=== PATIENT | female | born 1985 | race Caucasian/White ===

== ENCOUNTER → 2020-03-08 07:47 | Outpatient (BNVA) | payer MEDICAID, SELFPAY | PROVIDERS: PCP Internal Medicine Geriatric Medicine; Referring Provider Internal Medicine Geriatric Medicine; Visit Provider Surgery | DX: Z76.89 Persons encountering health services in other specified circumstances (principal) ==

== ENCOUNTER → 2020-03-31 08:09 | Outpatient (BNVA) | payer MEDICAID, SELFPAY | PROVIDERS: PCP Internal Medicine Geriatric Medicine; Referring Provider Internal Medicine Geriatric Medicine; Visit Provider Surgery | DX: Z76.89 Persons encountering health services in other specified circumstances (principal) ==

== ENCOUNTER → 2020-04-07 08:42 | Outpatient (BNVA) | payer MEDICAID, SELFPAY | PROVIDERS: PCP Internal Medicine Geriatric Medicine; Referring Provider Internal Medicine Geriatric Medicine; Visit Provider Dietitian, Registered | DX: Z76.89 Persons encountering health services in other specified circumstances (principal) ==

== ENCOUNTER 2020-04-11 10:35 | Outpatient (REF) | payer MEDICAID, SELFPAY ==
--- NOTE | 2020-04-11 11:11 | XR_ITS ---
EXAMINATION: XR CHEST CLINICAL INFORMATION: Morbid obesity due to excess calories. COMPARISON: None TECHNIQUE: 2 views of the chest were obtained. FINDINGS: No significant abnormality is noted involving the heart, lungs, mediastinum, bony thorax or soft tissues. XR/XR chest 2V IMPRESSION: Unremarkable chest examination.
[2020-04-11 11:47] LABS: MANUAL DIFF FLAG NO
[2020-04-11 12:00] LABS: Basophils Percent Auto 0.5 % (0-2); Eosinophils Absolute Auto 0.2 X10*3/uL (0.0-0.4); Eosinophils Percent Auto 3.7 % (0-4); Hematocrit 43.6 % (37-47); Hemoglobin 14.2 g/dl (12.0-16.0); Imm Gran Abs Auto 0.03 X10*3/uL (0.00-0.03); Imm Gran Pct Auto 0.5 % (0.0-0.4); Lymphocytes Absolute Auto 2.4 X10*3/uL (1.2-4.9); Lymphocytes Percent Auto 36.4 % (20-40); Mean Corpuscular HGB Conc 32.6 g/dl (31.0-35.0); Mean Corpuscular Hemoglobin 26.9 pg (27.0-33.0); Mean Corpuscular Volume 82.7 fL (80-98); Mean Platelet Volume 12.8 fL (9.4-12.3); Monocytes Absolute Auto 0.4 X10*3/uL (0.1-1.2); Neutrophils Absolute Auto 3.4 X10*3/uL (2.0-8.3); Neutrophils Percent Auto 52.9 % (45-73); Platelet Count 190 X10*3/uL (160-400); Red Blood Count 5.27 X10*6/uL (4.20-5.50); Red Cell Distribution Width 13.3 % (11.0-16.0); White Blood Count 6.5 X10*3/uL (4.8-10.8)
[2020-04-11 12:18] LABS: Alanine Aminotransferase 31 U/L (0-31); Albumin Level 3.8 g/dL (3.5-5.0); Alkaline Phosphatase 64 U/L (39-117); Anion Gap 10 (12-20); Aspartate Amino Transferase 15 U/L (5-31); Bilirubin Total 0.4 mg/dL (0.0-1.0); Blood Urea Nitrogen 12 mg/dL (9-16); Calcium 8.4 mg/dL (8.4-10.2); Carbon Dioxide 25 mmol/L (22-29); Chloride 105 mmol/L (96-108); Cholesterol 135 mg/dL; Estimated Glomerular Filt Rate > 60; Glucose Random 212 mg/dL (60-115); HDL Cholesterol 45 mg/dL; LDL Cholesterol Calculated 78 mg/dl; Potassium 4.2 mmol/l (3.3-5.1); Sodium 136 mmol/L (135-145); Total Protein 6.2 g/dL (6.5-8.0); Triglycerides 64 mg/dL
[2020-04-11 12:24] LABS: Estimated Average Glucose 226 mg/dL; Hemoglobin A1c % 9.5 %
[2020-04-11 12:43] LABS: Ferritin 44 ng/mL (10-122); TSH reflex Free T4 0.99 mIU/mL (0.32-4.0)
[2020-04-11 12:52] LABS: Folate > 20.0 ng/mL (> or = 4.0); Vitamin B12 369 pg/mL (200-900)
[2020-04-12 22:52] LABS: Insulin Level Total 11.6 uIU/mL
[2020-04-13 14:02] LABS: Calcium (PTHI) 8.8 mg/dL (8.6-10.2); PTHI 36 pg/mL (14-64)
[2020-04-16 12:23] LABS: Vitamin B1 15 nmol/L (8-30)
[2020-04-17 16:12] LABS: Zinc 56 mcg/dL (60-130)
[2020-04-18 11:27] LABS: Vitamin A 32 mcg/dL (38-98)
== END 2020-04-11 10:36 | disposition home or self-care (01) ==
LOC: HO.LAB 10:35
PROVIDERS: PCP Internal Medicine Geriatric Medicine; Visit Provider Surgery
DX: E66.01 Morbid (severe) obesity due to excess calories (principal)
CPT/HCPCS: 36415; 71046; 80053; 80061; 82306; 82607; 82728; 82746; 83036; 83525; 83970; 84425; 84443; 84590; 84630; 85025; 86140

== ENCOUNTER → 2020-04-17 08:38 | Outpatient (BNVA) | payer MEDICAID, SELFPAY | PROVIDERS: PCP Internal Medicine Geriatric Medicine; Visit Provider Surgery | DX: Z76.89 Persons encountering health services in other specified circumstances (principal) ==

== ENCOUNTER 2020-05-08 13:17 | Emergency (ER) | payer MEDICAID, SELFPAY ==
[2020-05-08 13:32] VITALS: BP 116/81; PULSE 82; RESP 18; TEMP 36.4; O2SAT 96; BMI 41.6
--- NOTE | 2020-05-08 13:38 | ED_ITS ---
HPI - General Adult General Chief complaint: General Medical Stated complaint: neck pain Time Seen by Provider: 05/08/20 13:37 Source: patient Mode of arrival: ambulatory Limitations: language barrier History of Present Illness HPI narrative: 34 y/o female with history of obesity, depression, DM with neuropathy who presents with left upper back, left neck pain for the last 5 days. She denies trauma but she works as a hairstylist and blowing hair all day is what she thinks made the pain start in the first place. The pain is worse at night. She feels like she has muscle spasms in her neck and back. MD complaint: neck and back pain Onset (ago): day(s) (5) Location: neck and back Radiation: distal Severity: moderate Quality: burning and aching Pain Consistency: constant Relieving factors: immobilization Exacerbating factors: movement Associated symptoms: denies other symptoms Treatments prior to arrival: none Related Data Home Medications Medication Instructions Recorded Confirmed empagliflozin 10 mg tablet 10 mg PO DAILY 03/08/20 03/08/20 insulin glargine 100 unit/mL (3 10 unit SUBCUT BID 03/08/20 03/08/20 mL) subcutaneous pen insulin lispro 100 unit/mL 20.5 unit SUBCUT BID 03/08/20 03/08/20 subcutaneous half-unit pen metformin 1,000 mg tablet 1,000 mg PO DAILY 03/08/20 03/08/20 Previous Rx's Medication Instructions Recorded mecobalamin (vitamin B12) 1,000 1,000 mcg SUBLINGUAL DAILY #30 tab 04/17/20 mcg disintegrating tablet,sublingual cyclobenzaprine 10 mg PO TID PRN #12 tab 05/08/20 ibuprofen 600 mg PO Q8H PRN #20 tab 05/08/20 lidocaine [Lidoderm] 1 patch TOPICAL DAILY #15 ea 05/08/20 Allergies Allergy/AdvReac Type Severity Reaction Status Date / Time aspirin [ASA] Allergy Mild RASH Verified 05/08/20 13:32 Review of Systems Review of Systems: Constitutional: No Fever, No Chills Cardiovascular: No Chest Pain, No SOB Respiratory: No Cough, No Sputum Gastrointestinal: No Nausea, No Vomiting, No Diarrhea, No abdominal Pain Genitourinary: No Dysuria, No Urinary Frequency, No Hematuria Musculoskeletal: + joint pain, + Myalgias Skin: No Skin Lesions, No rash Neuro: No Weakness, No Numbness, No Dizziness, + Headache PMF Past Medical History Attestation statement: The following information was validated with the patient. Medical History Depression Insulin dependent diabetes mellitus Morbid obesity Neuropathy Obesity Vitamin B12 deficiency Surgical History Hx of section Hx of cholecystectomy Family History Family History (Updated 03/08/20 @ 07:46 by Levar Ascencio [facility]) Mother No problems noted. Father No problems noted. Brother No problems noted. Brother No problems noted. Brother No problems noted. Brother No problems noted. Brother No problems noted. Sister No problems noted. Sister No problems noted. Sister No problems noted. Son No problems noted. Daughter No problems noted. Daughter Asthma Social History Social History (Updated 03/08/20 @ 07:46 by Levar Ascencio [facility]) Alcohol intake: never Smoking Status: Never smoker Advance Directives: No Advance Directives Information Provided: No Physical Exam Vital Signs: Vital Signs: Last Vital Signs Temp 97.6 F 05/08/20 13:32 Pulse 82 05/08/20 13:32 Resp 18 05/08/20 13:32 BP 116/81 05/08/20 13:32 Pulse Ox 96 05/08/20 13:32 Body Mass Index 41.6 Appearance: Alert. Oriented X3. No acute distress. HEENT: normal inspection. no cervical spinal tenderness CVS: Normal heart rate and rhythm. Pulses normal. Respiratory: No respiratory distress. Lungs CTAB Skin: Skin warm and dry. Normal skin color. Normal skin turgor. No rashes. Extremities: left posterior shoulder tenderness with upper trapzeius spasm. normal ROM. normal left elbow. Neuro: Oriented X 3. No motor deficit. No sensory deficit. Course Course Course Narrative: 34 y/o female with history of DM with neuropathy, obesity presenting with left upper back, neck pain with palpable spasm on exam. No trauma, will treat for muscle spasm. Patient has been counseled. She is stable for discharge. Critical Care Time Critical Care Time Critical Care Time: No Discharge Plan Discharge Clinical Impression: Trapezius muscle spasm Cervical muscle strain Qualifiers: Encounter type: initial encounter Qualified Code(s): S16.1XXA - Strain of muscle, fascia and tendon at neck level, initial encounter Patient Disposition: Home, Self-Care Instructions: Cervical Strain (ED), Muscle Spasm (ED) Prescriptions: New cyclobenzaprine 10 mg tablet 10 mg PO TID PRN (Reason: muscle spasm) Qty: 12 RF: 0 ibuprofen 600 mg tablet 600 mg PO Q8H PRN (Reason: pain) Qty: 20 RF: 0 lidocaine [Lidoderm] 5 % adhesive patch,medicated 1 patch topical DAILY Qty: 15 RF: 0 No Action metformin 1,000 mg tablet 1,000 mg PO DAILY RF: 0 Jardiance 10 mg tablet 10 mg PO DAILY RF: 0 Lantus Solostar U-100 Insulin 100 unit/mL (3 mL) insulin pen 10 unit subcut BID RF: 0 insulin lispro [Humalog Eliezer KwikPen U-100] 100 unit/mL insulin pen, half- unit 20.5 unit subcut BID RF: 0 mecobalamin (vitamin B12) 1,000 mcg tablet,disintegrating 1,000 mcg sublingual DAILY Qty: 30 RF: 2
== END 2020-05-08 14:31 | disposition home or self-care (01) ==
PROVIDERS: Emergency Provider Emergency Medicine; PCP Internal Medicine Geriatric Medicine
DX: M62.838 Other muscle spasm (principal); S16.1XXA Strain of muscle, fascia and tendon at neck level, initial encounter; X50.1XXA Overexertion from prolonged static or awkward postures, initial encounter; E11.9 Type 2 diabetes mellitus without complications; Y93.9 Activity, unspecified; Y92.9 Unspecified place or not applicable; Y99.9 Unspecified external cause status; Z79.4 Long term (current) use of insulin
CPT/HCPCS: 99283

== ENCOUNTER → 2020-05-09 08:13 | Outpatient (BNVA) | payer MEDICAID, SELFPAY | PROVIDERS: PCP Internal Medicine Geriatric Medicine; Visit Provider Dietitian, Registered ==

== ENCOUNTER → 2020-05-12 08:12 | Outpatient (BNVA) | payer MEDICAID, SELFPAY | PROVIDERS: PCP Internal Medicine Geriatric Medicine; Visit Provider Surgery ==

== ENCOUNTER 2020-05-14 16:58 | Emergency (ER) | payer MEDICAID, SELFPAY ==
--- NOTE | 2020-05-14 | XR_ITS ---
EXAMINATION: SHOULDER 4 VIEWS, LEFT CLINICAL INFORMATION: Left shoulder pain. COMPARISON: None. TECHNIQUE: AP views of the left shoulder were obtained in internal and external rotation. In addition, axillary and Y views were obtained. FINDINGS: There are no fractures or dislocations. The humeral head is seated within a well-formed glenoid. The AC joint is intact. XR/XR shoulder LT min 2V IMPRESSION: Unremarkable left shoulder radiographs.
[2020-05-14 17:14] VITALS: BP 142/80; PULSE 85; RESP 16; TEMP 36.5; O2SAT 99; BMI 41.3
--- NOTE | 2020-05-14 19:13 | ED.EXTPRO ---
HPI - Extremity Problem General Chief complaint: Extremity Injury, Upper Stated complaint: sholder pain Source: patient Mode of arrival: ambulatory Limitations: no limitations History of Present Illness HPI Narrative: 35-year-old female with past medical history of depression, insulin-dependent diabetic, morbid obesity, and neuropathy presents with left shoulder pain. 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 She denies trauma or falls, and states the pain is preventing her from sleeping. She does not report any other symptoms at this time. She does have full range of motion although it is limited because of her pain, has full range of motion to her fingers and has not lost sensation or strength. MD Complaint: extremity pain Onset (ago): day(s) Pain Consistency: constant Location: left Severity scale (1-10): 10 Quality: aching Radiation: none Relieving factors: nothing Exacerbating factors: range of motion Associated symptoms: denies other symptoms Related Data Home Medications Medication Instructions Recorded Confirmed empagliflozin 10 mg tablet 10 mg PO DAILY 03/08/20 03/08/20 insulin glargine 100 unit/mL (3 10 unit SUBCUT BID 03/08/20 03/08/20 mL) subcutaneous pen insulin lispro 100 unit/mL 20.5 unit SUBCUT BID 03/08/20 03/08/20 subcutaneous half-unit pen metformin 1,000 mg tablet 1,000 mg PO DAILY 03/08/20 03/08/20 Previous Rx's Medication Instructions Recorded mecobalamin (vitamin B12) 1,000 1,000 mcg SUBLINGUAL DAILY #30 tab 04/17/20 mcg disintegrating tablet,sublingual cyclobenzaprine 10 mg PO TID PRN #12 tab 05/08/20 ibuprofen 600 mg PO Q8H PRN #20 tab 05/08/20 lidocaine [Lidoderm] 1 patch TOPICAL DAILY #15 ea 05/08/20 diazepam [Valium] 2 mg PO BEDTIME PRN #7 tab 05/14/20 tramadol 50 mg PO Q8H PRN #10 tab 05/14/20 Allergies Allergy/AdvReac Type Severity Reaction Status Date / Time aspirin [ASA] Allergy Mild RASH Verified 05/08/20 13:32 Review of Systems Review of Systems: Constitutional: No Fever, No Chills ENT/Mouth: No Ear Pain, No Hoarseness, No sore throat Eyes: No Eye Pain, No Swelling, No Redness, No Foreign Body Cardiovascular: No Chest Pain, No SOB Respiratory: No Cough, No Dyspnea Gastrointestinal: No Nausea, No Vomiting, No Diarrhea, No abdominal Pain Genitourinary: No Dysuria, No Hematuria Musculoskeletal: positive left shoulder pain, No Myalgias, No Joint Swelling Skin: No Skin lacerations, No rash Neuro: No Weakness, No Numbness, No Paresthesias, No Loss of Consciousness, No Dizziness, No Headache Psych: No Anxiety/Panic, No Depression Heme/Lymph: no easy bruising, no Lymphadenopathy Endocrine: No Polyuria, No Polydipsia Yes all other systems are reviewed and are negative [facility] Past Medical History Attestation statement: The following information was validated with the patient. Source: old records reviewed Medical History Depression Insulin dependent diabetes mellitus Morbid obesity Neuropathy Obesity Vitamin B12 deficiency Surgical History Hx of section Hx of cholecystectomy Family History Family History Mother No problems noted. Father No problems noted. Brother No problems noted. Brother No problems noted. Brother No problems noted. Brother No problems noted. Brother No problems noted. Sister No problems noted. Sister No problems noted. Sister No problems noted. Son No problems noted. Daughter No problems noted. Daughter Asthma Social History Social History Alcohol intake: never Smoking Status: Never smoker Advance Directives: No Advance Directives Information Provided: No Physical Exam Vital Signs: Vital Signs: Last Vital Signs Temp 97.7 F 05/14/20 17:14 Pulse 93 05/14/20 19:50 Resp 16 05/14/20 19:50 BP 121/76 05/14/20 19:50 Pulse Ox 96 05/14/20 19:50 Body Mass Index 41.3 Appearance: Alert. Oriented X3. No acute distress. Eyes: Pupils equal, round and reactive to light. ENT: Pharynx normal. Neck: Normal inspection. Neck supple. CVS: Normal heart rate and rhythm. Pulses normal. Respiratory: No respiratory distress. Breath sounds normal. Abdomen: Soft and nontender. Skin: Skin warm and dry. Normal skin color. Normal skin turgor. Extremities: No lower extremity edema. Left shoulder decreased range of motion with abduction and adduction, strength 5/5, brisk capillary refill, pulses equal to all extremities. Neuro: No motor deficit. No sensory deficit. Course Course Course Narrative: 35-year-old female presents with nontraumatic left shoulder pain. Will order x-rays. She does have full range of motion although she is hesitant to fully abduct and adduct because of the pain in her shoulder, strength 5/5 to hands able to pronate and supinate, flexion and extension without difficulty. No neurovascular deficits. X-rays negative for acute findings. Suspected to be tendinitis due to her occupation. Will have her follow-up with orthopedics tomorrow. Patient verbalized understanding of and agrees plan of care discharge home. MDM - Extremity (Nontraumatic) MDM Narrative Medical decision making narrative: Tendinitis, rotator cuff injury, arthritis Medical Records Attestation: I reviewed the patient's medical records. Imaging Data Shoulder x-ray: Attestation: I personally reviewed and interpreted this imaging study as follows: Radiologist's impression: EXAMINATION: SHOULDER 4 VIEWS, LEFT CLINICAL INFORMATION: Left shoulder pain. COMPARISON: None. TECHNIQUE: AP views of the left shoulder were obtained in internal and external rotation. In addition, axillary and Y views were obtained. FINDINGS: There are no fractures or dislocations. The humeral head is seated within a well-formed glenoid. The AC joint is intact. XR/XR shoulder LT min 2V IMPRESSION: Unremarkable left shoulder radiographs. Discharge Plan Discharge Clinical Impression: Shoulder arthralgia, Rotator cuff arthropathy Patient Disposition: Home, Self-Care Instructions: Rotator Cuff Tendinitis (ED), Arthralgia (ED) Additional Instructions: Te evaluaron [facility] el [facility]. Se sospecha que esto es tendinitis. Las radiograf?as son negativas para fracturas o hallazgos agudos. Por favor, tome tramadol seg?n sea necesario para el manejo del dolor. Ellie medicamento es un narc?walter y tiene un alto riesgo de adicci?n y abuso. No conduzca ni utilice maquinaria mientras est? tomando ellie medicamento. Puede usar Valium seg?n sea necesario para los espasmos musculares. Utiliza medicamentos solo por la noche. Ellie medicamento es un benzo diazepam y tiene un alto riesgo de adicci?n y abuso. No conduzca ni utilice maquinaria mientras est? tomando ellie medicamento. Por favor, siga con el Dr. Zhao y pida timmy jess. David por elegir ellie departamento de emergencias para la evaluaci?n. Por favor, yasir un seguimiento con el m?dico de atenci?n primaria seg?n sea necesario. Regrese al servicio de urgencias para cualquier s?ntoma nuevo, preocupante o que empeore. You were evaluated for left shoulder pain. This is suspected to be tendonitis. Your x-rays are negative for fracture or acute findings. Please take tramadol as needed for pain management. This medication is a narcotic and has high risk for addiction and abuse. Do not drive or operate machinery while taking this medication. You may use Valium as needed for muscle spasms. Uses medication only at night. This medication is a benzo diazepam and has high risk for addiction and abuse. Do not drive or operate machinery while taking this medication. Please follow-up with Dr. Giron. Call and ask for an appointment. Thank you for choosing this emergency department for evaluation. Please follow-up with primary care physician as needed. Return to the emergency department for any new, concerning, or worsening symptoms. Prescriptions: New tramadol 50 mg tablet 50 mg PO Q8H PRN (Reason: pain) Qty: 10 RF: 0 diazepam [Valium] 2 mg tablet 2 mg PO BEDTIME PRN (Reason: muscle spasm) Qty: 7 RF: 0 No Action cyclobenzaprine 10 mg tablet 10 mg PO TID PRN (Reason: muscle spasm) Qty: 12 RF: 0 ibuprofen 600 mg tablet 600 mg PO Q8H PRN (Reason: pain) Qty: 20 RF: 0 lidocaine [Lidoderm] 5 % adhesive patch,medicated 1 patch topical DAILY Qty: 15 RF: 0 metformin 1,000 mg tablet 1,000 mg PO DAILY RF: 0 Jardiance 10 mg tablet 10 mg PO DAILY RF: 0 Lantus Solostar U-100 Insulin 100 unit/mL (3 mL) insulin pen 10 unit subcut BID RF: 0 insulin lispro [Humalog Eliezer KwikPen U-100] 100 unit/mL insulin pen, half-unit 20.5 unit subcut BID RF: 0 mecobalamin (vitamin B12) 1,000 mcg tablet,disintegrating 1,000 mcg sublingual DAILY Qty: 30 RF: 2 Referrals: Chris Giron MD [Physician] - 2 days (Suspected Left shoulder tendinitis) Interventions: ED Discharge Assessment Last Done: 05/14/20 20:05 Discharge Date/Time: 05/14/20 20:05
[2020-05-14 19:50] VITALS: BP 121/76; PULSE 93; RESP 16; O2SAT 96
== END 2020-05-14 20:05 | disposition home or self-care (01) ==
PROVIDERS: Emergency Provider Emergency Medicine Emergency Medical Services; PCP Internal Medicine Geriatric Medicine
DX: M75.102 Unspecified rotator cuff tear or rupture of left shoulder, not specified as traumatic (principal); M25.512 Pain in left shoulder; Z79.899 Other long term (current) drug therapy
CPT/HCPCS: 73030; 99283; 99284

== ENCOUNTER → 2020-05-25 13:33 | Outpatient (BNVA) | payer MEDICAID, SELFPAY | PROVIDERS: PCP Internal Medicine Geriatric Medicine; Visit Provider Physician Assistant | DX: M75.82 Other shoulder lesions, left shoulder (principal) | CPT/HCPCS: 99202 ==

== ENCOUNTER → 2020-05-26 08:28 | Outpatient (BNVA) | payer MEDICAID, SELFPAY | PROVIDERS: PCP Internal Medicine Geriatric Medicine; Visit Provider Surgery ==

== ENCOUNTER → 2020-06-12 08:58 | Outpatient (BNVA) | payer MEDICAID, SELFPAY | PROVIDERS: PCP Internal Medicine Geriatric Medicine; Visit Provider Dietitian, Registered ==

== ENCOUNTER → 2020-06-23 08:17 | Outpatient (BNVA) | payer MEDICAID, SELFPAY | PROVIDERS: PCP Internal Medicine Geriatric Medicine; Visit Provider Surgery ==

== ENCOUNTER → 2020-07-03 08:47 | Outpatient (BNVA) | payer MEDICAID, SELFPAY | PROVIDERS: PCP Internal Medicine Geriatric Medicine; Visit Provider Dietitian, Registered ==

== ENCOUNTER 2020-11-08 16:53 | Emergency (ER) | payer MEDICAID, SELFPAY ==
[2020-11-08 17:16] VITALS: BP 128/51; PULSE 76; RESP 16; TEMP 36.6; O2SAT 98; BMI 43.2
--- NOTE | 2020-11-08 17:16 | ED.GENADULT ---
HPI - General Adult General Chief complaint: Recheck/Abnormal Lab/Rx Stated complaint: Abnormal labs Time Seen by Provider: 11/08/20 17:16 Source: patient Mode of arrival: ambulatory Limitations: no limitations History of Present Illness HPI narrative: 35 y/o female presenting to the ED from Urgent Care with glucose in the 300s and ketones in her urine. She initially went there for nausea, polyuria and dizziness. She took herself off of her Lantus about 3-4 weeks ago because she doesn't like injecting herself so frequently. She has been compliant with her humalog. Since stopping her Lantus her sugars have gone up to 300+ from a baseline of 100-200 per her report. No SOB, fever, chills, abd pain, vomiting or diarrhea. MD complaint: hyperglycemia Onset (ago): week(s) (3) Severity: moderate Relieving factors: none Exacerbating factors: none Associated symptoms: malaise Treatments prior to arrival: none Related Data Home Medications Medication Instructions Recorded Confirmed empagliflozin 10 mg tablet 10 mg PO DAILY 03/08/20 03/08/20 insulin glargine 100 unit/mL (3 10 unit SUBCUT BID 03/08/20 03/08/20 mL) subcutaneous pen insulin lispro 100 unit/mL 20.5 unit SUBCUT BID 03/08/20 03/08/20 subcutaneous half-unit pen metformin 1,000 mg tablet 1,000 mg PO DAILY 03/08/20 03/08/20 celecoxib 50 mg capsule 50 mg PO DAILY 05/25/20 Previous Rx's Medication Instructions Recorded mecobalamin (vitamin B12) 1,000 1,000 mcg SUBLINGUAL DAILY #30 tab 04/17/20 mcg disintegrating tablet,sublingual cyclobenzaprine 10 mg PO TID PRN #12 tab 05/08/20 ibuprofen 600 mg PO Q8H PRN #20 tab 05/08/20 lidocaine [Lidoderm] 1 patch TOPICAL DAILY #15 ea 05/08/20 diazepam [Valium] 2 mg PO BEDTIME PRN #7 tab 05/14/20 tramadol 50 mg PO Q8H PRN #10 tab 05/14/20 Allergies Allergy/AdvReac Type Severity Reaction Status Date / Time aspirin [ASA] Allergy Mild RASH Verified 05/08/20 13:32 Review of Systems Review of Systems: Constitutional: No Fever, No Chills ENT/Mouth: No sore throat Cardiovascular: No Chest Pain, No SOB Respiratory: No Cough, No Sputum Gastrointestinal: + Nausea, No Vomiting, No Diarrhea, No abdominal Pain Genitourinary: No Dysuria, + Urinary Frequency, No Hematuria Musculoskeletal: No joint pain, No Myalgias Skin: No Skin Lesions, No rash Neuro: No Weakness, No Numbness, No Dizziness, No Headache Heme/Lymph: No Lymphadenopathy Endocrine: + Polyuria, +Polydipsia PMFSH Past Medical History Attestation statement: The following information was validated with the patient. Medical History Depression Insulin dependent diabetes mellitus Morbid obesity Neuropathy Obesity Vitamin B12 deficiency Surgical History Hx of section Hx of cholecystectomy Family History Family History Mother No problems noted. Father No problems noted. Brother No problems noted. Brother No problems noted. Brother No problems noted. Brother No problems noted. Brother No problems noted. Sister No problems noted. Sister No problems noted. Sister No problems noted. Son No problems noted. Daughter No problems noted. Daughter Asthma Social History Social History (Updated 05/25/20 @ 14:[address] [facility]) Alcohol intake: never Advance Directives: No Advance Directives Information Provided: No Current occupational status: unemployed Current occupation: stylist - Right Handed Physical Exam Vital Signs: Vital Signs: Last Vital Signs Temp 97.9 F 11/08/20 17:16 Pulse 76 11/08/20 17:16 Resp 16 11/08/20 17:16 BP 128/51 L 11/08/20 17:16 Pulse Ox 98 11/08/20 17:16 Body Mass Index 43.2 Appearance: Alert. Oriented X3. No acute distress. Eyes: Pupils equal, round and reactive to light. ENT: Pharynx normal. Neck: Normal inspection. Neck supple. CVS: Normal heart rate and rhythm. Pulses normal. Respiratory: No respiratory distress. Breath sounds normal. Abdomen: Obese, Soft and nontender. +BS x4 Skin: Skin warm and dry. Normal skin color. Normal skin turgor. No rashes. Extremities: No lower extremity edema. Neuro: Oriented X 3. No motor deficit. No sensory deficit. Course Course Course Narrative: 35 y/o female with history of poorly controlled DM2 (Hbg A1c 10.9%) on insulin x6 years, obesity, presents from Urgent Care with c/o nausea, dizziness and polyuria with glucose in the 300s + ketones in her urine. + dysuria. She reports taking herself off of her Lantus 40 units BID about 1 month ago and her sugars have been in the 300+ since. She doesn't like injecting herself so freqeuntly. Denies hx DKA. VS normal. Her POC is 250, 300s at urgent care. She has Lantus at home. She agrees to take it. Clinical suspicion for DKA is exremely low. Her symptoms are due to hyperglycemia in ther setting of noncompliance. Case d/w Dr. Parsons. Counseled on the importance of taking insulin exactly as directed. municipal maintenance worker used to explain. She is stable for d/c home with plan to start her Lantus tonight and f/u wtih her doctor this week. Patient agrees with plan and will come back to the ER if symptoms worsen. Discharge Plan Discharge Clinical Impression: Poorly controlled type 2 diabetes mellitus Patient Disposition: Home, Self-Care Instructions: Diabetic Hyperglycemia (ED) Additional Instructions: Your glucose today was 250. IT IS VERY IMPORTANT THAT YOU TAKE YOUR LANTUS PRESCRIBED. START TONIGHT. Stick to a low carb and low sugar diet. Monitor your glucose before meals and before bedtime. Keep records of the readings for your doctor. Follow up with your doctor this week. If you develop new or worsening symptoms call 911 or come back to the ER for further evaluation. Prescriptions: No Action tramadol 50 mg tablet 50 mg PO Q8H PRN (Reason: pain) Qty: 10 RF: 0 diazepam [Valium] 2 mg tablet 2 mg PO BEDTIME PRN (Reason: muscle spasm) Qty: 7 RF: 0 cyclobenzaprine 10 mg tablet 10 mg PO TID PRN (Reason: muscle spasm) Qty: 12 RF: 0 ibuprofen 600 mg tablet 600 mg PO Q8H PRN (Reason: pain) Qty: 20 RF: 0 lidocaine [Lidoderm] 5 % adhesive patch,medicated 1 patch topical DAILY Qty: 15 RF: 0 metformin 1,000 mg tablet 1,000 mg PO DAILY RF: 0 Jardiance 10 mg tablet 10 mg PO DAILY RF: 0 Lantus Solostar U-100 Insulin 100 unit/mL (3 mL) insulin pen 10 unit subcut BID RF: 0 insulin lispro [Humalog Eliezer KwikPen U-100] 100 unit/mL insulin pen, half-unit 20.5 unit subcut BID RF: 0 mecobalamin (vitamin B12) 1,000 mcg tablet,disintegrating 1,000 mcg sublingual DAILY Qty: 30 RF: 2 Referrals: Name,MD Piero [Primary Care Provider] - 2 days (poorly controlled DM, A1c 10.9)
[2020-11-08 22:40] LABS: Glucose, Whole Blood 251 mg/dL (60-115)
== END 2020-11-08 17:53 | disposition home or self-care (01) ==
PROVIDERS: Emergency Provider Emergency Medicine; PCP Internal Medicine Geriatric Medicine
DX: E11.65 Type 2 diabetes mellitus with hyperglycemia (principal); T38.3X6A Underdosing of insulin and oral hypoglycemic [antidiabetic] drugs, initial encounter; Z91.128 Patient's intentional underdosing of medication regimen for other reason; Y92.9 Unspecified place or not applicable
CPT/HCPCS: 82947; 96360; 99283; 99284

== ENCOUNTER 2021-07-11 15:43 | Outpatient (REF) | payer MEDICAID, SELFPAY ==
[2021-07-11 20:56] LABS: CT PCR NOT DETECTED (Not Detect.); NG PCR NOT DETECTED (Not Detect.)
== END 2021-07-11 15:44 | disposition home or self-care (01) ==
LOC: HO.LAB 15:43
PROVIDERS: PCP Internal Medicine Geriatric Medicine; Visit Provider Obstetrics & Gynecology
DX: R10.2 Pelvic and perineal pain (principal)
CPT/HCPCS: 81003; 81025; 87491; 87591; 99202

== ENCOUNTER 2023-09-10 12:33 | Outpatient (REF) | payer MEDICAID, SELFPAY ==
[2023-09-10 14:00] LABS: Anion Gap 13 (12-20); Blood Urea Nitrogen 9 mg/dL (9-16); Calcium 9.3 mg/dL (8.4-10.2); Carbon Dioxide 24 mmol/L (22-29); Chloride 103 mmol/L (96-108); Estimated Glomerular Filt Rate > 60; Glucose Random 193 mg/dL (60-115); Sodium 136 mmol/L (135-145)
== END 2023-09-10 12:34 | disposition home or self-care (01) ==
LOC: HO.HHCL 12:33
PROVIDERS: Visit Provider Internal Medicine Geriatric Medicine
DX: L65.9 Nonscarring hair loss, unspecified (principal); R03.0 Elevated blood-pressure reading, without diagnosis of hypertension
CPT/HCPCS: 36415; 80048; 84443

== ENCOUNTER 2024-04-08 09:10 | Outpatient (REF) | payer MEDICAID, SELFPAY ==
[2024-04-08 11:48] LABS: Alanine Aminotransferase 56 U/L (0-31); Albumin Level 3.9 g/dL (3.5-5.0); Alkaline Phosphatase 70 U/L (39-117); Anion Gap 9 (12-20); Aspartate Amino Transferase 31 U/L (5-31); Bilirubin Total 0.3 mg/dL (0.0-1.0); Blood Urea Nitrogen 10 mg/dL (9-16); Calcium 8.9 mg/dL (8.4-10.2); Carbon Dioxide 27 mmol/L (22-29); Chloride 108 mmol/L (96-108); Cholesterol 146 mg/dL (<200); Estimated Glomerular Filt Rate > 60; Glucose Random 153 mg/dL (60-115); HDL Cholesterol 41 mg/dL (>40); LDL Cholesterol Calculated 85 mg/dL (<100); Potassium 4.1 mmol/L (3.3-5.1); Sodium 140 mmol/L (135-145); Total Protein 6.9 g/dL (6.5-8.0); Triglycerides 101 mg/dL (<150)
[2024-04-08 12:19] LABS: Creatinine Urine 213.37 mg/dL; Microalbum/Creatinine Ratio Ur 6.5 ug/mg cr (<30)
== END 2024-04-08 09:11 | disposition home or self-care (01) ==
LOC: HO.HHCL 09:10
PROVIDERS: Visit Provider Internal Medicine Geriatric Medicine
DX: E11.65 Type 2 diabetes mellitus with hyperglycemia (principal); Z79.4 Long term (current) use of insulin
CPT/HCPCS: 36415; 80053; 80061; 82043; 82570

== ENCOUNTER 2024-05-12 11:52 | Outpatient (REF) | payer MEDICAID, SELFPAY ==
--- OUTSIDE RECORDS SUMMARY | 2024-05-12 13:54 | XMS_ITS | Encounter Summary ---
Author Organization [employer] Address [address] [facility] 7 [place] [address] Care Team Providers Care Plate Sensitizer Name Role Phone Name, Piero MANLEY Primary Care Provider [phone] Reason for Visit * Reason Onset Date Comments Chart Prep 05/04/2024 Encounter Details Date Type Department Care Team ([facility] st Contact Info) Description 05/04/2024 Telephone [facility] [address] [place] [address] Anita Foley MA Chart Prep Social History Tobacco Use Types Packs/Day Years Used Date Smoking Tobacco: Never Passive Smoke Exposure: Never Smokeless Tobacco: Never Alcohol Use Standard Drinks/Week Comments Never 0 (1 standard drink = 0.6 oz pur e alcohol) Depression Answer Date Recorded Patient Health Questionnaire-9 Score 0 01/08/2024 Patient Health Questionnaire-9 Score 0 01/08/2024 Last PHQ-9: Questionnaire Data Not on file 0 01/08/2024 Housing Stability Answer Date Recorded What is your housing situation today? I have jacques cespedes 01/08/[address] you li ve. Do you have problems with any of the following? None of the above 01/08/2024 Food Insecurity Answer Date Recorded Within the past 12 months, y ou worried that your food would run out before you got money to buy more: Never True 01/08/2024 Within the past 12 months,th e food you bought just didn't last and you didn't have enough money to get more: Never True Transportation Answer Date Recorded In the past 12 months, has l ack of transportation kept you from medical appts, meetings, work or from getting things needed for daily living? No 01/08/2024 Utilities Answer Date Recorded In the past 12 months, has t he electric, gas, oil or water company threatened to shut off services in your home? No 01/08/2024 Depression Answer Date Recorded Patient Health Questionnaire-2 Score 0 01/08/2024 Internet Access Answer Date Recorded Internet Access Q1 Yes 01/08/2024 Internet Access Q2 I do not want or need it 12/20 Comments Unknown Sex and Gender Information Value Date Recorded Sex Assigned at Female 02/18/2022 10:34 AM EDT Legal Sex Female 10:34 AM EDT Gender Identity Female 02/18/2022 10:34 AM EDT Sexual Orientation Straight 02/18/2022 10 :34 AM EDT documented as of this encounter Miscellaneous Notes * Telephone Encounter - Anita Foley MA - 05/04/2024 10:40 AM EST Chart Prep Labs: done Images: not done Vaccines due: Covid Due and Hep B Due Referrals: Radiology pending appointment Screenings: HIV screening and Hep C, Cervical cancer Overdue care gaps: Glucose documented in this encounter Plan of Treatment Upcoming Encounters Date Type Department Care Team (Late st Contact Info) Description 05/20/2024 3:30 PM EST Medication Management [facility] [address] [place] [address] Nadege Kay, PharmD [address] [place] [address] documented as of this encounter Visit Diagnoses Not on filedocumented in this encounter Additional Health Concerns Assessment Noted Time PHQ-9 Depression Total Score: 0 01/08/20 24 10:04 AM EDT documented as of this encounter Care Teams Plate Sensitizer Relationship Specialty Start Date End Date Name, MD Piero [address] [place] [address] PCP - General Family Medicine 11/28/17 documented as of this encounter
--- OUTSIDE RECORDS SUMMARY | 2024-05-12 13:54 | XMS_ITS | Encounter Summary ---
Author Organization [employer] Address [address] [facility] [address] [place] [address] Care Team Providers Care Survey Workers Supervisor Name Role Phone Name, Piero MANLEY Primary Care Provider [phone] Encounter Details Date Type Department Care Team ([facility] st Contact Info) Description 05/07/2024 Telephone [facility] [address] [place] [address] Mariza Karimi RN Social History Tobacco Use Types Packs/Day Years [...] is your housing situation today? I have jacqueskiana cespedes 01/08/[address] you [...] encounter Miscellaneous Notes * Telephone Encounter - Mariza Karimi RN - 05/07/2024 8:40 AM EST [facility]ations received. Pending approval/denial decision. Forms placed in [employer] scanning bin. documented in this encounter Plan of Treatment Upcoming Encounters Date Type Department Care Team (Late st Contact Info) Description 05/20/2024 3:30 PM EST Medication Management [facility] [address] [place] [address] Nadege Kay, PharmD [address] [place] [address] documented as of this encounter Visit Diagnoses Not on filedocumented in this encounter Additional Health Concerns Assessment Noted Time PHQ-9 Depression Total Score: 0 01/08/20 24 10:04 AM EDT documented as of this encounter Care Teams Survey Workers Supervisor Relationship Specialty Start Date End Date Name, MD Piero [address] [place] [address] PCP - General Family Medicine 11/28/17 documented as of this encounter
--- OUTSIDE RECORDS SUMMARY | 2024-05-12 13:54 | XMS_ITS | Encounter Summary ---
Author Organization [employer] Address [address] [facility] [address] [place] [address] Care Team Providers Care Gas Plant Specialist Name Role Phone Name, Piero MANLEY Primary Care Provider [phone] Reason for Visit * Reason Onset Date Comments Medication Question 04/22/2024 Encounter Details Date Type Department Care Team (Late st Contact Info) Description 04/22/2024 Refill [facility] [address] [place], [place] [id number] Name, MD Piero [address] [place] [address] Type 2 diabetes mellitus with hyperglycemia, with long-term current use of insulin ([facility]) Social History Tobacco Use Types Packs/Day Years [...] your housing situation today? I have jacques sing 01/08/[address] you li [...] encounter Miscellaneous Notes * Telephone Encounter - Stacy Brody RN - 05/06/2024 2:03 PM EST TC placed to [facility] pharmacy re: status of Semaglutide, 2 MG/DOSE, (Ozempic, 2 MG/DOSE,) 8 MG/3ML solution pen-injector. Pharmacy staff states the medication needs a PA. Pharmacy staff asked if PA was completed. Nurse stated that we were not informed that it needed one and would work on paperwork submission. TC placed to pt via [employer] business office representative ([employer]shan ID#[id number]) to inform pt we are working on the PA and will give a call back in a few days with an update. Denies any further questions or concerns. * Telephone Encounter - Wilfred Diop - 05/06/2024 1:33 PM EST Tc from pt requesting status on medication Semaglutide, 2 MG/DOSE, (Ozempic, 2 MG/DOSE,) 8 MG/3ML solution pen-injector * Telephone Encounter - Stacy Brody RN - 04/22/2024 11:25 AM EST TC placed to pt via [employer] business office representative (ID#[id number]) in regards to medication request. Pt states she needs a new prescription for Semaglutide, 2 MG/DOSE, (Ozempic, 2 MG/DOSE,) 8 MG/3ML solution pen-injector as the pharmacy stated she needed a new script. Pended to provider for review. * Telephone Encounter - Dinah Montes - 04/22/2024 11:07 AM EST Tc from pt in regards Semaglutide, 2 MG/DOSE, (Ozempic, 2 MG/DOSE,) 8 MG/3ML solution pen-injector new script. documented in this encounter Plan of Treatment Upcoming Encounters Date Type Department Care Team (Late st Contact Info) Description 05/20/2024 3:30 PM EST Medication Management [facility] [address] [place] [address] Nadege Kay, PharmD [address] [place] [address] documented as of this encounter Visit Diagnoses Diagnosis Type 2 diabetes mellitus with hyperglycemia, with long-term current use of insulin ([facility]) documented in this encounter Additional Health Concerns Assessment Noted Time PHQ-9 Depression Total Score: 0 01/08/20 24 10:04 AM EDT documented as of this encounter Care Teams Gas Plant Specialist Relationship Specialty Start Date End Date Name, MD Piero [address] [place] [address] PCP - General Family Medicine 11/28/17 documented as of this encounter
--- OUTSIDE RECORDS SUMMARY | 2024-05-12 13:54 | XMS_ITS | Clinical Summary ---
Author Organization [employer] Address [address] [place] [address] 7 [place] [address] Care Team Providers Care Air Defense Specialist Name Role Phone Name, Piero MANLEY Primary Care Provider Allergies Active Allergy Reactions Criticality Noted Date Comments Aspirin 04/29/2018 Dulaglutide 02/24/2019 Penicillin G 04/21/2002 Other reaction(s): Hives Medications * This document contains information received from the source organization and may not represent a complete record from that organization. albuterol (2.5 MG/3ML) 0.083% nebulizer solution inhale 3 milliliter by nebulization route 3 times every day as needed for wheezing Active albuterol 108 (90 Base) MCG/ACT inhaler inhale 2 puffs by Inhalation route 4 times every day as needed for wheeing Active fluticasone (Flonase) 50 MCG/ACT nasal spray inhale 2 spray by intranasal route every day in each nostril as needed for nasal congestion Active lidocaine (Lidoderm) 5 % patch apply 1-2 patches by topical route every day (May wear up to 12hours) prn pain. 022 Active loratadine (Claritin) 10 MG tablet take 1 tablet by oral route every day 022 Active norethindrone (Micronor) 0.35 MG tablet take 1 tablet by oral route every day Active montelukast (Singulair) 10 MG tablet take 1 tablet by oral route every day in the evening 06/03/2 022 Active Alcohol Swabs (Alcohol Prep) pads Active Blood Pressure kit Use daily Active Misc. Devices (Pulse Oximeter For Finger) miscIndications :Cough in adult patient,COVID-1 9 To check your O2 Sat every 4 hours. Call the office if O2Sat < 90% 1 each 023 Active acetaminophen (Tylenol) 500 MG tabletIndicatio ns:COVID-19 take 2 tablet by oral route every 6 hours as needed as needed for pain 30 tablet 023 Active insulin glargine (Lantus SoloStar) 100 UNIT/ML pen Inject 15 Units under the skin at bedtime. 4.5 mL 11 024 2024 Active metFORMIN (Glucophage) 500 MG tablet Take 0.5 tablets (250 mg) by mouth with breakfast and with evening meal. 30 tablet 024 2024 Active Blood Pressure kit Use once a day 1 kit 1 Active Continuous Blood Gluc Sensor (FreeStyle Jacobo 2 Sensor) misc Use as directed every 2 weeks 2 each Active Continuous Blood Gluc Facility Maintenance Manager (FreeStyle Jacobo 2 [place]) device Use as directed 1 each 024 Active minoxidil (Loniten) 2.5 MG tablet TAKE 1 TABLET BY MOUTH EVERY MORNING 30 tablet 5 Active ketoconazole (NIZOral) 2 % shampoo APPLY TOPICALLY TWICE A WEEK Active FREESTYLE LITE test strip USE TO TEST BLOOD SUGAR THREE TIMES A DAY 100 strip 11 Active fluconazole (Diflucan) 150 MG tablet TAKE 1 TABLET BY MOUTH ONCE 1 tablet Active insulin lispro (HumaLOG KWIKPEN) 200 UNIT/ML solution pen-injector penIndications: Type 2 diabetes mellitus with hyperglycemia, with long-term current use of insulin (CMS/HCC) INJECT 10 UNITS SUBCUTANEOUSLY PRIOR TO MEALS AND SNACKS 6 each 3 024 Active losartan (Cozaar) 50 MG tabletIndicatio ns:Type 2 diabetes mellitus with hyperglycemia, with long-term current use of insulin (CMS/HCC),Hyper tension, unspecified type Take 1 tablet (50 mg) by mouth Once per day. 90 tablet 12/27/2 024 Active atorvastatin (Lipitor) 20 MG tabletIndicatio ns:Type 2 diabetes mellitus with hyperglycemia, with long-term current use of insulin (CMS/[facility]) Take 1 tablet (20 mg) by mouth Once per day. 30 tablet 11 024 2024 Active Semaglutide, 2 MG/DOSE, (Ozempic, 2 MG/DOSE,) 8 MG/3ML solution pen-injectorInd ications:Type 2 diabetes mellitus with hyperglycemia, with long-term current use of insulin (CMS/[facility]) Inject 0.75 mL (2 mg) under the skin 1 (one) time per week. 3 mL 11 025 2025 Active Semaglutide, 2 MG/DOSE, (Ozempic, 2 MG/DOSE,) 8 MG/3ML solution pen-injectorInd ications:Type 2 diabetes mellitus with hyperglycemia, with long-term current use of insulin (CMS/[facility]) Inject 2 mg under the skin 1 (one) time per week. 3 mL 024 2024 Discontinued(R eorder (will not trigger notification to Pharmacy)) losartan (Cozaar) 50 MG tabletIndicatio ns:Elevated BP without diagnosis of hypertension Take 1 tablet (50 mg) by mouth Once per day. 90 tablet 024 2023 Discontinued(R eorder (will not trigger notification to Pharmacy)) celecoxib (CeleBREX) 200 MG capsuleIndicati ons:Type 2 diabetes mellitus with hyperglycemia, with long-term current use of insulin ([facility]) TAKE 1 CAPSULE (200 MG) BY MOUTH 2 TIMES DAILY FOR 20 DAYS. 40 capsule 024 2023 Discontinued(R eorder (will not trigger notification to Pharmacy)) celecoxib (CeleBREX) 200 MG capsuleIndicati ons:PE (physical exam), routine Take 1 capsule (200 mg) by mouth 2 times daily for 20 days. 40 capsule 024 2024 Active Problems Patient Care Coordination No te Formatting of this note migh t be different from the original. Name, , address verified; this CHW called pt to introduce care complex program. Patient declined since she moved out of the geographic area, Case will be closed from C3 program. Problem Noted Date Diagnosed Date Anxiety 08/19/2023 Assessment & Plan (08/19/2023 7:06 PM EDT): Sig stress at work, has permission from work for up health system time., will complete paperwork. Referral to behavioral health to establish counseling Elevated BP without diagnosis of hypertension Assessment & Plan (08/19/2023 7:05 PM EDT): Increase losartan to 50 mg, Type 2 diabetes mellitus wit h hyperglycemia, with long-term current use of insulin 04/03/2022 Assessment & Plan (08/19/2023 7:05 PM EDT): Increase to 18 units lantus, referral for med management for hyperglycemia, Allergic rhinitis 04/15/2018 History of cholecystectomy 10/02/2017 Morbid obesity 10/02/2017 Assessment & Plan (08/19/2023 7:05 PM EDT): Requesting referral for weight management, referral made Resolved Problems Problem Noted Date Diagnosed Date Resolved Date Bronchitis 04/03/2022 06/24/2023 Type 2 diabetes mellitus 10/02/201708/2023 Encounters Date Type Department Care Team Description 05/12/2024 10:45 AM EST Procedure Visit [address] [address] Hillary Pastrana FNP Routine cervical smear (Primary Dx); Menorrhagia with regular cycle; Soft tissue swelling 05/12/2024 Travel 05/07/2024 Telephone [facility] [address] [place] [address] [phone] Mariza Karimi, AMAN 05/04/[address] [phone] Anita Foley MA Chart Prep 04/22/[address] [address] Name, MD Piero Type 2 diabetes mellitus with hyperglycemia, with long-term current use of insulin ([facility]) 04/16/2024 10:30 AM EST Office Visit [facility] [address] [place] [address] Piero Clarke MD PE (physical exam), routine (Primary Dx); Type 2 diabetes mellitus with hyperglycemia, with long-term current use of insulin (CMS/HCC); Hypertension, unspecified type; Screening for cervical cancer; Encounter for screening mammogram for malignant neoplasm of breast; Encounter for immunization 04/16/2024 Telephone [facility] [address] [place] [address] Justina Davis MA Scheduled PAP exam 04/13/[address] [address] Anita Foley MA Chart Prep 04/07/2024 Patient Outreach [address] [address] Piero Clarke MD Pre-visit Planning ([facility] screening is completed) 03/25/2024 Refill [facility] [address] [place] [phone] Piero Clarke MD Type 2 diabetes mellitus with hyperglycemia, with long-term current use of insulin (CMS/HCC); Type 2 diabetes mellitus with hyperglycemia, with long-term current use of insulin (CMS/HCC) 03/09/2024 2:00 PM EST Office Visit [facility] [address] [place] [address] Leonel, Mere, OD Presbyopia (Primary Dx) 03/09/2024 Travel 03/09/2024 Refill [facility] [address] [place] [address] Piero Clarke MD Type 2 diabetes mellitus with hyperglycemia, with long-term current use of insulin (CMS/HCC) 02/10/2024 Telephone [facility] [address] [place] [phone] Piero Clarke MD Letter Request (The patient requested a letter, stating that she is cleared to return to work. I called to verify that she receive the letter that was generated on 02/09/24. She stated that she received the letter, and has returned to work.) 02/10/2024 Refill [facility] [address] [place] [address] Liza Elmore NP Elevated BP without diagnosis of hypertension 02/10/2024 Refill [facility] [address] [place] [address] Name, MD Piero Type 2 diabetes mellitus with hyperglycemia, with long-term current use of insulin ([facility]); Elevated BP without diagnosis of hypertension from Last 3 Months Immunizations Name Administration Dates Next Due Hep B, adult 01/08/2024 Influenza injectable quadriv alent IIV4 with preservative 12/30/2022,01/05/2019,01/12/2018 Influenza injectable quadriv alent preservative free 02/20/2021 Influenza, seasonal, injecta ble, preservative free 01/08/2024 MMR 12/30/2022,12/03/2022,04/11/2021 Pfizer Covid-19 Vaccine 12+ 11/30/2021,,01/02/2021 Pneumococcal Conjugate PCV 20 04/16/2024 Tdap 10/02/2017 Social History Tobacco Use Types Packs/Day Years [...] not want or need it 12/20 Comments No Sex and Gender Information Value Date Recorded Sex Assigned at Female 02/18/2022 10:34 AM EDT Legal Sex Female 10:34 AM EDT Gender Identity Female 02/18/2022 10:34 AM EDT Sexual Orientation Straight 02/18/2022 10 :34 AM EDT Last Filed Vital Signs Vital Sign Reading Time Taken Comments Blood Pressure 122/78 05/12/2024 11:06 AM EST Pulse 88 05/12/2024 11:06 AM EST Temperature 36.6 ??C (97.8 ??F) 05/12/2024 11:[address] Respiratory Rate 20 05/12/2024 11:06 AM EST Oxygen Saturation 99% 05/12/2024 11:06 AM EST Inhaled Oxygen Concentration - - Weight 111 kg (244 lb) 05/12/2024 11:06 AM EST Height 167.6 cm (5' 6 ) 05/12/2024 11:06 AM EST Body Mass Index 39.38 05/12/2024 11:06 AM EST Plan of Treatment Upcoming Encounters Date Type Department Care Team (Late st Contact Info) Description 05/20/2024 3:30 PM EST Medication Management [facility] [address] [place] [address] Nadege Kay, PharmD [address] [place] [address] Health Maintenance Due Date Last Done Comments HIV Screening 1984 Family Planning (PISQ) 1999 Hepatitis C Screening 2002 Pap Smear 2005 Cervical Cancer Screening 04/29/2023 HPV/Cotest 04/29/2023 04/29/2018 COVID-19 Vaccine ( season) 2023 11/30/2021, 01/23/2021, 01/02/2021 Hepatitis B Vaccines (2 of 3 - 19+ 3-dose series) 02/05/2024 01/08/2024 Mammogram 2024 Diabetes: Hemoglobin A1C 07/15/2024 024, 01/08/2024, 08/18/2023, Additional history exists Alcohol/Substance Use Screening 01/07/2025 01/08/2024 Depression Screening 01/07/2025 01/08/2024, 01/08/20 24 SDOH Screening 01/07/2025 01/08/2024 Eye Exam 01/28/2025 01/29/2024, 01/19, 01/29/2024, Additional history exists Diabetes: Urine Protein Screening 04/08/2025 04/08/2024, 08/29/2022, 04/05/2021 Lipid Panel 04/08/2025 04/08/2024, 08/19, 04/05/2021 Diabetes: Foot Exam 04/16/2025 04/16/2024, 04/16/2024, 04/16/2024, Additional history exists Tobacco Screening 05/12/2025 05/12/2024 DTaP/Tdap/Td Vaccines (2 - Td or Tdap) 10/03/2027 10/02/2017 Zoster Vaccines (1 of 2) 2034 RSV Patients and Patients Aged 60 years or older (1 - 1-dose 75+ series) 2059 Influenza Vaccine Completed 01/08/2024, , 02/20/2021, Additional history exists Pneumococcal Vaccine: Pediatrics (0 to 5 Years) and At-Risk Patients (6 to 64 Years) Completed 04/16/2024 HIB Vaccines Aged Out No longer eligi ble based on patient's age to complete this topic HPV Vaccines Aged Out No longer eligi ble based on patient's age to complete this topic Hepatitis A Vaccines Aged Out No long er eligible based on patient's age to complete this topic IPV Vaccines Aged Out No longer eligi ble based on patient's age to complete this topic Meningococcal Vaccine Aged Out No lawrence johana eligible based on patient's age to complete this topic RSV under 20 months Aged Out No longe r eligible based on patient's age to complete this topic Rotavirus Vaccines Aged Out No longer eligible based on patient's age to complete this topic Procedures Procedure Name Priority Date/Time Associated Diagnosis Comments POCT GLYCATED HEMOGLOBIN, TOTAL Routine 04/16/2024 10:31 AM EST Type 2 diabetes mellitus with hyperglycemia, with long-term current use of insulin (CMS/[facility]) POCT GLUCOSE Routine 04/16/2024 10:31 AM EST Type 2 diabetes mellitus with hyperglycemia, with long-term current use of insulin (CMS/[facility]) ALBUMIN, RANDOM URINE W/CREATININE Routine 04/08/2024 9:12 AM EST Type 2 diabetes mellitus with hyperglycemia, with long-term current use of insulin (CMS/[facility]) LIPID PANEL, STANDARD Routine 04/08/2024 9:12 AM EST Type 2 diabetes mellitus with hyperglycemia, with long-term current use of insulin ([facility]) COMPREHENSIVE METABOLIC PANEL Routine 04/08/2024 9:12 AM EST Type 2 diabetes mellitus with hyperglycemia, with long-term current use of insulin ([facility]) ZZZ HISTORICAL HPV MRNA E6/E7 Routine 04/29/2018 9:45 AM EST from Last 3 Months or Most Recently Relevant to Health Maintenance Results * (ABNORMAL) POCT HGB A1C (04/16/2024 10:31 AM EST) Hemoglobin A1C 8.7(A) 4.0 - 6.0 % QC Media Lot # [id number] Lot# Expiration Date [id number] Blood 04/16/2024 10:3 1 AM EST us Piero Name POINT OF CARE TEST ENTER/EDIT OR DERABLES Final Result * (ABNORMAL) POCT Glucose (04/16/2024 10:31 AM EST) Glucose Blood, POC 282(A) 60 - 200 mg/dL QC Media Lot # [id number] Lot# Expiration Date Blood Capillary blood specimen / Unknown 04/16/2024 10:31 AM EST us Piero Clarke MD POINT OF CARE TEST ENTER/EDIT OR DERABLES Final Result * Albumin, Random Urine W/Creatinine (04/08/2024 9:12 AM EST) Creatinine, Urine 213.37 mg/dL [facility] Microalbumin Urine 14.0 mg/L [facility] Microalbum Creatinine Ratio Ur 6.5 <30 ug/mg cr [facility] Comment:Albumin/Creatinine R atio Reference Ranges: Normal: < 30 ug/mg creatinine Microalbuminuria: 30 - 300 ug/mg creatinineClinical Albuminuria: > 300 ug/mg creatinine Urine (Urine, Random) 04/08/2024 9:12 AM EST 04/08/2024 11:24 AM EST us Piero Clarke MD LAB URINE ORDERABLES Final Resul t [facility] [address] [place] [address] [phone] * Lipid Panel, Standard (04/08/2024 9:12 AM EST) Triglycerides 101 <150 mg/dL [facility] Comment:Desirable Triglyceri de: less than 150 mg/dLBorderline High Triglyceride 150-199 mg/dLHigh Triglyceride: 200-499 mg/dLVery High Triglyceride: greater than or equal to 5OO mg/dL Cholesterol 146 <200 mg/dL [facility] Comment:Desirable Cholestero l: less than 200 mg/dLBorderline High Cholesterol: 200-239 mg/dLHigh Cholesterol: greater than 239 mg/dL LDL Cholesterol Calculated 85 <100 mg/dL [facility] Comment:Desirable LDL: less than 100 mg/dLNear Optimal/Above Optimal LDL: 110- 129 mg/dLBorderline High LDL: 130-159 mg/dLHigh LDL: 160-189 mg/dLVery High LDL: greater than or equal to 190 mg/dL HDL Cholesterol 41 >40 mg/dL [facility] Comment:Desirable HDL: great er than 40 mg/dL Note: This HDL assay may give artificially low results in patients with liver disease. Blood Venous blood specimen / Unknown 04/08/2024 9:12 AM EST 04/08/2024 11:15 AM EST us Piero Clarke MD LAB BLOOD ORDERABLES Final Resul t [facility] [address] [place] [address] [phone] * (ABNORMAL) Comprehensive Metabolic Panel (04/08/2024 9:12 AM EST) Sodium 140 135 - 145 mmol/L [facility] Potassium 4.1 3.3 - 5.1 mmol/L [facility] Chloride 108 96 - 108 mmol/L [facility] Carbon Dioxide 27 22 - 29 mmol/L [facility] Anion Gap 9(L) 12 - 20 [facility] Urea Nitrogen (BUN) 10 9 - 16 mg/dL [facility] Creatinine, Serum 0.76 0.5 - 1.4 mg/dL [facility] Estimated Glomerular Filt Rate >60 [facility] Comment:Chronic Kidney Disea se: Estimated GFR < 60 mL/min/[id number] Kidney Disease: Estimated GFR < 15 mL/min/1.73m2 Glucose 153(H) 60 - 115 mg/dL [facility] Calcium 8.9 8.4 - 10.2 mg/dL [facility] Bilirubin, Total 0.3 0.0 - 1.0 mg/dL [facility] Aspartate Amino Transferase 31 5 - 31 U/L [facility] Alanine Aminotransferase 56(H) 0 - 31 U/L [facility] Total Protein 6.9 6.5 - 8.0 g/dL [facility] Albumin Level 3.9 3.5 - 5.0 g/dL [facility] Alkaline Phosphatase 70 39 - 117 U/L [facility] Blood Venous blood specimen / Unknown 04/08/2024 9:12 AM EST 04/08/2024 11:15 AM EST us Piero Clarke MD LAB BLOOD ORDERABLES Final Resul t Performing Organization Address City/[facility]/ZIP Co de Phone Number [facility] [address] [place] [address] [phone] * HPV mRNA E6/E7 (04/29/2018 9:45 AM EST) HPV mRNA E6/E7 Not Detected NOT DETECTED [facility] Comment: This test was performed using the APTIMA(R) HPV Assay ([employer] This assay detects E6/E7 viral messenger RNA (mRNA) from 14 high-risk HPV types (16,18,31,33,35,39,45,51, 52,56,58,59,66,68). For additional information please refer to: http://education.Sooligan/faq/RZD780g6 (This link is being provided for informational/ educational purposes only.) The analytical performance characteristics of this assay have been determined by [employer] [place], [place]. The modifications have not been cleared or approved by the FDA. This assay has been validated pursuant to the CLIA regulations and is used for clinical purposes. Test Performed by [facility], [employer] [facility], [address] [place] [address] Scott Cross M.D., Ph.D., Director of Laboratories , CLIA [id number] Please note: ??Effective 01/01/2016, HPV testing will be performed using [employer]'s APTIMA test which targets mRNA. Detecting mRNA instead of DNA, as in older methods, offers significant improvements in specificity. 04/29/2018 9:45 AM EST us Ema Fournier CNM HISTORICAL/NON ORDERABLE LABS Final Result Performing Organization Address City/[facility]/ZIP Co de Phone Number [facility] [address] from Last 3 Months or Most Recently Relevant to Health Maintenance Insurance [facility] C3 Care Teams Air Defense Specialist Relationship Specialty Start Date End Date Name, MD Piero [address] [place] [phone] PCP - General Family Medicine 11/28/17
--- OUTSIDE RECORDS SUMMARY | 2024-05-12 13:54 | XMS_ITS | Encounter Summary ---
Author Organization [employer] Address [address] [place] [address] Care Team Providers Care Microarray Analyst Name Role Phone Name, Piero MANLEY Primary Care Provider [phone] Encounter Details Date Type Department Care Team (Latest Contact Info) Description 05/12/2024 Travel Social History Tobacco Use Types Packs/Day Years [...] AM EDT documented as of this encounter Plan of Treatment Upcoming Encounters Date Type Department Care Team (Late st Contact Info) Description 05/20/2024 3:30 PM EST Medication Management [facility] [address] [place] [address] Nadege Kay, PharmD [address] [place] [address] documented as of this encounter Visit Diagnoses Not on filedocumented in this encounter Additional Health Concerns Assessment Noted Time PHQ-9 Depression Total Score: 0 01/08/20 24 10:04 AM EDT documented as of this encounter Care Teams Microarray Analyst Relationship Specialty Start Date End Date Name, MD Piero [address] [place] [address] PCP - General Family Medicine 11/28/17 documented as of this encounter
--- OUTSIDE RECORDS SUMMARY | 2024-05-12 13:54 | XMS_ITS | Encounter Summary ---
Author Organization [employer] [facility] Address [address] [place] [address] [address] [address] Care Team Providers Care Engraver Signature Name Role Phone Name, Piero MANLEY Primary Care Provider [phone] Reason for Referral * Consultation (Routine) - Pending Review Specialty Diagnoses / Procedures Referred By Antwan goodrich Referred To Contact General Surgery Diagnoses Soft tissue swelling Hillary Pastrana FNP [address] [place] [address] Phone: tel: fax: Referral ID Status Reason Start Date Expiration Date Visits Requested Visits Authorized [id number] Pending Review Specialty Services Required 05/12/2024 05/12/2025 1 1 * Imaging (Routine) - Authorized Specialty Diagnoses / Procedures Referred By Antwan goodrich Referred To Contact Radiology Diagnoses Menorrhagia with regular cycle Procedures Us Pelvis complete Hillary Pastrana FNP [address] [place] [address] Phone: tel: fax: [address] Phone: tel: fax: Referral ID Status Reason Start Date Expiration Date V isits Requested Visits Authorized [id number] Authorized 05/12/2024 05/12/2025 1 1 * Imaging (Routine) - Authorized Specialty Diagnoses / Procedures Referred By Antwan goodrich Referred To Contact Radiology Diagnoses Menorrhagia with regular cycle Procedures US Pelvis Transvaginal Hillary Pastrana FNP [address] [place] [address] Phone: tel: fax: [address] Phone: tel: fax: Referral ID Status Reason Start Date Expiration Date V isits Requested Visits Authorized [id number] Authorized 05/12/2024 05/12/2025 1 1 Encounter Details Date Type Department Care Team (Latest Contact Info) Description 05/12/2024 10:45 AM EST Procedure Visit [facility] [address] [place] [address] Hillary Pastrana FNP [address] [place] [address] Routine cervical smear (Primary Dx); Menorrhagia with regular cycle; Soft tissue swelling Social History Tobacco Use Types Packs/Day Years [...] AM EDT documented as of this encounter Last Filed Vital Signs Vital Sign Reading [...] Mass Index 39.38 05/12/2024 11:06 AM EST documented in this encounter Plan of Treatment Upcoming Encounters Date Type Department Care Team (Late st Contact Info) Description 05/20/2024 3:30 PM EST Medication Management [facility] [address] [place], [place] [phone] Nadege Kay, PharmD [address] [place] [address] Scheduled Orders Name Type Priority Associated Diagnoses Order Schedule CBC auto differential Lab Routine Menorrhagia with regular cycle Expected: 05/12/2024 (Approximate), Expires: 05/12/2025 Pap Smear Pathology and Cytology Routine Routine cervical smear Ordered: 05/12/2024 US Pelvis Transvaginal Imaging Routine Menorrhagia with regular cycle Expected: 05/12/2024, Expires: 05/12/2025 Us Pelvis complete Imaging Routine Menorrhagia with regular cycle Expected: 05/12/2024, Expires: 05/12/2025 Scheduled Referrals Name Type Priority Associated Diagnoses Orde r Schedule Referral to General Surgery Outpatient Referral Routine Soft tissue swelling Expected: 05/12/2024 (Approximate), Expires: 05/12/2025 documented as of this encounter Visit Diagnoses Diagnosis Routine cervical smear- Primary Screening for malignant neoplasm of the cervix Menorrhagia with regular cycle Soft tissue swelling Localized superficial swelling, mass, or lump documented in this encounter Additional Health Concerns Assessment Noted Time PHQ-9 Depression Total Score: 0 01/08/20 24 10:04 AM EDT documented as of this encounter Care Teams Engraver Signature Relationship Specialty Start Date End Date Name, MD Piero [address] [place] [phone] PCP - General Family Medicine 11/28/17 documented as of this encounter
--- OUTSIDE RECORDS SUMMARY | 2024-05-12 13:55 | XMS_ITS | Encounter Summary ---
Author Organization [employer] Address [address] [facility] 7 [place] [address] Care Team Providers Care Clinical Research Manager Name Role Phone Name, Piero MANLEY Primary Care Provider [phone] Reason for Visit * Reason Onset Date Comments Chart Prep 04/13/2024 Encounter Details Date Type Department Care Team ([facility] st Contact Info) Description 04/13/2024 Telephone [facility] MEDICINE [address] [place] [address] Anita Foley MA Chart Prep Social History [...] Telephone Encounter - Anita Foley MA - 04/13/2024 10:59 AM EST Chart Prep Labs: done Images: done Vaccines due: Covid Due, Hep B Due, and PCV20 Due Referrals: Not Applicable Screenings: HIV screening and Hep C, Cervical Cancer Overdue care gaps: A1C, Glucose, and Oral Health documented in this encounter Plan of Treatment Upcoming Encounters Date Type Department Care Team (Late st Contact Info) Description 05/20/2024 3:30 PM EST Medication Management [facility] MEDICINE [address] [place] [address] Nadege Kay, PharmD [address] [place] [address] documented as of this encounter Visit Diagnoses Not on filedocumented in this encounter Additional Health Concerns Assessment Noted Time PHQ-9 Depression Total Score: 0 01/08/20 10:04 AM EDT documented as of this encounter Care Teams Clinical Research Manager Relationship Specialty Start Date End Date Name, MD Piero [address] [place] [address] PCP - General Family Medicine 11/28/17 documented as of this encounter
--- OUTSIDE RECORDS SUMMARY | 2024-05-12 13:55 | XMS_ITS | Encounter Summary ---
Author Organization [employer] Address [address] [facility] 7 [place] [address] Care Team Providers Care Polisher Aluminum Name Role Phone Name, Piero MANLEY Primary Care Provider [phone] Reason for Visit * Reason Onset Date Comments Letter for School/Work 08/20/2023 Encounter Details Date Type Department Care Team ([facility] st Contact Info) Description 08/20/2023 Telephone [facility] MEDICINE [address] [place], [place] [phone] Name, MD Piero [address] [place] [address] Letter for School/Work Social History Tobacco Use Types Packs/Day Years Used Date Smoking Tobacco: Never Smokeless Tobacco: Never Alcohol Use Standard Drinks/Week Comments Never 0 (1 standard drink = 0.6 oz pur e alcohol) Depression Answer Date Recorded Patient Health Questionnaire-9 Score 0 08/26/2022 Housing Stability Answer Date Recorded What is your housing situation today? I have jacques cespedes 02/11/[address] you li ve. Do you have problems with any of the following? None of the above 02/11/2023 Food Insecurity Answer Date Recorded Within the past 12 months, y ou worried that your food would run out before you got money to buy more: Never True 02/11/2023 Within the past 12 months,th e food you bought just didn't last and you didn't have enough money to get more: Never True Transportation Answer Date Recorded In the past 12 months, has l ack of transportation kept you from medical appts, meetings, work or from getting things needed for daily living? No 02/11/2023 Utilities Answer Date Recorded In the past 12 months, has t he electric, gas, oil or water company threatened to shut off services in your home? No 02/11/2023 Depression Answer Date Recorded Patient Health Questionnaire-2 Score 0 08/26/2022 Comments Unknown Sex and Gender Information Value Date Recorded Sex Assigned at Female 02/18/2022 10:34 AM EDT Legal Sex Female 10:34 AM EDT Gender Identity Female 02/18/2022 10:34 AM EDT Sexual Orientation Straight 02/18/2022 10 :34 AM EDT documented as of this encounter Miscellaneous Notes * Telephone Encounter - Conchita Gómez RN - 08/20/2023 2:26 PM EDT Please review below request. Letter printed and placed on desk. RN will mail on file address when completed. * Telephone Encounter - Blanca Chavis - 08/20/2023 12:04 PM EDT Tc from pt states her job is requesting for letter of excuse made on 08/17 to have a written signature. States job did not accept excuse. Please contact pt at [phone] documented in this encounter Plan of Treatment Upcoming Encounters Date Type Department Care Team (Late st Contact Info) Description 05/20/2024 3:30 PM EST Medication Management [facility] MEDICINE [address] [place] [address] Nadege Kay, PharmD [address] [place] [address] documented as of this encounter Visit Diagnoses Not on filedocumented in this encounter Additional Health Concerns Assessment Noted Time PHQ-9 Depression Total Score: 0 08/27/19 23 4:06 PM EDT documented as of this encounter Care Teams Polisher Aluminum Relationship Specialty Start Date End Date Name, MD Piero [address] [place] [address] PCP - General Family Medicine 11/28/17 documented as of this encounter
--- OUTSIDE RECORDS SUMMARY | 2024-05-12 13:55 | XMS_ITS | Encounter Summary ---
Author Organization [employer] Address [address] [facility] 7 [place] [address] Care Team Providers Care Hunting Sales Leader Name Role Phone Name, Piero MANLEY Primary Care Provider [phone] Reason for Visit * Reason Onset Date Comments Med Change Request Prior Authorization 07/14/2023 Encounter Details Date Type Department Care Team ([facility] st Contact Info) Description 07/14/2023 Refill [facility] MEDICINE [address] [place], [place] [phone] Name, MD Piero [address] [place] [address] Social History Tobacco Use Types Packs/Day Years [...] encounter Miscellaneous Notes * Telephone Encounter - Linda Dunaway - 07/16/2023 3:48 PM EDT PA form generated for [employer]. Placed on pcp desk for review and signature to then be faxed to and scanned into chart under media. documented in this encounter Plan of Treatment Upcoming Encounters Date Type Department Care Team (Late st Contact Info) Description 05/20/2024 3:30 PM EST Medication Management [facility] MEDICINE [address] [place], [place] [phone] Nadege Kay, PharmD [address] [place] [address] documented as of this encounter Visit Diagnoses Not on filedocumented in this encounter Additional Health Concerns Assessment Noted Time PHQ-9 Depression Total Score: 0 08/27/19 23 4:06 PM EDT documented as of this encounter Care Teams Hunting Sales Leader Relationship Specialty Start Date End Date Name, MD Piero [address] [place], [place] [phone] PCP - General Family Medicine 11/28/17 documented as of this encounter
--- OUTSIDE RECORDS SUMMARY | 2024-05-12 13:55 | XMS_ITS | Encounter Summary ---
Author Organization [employer] [facility] Address [address] [place] [address] 7 [place] [address] Care Team Providers Care Skills Auditor Name Role Phone Piero Clarke MD Primary Care Provider [phone] Reason for Referral * Imaging (Routine) - Closed Specialty Diagnoses / Procedures Referred By Contac t Referred To Contact Radiology Diagnoses Encounter for screening mammogram for malignant neoplasm of breast Procedures BI Mammogram Screening Tomosynthesis Bilateral Piero Clarke MD [address] [place] [address] Phone: tel: fax: [address] Phone: tel: fax: Referral ID Status Reason Start Date Expiration Date Visits Re quested Visits Authorized [id number] Closed 04/16/2024 04/16/2025 1 1 * Consultation (Routine) - Authorized Specialty Diagnoses / Procedures Referred By Contac t Referred To Contact Pharmacy Diagnoses Type 2 diabetes mellitus with hyperglycemia, with long-term current use of insulin ([facility] Piero Clarke MD [address] [place] [address] Phone: tel: fax: Referral ID Status Reason Start Date Expiration Date Visits Requested Visits Authorized [id number] Authorized Consult and Treat 04/16/2024 04/16/2025 6 6 Reason for Visit * Reason Comments Employment Physical Encounter Details Date Type Department Care Team (Late st Contact Info) Description 04/16/2024 10:30 AM EST Office Visit [facility] [place] [address] Name, MD Piero [address] [place] [address] PE (physical exam), routine (Primary Dx); Type 2 diabetes mellitus with hyperglycemia, with long-term current use of insulin ([facility]); Hypertension, unspecified type; Screening for cervical cancer; Encounter for screening mammogram for malignant neoplasm of breast; Encounter for immunization Social History Tobacco Use Types Packs/Day Years [...] Sign Reading Time Taken Comments Blood Pressure 146/80 04/16/2024 10:23 AM EST no meds Pulse 87 04/16/2024 10:23 AM EST Temperature 37.1 ??C (98.8 ??F) 04/16/2024 10:[address] Respiratory Rate 19 04/16/2024 10:23 AM EST Oxygen Saturation - - Inhaled Oxygen Concentration - - Weight 109 kg (240 lb 9.6 oz) 04/16/2024 10:23 A M EST Height 165.1 cm (5' 5 ) 04/16/2024 10:23 AM EST Body Mass Index 40.04 04/16/2024 10:23 AM EST documented in this encounter Progress Notes * Piero Clarke MD - 04/16/2024 10:30 AM EST Subjective Patient ID: Dora Maloney is a 38 y.o. female who presents for Employment Physical. Patient comes for a physical exam. 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 She is doing well. No fevers, no chills, no shortness of breath. She is tolerating current dose of Ozempic very well. Her appetite has been suppressed, she is losing weight, and hemoglobin A1cis much better. She does not bring her glucose meter. She admits to a liberal diet over the holidays . She agreed with PCV 20 vaccination today. She agreed with referral to mammogram and to a Pap smear. Review of Systems Constitutional: Negative for chills and fever. HENT: Negative for sore throat. Respiratory: Negative for cough, shortness of breath and wheezing. Cardiovascular: Negative for chest pain, palpitations and leg swelling. Gastrointestinal: Negative for abdominal pain. Musculoskeletal: Negative for arthralgias and back pain. Visit Vitals BP (!) 146/80 (BP Location: Left arm, Patient Position: Sitting, BP Cuff Size: Large adult) Comment: no meds Pulse 87 Temp 98.8 ??F (37.1 ??C) (Oral) Resp 19 Ht 5' 5 (1.651 m) Wt 240 lb 9.6 oz (109 kg) BMI 40.04 kg/m?? Smoking Status Never BSA 2.24 m?? Objective Physical Exam Constitutional: Appearance: Normal appearance. Cardiovascular: Rate and Rhythm: Normal rate and regular rhythm. Pulses: Dorsalis pedis pulses are 2+ on the right side and 2+ on the left side. Posterior tibial pulses are 2+ on the right side and 2+ on the left side. Heart sounds: No murmur heard. No gallop. Pulmonary: Effort: Pulmonary effort is normal. No respiratory distress. Breath sounds: Normal breath sounds. No wheezing. Musculoskeletal: Right lower leg: No edema. Left lower leg: No edema. Right foot: Normal range of motion. Left foot: Normal range of motion. Feet: Right foot: Protective Sensation: 5 sites tested. 5 sites sensed. Skin integrity: Skin integrity normal. Toenail Condition: Right toenails are normal. Left foot: Protective Sensation: 5 sites tested. 5 sites sensed. Skin integrity: Skin integrity normal. Toenail Condition: Left toenails are normal. Neurological: Mental Status: She is alert. Lab Results Component Value Date HGBA1C 8.7 (A) 04/16/2024 HGBA1C 9.6 (A) 01/08/2024 HGBA1C 9.6 (A) 08/18/2023 HGBA1C 9.4 (A) 06/24/2023 HGBA1C 9.9 (A) 12/03/2022 HGBA1C 10.6 (A) 08/26/2022 HGBA1C 10.6 (A) 06/05/2022 Latest Reference Range & Units 04/08/24 09:12 Glucose 60 - 115 mg/dL 153 (H) Urea Nitrogen (BUN) 9 - 16 mg/dL 10 Creatinine, Serum 0.5 - 1.4 mg/dL 0.76 Sodium 135 - 145 mmol/L 140 Potassium 3.3 - 5.1 mmol/L 4.1 Chloride 96 - 108 mmol/L 108 Carbon Dioxide 22 - 29 mmol/L 27 Calcium 8.4 - 10.2 mg/dL 8.9 Albumin Level 3.5 - 5.0 g/dL 3.9 Bilirubin, Total 0.0 - 1.0 mg/dL 0.3 AST 5 - 31 U/L 31 ALT 0 - 31 U/L 56 (H) Anion Gap 12 - 20 9 (L) Total Protein 6.5 - 8.0 g/dL 6.9 Cholesterol <200 mg/dL 146 HDL Cholesterol >40 mg/dL 41 LDL Cholesterol Calculated <100 mg/dL 85 Triglycerides <150 mg/dL 101 Microalbumin Urine mg/L 14.0 Alkaline Phosphatase 39 - 117 U/L 70 Creatinine, Urine mg/dL 213.37 Estimated Glomerular Filt Rate >60 Microalbum Creatinine Ratio Ur <30 ug/mg cr 6.5 (H): Data is abnormally high (L): Data is abnormally low Current Outpatient Medications on File Prior to Visit Medication Sig Dispense Refill acetaminophen (Tylenol) 500 MG tablet take 2 tablet by oral route every 6 hours as needed as neededfor pain 30 tablet 0 albuterol (2.5 MG/3ML) 0.083% nebulizer solution inhale 3 milliliter by nebulization route 3 times every day as needed for wheezing albuterol 108 (90 Base) MCG/ACT inhaler inhale 2 puffs by Inhalation route 4 times every day as needed for wheeing Alcohol Swabs (Alcohol Prep) pads Blood Pressure kit Use daily Blood Pressure kit Use once a day 1 kit 1 Continuous Blood Gluc Software Sales Representative (FreeStyle Jacobo 2 [place]) device Use as directed 1 each 0 Continuous Blood Gluc Sensor (FreeStyle Jacobo 2 Sensor) misc Use as directed every 2 weeks 2 each 11 fluconazole (Diflucan) 150 MG tablet TAKE 1 TABLET BY MOUTH ONCE 1 tablet 0 fluticasone (Flonase) 50 MCG/ACT nasal spray inhale 2 spray by intranasal route every day in each nostril as needed for nasal congestion FREESTYLE LITE test strip USE TO TEST BLOOD SUGAR THREE TIMES A DAY 100 strip 11 insulin glargine (Lantus SoloStar) 100 UNIT/ML pen Inject 15 Units under the skin at bedtime. 4.5 mL 11 insulin lispro (HumaLOG KWIKPEN) 200 UNIT/ML solution pen-injector pen INJECT 10 UNITS SUBCUTANEOUSLY PRIOR TO MEALS AND SNACKS 6 each 3 ketoconazole (NIZOral) 2 % shampoo APPLY TOPICALLY TWICE A WEEK lidocaine (Lidoderm) 5 % patch apply 1-2 patches by topical route every day (May wear up to 12hours) prn pain. loratadine (Claritin) 10 MG tablet take 1 tablet by oral route every day metFORMIN (Glucophage) 500 MG tablet Take 0.5 tablets (250 mg) by mouth with breakfast and with evening meal. 30 tablet 11 minoxidil (Loniten) 2.5 MG tablet TAKE 1 TABLET BY MOUTH EVERY MORNING 30 tablet 5 Misc. Devices (Pulse Oximeter For Finger) misc To check your O2 Sat every 4 hours. Call the office if O2Sat < 90% 1 each 0 montelukast (Singulair) 10 MG tablet take 1 tablet by oral route every day in the evening norethindrone (Micronor) 0.35 MG tablet take 1 tablet by oral route every day Semaglutide, 2 MG/DOSE, (Ozempic, 2 MG/DOSE,) 8 MG/3ML solution pen-injector Inject 2 mg under the skin 1 (one) time per week. 3 mL 11 [DISCONTINUED] celecoxib (CeleBREX) 200 MG capsule TAKE 1 CAPSULE (200 MG) BY MOUTH 2 TIMES DAILY FOR 20 DAYS. 40 capsule 0 [DISCONTINUED] losartan (Cozaar) 50 MG tablet Take 1 tablet (50 mg) by mouth Once per day. 90 tablet 0 No current facility-administered medications on file prior to visit. 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 I will print copies of her vaccine record that includes MMR booster and her previous testing for MMR immunity Orders: - celecoxib (CeleBREX) 200 MG capsule; Take 1 capsule (200 mg) by mouth 2 times daily for 20 days. Type 2 diabetes mellitus with hyperglycemia, with long-term current use of insulin ([facility]) Comments: Continue current medications, reminded to avoid sweets and soda, referral to CDTM. Start statin forprimary prevention. He encouraged to start using her CGM Orders: - POCT Glucose - POCT HGB A1C - losartan (Cozaar) 50 MG tablet; Take 1 tablet (50 mg) by mouth Once per day. - atorvastatin (Lipitor) 20 MG tablet; Take 1 tablet (20 mg) by mouth Once per day. - Referral to Pharmacy CDTM Hypertension, unspecified type Comments: I will restart her losartan Orders: - losartan (Cozaar) 50 MG tablet; Take 1 tablet (50 mg) by mouth Once per day. Screening for cervical cancer Comments: Referral to Pap smear. She requested a female provider. Encounter for screening mammogram for malignant neoplasm of breast Comments: Referral to mammogram. Orders: - BI Mammogram Screening Tomosynthesis Bilateral; Future Encounter for immunization Comments: PCV 20 vaccine today Orders: - PCV-20 VACCINE 6 wks + documented in this encounter Plan of Treatment Upcoming Encounters Date Type Department Care Team (Late st Contact Info) Description 05/20/2024 3:30 PM EST Medication Management [facility] MEDICINE [address] [place], [place] [phone] Nadege Kay PharmD [address] [place] [address] Scheduled Orders Name Type Priority Associated Diagnoses Orde r Schedule BI Mammogram Screening Tomosynthesis Bilateral Imaging Routine Encounter for screening mammogram for malignant neoplasm of breast Expected: 04/16/2024, Expires: 06/17/2025 Scheduled Referrals Name Type Priority Associated Diagnoses Orde r Schedule Referral to Pharmacy CDTM Outpatient Referral Routine Type 2 diabetes mellitus with hyperglycemia, with long-term current use of insulin ([facility]) Ordered: 04/16/2024 documented as of this encounter Procedures Procedure Name Priority Date/Time Associated Diagnosis Comments POCT GLYCATED HEMOGLOBIN, TOTAL Routine 04/16/2024 10:31 AM EST Type 2 diabetes mellitus with hyperglycemia, with long-term current use of insulin ([facility]) POCT GLUCOSE Routine 04/16/2024 10:31 AM EST Type 2 diabetes mellitus with hyperglycemia, with long-term current use of insulin ([facility]) documented in this encounter Results * (ABNORMAL) POCT HGB A1C (04/16/2024 10:31 AM EST) Hemoglobin A1C 8.7(A) 4.0 - 6.0 % QC Media Lot # [id number] Lot# Expiration Date Blood 04/16/2024 10:3 1 AM EST us Piero Clarke MD POINT OF CARE TEST ENTER/EDIT OR DERABLES Final Result * (ABNORMAL) POCT Glucose (04/16/2024 10:31 AM EST) Glucose Blood, POC 282(A) 60 - 200 mg/dL QC Media Lot # [id number] Lot# Expiration Date Blood Capillary blood specimen / Unknown 04/16/2024 10:31 AM EST us Piero Clarke MD POINT OF CARE TEST ENTER/EDIT OR DERABLES Final Result documented in this encounter Visit Diagnoses Diagnosis PE (physical exam), routine- Primary Type 2 diabetes mellitus with hyperglycemia, with long-term current use of insulin ([facility]) Hypertension, unspecified type Screening for cervical cancer Screening for malignant neoplasm of the cervix Encounter for screening mammogram for malignant neoplasm of breast Encounter for immunization documented in this encounter Additional Health Concerns Assessment Noted Time PHQ-9 Depression Total Score: 0 01/08/20 24 10:04 AM EDT documented as of this encounter Care Teams Skills Auditor Relationship Specialty Start Date End Date Name, MD Piero [address] [place] [address] PCP - General Family Medicine 11/28/17 documented as of this encounter
--- OUTSIDE RECORDS SUMMARY | 2024-05-12 13:55 | XMS_ITS | Encounter Summary ---
Author Organization [employer] Address [address] [facility] 7 [place] [address] Care Team Providers Care [employer] Special Education Teacher Name Role Phone Name, Piero MANLEY Primary Care Provider [phone] Reason for Visit * Reason Onset Date Comments Forms/questionnaires 11/07/2023 Encounter Details Date Type Department Care Team ([facility] st Contact Info) Description 11/07/2023 Telephone [facility] MEDICINE [address] [place], [place] [phone] Name, MD Piero [address] [place] [address] Forms/questionnaires Social History Tobacco Use Types Packs/Day Years [...] encounter Miscellaneous Notes * Telephone Encounter - oCnchita Gómez RN - 11/07/2023 2:17 PM EDT After discussing with Medical records dept. T/C to pt. Through [place] id - [id number] pt. Advised to either pharmacy picking technician required documents from [facility] and submit at [facility] or call to [facility] office to give call to [facility] to send documentation to them, ( due to HIPAA violation ). Pt. Verbally greed and understood. * Telephone Encounter - Lauryn Kilgore - 11/07/2023 1:43 PM EDT Tc from pt is requesting last office visit and demographic sheets to be faxed to [phone] , states they are interested in bariatric surgery with [facility]. documented in this encounter Plan of Treatment Upcoming Encounters Date Type Department Care Team (Late st Contact Info) Description 05/20/2024 3:30 PM EST Medication Management [facility] MEDICINE [address] [place] [address] Nadege Kay PharmD [address] [place] [address] documented as of this encounter Visit Diagnoses Not on filedocumented in this encounter Additional Health Concerns Assessment Noted Time PHQ-9 Depression Total Score: 0 08/27/19 23 4:06 PM EDT documented as of this encounter Care Teams [employer] Special [employer] Teacher Relationship Specialty Start Date End Date Name, MD Piero [address] [place] [address] PCP - General Family Medicine 11/28/17 documented as of this encounter
--- OUTSIDE RECORDS SUMMARY | 2024-05-12 13:55 | XMS_ITS | Encounter Summary ---
Author Organization [employer] Address [address] [facility] 7 [place] [address] Care Team Providers Care Generating Station Mechanic Name Role Phone Name, Piero MANLEY Primary Care Provider [phone] Reason for Visit * Reason Onset Date Comments Med Refill 01/02/2024 Encounter Details Date Type Department Care Team (Late st Contact Info) Description 01/02/2024 Telephone [facility] MEDICINE [address] [place], [place] [phone] Name, MD Piero [address] [place] [address] Med Refill Social History Tobacco Use Types Packs/Day Years [...] encounter Miscellaneous Notes * Telephone Encounter - Tonia Pagan LPN - 01/02/2024 10:12 AM EDT Medication was discontinued therapy completed * Telephone Encounter - Abdirashid Mckenzie - 01/02/2024 10:09 AM EDT TC from pt requesting medication refill. Medications needing refill : celecoxib (CeleBREX) 200 MG capsule To be sent to: [facility]/pharmacy #[id number] [place] [address] documented in this encounter Plan of Treatment Upcoming Encounters Date Type Department Care Team (Late st Contact Info) Description 05/20/2024 3:30 PM EST Medication Management [facility] MEDICINE [address] [place] [address] Nadege Kay, PharmD [address] [place] [address] documented as of this encounter Visit Diagnoses Not on filedocumented in this encounter Additional Health Concerns Assessment Noted Time PHQ-9 Depression Total Score: 0 08/27/19 23 4:06 PM EDT documented as of this encounter Care Teams Generating Station Mechanic Relationship Specialty Start Date End Date Name, MD Piero [address] [place] [address] PCP - General Family Medicine 11/28/17 documented as of this encounter
--- OUTSIDE RECORDS SUMMARY | 2024-05-12 13:55 | XMS_ITS | Encounter Summary ---
Author Organization [employer] Address [address] [facility] 7t [place] [address] Care Team Providers Care Linen Sorter Name Role Phone Name, Piero MANLEY Primary Care Provider [phone] Reason for Visit * Reason Onset Date Comments Scheduled PAP exam 04/16/2024 Encounter Details Date Type Department Care Team (Late st Contact Info) Description 04/16/2024 Telephone [facility] MED[facility]INE [address] [place] [address] [place], [place] Scheduled PAP exam Social History Tobacco Use Types Packs/Day Years [...] encounter Miscellaneous Notes * Telephone Encounter - Justina Davis MA - 04/16/2024 3:01 PM EST T/C placed spoke with pt, pt agreed to come in on 05/12/2024 @ 10:45 for PAP exam with Hillary. Reminder letter will be sent. * Telephone Encounter - Justina Davis MA - 04/16/2024 3:00 PM EST ----- Message from Piero Clarke MD sent at 04/16/2024 10:49 AM EST ----- She needs appt with Lori or Liza of [facility] or Hillary for a pap smear documented in this encounter Plan of Treatment Upcoming Encounters Date Type Department Care Team (Late st Contact Info) Description 05/20/2024 3:30 PM EST Medication Management [facility] MED[facility] [address] [place] [address] Nadege Kay, PharmD [address] [place] [address] documented as of this encounter Visit Diagnoses Not on filedocumented in this encounter Additional Health Concerns Assessment Noted Time PHQ-9 Depression Total Score: 0 01/08/20 24 10:04 AM EDT documented as of this encounter Care Teams Linen Sorter Relationship Specialty Start Date End Date Name, MD Piero [address] [place] [address] PCP - General Family Medicine 11/28/17 documented as of this encounter
--- OUTSIDE RECORDS SUMMARY | 2024-05-12 13:55 | XMS_ITS | Encounter Summary ---
Author Organization [employer] Address 75 [facility] 7 [place] [address] Care Team Providers Care Chief Operator Name Role Phone Name, Piero MANLEY Primary Care Provider [phone] Reason for Visit * Reason Comments Med Refill Encounter Details Date Type Department Care Team ([facility] st Contact Info) Description 03/09/2024 Refill [facility] [address] [place], [place] [phone] Name, MD Piero [address] [place] [address] Type 2 diabetes mellitus with hyperglycemia, with long-term current use of insulin ([facility]) Social History Tobacco Use Types [...] your housing situation today? I have jacques rubina 01/08/[address] you li [...] Description 05/20/2024 3:30 PM EST Medication Management [facility] [address] [place] [address] Nadege Kay PharmD [address] [place] [address] documented as of this encounter Visit Diagnoses Diagnosis Type 2 diabetes mellitus with hyperglycemia, with long-term current use of insulin ([facility]) documented in this encounter Additional Health Concerns Assessment Noted Time PHQ-9 Depression Total Score: 0 01/08/20 24 10:04 AM EDT documented as of this encounter Care Teams Chief Operator Relationship Specialty Start Date End Date Name, MD Piero [address] [place] [address] PCP - General Family Medicine 11/28/17 documented as of this encounter
--- OUTSIDE RECORDS SUMMARY | 2024-05-12 13:56 | XMS_ITS | Encounter Summary ---
Author Organization [employer] Address 75 [facility] 7t [place] [address] Care Team Providers Care Distribution Accounting Clerk Name Role Phone Name, Piero MANLEY Primary Care Provider [phone] Encounter Details Date Type Department Care Team ([facility] st Contact Info) Description 04/23/2023 Orders Only [facility] P[facility]S [address] [place] [address] Tonia Pagan LPN Social History Tobacco Use Types Packs/Day Years Used Date Smoking Tobacco: Never Smokeless Tobacco: Never Alcohol Use Standard Drinks/Week Comments Never 0 (1 standard drink = 0.6 oz pur e alcohol) Depression Answer Date Recorded Patient Health Questionnaire-9 Score 0 08/26/2022 Housing Stability Answer Date Recorded What is your housing situation today? I have jacqueskiana cespedes 02/11/[address] you [...] PM EST Medication Management [facility] MEDICINE [address] [place] [address] Nadege Kay, PharmD [address] [place] [address] documented as of this encounter Visit Diagnoses Not on filedocumented in this encounter Additional Health Concerns Assessment Noted Time PHQ-9 Depression Total Score: 0 08/27/19 23 4:06 PM EDT documented as of this encounter Care Teams Distribution Accounting Clerk Relationship Specialty Start Date End Date Name, MD Piero [address] [place] [address] PCP - General Family Medicine 11/28/17 documented as of this encounter
--- OUTSIDE RECORDS SUMMARY | 2024-05-12 13:56 | XMS_ITS | Encounter Summary ---
Author Organization [employer] Address 75 [facility] 7 [place] [address] Care Team Providers Care Machine Gunner Name Role Phone Name, Piero MANLEY Primary Care Provider [phone] Reason for Visit * Reason Comments Med Refill Encounter Details Date Type Department Care Team ([facility] st Contact Info) Description 07/14/2023 Refill [facility] MED[facility] [address] [place], [place] [phone] Name, MD Piero [address] [place] [address] Social History Tobacco Use Types Packs/Day Years [...] 3:30 PM EST Medication Management [facility] MED[facility] [address] [place] [address] Nadege Kay, PharmD [address] [place] [address] documented as of this encounter Visit Diagnoses Not on filedocumented in this encounter Additional Health Concerns Assessment Noted Time PHQ-9 Depression Total Score: 0 08/27/19 23 4:06 PM EDT documented as of this encounter Care Teams Machine Gunner Relationship Specialty Start Date End Date Name, MD Piero [address] [place] [address] PCP - General Family Medicine 11/28/17 documented as of this encounter
--- OUTSIDE RECORDS SUMMARY | 2024-05-12 13:56 | XMS_ITS | Encounter Summary ---
Author Organization [employer] Address [address] [place] [address] [place] [address] Care Team Providers Care Flavoring Oil Filterer Name Role Phone Name, Piero MANLEY Primary Care Provider [phone] Reason for Visit * Reason Onset Date Comments Nurse Triage 01/21/2023 Encounter Details Date Type Department Care Team (Late st Contact Info) Description 01/21/2023 Telephone [facility] MEDICINE [address] [place], [place] [phone] Name, MD Piero [address] [place] [address] Nurse Triage Social History Tobacco Use Types Packs/Day Years Used Date Smoking Tobacco: Never Smokeless Tobacco: Never Alcohol Use Standard Drinks/Week Comments Never 0 (1 standard drink = 0.6 oz pur e alcohol) Depression Answer Date Recorded Patient Health Questionnaire-9 Score 0 08/26/2022 Depression Answer Date Recorded Patient Health Questionnaire-2 Score 0 08/26/2022 Comments Unknown Sex and Gender Information Value Date Recorded Sex Assigned at Female 02/18/2022 10:34 AM EDT Legal Sex Female 10:34 AM EDT Gender Identity Female 02/18/2022 10:34 AM EDT Sexual Orientation Straight 02/18/2022 10 :34 AM EDT documented as of this encounter Miscellaneous Notes * Telephone Encounter - Ailyn Joel RN - 01/21/2023 12:13 PM EDT Call to Dora Maloney, reports having elevated BS readings since stopping ozempic. Per ptS today was 398mg/dL. Per pt fasting was 311mg/dL. Pt administered 20units of Humalog and took 1000mg of metformin prior to breakfast. Pt stopped ozempic 2 weeks ago. Pt having urinary frequency, BUSH and increased thirst with high sugars. Per pt states is trying to monitor diet to reduce sugar/carb foods. Pt advised to seek [facility] for exam today or tomorrow if sugars continues high even with modifying diet and using rx for insulin and metformin Will send to PCP for review and update team on PA for ozempic or alt plan of care for DM management until ozempic approved. Protocol Used: Diabetes - High Blood Sugar (Adult) Protocol-Based Disposition: Discuss with PCP and Callback by Nurse within 1 Hour Video visit offer not recorded Positive Triage Question: * Blood glucose > 300 mg/dL (16.7 mmol/L) AND two or more times in a row * All higher-acuity triage questions were negative Care Advice Discussed: * Treatment - Liquids * Continue Insulin * Diabetes Pills * Reasons To Call Back - Blood glucose over 300 mg/dL (16.7 mmol/L), two or more times in a row. - Rapid breathing occurs - You become worse * Telephone Encounter - Stephanie Andrea - 01/21/2023 11:16 AM EDT Symptom: High Blood Sugar - Caller Reports Outcome: Schedule an urgent appointment (within 1 hour) or talk to a nurse or provider soon Reason: Getting worse The caller accepted this outcome documented in this encounter Plan of Treatment Upcoming Encounters Date Type Department Care Team (Late st Contact Info) Description 05/20/2024 3:30 PM EST Medication Management [facility] MEDICINE [address] [place], [place] [phone] Nadege Kay, PharmD [address] [place] [address] documented as of this encounter Visit Diagnoses Not on filedocumented in this encounter Additional Health Concerns Assessment Noted Time PHQ-9 Depression Total Score: 0 08/27/19 23 4:06 PM EDT documented as of this encounter Care Teams Flavoring Oil Filterer Relationship Specialty Start Date End Date Name, MD Piero [address] [place] [address] PCP - General Family Medicine 11/28/17 documented as of this encounter
--- OUTSIDE RECORDS SUMMARY | 2024-05-12 13:57 | XMS_ITS | Encounter Summary ---
Author Organization [employer] [facility] Address [address] [place] [address] [address] Care Team Providers Care Construction Estimator Name Role Phone Name, Piero MANLEY Primary Care Provider [phone] Encounter Details Date Type Department Care Team (Late Contact Info) Description 05/09/2022 Telephone [facility] MED[facility]INE [address] [place] [address] Name, MD Piero [address] [place] [address] Social History Tobacco Use Types Packs/Day Years Used Date Smoking Tobacco: Never Smokeless Tobacco: Never Alcohol Use Standard Drinks/Week Comments Never 0 (1 standard drink = 0.6 oz pur e alcohol) Comments Unknown Sex and Gender Information Value [...] Description 05/20/2024 3:30 PM EST Medication Management [facility] [address] [place] [address] Nadege Kay, PharmD [address] [place] [address] documented as of this encounter Visit Diagnoses Not on filedocumented in this encounter Care Teams Construction Estimator Relationship Specialty Start Date End Date Name, MD Piero [address] [place] [address] PCP - General Family Medicine 11/28/17 documented as of this encounter
== END 2024-05-12 11:53 | disposition home or self-care (01) ==
LOC: HO.HHCL 11:52
PROVIDERS: Visit Provider Nurse Practitioner Family
DX: Z12.4 Encounter for screening for malignant neoplasm of cervix (principal)
CPT/HCPCS: 36415; 85025

== ENCOUNTER 2024-05-12 13:41 | Outpatient (REF) | payer MEDICAID, SELFPAY ==
--- OUTSIDE RECORDS SUMMARY | 2024-05-12 15:52 | XMS_ITS | Encounter Summary ---
Author Organization [employer] Address 75 [facility] 7 [place] [address] Care Team Providers Care Earth Science Professor Name Role Phone Name, Piero MANLEY Primary Care Provider Reason for Visit * Reason Onset Date Comments Forms/questionnaires 11/07/2023 Encounter Details Date Type Department Care Team ([facility] st Contact Info) Description 11/07/2023 Telephone [facility] [address] [place], [place] [phone] Name, MD Piero [address] [place] [address] Forms/questionnaires Social History Tobacco Use Types Packs/Day [...] Telephone Encounter - Conchita Gómez RN - 11/07/2023 2:17 PM EDT After discussing with Medical records dept. T/C [place] pt. Through [place] - [id number] pt. Advised to either forklift picker required documents from [facility] and submit at [facility] or call to [facility] office to give call to [facility] to send documentation to them, ( due to HIPAA violation ). Pt. Verbally greed and understood. * Telephone Encounter - Lauryn Kilgore - 11/07/2023 1:43 PM EDT Tc from pt is requesting last office visit and demographic sheets to be faxed to [phone] , states they are interested in bariatric surgery with [facility]. documented in this encounter Plan of Treatment Upcoming Encounters Date Type Department Care Team (Late st Contact Info) Description 05/20/2024 3:30 PM EST Medication Management [facility] [address] [place] [address] Nadege Kay PharmD [address] [place] [address] documented as of this encounter Visit Diagnoses Not on filedocumented in this encounter Additional Health Concerns Assessment Noted Time PHQ-9 Depression Total Score: 0 08/27/19 23 4:06 PM EDT documented as of this encounter Care Teams Earth Science Professor Relationship Specialty Start Date End Date Name, MD Piero [address] [place] [address] PCP - General Family Medicine 11/28/17 documented as of this encounter
--- OUTSIDE RECORDS SUMMARY | 2024-05-12 15:52 | XMS_ITS | Encounter Summary ---
Author Organization [employer] [facility] Address [address] [place] [address] 7 [place] [address] Care Team Providers Care Protein Specialist Name Role Phone Piero Clarke MD Primary Care Provider [phone] Reason for Referral * Imaging (Routine) - Closed Specialty Diagnoses / Procedures Referred By Contac t Referred To Contact Radiology Diagnoses Encounter for screening mammogram for malignant neoplasm of breast Procedures BI Mammogram Screening Tomosynthesis Bilateral Piero Clarke MD [address] [place] [address] Phone: tel: fax: [address] Phone: tel: fax: Referral ID Status Reason Start Date Expiration Date Visits Re quested Visits Authorized [id number] Closed 04/16/2024 04/16/2025 1 1 * Consultation (Routine) - Authorized Specialty Diagnoses / Procedures Referred By Contac t Referred To Contact Pharmacy Diagnoses Type 2 diabetes mellitus with hyperglycemia, with long-term current use of insulin ([facility]) Piero Clarke MD [address] [place] [address] Phone: tel: fax: Referral ID Status Reason Start Date Expiration Date Visits Requested Visits Authorized [id number] Authorized Consult and Treat 04/16/2024 04/16/2025 6 6 Reason for Visit * Reason Comments Employment Physical Encounter Details Date Type Department Care Team (Late st Contact Info) Description 04/16/2024 10:30 AM EST Office Visit [facility] [place] [address] Name, MD Piero [address] [place] [address] PE (physical exam), routine (Primary Dx); Type 2 diabetes mellitus with hyperglycemia, with long-term current use of insulin ([facility]); Hypertension, unspecified type; Screening for cervical cancer; [...] day 1 kit 1 Continuous Blood Gluc Senior Data Modeler (FreeStyle Jacobo 2 Stanton) device Use as directed 1 each 0 [...] hyperglycemia, with long-term current use of insulin ([facility]) Comments: Continue current medications, reminded to avoid [...] Description 05/20/2024 3:30 PM EST Medication Management [facility] MEDICINE [address] [place], [place] [phone] Nadege Kay PharmD [address] [place] [address] Scheduled Orders Name Type Priority Associated Diagnoses Orde r Schedule BI Mammogram Screening Tomosynthesis Bilateral Imaging Routine Encounter for screening mammogram for malignant neoplasm of breast Expected: 04/16/2024, Expires: 06/17/2025 Scheduled Referrals Name Type Priority Associated Diagnoses Orde r Schedule Referral to Pharmacy CDTM Outpatient Referral Routine Type 2 diabetes mellitus with hyperglycemia, with long-term current use of insulin ([facility]) Ordered: 04/16/2024 documented as of this encounter Procedures Procedure Name Priority Date/Time Associated Diagnosis Comments POCT GLYCATED HEMOGLOBIN, TOTAL Routine 04/16/2024 10:31 AM EST Type 2 diabetes mellitus with hyperglycemia, with long-term current use of insulin ([facility]) POCT GLUCOSE Routine 04/16/2024 10:31 AM EST Type 2 diabetes mellitus with hyperglycemia, with long-term current use of insulin ([facility]) documented in this encounter Results * (ABNORMAL) [...] hyperglycemia, with long-term current use of insulin ([facility]) Hypertension, unspecified type Screening for cervical cancer Screening for malignant neoplasm of the cervix Encounter for screening mammogram for malignant neoplasm of breast Encounter for immunization documented in this encounter Additional Health Concerns Assessment Noted Time PHQ-9 Depression Total Score: 0 01/08/20 24 10:04 AM EDT documented as of this encounter Care Teams Protein Specialist Relationship Specialty Start Date End Date Name, MD Piero [address] [place] [address] PCP - General Family Medicine 11/28/17 documented as of this encounter
--- OUTSIDE RECORDS SUMMARY | 2024-05-12 15:52 | XMS_ITS | Encounter Summary ---
Author Organization [employer] Address 75 [facility] 7t [place] [address] Care Team Providers Care Manager Managed Backup Services Name Role Phone Name, Piero MANLEY Primary Care Provider [phone] Encounter Details Date Type Department Care Team [...] Description 05/20/2024 3:30 PM EST Medication Management [facility] MEDICINE [address] [place] [address] Nadege Kay, PharmD [address] [place] [address] documented as of this encounter Visit Diagnoses Not on filedocumented in this encounter Additional Health Concerns Assessment Noted Time PHQ-9 Depression Total Score: 0 01/08/20 24 10:04 AM EDT documented as of this encounter Care Teams Manager Managed Backup Services Relationship Specialty Start Date End Date Name, MD Piero [address] [place] [address] PCP - General Family Medicine 11/28/17 documented as of this encounter
--- OUTSIDE RECORDS SUMMARY | 2024-05-12 15:52 | XMS_ITS | Encounter Summary ---
Author Organization [employer] Address 75 [facility] 7 [place] [address] Care Team Providers Care Shoes Hand Sewer Name Role Phone Name, Piero MANLEY Primary Care Provider [phone] Reason for Visit * Reason Onset Date Comments Medication Question 04/22/2024 Encounter Details Date Type Department Care Team (Late st Contact Info) Description 04/22/[address] [facility] MEDICINE [address] [place], [place] [phone] Name, MD Piero [address] [place] [address] Type 2 diabetes mellitus with hyperglycemia, with long-term current use of insulin ([facility]) Social History Tobacco Use Types Packs/Day Years [...] 05/06/2024 2:03 PM EST TC placed to [facility] pharmacy re: status of Semaglutide, 2 MG/DOSE, (Ozempic, 2 MG/DOSE,) 8 MG/3ML solution pen-injector. Pharmacy staff states the medication needs a PA. Pharmacy staff asked if PA was completed. Nurse stated that we were not informed that it needed one and would work on paperwork submission. TC placed to pt via [employer] gis technician (Afshan ID#[id number]) to inform pt we are working on [...] AM EST TC placed to pt via [employer] gis technician (ID#[id number]) in regards to medication request. Pt states [...] Description 05/20/2024 3:30 PM EST Medication Management [facility] MEDICINE [address] [place] [address] Nadege Kay, PharmD [address] [place] [address] documented as of this encounter Visit Diagnoses Diagnosis Type 2 diabetes mellitus with hyperglycemia, with long-term current use of insulin ([facility]) documented in this encounter Additional Health Concerns Assessment Noted Time PHQ-9 Depression Total Score: 0 01/08/20 24 10:04 AM EDT documented as of this encounter Care Teams Shoes Hand Sewer Relationship Specialty Start Date End Date Name, MD Piero [address] [place] [address] PCP - General Family Medicine 11/28/17 documented as of this encounter
--- OUTSIDE RECORDS SUMMARY | 2024-05-12 15:52 | XMS_ITS | Encounter Summary ---
Author Organization [employer] Address 75 [facility] 7 [place] [address] Care Team Providers Care Polymerization Supervisor Name Role Phone Name, Piero MANLEY Primary Care Provider [phone] Reason for Visit * Reason Comments Med Refill Encounter Details Date Type Department Care Team ([facility] st Contact Info) Description 03/09/2024 Refill [facility] MEDICINE [address] [place], [place] [phone] Name, MD Piero [address] [place] [address] Type 2 diabetes mellitus with hyperglycemia, with long-term current use of insulin ([facility]) Social History Tobacco Use Types [...] Description 05/20/2024 3:30 PM EST Medication Management [facility] [address] [place] [address] Nadege Kay PharmD [address] [place] [address] documented as of this encounter Visit Diagnoses Diagnosis Type 2 diabetes mellitus with hyperglycemia, with long-term current use of insulin ([facility]) documented in this encounter Additional Health Concerns Assessment Noted Time PHQ-9 Depression Total Score: 0 01/08/20 24 10:04 AM EDT documented as of this encounter Care Teams Polymerization Supervisor Relationship Specialty Start Date End Date Name, MD Piero [address] [place] [address] PCP - General Family Medicine 11/28/17 documented as of this encounter
--- OUTSIDE RECORDS SUMMARY | 2024-05-12 15:52 | XMS_ITS | Encounter Summary ---
Author Organization [employer] Address 75 [facility] 7 [place] [address] Care Team Providers Care Operations Manager Station Name Role Phone Name, Piero MANLEY Primary Care Provider [phone] Reason for Visit * Reason Onset Date Comments Chart Prep 05/04/2024 Encounter Details Date Type Department Care Team ([facility] st Contact Info) Description 05/04/2024 Telephone [facility] MEDICINE [address] [place] [address] Anita Foley MA Chart Prep Social History [...] Description 05/20/2024 3:30 PM EST Medication Management [facility] MEDICINE [address] [place] [address] Nadege Kay, PharmD [address] [place] [address] documented as of this encounter Visit Diagnoses Not on filedocumented in this encounter Additional Health Concerns Assessment Noted Time PHQ-9 Depression Total Score: 0 01/08/20 24 10:04 AM EDT documented as of this encounter Care Teams Operations Manager Station Relationship Specialty Start Date End Date Name, MD Piero [address] [place] [address] PCP - General Family Medicine 11/28/17 documented as of this encounter
--- OUTSIDE RECORDS SUMMARY | 2024-05-12 15:52 | XMS_ITS | Encounter Summary ---
Author Organization [employer] Address [address] [facility] 7t [place] [address] Care Team Providers Care Hogshead Inspector Name Role Phone Name, Piero MANLEY Primary Care Provider [phone] Reason for Visit * Reason Onset Date Comments Scheduled PAP exam 04/16/2024 Encounter Details Date Type Department Care Team (Late st Contact Info) Description 04/16/2024 Telephone [facility] MEDICINE [address] [place] [address] [place], [place] Scheduled PAP exam Social History Tobacco [...] 3:30 PM EST Medication Management [facility] MEDICINE [address] [place] [address] Nadege Kay, PharmD [address] [place] [address] documented as of this encounter Visit Diagnoses Not on filedocumented in this encounter Additional Health Concerns Assessment Noted Time PHQ-9 Depression Total Score: 0 01/08/20 24 10:04 AM EDT documented as of this encounter Care Teams Hogshead Inspector Relationship Specialty Start Date End Date Name, MD Piero [address] [place] [address] PCP - General Family Medicine 11/28/17 documented as of this encounter
--- OUTSIDE RECORDS SUMMARY | 2024-05-12 15:52 | XMS_ITS | Clinical Summary ---
Author Organization [employer] Address [address] [place] [address] 7 [place] [address] Care Team Providers Care Senior Javascript Developer Name Role Phone Name, Piero MANLEY Primary Care Provider [phone] Allergies Active Allergy Reactions Criticality Noted Date [...] weeks 2 each Active Continuous Blood Gluc Tow Motor Driver (FreeStyle Jacobo 2 [place]) device Use as directed 1 each 024 [...] hyperglycemia, with long-term current use of insulin (CMS/[facility]) Take 1 tablet (20 mg) by mouth Once per day. 30 tablet 11 024 2024 Active Semaglutide, 2 MG/DOSE, (Ozempic, 2 MG/DOSE,) 8 MG/3ML solution pen-injectorInd ications:Type 2 diabetes mellitus with hyperglycemia, with long-term current use of insulin (CMS/[facility]) Inject 0.75 mL (2 mg) under the skin 1 (one) time per week. 3 mL 11 025 2025 Active Semaglutide, 2 MG/DOSE, (Ozempic, 2 MG/DOSE,) 8 MG/3ML solution pen-injectorInd ications:Type 2 diabetes mellitus with hyperglycemia, with long-term current use of insulin (CMS/[facility]) Inject 2 mg under the skin 1 [...] hyperglycemia, with long-term current use of insulin ([facility]) TAKE 1 CAPSULE (200 MG) BY MOUTH [...] at work, has permission from work for [employer] [facility] time., will complete paperwork. Referral to behavioral [...] Description 05/12/2024 10:45 AM EST Procedure Visit [facility] [address] [place] [address] Hillary Pastrana, BALJINDER Routine cervical smear (Primary Dx); Menorrhagia with regular cycle; Soft tissue swelling 05/12/2024 Orders Only [facility] [address] [place] [address] Hillary Pastrana FNP 05/12/2024 Travel 05/07/[address] [address] Mariza Karimi, RN 05/04/[address] [address] Anita Foley [place] Chart Prep 04/22/[address] [address] Piero Clarke MD Type 2 diabetes mellitus with hyperglycemia, with long-term current use of insulin (CMS/HCC) 04/16/2024 10:30 AM EST Office Visit [facility] [address] [place] [address] Piero Clarke MD PE (physical exam), routine (Primary Dx); Type 2 diabetes mellitus with hyperglycemia, with long-term current use of insulin (CMS/HCC); Hypertension, unspecified type; Screening for cervical cancer; Encounter for screening mammogram for malignant neoplasm of breast; Encounter for immunization 04/16/[address] [address] Justina Davis MA Scheduled PAP exam 04/13/[address] [address] Anita Foley [place] Chart Prep 04/07/2024 Patient Outreach [address] [address] Piero Clarke MD Pre-visit Planning (SDOH screening is completed) 03/25/2024 Refill [facility] [address] [place] [address] Piero Clarke MD Type 2 diabetes mellitus with hyperglycemia, with long-term current use of insulin (CMS/HCC); Type 2 diabetes mellitus with hyperglycemia, with long-term current use of insulin (CMS/HCC) 03/09/2024 2:00 PM EST Office Visit [facility] [address] [place] [address] Leonel, Mere, OD Presbyopia (Primary Dx) 03/09/2024 Travel 03/09/2024 Refill [facility] [address] [place] [address] Piero Clarke MD Type 2 diabetes mellitus with hyperglycemia, with long-term current use of insulin ([facility]/HCC) 02/10/[address] [address] Piero Clarke MD Letter Request (The patient requested a letter, stating that she is cleared to return to work. I called to verify that she receive the letter that was generated on 02/09/24. She stated that she received the letter, and has returned to work.) 02/10/2024 Refill [facility] [place] [address] Liza Elmore NP Elevated BP without diagnosis of hypertension 02/10/2024 Refill [facility] [place] [address] Name, MD Piero Type 2 diabetes mellitus with hyperglycemia, with long-term current use of insulin ([facility]); Elevated BP without diagnosis of hypertension from [...] Description 05/20/2024 3:30 PM EST Medication Management [facility] [address] [place] [address] Nadege Kay, PharmD [address] [place] [address] Health Maintenance Due Date Last Done Comments [...] Procedure Name Priority Date/Time Associated Diagnosis Comments CANCELLED HEMATOLOGY Routine 05/12/2024 11:54 AM EST POCT GLYCATED HEMOGLOBIN, TOTAL Routine 04/16/2024 10:31 AM EST Type 2 diabetes mellitus with hyperglycemia, with long-term current use of insulin ([facility]) POCT GLUCOSE Routine 04/16/2024 10:31 AM EST Type 2 diabetes mellitus with hyperglycemia, with long-term current use of insulin ([facility]) ALBUMIN, RANDOM URINE W/CREATININE Routine 04/08/2024 9:12 AM EST Type 2 diabetes mellitus with hyperglycemia, with long-term current use of insulin ([facility]) LIPID PANEL, STANDARD Routine 04/08/2024 9:12 AM EST Type 2 diabetes mellitus with hyperglycemia, with long-term current use of insulin ([facility]) COMPREHENSIVE METABOLIC PANEL Routine 04/08/2024 9:12 AM EST Type 2 diabetes mellitus with hyperglycemia, with long-term current use of insulin ([facility]) ZZZ HISTORICAL HPV MRNA E6/E7 Routine 04/29/2018 9:45 AM EST from Last 3 Months or Most Recently Relevant to Health Maintenance Results * Cancelled Hematology (05/12/2024 11:54 AM EST) Cancelled Hematology SEE NOTE [facility] Comment:THE FOLLOWING TESTS WERE CANCELLED: CBCDREASON: WRONG SPECIMEN TUBE DRAWN 05/12/2024 11:5 4 AM EST 05/12/2024 1:19 PM EST Hillary Zeina E LEARNING SPECIALIST HISTORICAL/NON ORDERABLE LABS Final Result [facility] [address] [place] [address] [phone] * (ABNORMAL) POCT HGB A1C (04/16/2024 10:31 [...] 9:12 AM EST) Creatinine, Urine 213.37 mg/dL [facility] Microalbumin Urine 14.0 mg/L [facility] Microalbum Creatinine Ratio Ur 6.5 <30 ug/mg cr [facility] Comment:Albumin/Creatinine R atio Reference Ranges: Normal: < 30 ug/mg creatinine Microalbuminuria: 30 - 300 ug/mg creatinineClinical Albuminuria: > 300 ug/mg creatinine Urine (Urine, Random) 04/08/2024 9:12 AM EST 04/08/2024 11:24 AM EST us Piero Clarke MD LAB URINE ORDERABLES Final Resul t [facility] [address] [place] [address] [phone] * Lipid Panel, Standard (04/08/2024 9:12 AM EST) Triglycerides 101 <150 mg/dL [facility] Comment:Desirable Triglyceri de: less than 150 mg/dLBorderline High Triglyceride 150-199 mg/dLHigh Triglyceride: 200-499 mg/dLVery High Triglyceride: greater than or equal to 5OO mg/dL Cholesterol 146 <200 mg/dL [facility] Comment:Desirable Cholestero l: less than 200 mg/dLBorderline High Cholesterol: 200-239 mg/dLHigh Cholesterol: greater than 239 mg/dL LDL Cholesterol Calculated 85 <100 mg/dL [facility] Comment:Desirable LDL: less than 100 mg/dLNear Optimal/Above Optimal LDL: 110- 129 mg/dLBorderline High LDL: 130-159 mg/dLHigh LDL: 160-189 mg/dLVery High LDL: greater than or equal to 190 mg/dL HDL Cholesterol 41 >40 mg/dL [facility] Comment:Desirable HDL: great er than 40 mg/dL Note: This HDL assay may give artificially low results in patients with liver disease. Blood Venous blood specimen / Unknown 04/08/2024 9:12 AM EST 04/08/2024 11:15 AM EST us Piero Name MD LAB BLOOD ORDERABLES Final Resul t [facility] [address] [place] [address] [phone] * (ABNORMAL) Comprehensive Metabolic Panel (04/08/2024 9:12 AM EST) Sodium 140 135 - 145 mmol/L [facility] Potassium 4.1 3.3 - 5.1 mmol/L [facility] Chloride 108 96 - 108 mmol/L [facility] Carbon Dioxide 27 22 - 29 mmol/L [facility] Anion Gap 9(L) 12 - 20 [facility] Urea Nitrogen (BUN) 10 9 - 16 mg/dL [facility] Creatinine, Serum 0.76 0.5 - 1.4 mg/dL [facility] Estimated Glomerular Filt Rate >60 [facility] Comment:Chronic Kidney Disea se: Estimated GFR < 60 mL/min/1.19i9Teegfy Kidney Disease: Estimated GFR < 15 mL/min/1.73m2 Glucose 153(H) 60 - 115 mg/dL [facility] Calcium 8.9 8.4 - 10.2 mg/dL [facility] Bilirubin, Total 0.3 0.0 - 1.0 mg/dL [facility] Aspartate Amino Transferase 31 5 - 31 U/L [facility] Alanine Aminotransferase 56(H) 0 - 31 U/L [facility] Total Protein 6.9 6.5 - 8.0 g/dL [facility] Albumin Level 3.9 3.5 - 5.0 g/dL [facility] Alkaline Phosphatase 70 39 - 117 U/L [facility] Blood Venous blood specimen / Unknown 04/08/2024 9:12 AM EST 04/08/2024 11:15 AM EST us Piero Name LAB BLOOD ORDERABLES Final Resul t [facility] [address] [place] [phone] * HPV mRNA E6/E7 (04/29/2018 9:45 AM EST) HPV mRNA E6/E7 Not Detected NOT DETECTED [facility] Comment: This test was performed using the APTIMA(R) HPV Assay ([employer] This assay detects E6/E7 viral messenger RNA (mRNA) from 14 high-risk HPV types (16,18,31,33,35,39,45,51, 52,56,58,59,66,68). For additional information please refer to: http://education.[employer]/faq/PRU661t3 (This link is being provided for informational/ educational purposes only.) The analytical performance characteristics of this assay have been determined by [facility] [place], [place]. The modifications have not been cleared or approved by the FDA. This assay has been validated pursuant to the CLIA regulations and is used for clinical purposes. Test Performed by [employer], [facility] [place], [address] [place] [address] Scott Cross M.D., Ph.D., Director of Laboratories , CLIA [id number] Please note: ??Effective 01/01/2016, HPV testing will be performed using [employer]'s APTIMA test which targets mRNA. Detecting mRNA instead of DNA, as in older methods, offers significant improvements in specificity. 04/29/2018 9:45 AM EST us Ema Fournier CNM HISTORICAL/NON ORDERABLE LABS Final Result Performing Organization Address City/State/[facility] [place] Phone Number [facility] Anywhere [address] from Last 3 Months or Most Recently Relevant to Health Maintenance Insurance [employer] C3 Care Teams Senior Javascript Developer Relationship Specialty Start Date End Date Name, MD Piero [address] [place] [phone] PCP - General Family Medicine 11/28/17
--- OUTSIDE RECORDS SUMMARY | 2024-05-12 15:52 | XMS_ITS | Encounter Summary ---
Author Organization [employer] [facility] Address [address] [place] [address] [place] [address] Care Team Providers Care Dobby Looms Pegger Name Role Phone Name, Piero MANLEY Primary Care Provider [phone] Reason for Referral * Consultation (Routine) - Pending Review Specialty Diagnoses / Procedures Referred By Antwan goodrich Referred To Contact General Surgery Diagnoses Soft tissue swelling Hillary Pastrana FNP [address] [place] [address] Phone: tel: fax: Referral ID Status Reason Start Date Expiration Date Visits Requested Visits Authorized [id number] Pending Review Specialty Services Required 05/12/2024 05/12/2025 1 1 * Imaging (Routine) - Authorized Specialty Diagnoses / Procedures Referred By Antwan goodrich Referred To Contact Radiology Diagnoses Menorrhagia with regular cycle Procedures Us Pelvis complete Hillary Pastrana FNP [address] [place] [address] Phone: tel: fax: [address] Phone: tel: fax: Referral ID Status Reason Start Date Expiration Date V isits Requested Visits Authorized [id number] Authorized 05/12/2024 05/12/2025 1 1 * Imaging (Routine) - Authorized Specialty Diagnoses / Procedures Referred By Antwan goodrich Referred To Contact Radiology Diagnoses Menorrhagia with regular cycle Procedures US Pelvis Transvaginal Hillary Pastrana FNP [address] [place] [address] Phone: tel: fax: [address] Phone: tel: fax: Referral ID Status Reason Start Date Expiration Date V isits Requested Visits Authorized [id number] Authorized 05/12/2024 05/12/2025 1 1 Encounter Details Date Type Department Care Team (Latest Contact Info) Description 05/12/2024 10:45 AM EST Procedure Visit [facility] MEDICINE [address] [place] [address] Hillary Pastrana FNP [address] [place] [address] Routine cervical smear (Primary Dx); Menorrhagia with [...] 05/20/2024 3:30 PM EST Medication Management [facility] MEDICINE [address] [place], [place] [phone] Nadege Kay, PharmD [address] [place] [address] Scheduled Orders Name Type Priority Associated Diagnoses [...] documented as of this encounter Care Teams Dobby Looms Pegger Relationship Specialty Start Date End Date Name, MD Piero [address] [place] [address] PCP - General Family Medicine 11/28/17 documented as of this encounter
--- OUTSIDE RECORDS SUMMARY | 2024-05-12 15:52 | XMS_ITS | Encounter Summary ---
Author Organization [employer] Address [address] [facility] 7t [place] [address] Care Team Providers Care Human Services Instructor Name Role Phone Name, Piero MANLEY Primary Care Provider [phone] Encounter Details Date Type Department Care Team ([facility] st Contact Info) Description 05/12/2024 Orders Only [facility] MEDICINE [address] [place], [place] [phone] Hillary Pastrana FNP [address] [place] [address] Social History Tobacco Use Types Packs/Day Years [...] [facility] [address] [place] [address] Nadege Kay, PharmD [address] [place] [address] documented as of this encounter Procedures Procedure Name Priority Date/Time Associated Diagnosis Comments CANCELLED HEMATOLOGY Routine 05/12/2024 11:54 AM EST documented in this encounter Results * Cancelled Hematology (05/12/2024 11:54 AM EST) Cancelled Hematology SEE NOTE [facility] Comment:THE FOLLOWING TESTS WERE CANCELLED: CBCDREASON: WRONG SPECIMEN TUBE DRAWN 05/12/2024 11:5 4 AM EST 05/12/2024 1:19 PM EST us Hillaryshayna Pastrana HUMANE AGENT HISTORICAL/NON ORDERABLE LABS Final Result [facility] [address] [place] [address] [phone] documented in this encounter Visit Diagnoses Not on filedocumented in this encounter Additional Health Concerns Assessment Noted Time PHQ-9 Depression Total Score: 0 01/08/20 24 10:04 AM EDT documented as of this encounter Care Teams Human Services Instructor Relationship Specialty Start Date End Date Name, MD Piero [address] [place] [address] PCP - General Family Medicine 11/28/17 documented as of this encounter
--- OUTSIDE RECORDS SUMMARY | 2024-05-12 15:52 | XMS_ITS | Encounter Summary ---
Author Organization [employer] Address [address] [facility] 7t [place] [address] Care Team Providers Care Stationary Engineer Supervisor Name Role Phone Name, Piero MANLEY Primary Care Provider [phone] Encounter Details Date Type Department Care Team ([facility] st Contact Info) Description 05/07/2024 Telephone [facility] MED[facility] [address] [place] [address] Mariza Karimi RN Social History Tobacco Use [...] AM EST BLANCA duran completed, [email or web address] and confirmations received. Pending approval/denial decision. Forms placed in H.I.M scanning bin. documented in this encounter Plan of Treatment Upcoming Encounters Date Type Department Care Team (Late st Contact Info) Description 05/20/2024 3:30 PM EST Medication Management [facility] MED[facility] [address] [place] [address] Nadege Kay, PharmD [address] [place] [address] documented as of this encounter Visit Diagnoses Not on filedocumented in this encounter Additional Health Concerns Assessment Noted Time PHQ-9 Depression Total Score: 0 01/08/20 24 10:04 AM EDT documented as of this encounter Care Teams Stationary Engineer Supervisor Relationship Specialty Start Date End Date Name, MD Piero [address] [place] [address] PCP - General Family Medicine 11/28/17 documented as of this encounter
--- OUTSIDE RECORDS SUMMARY | 2024-05-12 15:52 | XMS_ITS | Encounter Summary ---
Author Organization [employer] Address [address] [facility] 7 [place] [address] Care Team Providers Care Mobility Architect Manager Name Role Phone Name, Piero MANLEY Primary Care Provider [phone] Reason for Visit * Reason Onset Date Comments Letter for School/Work 08/20/2023 Encounter Details Date Type Department Care Team ([facility] st Contact Info) Description 08/20/2023 Telephone [facility] MED[facility]INE [address] [place], [place] [phone] Name, MD Piero [address] [place] [address] Letter for School/Work Social History Tobacco Use [...] not accept excuse. Please contact pt at [phone] documented in this encounter Plan of Treatment Upcoming Encounters Date Type Department Care Team (Late st Contact Info) Description 05/20/2024 3:30 PM EST Medication Management [facility] [address] [place] [address] Nadege Kay, PharmD [address] [place] [address] documented as of this encounter Visit Diagnoses Not on filedocumented in this encounter Additional Health Concerns Assessment Noted Time PHQ-9 Depression Total Score: 0 08/27/19 23 4:06 PM EDT documented as of this encounter Care Teams Mobility Architect Manager Relationship Specialty Start Date End Date Name, MD Piero [address] [place] [address] PCP - General Family Medicine 11/28/17 documented as of this encounter
--- OUTSIDE RECORDS SUMMARY | 2024-05-12 15:52 | XMS_ITS | Encounter Summary ---
Author Organization [employer] Address [address] [facility] 7 [place] [address] Care Team Providers Care Yarding Supervisor Name Role Phone Name, Piero MANLEY Primary Care Provider [phone] Reason for Visit * Reason Onset Date Comments Med Refill 01/02/2024 Encounter Details Date Type Department Care Team (Late st Contact Info) Description 01/02/2024 Telephone [facility] MEDICINE [address] [place], [place] [phone] Name, MD Piero [address] [place] [address] Med Refill Social History Tobacco Use Types [...] MG capsule To be sent to: [facility]/pharmacy #[id number] [place] [address] documented in this encounter Plan of Treatment Upcoming Encounters Date Type Department Care Team (Late st Contact Info) Description 05/20/2024 3:30 PM EST Medication Management [facility] MEDICINE [address] [place] [address] Nadege Kay, PharmD [address] [place] [address] documented as of this encounter Visit Diagnoses Not on filedocumented in this encounter Additional Health Concerns Assessment Noted Time PHQ-9 Depression Total Score: 0 08/27/19 23 4:06 PM EDT documented as of this encounter Care Teams Yarding Supervisor Relationship Specialty Start Date End Date Name, MD Piero [address] [place] [address] PCP - General Family Medicine 11/28/17 documented as of this encounter
--- OUTSIDE RECORDS SUMMARY | 2024-05-12 15:52 | XMS_ITS | Encounter Summary ---
Author Organization [employer] Address 75 [facility] 7 [place] [address] Care Team Providers Care Aircraft Accessories Mechanic Name Role Phone Name, Piero MANLEY Primary Care Provider [phone] Reason for Visit * Reason Onset Date Comments Chart Prep 04/13/2024 Encounter Details Date Type Department Care Team ([facility] st Contact Info) Description 04/13/2024 Telephone [facility] MEDICINE [address] [place] [address] Anita Foley MA Chart Prep Social History [...] Description 05/20/2024 3:30 PM EST Medication Management [facility] [address] [place] [address] Nadege Kay, PharmD [address] [place] [address] documented as of this encounter Visit Diagnoses Not on filedocumented in this encounter Additional Health Concerns Assessment Noted Time PHQ-9 Depression Total Score: 0 01/08/20 10:04 AM EDT documented as of this encounter Care Teams Aircraft Accessories Mechanic Relationship Specialty Start Date End Date Name, MD Piero [address] [place] [address] PCP - General Family Medicine 11/28/17 documented as of this encounter
--- OUTSIDE RECORDS SUMMARY | 2024-05-12 15:53 | XMS_ITS | Encounter Summary ---
Author Organization [employer] Address [address] [facility] 7 [place] [address] Care Team Providers Care Balance Screwhead Polisher Name Role Phone Name, Piero MANLEY Primary Care Provider [phone] Reason for Visit * Reason Onset Date Comments Med Change Request Prior Authorization 07/14/2023 Encounter Details Date Type Department Care Team ([facility] st Contact Info) Description 07/14/2023 Refill [facility] MEDICINE [address] [place], [place] [phone] Name, MD Piero [address] [place] [address] Social History Tobacco Use Types Packs/Day Years [...] 3:48 PM EDT PA form generated for [employer]. Placed on pcp desk for review and signature to then be faxed to and scanned into chart under media. documented in this encounter Plan of Treatment Upcoming Encounters Date Type Department Care Team (Late st Contact Info) Description 05/20/2024 3:30 PM EST Medication Management [facility] MEDICINE [address] [place], [place] [phone] Nadege Kay, PharmD [address] [place] [address] documented as of this encounter Visit Diagnoses Not on filedocumented in this encounter Additional Health Concerns Assessment Noted Time PHQ-9 Depression Total Score: 0 08/27/19 23 4:06 PM EDT documented as of this encounter Care Teams Balance Screwhead Polisher Relationship Specialty Start Date End Date Name, MD Piero [address] [place], [place] [phone] PCP - General Family Medicine 11/28/17 documented as of this encounter
--- OUTSIDE RECORDS SUMMARY | 2024-05-12 15:53 | XMS_ITS | Encounter Summary ---
Author Organization [employer] [facility] Address [address] [place] [address] [place], [place] [address] Care Team Providers Care Wire Web Worker Name Role Phone Name, Piero MANLEY Primary Care Provider [phone] Encounter Details Date Type Department Care Team (Late Contact Info) Description 05/09/2022 Telephone [facility] MEDICINE [address] [place] [address] Name, MD Piero [address] [place] [address] Social History Tobacco Use Types Packs/Day Years [...] 3:30 PM EST Medication Management [facility] MEDICINE [address] [place] [address] Nadege Kay, PharmD [address] [place] [address] documented as of this encounter Visit Diagnoses Not on filedocumented in this encounter Care Teams Wire Web Worker Relationship Specialty Start Date End Date Name, MD Piero [address] [place] [address] PCP - General Family Medicine 11/28/17 documented as of this encounter
--- OUTSIDE RECORDS SUMMARY | 2024-05-12 15:53 | XMS_ITS | Encounter Summary ---
Author Organization [employer] Address 75 [facility] 7t [place] [address] Care Team Providers Care Express Manager Name Role Phone Name, Piero MANLEY Primary Care Provider [phone] Encounter Details Date Type Department Care Team ([facility] st Contact Info) Description 04/23/2023 Orders Only [facility] PEDS [address] [place] [address] Tonia Pagan LPN Social History Tobacco Use [...] Description 05/20/2024 3:30 PM EST Medication Management [facility] MEDICINE [address] [place] [address] Nadege Kay, PharmD [address] [place] [address] documented as of this encounter Visit Diagnoses Not on filedocumented in this encounter Additional Health Concerns Assessment Noted Time PHQ-9 Depression Total Score: 0 08/27/19 23 4:06 PM EDT documented as of this encounter Care Teams Express Manager Relationship Specialty Start Date End Date Name, MD Piero [address] [place] [address] PCP - General Family Medicine 11/28/17 documented as of this encounter
--- OUTSIDE RECORDS SUMMARY | 2024-05-12 15:53 | XMS_ITS | Encounter Summary ---
Author Organization [employer] Address 75 [facility] 7 [place] [address] Care Team Providers Care Border Measurer Name Role Phone Name, Piero MANLEY Primary Care Provider [phone] Reason for Visit * Reason Comments Med Refill Encounter Details Date Type Department Care Team ([facility] st Contact Info) Description 07/14/[address] [facility] MEDICINE [address] [place], [place] [phone] Name, MD Piero [address] [place] [address] Social History Tobacco Use Types Packs/Day Years [...] Description 05/20/2024 3:30 PM EST Medication Management [facility] MEDICINE [address] [place] [address] Nadege Kay, PharmD [address] [place] [address] documented as of this encounter Visit Diagnoses Not on filedocumented in this encounter Additional Health Concerns Assessment Noted Time PHQ-9 Depression Total Score: 0 08/27/19 23 4:06 PM EDT documented as of this encounter Care Teams Border Measurer Relationship Specialty Start Date End Date Name, MD Piero [address] [place] [address] PCP - General Family Medicine 11/28/17 documented as of this encounter
--- OUTSIDE RECORDS SUMMARY | 2024-05-12 15:53 | XMS_ITS | Encounter Summary ---
Author Organization [employer] Address [address] [place] [address] [place] [address] Care Team Providers Care Mash Tub Cooker Name Role Phone Name, Piero MANLEY Primary Care Provider [phone] Reason for Visit * Reason Onset Date Comments Nurse Triage 01/21/2023 Encounter Details Date Type Department Care Team (Late st Contact Info) Description 01/21/2023 Telephone [facility] MEDICINE 230 [place], [place] [phone] Name, MD Piero [address] [place] [address] Nurse Triage Social History Tobacco Use Types [...] reduce sugar/carb foods. Pt advised to seek [facility] for exam today or tomorrow if [...] Description 05/20/2024 3:30 PM EST Medication Management [facility] MEDICINE [address] [place], [place] [phone] Nadege Kay, PharmD [address] [place] [address] documented as of this encounter Visit Diagnoses Not on filedocumented in this encounter Additional Health Concerns Assessment Noted Time PHQ-9 Depression Total Score: 0 08/27/19 23 4:06 PM EDT documented as of this encounter Care Teams Mash Tub Cooker Relationship Specialty Start Date End Date Name, MD Piero [address] [place] [address] PCP - General Family Medicine 11/28/17 documented as of this encounter
== END 2024-05-12 13:42 | disposition home or self-care (01) ==
LOC: HO.MAMMO 13:41
PROVIDERS: PCP Internal Medicine Geriatric Medicine; Visit Provider Internal Medicine Geriatric Medicine
DX: Z12.31 Encounter for screening mammogram for malignant neoplasm of breast (principal)
CPT/HCPCS: 77063; 77067

== ENCOUNTER → 2024-05-12 14:00 | Outpatient (BNV) | payer MEDICAID, SELFPAY | PROVIDERS: PCP Internal Medicine Geriatric Medicine; Visit Provider Internal Medicine | DX: Z12.31 Encounter for screening mammogram for malignant neoplasm of breast (principal) | CPT/HCPCS: 77063; 77067 ==

== ENCOUNTER 2024-05-12 14:16 | Outpatient (REF) | payer MEDICAID, SELFPAY ==
--- OUTSIDE RECORDS SUMMARY | 2024-05-12 16:39 | XMS_ITS | Encounter Summary ---
Author Organization [employer] [facility] Address [address] [place] [address] [place] [address] Care Team Providers Care Jewelry Drill Operator Name Role Phone Name, Piero MANLEY Primary Care Provider [phone] Reason for Referral * Consultation (Routine) - Pending Review Specialty Diagnoses / Procedures Referred By Antwan goodrich Referred To Contact General Surgery Diagnoses Soft tissue swelling Hillary Pastrana FNP [address] [place] [address] Phone: tel: fax: Referral ID Status Reason Start Date Expiration Date Visits Requested Visits Authorized [id number] Pending Review Specialty Services Required 05/12/2024 05/12/2025 1 1 * Imaging (Routine) - Authorized Specialty Diagnoses / Procedures Referred By Antwan goodrich Referred To Contact Radiology Diagnoses Menorrhagia with regular cycle Procedures Us Pelvis complete Hillary Pastrana FNP [address] [place] [address] Phone: tel: fax: [address] Phone: tel: fax: Referral ID Status Reason Start Date Expiration Date V isits Requested Visits Authorized [id number] Authorized 05/12/2024 05/12/2025 1 1 * Imaging (Routine) - Authorized Specialty Diagnoses / Procedures Referred By Antwan goodrich Referred To Contact Radiology Diagnoses Menorrhagia with regular cycle Procedures US Pelvis Transvaginal Hillary Pastrana FNP [address] [place] [address] Phone: tel: fax: [address] Phone: tel: fax: Referral ID Status Reason Start Date Expiration Date V isits Requested Visits Authorized [id number] Authorized 05/12/2024 05/12/2025 1 1 Encounter Details Date Type Department Care Team (Latest Contact Info) Description 05/12/2024 10:45 AM EST Procedure Visit [facility] MEDICINE [address] [place] [address] Hillary Pastrana FNP [address] [place] [address] Routine cervical smear (Primary Dx); Menorrhagia with [...] Description 05/20/2024 3:30 PM EST Medication Management [facility] MEDICINE [address] [place], [place] [phone] Nadege Kay, PharmD 230 [place] [address] Scheduled Orders Name Type Priority Associated Diagnoses [...] documented as of this encounter Care Teams Jewelry Drill Operator Relationship Specialty Start Date End Date Name, MD Piero [address] [place] [address] PCP - General Family Medicine 11/28/17 documented as of this encounter
--- OUTSIDE RECORDS SUMMARY | 2024-05-12 16:39 | XMS_ITS | Clinical Summary ---
Author Organization [employer] Address [address] [place] [address] 7 [place] [address] Care Team Providers Care Meat Slicer Name Role Phone Name, Piero MANLEY Primary [...] weeks 2 each Active Continuous Blood Gluc Lower [employer] Music Teacher ([employer] Jacobo [address] [place]) device Use as directed 1 each 024 [...] hyperglycemia, with long-term current use of insulin (CMS/[facility]) Take 1 tablet (20 mg) by mouth Once per day. 30 tablet 11 024 2024 Active Semaglutide, 2 MG/DOSE, (Ozempic, 2 MG/DOSE,) 8 MG/3ML solution pen-injectorInd ications:Type 2 diabetes mellitus with hyperglycemia, with long-term current use of insulin (CMS/[facility]) Inject 0.75 mL (2 mg) under the skin 1 (one) time per week. 3 mL 11 025 2025 Active Semaglutide, 2 MG/DOSE, (Ozempic, 2 MG/DOSE,) 8 MG/3ML solution pen-injectorInd ications:Type 2 diabetes mellitus with hyperglycemia, with long-term current use of insulin (CMS/[facility]) Inject 2 mg under the skin 1 [...] with long-term current use of insulin ([facility]) TAKE 1 CAPSULE (200 MG) BY MOUTH [...] at work, has permission from work for [facility] [employer] time., will complete paperwork. Referral to behavioral [...] Description 05/12/2024 10:45 AM EST Procedure Visit [facility] MEDICINE [address] [place] [address] Hillary Pastrana, BALJINDER Routine cervical smear (Primary Dx); Menorrhagia with regular cycle; Soft tissue swelling 05/12/2024 Orders Only [facility] MEDICINE [address] [place] [address] Hillary Pastrana FNP 05/12/2024 Travel 05/07/[address] [address] Mariza Karimi, RN 05/04/[address] [address] Anita Foley [place] Chart Prep 04/22/[address] [address] Piero Clarke MD Type 2 diabetes mellitus with hyperglycemia, with long-term current use of insulin (CMS/HCC) 04/16/2024 10:30 AM EST Office Visit [facility] MEDICINE [address] [place] [address] Piero Clarke MD PE (physical exam), routine (Primary Dx); Type 2 diabetes mellitus with hyperglycemia, with long-term current use of insulin (CMS/HCC); Hypertension, unspecified type; Screening for cervical cancer; Encounter for screening mammogram for malignant neoplasm of breast; Encounter for immunization 04/16/[address] [address] Justina Davis [place] Scheduled PAP exam 04/13/[address] [address] Anita Foley [place] Chart Prep 04/07/2024 Patient Outreach [address] [address] Piero Clarke MD Pre-visit Planning (SDOH screening is completed) 03/25/2024 Refill [facility] MEDICINE [address] [place] [address] Piero Clarke MD Type 2 diabetes mellitus with hyperglycemia, with long-term current use of insulin (CMS/HCC); Type 2 diabetes mellitus with hyperglycemia, with long-term current use of insulin (CMS/HCC) 03/09/2024 2:00 PM EST Office Visit [facility] OPTOMETRY [address] [place] [address] Leonel, Mere, OD Presbyopia (Primary Dx) 03/09/2024 Travel 03/09/2024 Refill [facility] MEDICINE [address] [place] [address] Piero Clarke MD Type 2 diabetes mellitus with hyperglycemia, with long-term current use of insulin ([facility]/HCC) 02/10/[address] [address] Piero Clarke MD Letter Request (The patient requested a letter, stating that she is cleared to return to work. I called to verify that she receive the letter that was generated on 02/09/24. She stated that she received the letter, and has returned to work.) 02/10/2024 Refill [facility] [place] [address] Liza Elmore NP Elevated BP without diagnosis of hypertension 02/10/2024 Refill [facility] [place] [address] Name, MD Piero Type 2 diabetes mellitus with hyperglycemia, with long-term current use of insulin ([facility]); Elevated BP without diagnosis of hypertension from [...] Description 05/20/2024 3:30 PM EST Medication Management [facility] MEDICINE [address] [place] [address] Nadege Kay, PharmD [address] [place] [address] Health Maintenance Due Date Last Done Comments [...] with long-term current use of insulin ([facility]) POCT GLUCOSE Routine 04/16/2024 10:31 AM EST Type 2 diabetes mellitus with hyperglycemia, with long-term current use of insulin ([facility]) ALBUMIN, RANDOM URINE W/CREATININE Routine 04/08/2024 9:12 AM EST Type 2 diabetes mellitus with hyperglycemia, with long-term current use of insulin ([facility]) LIPID PANEL, STANDARD Routine 04/08/2024 9:12 AM EST Type 2 diabetes mellitus with hyperglycemia, with long-term current use of insulin ([facility]) COMPREHENSIVE METABOLIC PANEL Routine 04/08/2024 9:12 AM EST Type 2 diabetes mellitus with hyperglycemia, with long-term current use of insulin ([facility]) ZZZ HISTORICAL HPV MRNA E6/E7 Routine 04/29/2018 9:45 AM EST from Last 3 Months or Most Recently Relevant to Health Maintenance Results * Cancelled Hematology (05/12/2024 11:54 AM EST) Cancelled Hematology SEE NOTE [facility] Comment:THE FOLLOWING TESTS WERE CANCELLED: CBCDREASON: WRONG SPECIMEN TUBE DRAWN 05/12/2024 11:5 4 AM EST 05/12/2024 1:19 PM EST Hillary Zeina COMMUNITY SERVICES MANAGER HISTORICAL/NON ORDERABLE LABS Final Result [facility] [address] [place] [address] [phone] * (ABNORMAL) POCT HGB A1C (04/16/2024 [...] 9:12 AM EST) Creatinine, Urine 213.37 mg/dL [facility] Microalbumin Urine 14.0 mg/L [facility] Microalbum Creatinine Ratio Ur 6.5 <30 ug/mg cr [facility] Comment:Albumin/Creatinine R atio Reference Ranges: Normal: < 30 ug/mg creatinine Microalbuminuria: 30 - 300 ug/mg creatinineClinical Albuminuria: > 300 ug/mg creatinine Urine (Urine, Random) 04/08/2024 9:12 AM EST 04/08/2024 11:24 AM EST us Piero Clarke MD LAB URINE ORDERABLES Final Resul t [facility] [address] [place] [address] [phone] * Lipid Panel, Standard (04/08/2024 9:12 AM EST) Triglycerides 101 <150 mg/dL [facility] Comment:Desirable Triglyceri de: less than 150 mg/dLBorderline High Triglyceride 150-199 mg/dLHigh Triglyceride: 200-499 mg/dLVery High Triglyceride: greater than or equal to 5OO mg/dL Cholesterol 146 <200 mg/dL [facility] Comment:Desirable Cholestero l: less than 200 mg/dLBorderline High Cholesterol: 200-239 mg/dLHigh Cholesterol: greater than 239 mg/dL LDL Cholesterol Calculated 85 <100 mg/dL [facility] Comment:Desirable LDL: less than 100 mg/dLNear Optimal/Above Optimal LDL: 110- 129 mg/dLBorderline High LDL: 130-159 mg/dLHigh LDL: 160-189 mg/dLVery High LDL: greater than or equal to 190 mg/dL HDL Cholesterol 41 >40 mg/dL [facility] Comment:Desirable HDL: great er than 40 mg/dL Note: This HDL assay may give artificially low results in patients with liver disease. Blood Venous blood specimen / Unknown 04/08/2024 9:12 AM EST 04/08/2024 11:15 AM EST us Piero Name MD LAB BLOOD ORDERABLES Final Resul t [facility] [address] [place] [address] [phone] * (ABNORMAL) Comprehensive Metabolic Panel (04/08/2024 9:12 AM EST) Sodium 140 135 - 145 mmol/L [facility] Potassium 4.1 3.3 - 5.1 mmol/L [facility] Chloride 108 96 - 108 mmol/L [facility] Carbon Dioxide 27 22 - 29 mmol/L [facility] Anion Gap 9(L) 12 - 20 [facility] Urea Nitrogen (BUN) 10 9 - 16 mg/dL [facility] Creatinine, Serum 0.76 0.5 - 1.4 mg/dL [facility] Estimated Glomerular Filt Rate >60 [facility] Comment:Chronic Kidney Disea se: Estimated GFR < 60 mL/min/1.89i4Pihzvg Kidney Disease: Estimated GFR < 15 mL/min/1.73m2 Glucose 153(H) 60 - 115 mg/dL [facility] Calcium 8.9 8.4 - 10.2 mg/dL [facility] Bilirubin, Total 0.3 0.0 - 1.0 mg/dL [facility] Aspartate Amino Transferase 31 5 - 31 U/L [facility] Alanine Aminotransferase 56(H) 0 - 31 U/L [facility] Total Protein 6.9 6.5 - 8.0 g/dL [facility] Albumin Level 3.9 3.5 - 5.0 g/dL [facility] Alkaline Phosphatase 70 39 - 117 U/L [facility] Blood Venous blood specimen / Unknown 04/08/2024 9:12 AM EST 04/08/2024 11:15 AM EST us Piero Name LAB BLOOD ORDERABLES Final Resul t [facility] [address] [place] [phone] * HPV mRNA E6/E7 (04/29/2018 9:45 AM EST) HPV mRNA E6/E7 Not Detected NOT DETECTED [facility] Comment: This test was performed using the APTIMA(R) HPV Assay ([employer] This assay detects E6/E7 viral messenger RNA (mRNA) from 14 high-risk HPV types (16,18,31,33,35,39,45,51, 52,56,58,59,66,68). For additional information please refer to: http://education.[employer]faq/BCX762y4 (This link is being provided for informational/ educational purposes only.) The analytical performance characteristics of this assay have been determined by [facility] [place], [place]. The modifications have not been cleared or approved by the FDA. This assay has been validated pursuant to the CLIA regulations and is used for clinical purposes. Test Performed by [employer], [email or web address] [facility] [place], [address] [place] [address] Scott Cross M.D., Ph.D., Director of Laboratories , CLIA [id number] Please note: ??Effective 01/01/2016, HPV testing will be performed using [employer]'s APTIMA test which targets mRNA. Detecting mRNA instead of DNA, as in older methods, offers significant improvements in specificity. 04/29/2018 9:45 AM EST us Ema Fournier CNM HISTORICAL/NON ORDERABLE LABS Final Result Performing Organization Address City/State/[facility] [place] Phone Number [facility] Anywhere [address] from Last 3 Months or Most Recently Relevant to Health Maintenance Insurance [facility] C3 Care Teams Meat Slicer Relationship Specialty Start Date End Date Name, MD Piero [address] [place] [address] PCP - General Family Medicine 11/28/17
--- OUTSIDE RECORDS SUMMARY | 2024-05-12 16:39 | XMS_ITS | Encounter Summary ---
Author Organization [employer] Address 75 [facility] 7t [place] [address] Care Team Providers Care Scourer Name Role Phone Name, Piero MANLEY Primary Care Provider [phone] Encounter Details Date Type Department Care Team ([facility] st Contact Info) Description 05/12/2024 Orders Only [facility] MEDICINE [address] [place], [place] [phone] Hillary Pastrana FNP [address] [place] [address] Social History Tobacco Use Types Packs/Day Years [...] [facility] [address] [place] [address] Nadege Kay, PharmD [address] [place] [address] documented as of this encounter Procedures Procedure Name Priority Date/Time Associated Diagnosis Comments CANCELLED HEMATOLOGY Routine 05/12/2024 11:54 AM EST documented in this encounter Results * Cancelled Hematology (05/12/2024 11:54 AM EST) Cancelled Hematology SEE NOTE [facility] Comment:THE FOLLOWING TESTS WERE CANCELLED: CBCDREASON: WRONG SPECIMEN TUBE DRAWN 05/12/2024 11:5 4 AM EST 05/12/2024 1:19 PM EST us Hillaryshayna Pastrana CHIEF GREEN OFFICER HISTORICAL/NON ORDERABLE LABS Final Result [facility] [address] [place] [address] [phone] documented in this encounter Visit Diagnoses Not on filedocumented in this encounter Additional Health Concerns Assessment Noted Time PHQ-9 Depression Total Score: 0 01/08/20 24 10:04 AM EDT documented as of this encounter Care Teams Scourer Relationship Specialty Start Date End Date Name, MD Piero [address] [place] [address] PCP - General Family Medicine 11/28/17 documented as of this encounter
--- OUTSIDE RECORDS SUMMARY | 2024-05-12 16:39 | XMS_ITS | Encounter Summary ---
Author Organization [employer] Address 75 [facility] 7t [place] [address] Care Team Providers Care Brim Greaser Operator Name Role Phone Name, Piero MANLEY Primary Care Provider [phone] Encounter Details Date Type Department Care Team [...] [facility] [address] [place] [address] Nadege Kay, PharmD [address] [place] [address] documented as of this encounter Visit Diagnoses Not on filedocumented in this encounter Additional Health Concerns Assessment Noted Time PHQ-9 Depression Total Score: 0 01/08/20 24 10:04 AM EDT documented as of this encounter Care Teams Brim Greaser Operator Relationship Specialty Start Date End Date Name, MD Piero [address] [place] [address] PCP - General Family Medicine 11/28/17 documented as of this encounter
--- OUTSIDE RECORDS SUMMARY | 2024-05-12 16:40 | XMS_ITS | Encounter Summary ---
Author Organization [employer] [facility] Address [address] [place] [address] 7 [place] [address] Care Team Providers Care Pleating Supervisor Name Role Phone Piero Clarke MD Primary Care Provider [phone] Reason for Referral * Imaging (Routine) - Closed Specialty Diagnoses / Procedures Referred By Contac t Referred To Contact Radiology Diagnoses Encounter for screening mammogram for malignant neoplasm of breast Procedures BI Mammogram Screening Tomosynthesis Bilateral Piero Clarke MD [address] [place] [address] Phone: tel: fax: [address] Phone: tel: fax: Referral ID Status Reason Start Date Expiration Date Visits Re quested Visits Authorized [id number] Closed 04/16/2024 04/16/2025 1 1 * Consultation (Routine) - Authorized Specialty Diagnoses / Procedures Referred By Contac t Referred To Contact Pharmacy Diagnoses Type 2 diabetes mellitus with hyperglycemia, with long-term current use of insulin ([facility]) Piero Clarke MD [address] [place] [address] Phone: tel: fax: Referral ID Status Reason Start Date Expiration Date Visits Requested Visits Authorized [id number] Authorized Consult and Treat 04/16/2024 04/16/2025 6 6 Reason for Visit * Reason Comments Employment Physical Encounter Details Date Type Department Care Team (Late st Contact Info) Description 04/16/2024 10:30 AM EST Office Visit [facility] [address] [place] [address] Name, MD Piero [address] [place] [address] PE (physical exam), routine (Primary Dx); Type 2 diabetes mellitus with hyperglycemia, with long-term current use of insulin ([facility]/HCC); Hypertension, unspecified type; Screening for cervical [...] 1 kit 1 Continuous Blood Gluc Senior Group Manager ([employer] Jacobo 2 [place]) device Use as directed 1 each 0 [...] hyperglycemia, with long-term current use of insulin ([facility]) Comments: Continue current medications, reminded to avoid [...] Description 05/20/2024 3:30 PM EST Medication Management [facility] [address] [place], [place] [phone] Nadege Kay PharmD [address] [place] [address] Scheduled Orders Name Type Priority Associated Diagnoses Orde r Schedule BI Mammogram Screening Tomosynthesis Bilateral Imaging Routine Encounter for screening mammogram for malignant neoplasm of breast Expected: 04/16/2024, Expires: 06/17/2025 Scheduled Referrals Name Type Priority Associated Diagnoses Orde r Schedule Referral to Pharmacy CDTM Outpatient Referral Routine Type 2 diabetes mellitus with hyperglycemia, with long-term current use of insulin ([facility]) Ordered: 04/16/2024 documented as of this encounter Procedures Procedure Name Priority Date/Time Associated Diagnosis Comments POCT GLYCATED HEMOGLOBIN, TOTAL Routine 04/16/2024 10:31 AM EST Type 2 diabetes mellitus with hyperglycemia, with long-term current use of insulin ([facility]) POCT GLUCOSE Routine 04/16/2024 10:31 AM EST Type 2 diabetes mellitus with hyperglycemia, with long-term current use of insulin ([facility]) documented in this encounter Results * (ABNORMAL) [...] hyperglycemia, with long-term current use of insulin ([facility]) Hypertension, unspecified type Screening for cervical cancer Screening for malignant neoplasm of the cervix Encounter for screening mammogram for malignant neoplasm of breast Encounter for immunization documented in this encounter Additional Health Concerns Assessment Noted Time PHQ-9 Depression Total Score: 0 01/08/20 24 10:04 AM EDT documented as of this encounter Care Teams Pleating Supervisor Relationship Specialty Start Date End Date Name, MD Piero [address] [place] [address] PCP - General Family Medicine 11/28/17 documented as of this encounter
--- OUTSIDE RECORDS SUMMARY | 2024-05-12 16:40 | XMS_ITS | Encounter Summary ---
Author Organization [employer] Address 75 [facility] 7t [place] [address] Care Team Providers Care Ballroom Dancer Name Role Phone Name, Piero MANLEY Primary Care Provider [phone] Reason for Visit * Reason Onset Date Comments Scheduled PAP exam 04/16/2024 Encounter Details Date Type Department Care Team (Late st Contact Info) Description 04/16/2024 Telephone [facility] [address] [place] [address] [place], [place] Scheduled PAP exam Social History Tobacco [...] 3:30 PM EST Medication Management [facility] [address] [place] [address] Nadege Kay, PharmD [address] [place] [address] documented as of this encounter Visit Diagnoses Not on filedocumented in this encounter Additional Health Concerns Assessment Noted Time PHQ-9 Depression Total Score: 0 01/08/20 24 10:04 AM EDT documented as of this encounter Care Teams Ballroom Dancer Relationship Specialty Start Date End Date Name, MD Piero [address] [place] [address] PCP - General Family Medicine 11/28/17 documented as of this encounter
--- OUTSIDE RECORDS SUMMARY | 2024-05-12 16:40 | XMS_ITS | Encounter Summary ---
Author Organization [employer] Address 75 [facility] 7 [place] [address] Care Team Providers Care Paper Products Printer Name Role Phone Name, Piero MANLEY Primary Care Provider [phone] Reason for Visit * Reason Onset Date Comments Chart Prep 04/13/2024 Encounter Details Date Type Department Care Team ([facility] st Contact Info) Description 04/13/2024 Telephone [facility] [address] [place] [address] Anita Foley [place] Chart Prep Social History [...] Description 05/20/2024 3:30 PM EST Medication Management [facility] [address] [place] [address] Nadege Kay, PharmD [address] [place] [address] documented as of this encounter Visit Diagnoses Not on filedocumented in this encounter Additional Health Concerns Assessment Noted Time PHQ-9 Depression Total Score: 0 01/08/20 10:04 AM EDT documented as of this encounter Care Teams Paper Products Printer Relationship Specialty Start Date End Date Name, MD Piero [address] [place] [address] PCP - General Family Medicine 11/28/17 documented as of this encounter
--- OUTSIDE RECORDS SUMMARY | 2024-05-12 16:40 | XMS_ITS | Encounter Summary ---
Author Organization [employer] Address 75 [facility] 7 [place] [address] Care Team Providers Care Surgical Instrument Maker Name Role Phone Name, Piero MANLEY Primary Care Provider [phone] Reason for Visit * Reason Onset Date Comments Medication Question 04/22/2024 Encounter Details Date Type Department Care Team (Late st Contact Info) Description 04/22/2024 Refill [facility] [address] [place], [place] [phone] Name, MD Piero [address] [place] [address] Type 2 diabetes mellitus with hyperglycemia, with long-term current use of insulin ([facility]) Social History Tobacco Use Types Packs/Day Years [...] 05/06/2024 2:03 PM EST TC placed to [facility] pharmacy re: status of Semaglutide, 2 MG/DOSE, (Ozempic, 2 MG/DOSE,) 8 MG/3ML solution pen-injector. Pharmacy staff states the medication needs a PA. Pharmacy staff asked if PA was completed. Nurse stated that we were not informed that it needed one and would work on paperwork submission. TC placed to pt via [employer] electrician helper (Afshan ID#[id number]) to inform pt we are working on [...] AM EST TC placed to pt via [employer] electrician helper (ID#[id number]) in regards to medication request. Pt states [...] [facility] [address] [place] [address] Nadege Kay, PharmD [address] [place] [address] documented as of this encounter Visit Diagnoses Diagnosis Type 2 diabetes mellitus with hyperglycemia, with long-term current use of insulin ([facility]) documented in this encounter Additional Health Concerns Assessment Noted Time PHQ-9 Depression Total Score: 0 01/08/20 24 10:04 AM EDT documented as of this encounter Care Teams Surgical Instrument Maker Relationship Specialty Start Date End Date Name, MD Piero [address] [place] [address] PCP - General Family Medicine 11/28/17 documented as of this encounter
--- OUTSIDE RECORDS SUMMARY | 2024-05-12 16:40 | XMS_ITS | Encounter Summary ---
Author Organization [employer] Address 75 [facility] 7 [place] [address] Care Team Providers Care Executive Secretary Name Role Phone Name, Piero MANLEY Primary Care Provider [phone] Reason for Visit * Reason Comments Med Refill Encounter Details Date Type Department Care Team ([facility] st Contact Info) Description 07/14/2023 Refill [facility] [address] [place], [place] [phone] Name, MD Piero [address] [place] [address] Social History Tobacco Use Types Packs/Day Years [...] Description 05/20/2024 3:30 PM EST Medication Management [facility] [address] [place] [address] Nadege Kay, PharmD [address] [place] [address] documented as of this encounter Visit Diagnoses Not on filedocumented in this encounter Additional Health Concerns Assessment Noted Time PHQ-9 Depression Total Score: 0 08/27/19 23 4:06 PM EDT documented as of this encounter Care Teams Executive Secretary Relationship Specialty Start Date End Date Name, MD Piero [address] [place] [address] PCP - General Family Medicine 11/28/17 documented as of this encounter
--- OUTSIDE RECORDS SUMMARY | 2024-05-12 16:40 | XMS_ITS | Encounter Summary ---
Author Organization [employer] Address 75 [facility] 7t [place] [address] Care Team Providers Care Laundry Presser Name Role Phone Name, Piero MANLEY Primary Care Provider [phone] Encounter Details Date Type Department Care Team ([facility] st Contact Info) Description 05/07/2024 Telephone [facility] [address] [place] [address] Mariza Karimi RN Social History Tobacco Use [...] AM EST BLANCA duran completed, [facility] and confirmations received. Pending approval/denial decision. Forms placed in [employer] scanning bin. documented in this encounter Plan of Treatment Upcoming Encounters Date Type Department Care Team (Late st Contact Info) Description 05/20/2024 3:30 PM EST Medication Management [facility] MEDICINE [address] [place] [address] Nadege Kay, PharmD [address] [place] [address] documented as of this encounter Visit Diagnoses Not on filedocumented in this encounter Additional Health Concerns Assessment Noted Time PHQ-9 Depression Total Score: 0 01/08/20 24 10:04 AM EDT documented as of this encounter Care Teams Laundry Presser Relationship Specialty Start Date End Date Name, MD Piero [address] [place] [address] PCP - General Family Medicine 11/28/17 documented as of this encounter
--- OUTSIDE RECORDS SUMMARY | 2024-05-12 16:40 | XMS_ITS | Encounter Summary ---
Author Organization [employer] Address 75 [facility] 7 [place] [address] Care Team Providers Care Senior Nurse Manager Name Role Phone Name, Piero MANLEY Primary Care Provider [phone] Reason for Visit * Reason Onset Date Comments Letter for School/Work 08/20/2023 Encounter Details Date Type Department Care Team ([facility] st Contact Info) Description 08/20/[address] [facility] [address] [place], [place] [phone] Name, MD Piero [address] [place] [address] Letter for School/Work Social History Tobacco Use [...] not accept excuse. Please contact pt at [phone] documented in this encounter Plan of Treatment Upcoming Encounters Date Type Department Care Team (Late st Contact Info) Description 05/20/2024 3:30 PM EST Medication Management [facility] [address] [place] [address] Nadege Kay, PharmD [address] [place] [address] documented as of this encounter Visit Diagnoses Not on filedocumented in this encounter Additional Health Concerns Assessment Noted Time PHQ-9 Depression Total Score: 0 08/27/19 23 4:06 PM EDT documented as of this encounter Care Teams Senior Nurse Manager Relationship Specialty Start Date End Date Name, MD Piero [address] [place] [address] PCP - General Family Medicine 11/28/17 documented as of this encounter
--- OUTSIDE RECORDS SUMMARY | 2024-05-12 16:40 | XMS_ITS | Encounter Summary ---
Author Organization [employer] Address 75 [facility] 7 [place] [address] Care Team Providers Care Boatswain Mate Name Role Phone Name, Piero MANLEY Primary Care Provider [phone] Reason for Visit * Reason Onset Date Comments Med Refill 01/02/2024 Encounter Details Date Type Department Care Team (Late st Contact Info) Description 01/02/2024 Telephone [facility] MED[facility]INE [address] [place], [place] [phone] Name, MD Piero [address] [place] [address] Med Refill Social History Tobacco Use Types [...] 200 MG capsule To be sent to: [facility]/pharmacy #[id number] [place] [address] documented in this encounter Plan of Treatment Upcoming Encounters Date Type Department Care Team (Late st Contact Info) Description 05/20/2024 3:30 PM EST Medication Management [facility] [address] [place] [address] Nadege Kay, PharmD [address] [place] [address] documented as of this encounter Visit Diagnoses Not on filedocumented in this encounter Additional Health Concerns Assessment Noted Time PHQ-9 Depression Total Score: 0 08/27/19 23 4:06 PM EDT documented as of this encounter Care Teams Boatswain Mate Relationship Specialty Start Date End Date Name, MD Piero [address] [place] [address] PCP - General Family Medicine 11/28/17 documented as of this encounter
--- OUTSIDE RECORDS SUMMARY | 2024-05-12 16:40 | XMS_ITS | Encounter Summary ---
Author Organization [employer] Address 75 [facility] 7 [place] [address] Care Team Providers Care Finish Production Manager Name Role Phone Name, Piero MANLEY Primary Care Provider [phone] Reason for Visit * Reason Onset Date Comments Forms/questionnaires 11/07/2023 Encounter Details Date Type Department Care Team ([facility] st Contact Info) Description 11/07/2023 Telephone [facility] MEDICINE [address] [place], [place] [phone] Name, MD Piero [address] [place] [address] Forms/questionnaires Social History Tobacco Use Types Packs/Day [...] Medical records dept. T/C to pt. Through [employer] id - [id number] pt. Advised to either knot picker cloth required documents from [facility] and submit at [facility] or call to [facility] office to give call to [facility] to send documentation to them, ( due to HIPAA violation ). Pt. Verbally greed and understood. * Telephone Encounter - Lauryn Kilgore - 11/07/2023 1:43 PM EDT Tc from pt is requesting last office visit and demographic sheets to be faxed to [phone] , states they are interested in bariatric surgery with [facility]. documented in this encounter Plan of Treatment Upcoming Encounters Date Type Department Care Team (Late st Contact Info) Description 05/20/2024 3:30 PM EST Medication Management [facility] MEDICINE [address] [place] [address] Nadege Kay PharmD [address] [place] [address] documented as of this encounter Visit Diagnoses Not on filedocumented in this encounter Additional Health Concerns Assessment Noted Time PHQ-9 Depression Total Score: 0 08/27/19 23 4:06 PM EDT documented as of this encounter Care Teams Finish Production Manager Relationship Specialty Start Date End Date Name, MD Piero [address] [place] [address] PCP - General Family Medicine 11/28/17 documented as of this encounter
--- OUTSIDE RECORDS SUMMARY | 2024-05-12 16:40 | XMS_ITS | Encounter Summary ---
Author Organization [employer] [facility] Address [address] [place] [address] [place], [place] [address] Care Team Providers Care Children'S Program Coordinator Name Role Phone Name, Piero MANLEY Primary Care Provider [phone] Encounter Details Date Type Department Care Team (Late Contact Info) Description 05/09/2022 Telephone [facility] MEDICINE [address] [place] [address] Name, MD Piero [address] [place] [address] Social History Tobacco Use Types Packs/Day Years [...] 05/20/2024 3:30 PM EST Medication Management [facility] [address] [place] [address] Nadege Kay, PharmD [address] [place] [address] documented as of this encounter Visit Diagnoses Not on filedocumented in this encounter Care Teams Children'S Program Coordinator Relationship Specialty Start Date End Date Name, MD Piero [address] [place] [address] PCP - General Family Medicine 11/28/17 documented as of this encounter
--- OUTSIDE RECORDS SUMMARY | 2024-05-12 16:40 | XMS_ITS | Encounter Summary ---
Author Organization [employer] Address 75 [facility] 7 [place] [address] Care Team Providers Care Bariatric Physician Name Role Phone Name, Piero MANLEY Primary Care Provider [phone] Reason for Visit * Reason Comments Med Refill Encounter Details Date Type Department Care Team ([facility] st Contact Info) Description 03/09/[address] [facility] MEDICINE [address] [place], [place] [phone] Name, MD Piero [address] [place] [address] Type 2 diabetes mellitus with hyperglycemia, with long-term current use of insulin ([facility]) Social History Tobacco [...] [facility] [address] [place] [address] Nadege Kay PharmD [address] [place] [address] documented as of this encounter Visit Diagnoses Diagnosis Type 2 diabetes mellitus with hyperglycemia, with long-term current use of insulin ([facility]) documented in this encounter Additional Health Concerns Assessment Noted Time PHQ-9 Depression Total Score: 0 01/08/20 24 10:04 AM EDT documented as of this encounter Care Teams Bariatric Physician Relationship Specialty Start Date End Date Name, MD Piero [address] [place] [address] PCP - General Family Medicine 11/28/17 documented as of this encounter
--- OUTSIDE RECORDS SUMMARY | 2024-05-12 16:40 | XMS_ITS | Encounter Summary ---
Author Organization [employer] Address [address] [place] [address] [place] [address] Care Team Providers Care Steamer Blocker Name Role Phone Name, Piero MANLEY Primary Care Provider Reason for Visit * Reason Onset Date Comments Nurse Triage 01/21/2023 Encounter Details Date Type Department Care Team (Late st Contact Info) Description 01/21/2023 Telephone [facility] MEDICINE [address] [place], [place] [phone] Name, MD Piero [address] [place] [address] Nurse Triage Social History Tobacco Use Types [...] reduce sugar/carb foods. Pt advised to seek [facility] for exam today or tomorrow if sugars [...] 05/20/2024 3:30 PM EST Medication Management [facility] MEDICINE [address] [place], [place] [phone] Nadege Kay, PharmD [address] [place] [address] documented as of this encounter Visit Diagnoses Not on filedocumented in this encounter Additional Health Concerns Assessment Noted Time PHQ-9 Depression Total Score: 0 08/27/19 23 4:06 PM EDT documented as of this encounter Care Teams Steamer Blocker Relationship Specialty Start Date End Date Name, MD Piero [address] [place] [address] PCP - General Family Medicine 11/28/17 documented as of this encounter
--- OUTSIDE RECORDS SUMMARY | 2024-05-12 16:40 | XMS_ITS | Encounter Summary ---
Author Organization [employer] Address 75 [facility] 7t [place] [address] Care Team Providers Care Assignment Editor Name Role Phone Name, Piero MANLEY Primary Care Provider [phone] Encounter Details Date Type Department Care Team ([facility] st Contact Info) Description 04/23/2023 Orders Only [facility] [address] [place] [address] Tonia Pagan LPN Social History Tobacco Use [...] 3:30 PM EST Medication Management [facility] MEDICINE [address] [place] [address] Nadege Kay, PharmD [address] [place] [address] documented as of this encounter Visit Diagnoses Not on filedocumented in this encounter Additional Health Concerns Assessment Noted Time PHQ-9 Depression Total Score: 0 08/27/19 23 4:06 PM EDT documented as of this encounter Care Teams Assignment Editor Relationship Specialty Start Date End Date Name, MD Piero [address] [place] [address] PCP - General Family Medicine 11/28/17 documented as of this encounter
--- OUTSIDE RECORDS SUMMARY | 2024-05-12 16:40 | XMS_ITS | Encounter Summary ---
Author Organization [employer] Address 75 [facility] 7 [place] [address] Care Team Providers Care Sheet Metal Apprentice Name Role Phone Name, Piero MANLEY Primary Care Provider [phone] Reason for Visit * Reason Onset Date Comments Chart Prep 05/04/2024 Encounter Details Date Type Department Care Team ([facility] st Contact Info) Description 05/04/2024 Telephone [facility]INE [address] [place] [address] Anita Foley MA Chart Prep Social History [...] Medication Management [facility] MED[facility]INE [address] [place] [address] Nadege Kay, PharmD [address] [place] [address] documented as of this encounter Visit Diagnoses Not on filedocumented in this encounter Additional Health Concerns Assessment Noted Time PHQ-9 Depression Total Score: 0 01/08/20 24 10:04 AM EDT documented as of this encounter Care Teams Sheet Metal Apprentice Relationship Specialty Start Date End Date Name, MD Piero [address] [place] [address] PCP - General Family Medicine 11/28/17 documented as of this encounter
--- OUTSIDE RECORDS SUMMARY | 2024-05-12 16:40 | XMS_ITS | Encounter Summary ---
Author Organization [employer] Address [address] [facility] 7 [place] [address] Care Team Providers Care Groundskeeping Maintenance Worker Name Role Phone Name, Piero MANLEY Primary Care Provider [phone] Reason for Visit * Reason Onset Date Comments Med Change Request Prior Authorization 07/14/2023 Encounter Details Date Type Department Care Team ([facility] st Contact Info) Description 07/14/2023 Refill [facility] MEDICINE [address] [place], [place] [phone] Name, MD Piero [address] [place] [address] Social History Tobacco Use Types Packs/Day Years [...] 3:48 PM EDT PA form generated for [employer]. Placed on pcp desk for review and signature to then be faxed to and scanned into chart under media. documented in this encounter Plan of Treatment Upcoming Encounters Date Type Department Care Team (Late st Contact Info) Description 05/20/2024 3:30 PM EST Medication Management [facility] MEDICINE [address] [place], [place] [phone] Nadege Kay, PharmD [address] [place] [address] documented as of this encounter Visit Diagnoses Not on filedocumented in this encounter Additional Health Concerns Assessment Noted Time PHQ-9 Depression Total Score: 0 08/27/19 23 4:06 PM EDT documented as of this encounter Care Teams Groundskeeping Maintenance Worker Relationship Specialty Start Date End Date Name, MD Piero [address] [place], [place] [phone] PCP - General Family Medicine 11/28/17 documented as of this encounter
[2024-05-18 12:21] LABS: HPV Genotype 16 Negative (Negative); HPV Genotype 18 Negative (Negative); HPV High Risk Negative (Negative)
== END 2024-05-12 14:17 | disposition home or self-care (01) ==
LOC: HO.HHCLNP 14:16
PROVIDERS: Visit Provider Nurse Practitioner Family
DX: Z12.4 Encounter for screening for malignant neoplasm of cervix (principal); Z11.51 Encounter for screening for human papillomavirus (HPV)
CPT/HCPCS: 87626; 88175

== ENCOUNTER 2024-06-02 11:08 | Outpatient (REF) | payer MEDICAID, SELFPAY ==
--- NOTE | ~2024-06-02 | US_ITS ---
EXAMINATION: US PELVIS HISTORY: Hx of fibroids / menorrhagia COMPARISON: Comparison is made with the prior examination dated 12/11/2018. TECHNIQUE: Transabdominal real-time 2D [place]-scale ultrasound was performed. The patient declined endovaginal examination. FINDINGS: Uterus: The uterus is normal in size, measuring 10.9 x 5.3 x 5.8 cm. Myometrium has a normal echotexture. Multiple fibroids are again noted including the posterior fibroid measuring 2.0 x 1.9 x 1.8 cm (previously 2.5 x 1.8 x 2.0 cm), and anterior fibroid measuring 2.0 x 1.5 x 1.7 cm (previously 1.5 x 1.4 x 1.8 cm)., And an anterior lower uterine segment fibroid measuring 0.9 x 0.9 x 1.4 cm (previously 1.5 x 1.2 x 1.4 cm). Endometrium: The endometrial stripe measures 3 mm in thickness. Right ovary: The right ovary measures 2.6 x 2.0 x 3.1 cm. The right ovary is normal in size and echotexture. Left ovary: The left ovary measures 3.6 x 1.5 x 1.9 cm. The left ovary is normal in size and echotexture. Pelvic fluid: none. US/US pelvic complete IMPRESSION: Fibroid uterus as described. Electronically signed by: Gal Pierce MD 06/02/2024 12:13 PM [facility]
--- OUTSIDE RECORDS SUMMARY | 2024-06-02 13:01 | XMS_ITS | Encounter Summary ---
Author Organization [employer] Address [address] [facility] [address] [place] [address] Care Team Providers Care Back Tender Paper Machine Name Role Phone Name, Piero MANLEY Primary Care Provider [phone] Reason for Visit * Reason Onset Date Comments Forms/questionnaires 11/07/2023 Encounter Details Date Type Department Care Team ([facility] st Contact Info) Description 11/07/2023 Telephone [facility] MEDICINE [address] [place], [place] [phone] Name, MD Piero [address] [place] [address] Forms/questionnaires Social History Tobacco Use Types Packs/Day [...] Medical records dept. T/C to pt. Through [employer] id - [id number] pt. Advised to either turkey picker required documents from [facility] and submit at [facility] or call to [facility] office to give call to [facility] to send documentation to them, ( due to HIPAA violation ). Pt. Verbally greed and understood. * Telephone Encounter - Lauryn Kilgore - 11/07/2023 1:43 PM EDT Tc from pt is requesting last office visit and demographic sheets to be faxed to [phone] , states they are interested in bariatric surgery with [facility]. documented in this encounter Plan of Treatment Upcoming Encounters Date Type Department Care Team (Late st Contact Info) Description 06/03/2024 3:30 PM EST Clinical Support [facility] MEDICINE [address] [place] [address] 06/24/2024 3:30 PM EST Medication Management [facility] MEDICINE [address] [place] [address] Nadege Kay, SadieD [address] [place] [address] 08/11/2024 2:15 PM EDT Office Visit [facility] MEDICINE [address] [place] [phone] Name, MD Piero [address] [place] [id number] documented as of this encounter Visit Diagnoses Not on filedocumented in this encounter Additional Health Concerns Assessment Noted Time PHQ-9 Depression Total Score: 0 08/27/19 4:06 PM EDT documented as of this encounter Care Teams Back Tender Paper Machine Relationship Specialty Start Date End Date Name, MD Piero [address] [place] [id number] PCP - General Family Medicine 11/28/17 documented as of this encounter
--- OUTSIDE RECORDS SUMMARY | 2024-06-02 13:01 | XMS_ITS | Clinical Summary ---
Author Organization [employer] Address [address] [place] [address] 7 [place] [address] Care Team Providers Care Supervisor [employer] Name Role Phone Name, Piero MANLEY Primary Care Provider [phone] Nadege Kay PharmD Unavailable [phone] Allergies Active Allergy Reactions Criticality Noted Date Comments Aspirin Hives,Rash Low 04/29/2018 Biotin Rash Low 05/20/2024 Dulaglutide Nausea,Vomiting Low 02/24/2019 Penicillin G Hives,Rash Low 04/21/2002 Other reaction(s): Hives Medications * This document contains information received from the source organization and may not represent a complete record from that organization. Blood Pressure kit Use daily Active acetaminophen (Tylenol) 500 MG tabletIndicati ons:COVID-19 take 2 tablet by oral route every 6 hours as needed as needed for pain 30 tablet 023 Active metFORMIN XR (Glucophage-XR ) 500 MG 24 hr tabletIndicati ons:Type 2 diabetes mellitus with hyperglycemia, with long-term current use of insulin ([facility]) Take 1 tablet (500 mg) by mouth with evening meal. Do not crush, chew, or split. 30 tablet 025 2025 Active semaglutide (Ozempic, 1 MG/DOSE,) 4 MG/3ML solution pen-injectorIn dications:Type 2 Diabetes Mellitus Inject 1 mg under the skin 1 (one) time per week. 3 mL 025 Active Continuous Glucose Barrel Bung Remover And Dumper (FreeStyle Jacobo 3 [place]) deviceIndicati ons:Type 2 diabetes mellitus with hyperglycemia, with long-term current use of insulin (CMS/HCC) 1 each 3 times daily. Use daily as directed for CGM 1 each Active Continuous Glucose Sensor (FreeStyle Jacobo 3 Plus Sensor) miscIndication s:Type 2 diabetes mellitus with hyperglycemia, with long-term current use of insulin (CMS/HCC) 1 each Once per day. Apply 1 sensor every 15 days as directed for CGM 2 each Active glucose blood (FreeStyle Precision Allan Test) test stripIndicatio ns:Type 2 diabetes mellitus with hyperglycemia, with long-term current use of insulin (CMS/HCC) Use to test blood sugar up to 3 times daily, as directed 100 each Active TRUEplus Lancets 33G miscIndication s:Type 2 diabetes mellitus with hyperglycemia, with long-term current use of insulin (CMS/HCC) Use to test blood sugar 3 time(s) daily, as directed 100 each 025 Active Alcohol Swabs (Alcohol Prep) padsIndication s:Type 2 diabetes mellitus with hyperglycemia, with long-term current use of insulin (CMS/HCC) Use as directed 4x daily prior to insulin injection 200 each 025 Active atorvastatin (Lipitor) 20 MG tabletIndicati ons:Type 2 diabetes mellitus with hyperglycemia, with long-term current use of insulin (CMS/HCC) Take 1 tablet (20 mg) by mouth Once per day. 90 tablet 025 Active insulin glargine (Lantus SoloStar) 100 UNIT/ML penIndications :Type 2 diabetes mellitus with hyperglycemia, with long-term current use of insulin ([facility]) Inject 25 Units under the skin at bedtime. 15 mL 5 025 Active insulin lispro (HumaLOG KWIKPEN) 200 UNIT/ML solution pen-injector penIndications :Type 2 diabetes mellitus with hyperglycemia, with long-term current use of insulin (CMS/HCC) Inject 16 Units under the skin with breakfast, with lunch, and with evening meal. 15 each 025 Active losartan (Cozaar) 50 MG tabletIndicati ons:Type 2 diabetes mellitus with hyperglycemia, with long-term current use of insulin (CMS/HCC),Hype rtension, unspecified type Take 1 tablet (50 mg) by mouth Once per day. 90 tablet 3 Active insulin pen needle 32G x 4 mm misc Use to inject insulin 4 times daily 200 each 11 Active Multiple Vitamins-[place] als (Hair Skin & Nails) tablet Take 1 tablet by mouth Once per day. OTC Active albuterol (2.5 MG/3ML) 0.083% nebulizer solution inhale 3 milliliter by nebulization route 3 times every day as needed for wheezing 2024 Discontinued(M ed list cleanup (will not trigger notification to Pharmacy)) albuterol 108 (90 Base) MCG/ACT inhaler inhale 2 puffs by Inhalation route 4 times every day as needed for wheeing 2024 Discontinued(M ed list cleanup (will not trigger notification to Pharmacy)) fluticasone (Flonase) 50 MCG/ACT nasal spray inhale 2 spray by intranasal route every day in each nostril as needed for nasal congestion 2024 Discontinued(M ed list cleanup (will not trigger notification to Pharmacy)) lidocaine (Lidoderm) 5 % patch apply 1-2 patches by topical route every day (May wear up to 12hours) prn pain. 022 2024 Discontinued(M ed list cleanup (will not trigger notification to Pharmacy)) loratadine (Claritin) 10 MG tablet take 1 tablet by oral route every day 2024 Discontinued(M ed list cleanup (will not trigger notification to Pharmacy)) norethindrone (Micronor) 0.35 MG tablet take 1 tablet by oral route every day 019 2024 Discontinued(M ed list cleanup (will not trigger notification to Pharmacy)) montelukast (Singulair) 10 MG tablet take 1 tablet by oral route every day in the evening 2024 Discontinued(M ed list cleanup (will not trigger notification to Pharmacy)) Alcohol Swabs (Alcohol Prep) pads 2024 Discontinued(R eorder (will not trigger notification to Pharmacy)) Misc. Devices (Pulse Oximeter For Finger) miscIndication s:Cough in adult patient,COVID- 19 To check your O2 Sat every 4 hours. Call the office if O2Sat < 90% 1 each 023 2024 Discontinued(M ed list cleanup (will not trigger notification to Pharmacy)) insulin glargine (Lantus SoloStar) 100 UNIT/ML pen Inject 15 Units under the skin at bedtime. 4.5 mL 11 024 2024 Discontinued(R eorder (will not trigger notification to Pharmacy)) metFORMIN (Glucophage) 500 MG tablet Take 0.5 tablets (250 mg) by mouth with breakfast and with evening meal. 30 tablet 11 024 2024 Discontinued(A lternate therapy) Blood Pressure kit Use once a day 1 kit 1 024 2024 Discontinued(D uplicate order (will not trigger notification to Pharmacy)) Continuous Blood Gluc Sensor (FreeStyle Jacobo 2 Sensor) misc Use as directed every 2 weeks 2 each 11 024 2024 Discontinued Continuous Blood Gluc Barrel Bung Remover And Dumper (FreeStyle Jacobo 2 [place]) device Use as directed 1 each 024 2024 Discontinued(A lternate therapy) minoxidil (Loniten) 2.5 MG tablet TAKE 1 TABLET BY MOUTH EVERY MORNING 30 tablet 5 024 2024 Discontinued(S leilani effects) ketoconazole (NIZOral) 2 % shampoo APPLY TOPICALLY TWICE A WEEK 024 2024 Discontinued(M ed list cleanup (will not trigger notification to Pharmacy)) FREESTYLE LITE test strip USE TO TEST BLOOD SUGAR THREE TIMES A DAY 100 strip 11 024 2024 Discontinued fluconazole (Diflucan) 150 MG tablet TAKE 1 TABLET BY MOUTH ONCE 1 tablet 024 2024 Discontinued(M ed list cleanup (will not trigger notification to Pharmacy)) insulin lispro (HumaLOG KWIKPEN) 200 UNIT/ML solution pen-injector penIndications :Type 2 diabetes mellitus with hyperglycemia, with long-term current use of insulin ([facility]) INJECT 10 UNITS SUBCUTANEOUSLY PRIOR TO MEALS AND SNACKS 6 each 3 024 2024 Discontinued(R eorder (will not trigger notification to Pharmacy)) losartan (Cozaar) 50 MG tabletIndicati ons:Type 2 diabetes mellitus with hyperglycemia, with long-term current use of insulin ([facility]),Hype rtension, unspecified type Take 1 tablet (50 mg) by mouth Once per day. 90 tablet 024 2024 Discontinued(R eorder (will not trigger notification to Pharmacy)) atorvastatin (Lipitor) 20 MG tabletIndicati ons:Type 2 diabetes mellitus with hyperglycemia, with long-term current use of insulin ([facility]) Take 1 tablet (20 mg) by mouth Once per day. 30 tablet 11 024 2024 Discontinued(R eorder (will not trigger notification to Pharmacy)) celecoxib (CeleBREX) 200 MG capsuleIndicat ions:PE (physical exam), routine Take 1 capsule (200 mg) by mouth 2 times daily for 20 days. 40 capsule 024 2024 Semaglutide, 2 MG/DOSE, (Ozempic, 2 MG/DOSE,) 8 MG/3ML solution pen-injectorIn dications:Type 2 diabetes mellitus with hyperglycemia, with long-term current use of insulin ([facility]) Inject 0.75 mL (2 mg) under the skin 1 (one) time per week. 3 mL 11 025 2024 Discontinued Active Problems Patient Care Coordination No te Formatting of this note migh t be different from the original. Name, , address verified; this CHW called pt to introduce care complex program. Patient declined since she moved out of the geographic area, Case will be closed from C3 program. Problem Noted Date Diagnosed Date History of uterine fibroid 06/02/2024 Overview (06/02/2024): [address] [address] Ultrasound Report Signed Patient: Dora Caal MR#: [id number] : 1985 Acct:[id number] Age/Sex: 39 / F ADM Date: 06/02/24 Loc: HO.US Attending Dr: Hillary GALE Ordering Physician: Hillary Pastrana Date of Service: 06/02/24 Procedure(s): US pelvic complete Accession Number(s): [id number] cc: Name,Piero MANLEY; Hillary Pastrana EXAMINATION: US PELVIS HISTORY: Hx of fibroids / menorrhagia COMPARISON: Comparison is made with the prior examination dated 12/11/2018. TECHNIQUE: Transabdominal real-time 2D washington-scale ultrasound was performed. The patient declined endovaginal examination. FINDINGS: Uterus: The uterus is normal in size, measuring 10.9 x 5.3 x 5.8 cm. Myometrium has a normal echotexture. Multiple fibroids are again noted including the posterior fibroid measuring 2.0 x 1.9 x 1.8 cm (previously 2.5 x 1.8 x 2.0 cm), and anterior fibroid measuring 2.0 x 1.5 x 1.7 cm (previously 1.5 x 1.4 x 1.8 cm)., And an anterior lower uterine segment fibroid measuring 0.9 x 0.9 x 1.4 cm (previously 1.5 x 1.2 x 1.4 cm). Endometrium: The endometrial stripe measures 3 mm in thickness. Right ovary: The right ovary measures 2.6 x 2.0 x 3.1 cm. The right ovary is normal in size and echotexture. Left ovary: The left ovary measures 3.6 x 1.5 x 1.9 cm. The left ovary is normal in size and echotexture. Pelvic fluid: none. US/US pelvic complete IMPRESSION: Fibroid uterus as described. Electronically signed by: Gal Pierce MD 06/02/2024 12:13 PM EST RP Routine cervical smear 05/13/2024 Assessment & Plan (05/13/2024 3:10 PM EST): Cotest in 5 years if normal Soft tissue swelling 05/13/2024 Assessment & Plan (05/13/2024 3:05 PM EST): 2-3 cm soft tissue mass on the lower right quarter of the abdomen Likely lipoma, will refer to surgeon Menorrhagia with regular cycle 05/13/2024 Assessment & Plan (05/13/2024 3:18 PM EST): History of fibroids. Labs and imaging ordered. Depending on results will discuss hormonal treatment plan or referral to [facility] to revisit surgical options if interested. Normal pelvic exam 05/13/2024 Anxiety 08/19/2023 Assessment & Plan (08/19/2023 7:06 PM EDT): Sig stress at work, has permission from work for [employer] time., will complete paperwork. Referral to behavioral [...] Problem Noted Date Diagnosed Date Resolved Date Normal breast exam 05/13/2024 Bronchitis 04/03/2022 06/24/2023 Type 2 diabetes mellitus 10/02/201708/2023 Encounters Date Type Department Care Team Description 05/20/2024 Travel 05/13/[address] [address] Name, MD Piero Prior Authorization (Ozempic) 05/12/2024 10:45 AM EST Procedure Visit [address] [address] Hillary Pastrana FNP Routine cervical smear (Primary Dx); Menorrhagia with regular cycle; Soft tissue swelling; Normal pelvic exam; History of uterine fibroid 05/12/2024 Orders Only [address] [address] Hillary Pastrana FNP 05/12/2024 Travel 05/07/[address] [address] Mariza Karimi RN 05/04/[address] [address] Anita Foley MA Chart Prep 04/22/[address] [address] Piero Clarke MD Type 2 diabetes mellitus with hyperglycemia, with long-term current use of insulin (CMS/HCC) 04/16/2024 10:30 AM EST Office Visit [address] [address] Piero Clarke MD PE (physical exam), routine (Primary Dx); Type 2 diabetes mellitus with hyperglycemia, with long-term current use of insulin (CMS/HCC); Hypertension, unspecified type; Screening for cervical cancer; Encounter for screening mammogram for malignant neoplasm of breast; Encounter for immunization 04/16/[address] [address] Justina Davis MA Scheduled PAP exam 04/13/[address] [address] Anita Foley MA Chart Prep 04/07/2024 Patient Outreach [address] [address] Piero Clarke MD Pre-visit Planning ([facility] screening is completed) 03/25/[address] [address] Piero Clarke MD Type 2 diabetes mellitus with hyperglycemia, with long-term current use of insulin (CMS/HCC); Type 2 diabetes mellitus with hyperglycemia, with long-term current use of insulin ([facility]) 03/09/2024 2:00 PM EST Office Visit [facility] [address] [place] [address] Mere Castaneda OD Presbyopia (Primary Dx) 03/09/2024 Travel 03/09/2024 Refill [facility] [address] [place] [address] Name, MD Piero Type 2 diabetes mellitus with hyperglycemia, with long-term current use of insulin ([facility]) from Last 3 Months Immunizations Name Administration Dates Next Due Hep B, adult 05/24/2024,01/08/2024 Influenza injectable quadriv alent IIV4 with preservative [...] Description 06/03/2024 3:30 PM EST Clinical Support [facility] [address] [place] [phone] 06/24/2024 3:30 PM EST Medication Management [facility] [address] [place] [phone] Nadege Kay, PharmD [address] [place] [address] 08/11/2024 2:15 PM EDT Office Visit [facility] [address] [place] [address] Name, MD Piero [address] [place] [address] Health Maintenance Due Date Last Done Comments HIV Screening 1985 Family Planning (PISQ) 1999 Hepatitis C Screening 2002 COVID-19 Vaccine ( season) 2023 11/30/2021, 01/23/2021, 01/02/2021 Diabetes: Hemoglobin A1C 07/15/2024 024, 01/08/2024, 08/18/2023, Additional history exists Hepatitis B Vaccines (3 of 3 - 19+ 3-dose series) 07/19/2024 05/24/2024, 01/08/2024 Alcohol/Substance Use Screening 01/07/2025 01/08/2024 Depression Screening 01/07/2025 01/08/2024, 01/08/20 24 SDOH Screening 01/07/2025 01/08/2024 Eye Exam 01/28/2025 01/29/2024, 01/19, 01/29/2024, Additional history exists Diabetes: Urine Protein Screening 04/08/2025 04/08/2024, 08/29/2022, 04/05/2021 Lipid Panel 04/08/2025 04/08/2024, 0504/2022, 04/05/2021 Diabetes: Foot Exam 04/16/2025 04/16/2024, 04/16/2024, 04/16/2024, Additional history exists Tobacco Screening 05/12/2025 05/12/2024 Mammogram 05/12/2026 05/12/2024 Pap Smear 05/12/2027 05/12/2024 DTaP/Tdap/Td Vaccines (2 - Td or Tdap) 10/03/2027 10/02/2017 Cervical Cancer Screening 05/12/2029 HPV/Cotest 05/12/2029 05/12/2024, 04/29/2018 Zoster Vaccines (1 of 2) 2034 RSV Patients and Patients Aged 60 years or older (1 - 1-dose 75+ series) 2059 Influenza Vaccine Completed 01/08/2024, , 02/20/2021, Additional history exists Pneumococcal Vaccine: Pediatrics (0 to 5 Years) and At-Risk Patients (6 to 49) Years) Completed 04/16/2024 HIB Vaccines Aged Out [...] Procedure Name Priority Date/Time Associated Diagnosis Comments US PELVIS COMPLETE Routine 06/02/2024 11 :43 AM EST BI MAMMOGRAM SCREENING TOMOSYNTHESIS BILATERAL Routine 05/12/2024 2:00 PM EST Encounter for screening mammogram for malignant neoplasm of breast CANCELLED HEMATOLOGY Routine 05/12/2024 11:54 AM EST PAP SMEAR Routine 05/12/2024 11:54 AM EST Routine cervical smear HPV DNA, LOW/HIGH RISK Routine 11:54 AM EST POCT GLYCATED HEMOGLOBIN, TOTAL Routine 04/16/2024 10:31 AM EST Type 2 diabetes mellitus with hyperglycemia, with long-term current use of insulin ([facility]) POCT GLUCOSE Routine 04/16/2024 10:31 AM EST Type 2 diabetes mellitus with hyperglycemia, with long-term current use of insulin ([facility]) ALBUMIN, RANDOM URINE W/CREATININE Routine 04/08/2024 9:12 AM EST Type 2 diabetes mellitus with hyperglycemia, with long-term current use of insulin (CMS/HCC) LIPID PANEL, STANDARD Routine 04/08/2024 9:12 AM EST Type 2 diabetes mellitus with hyperglycemia, with long-term current use of insulin (CMS/HCC) COMPREHENSIVE METABOLIC PANEL Routine 04/08/2024 9:12 AM EST Type 2 diabetes mellitus with hyperglycemia, with long-term current use of insulin (CMS/HCC) from Last 3 Months Results * Us Pelvis complete (06/02/2024 11:43 AM EST) Anatomical Region Laterality Modality Pelvis Ultrasound 06/02/2024 11:4 3 AM EST Narrative 06/02/2024 12:16 PM EST ? [facility] ?[address] ?[place] [address] ? Ultrasound Report ? Signed ? Patient: Dora Caal ?MR#: ?? [id number] ? : 1985 ?Acct:[id number] ? Age/Sex: 39 / F ?ADM Date: 06/02/24 ? Loc: HO.US ? Attending Dr: Hillary GALE ? Ordering Physician: Hillary Pastrana ?? Date of Service: 06/02/24 ?? Procedure(s): US pelvic complete ?? Accession Number(s): [id number] ? cc: Piero Clarke MD; Hillary Pastrana ? EXAMINATION: ??US PELVIS ? HISTORY: Hx of fibroids / menorrhagia ? COMPARISON: Comparison is made with the prior examination dated ?? 12/11/2018. ? TECHNIQUE: ? Transabdominal real-time 2D washington-scale ultrasound was performed. ??The ?? patient declined endovaginal examination. ? FINDINGS: ? Uterus: ??The uterus is normal in size, measuring 10.9 x 5.3 x 5.8 cm. ? Myometrium has a normal echotexture. ??Multiple fibroids are again noted ?? including the posterior fibroid measuring 2.0 x 1.9 x 1.8 cm ?? (previously 2.5 x 1.8 x 2.0 cm), and anterior fibroid measuring 2.0 x ?? 1.5 x 1.7 cm (previously 1.5 x 1.4 x 1.8 cm)., And an anterior lower ?? uterine segment fibroid measuring 0.9 x 0.9 x 1.4 cm (previously 1.5 x ?? 1.2 x 1.4 cm). ? Endometrium: ??The endometrial stripe measures 3 mm in thickness. ? Right ovary: ??The right ovary measures 2.6 x 2.0 x 3.1 cm. ??The right ?? ovary is normal in size and echotexture. ? Left ovary: ?? The left ovary measures 3.6 x 1.5 x 1.9 cm. ??The left ?? ovary is normal in size and echotexture. ? Pelvic fluid: none. ? US/US pelvic complete ?? IMPRESSION: ?? Fibroid uterus as described. ? Electronically signed by: ??Gal Pierce MD ??06/02/2024 12:13 PM EST ?? RP ? Dictated By: ?Gal Pierce MD ? Signed By: ?<Electronically signed by Gal Pierce MD in OV> ?06/02/24 1213 ? DD/ 1143 ? TD/TT: 06/02/24 1150 ? Orthodontist Vice President: ? Procedure Note Issac Guy - 06/02/[address] [address] Ultrasound Report Signed Patient: Angelique Caal#: [id number] : 1985Acct:[id number] Age/Sex: 39 / FADM Date: 06/02/24 Loc: HO.US Attending Dr: Hillary GALE Ordering Physician: Hillary Pastrana Date of Service: 06/02/24 Procedure(s): US pelvic complete Accession Number(s): [id number] cc: Name,Piero MANLEY; Hillary Pastrana EXAMINATION: US PELVIS HISTORY: Hx of fibroids / menorrhagia COMPARISON: Comparison is made with the prior examination dated 12/11/2018. TECHNIQUE: Transabdominal real-time 2D [place]-scale ultrasound was performed. The patient declined endovaginal examination. FINDINGS: Uterus: The uterus is normal in size, measuring 10.9 x 5.3 x 5.8 cm. Myometrium has a normal echotexture. Multiple fibroids are again noted including the posterior fibroid measuring 2.0 x 1.9 x 1.8 cm (previously 2.5 x 1.8 x 2.0 cm), and anterior fibroid measuring 2.0 x 1.5 x 1.7 cm (previously 1.5 x 1.4 x 1.8 cm)., And an anterior lower uterine segment fibroid measuring 0.9 x 0.9 x 1.4 cm (previously 1.5 x 1.2 x 1.4 cm). Endometrium: The endometrial stripe measures 3 mm in thickness. Right ovary: The right ovary measures 2.6 x 2.0 x 3.1 cm. The right ovary is normal in size and echotexture. Left ovary: The left ovary measures 3.6 x 1.5 x 1.9 cm. The left ovary is normal in size and echotexture. Pelvic fluid: none. US/US pelvic complete IMPRESSION: Fibroid uterus as described. Electronically signed by: Gal Pierce MD 06/02/2024 12:13 PM EST RP Dictated By: Gal Pierce MD Signed By: <Electronically signed by Gal Pierce MD in OV> 06/02/24 1213 DD/ 1143 TD/TT: 06/02/24 1150 Orthodontist Vice President: us Hillary GALE IMG US PROCEDURES Final Result * BI Mammogram Screening Tomosynthesis Bilateral (05/12/2024 2:00 PM EST) Anatomical Region Laterality Modality Breast Bilateral Mammography 05/12/2024 2:00 PM EST Narrative 05/19/2024 4:03 PM EST ? [facility] ? [address] ?[place] [address] ? Mammography Report ? Signed ? Patient: Dora Caal ?MR#: ?? [id number] ? : 1985 ?Acct:[id number] ? Age/Sex: 39 / F ?ADM Date: 05/12/24 ? Loc: HO.MAMMO ? Attending : Piero Clarke MD ? Ordering Physician: Name,Piero MANLEY ?Results: 0Incomplet ?? e: Needs Additional Imaging Evaluation ? Date of Service: 05/12/24 ?Follow Up: Additional Imagi ?? ng ? Procedure(s): MM tomosynthesis screening BI ?? Accession Number(s): [id number] ? cc: Name,Piero ? EXAMINATION: ?? MM SCREENING DIGITAL BREAST TOMOSYNTHESIS, BILATERAL ? CLINICAL INFORMATION: ? Screening. Asymptomatic. ? COMPARISON: ?? Mammography: Baseline. ? TECHNIQUE: ?? Digital breast mammography with tomosynthesis is performed in both the ?? craniocaudal and mediolateral oblique views along with computer-aided ?? detection (CAD). ? FINDINGS: ?? There are scattered areas of fibroglandular density (ACR BI-RADS breast ?? composition Category b). ?? Right: ?? There are no significant masses, abnormal calcifications, or other ?? abnormalities. ? Left: ?? Asymmetry lateral breast posterior depth on CC view. ?? No suspicious calcifications or other abnormal findings. ? MM/MM tomosynthesis screening BI ?? IMPRESSION: ?? Additional imaging is recommended ? ASSESSMENT: ? BI-RADS BI-RADS 0 - Incomplete: Needs additional Imaging. ? RECOMMENDATION: ?? 1. Additional views of the left breast. ?? 2. Targeted ultrasound if warranted after review of the additional ?? views. ?? 3. Radiology department staff will contact the patient for additional ?? imaging. ? Additional Imaging required ? This examination should not preclude the clinical evaluation of a ?? suspicious palpable abnormality. ? This patient's information was entered into a reminder system with a ?? target due date for their next mammogram. ? Electronically signed by: ??Heidi Vail DO ??05/19/2024 04:00 PM EST ? Dictated By: ?Heidi Vail DO ? Signed By: ?<Electronically signed by Heidi Vail, DO in OV> ? 05/19/24 1600 ? DD/ 1400 ? TD/TT: 05/12/24 1412 ? Orthodontist Vice President: ? Procedure Note Malena, Image - 05/19/2024 [place] [facility] [address] [place] [address] Mammography Report Signed Patient: Angelique Caal#: [id number] : 1985Acct:[id number] Age/Sex: 39 / FADM Date: 05/12/24 Loc: HO.MAMMO Attending Dr: Piero Clarke MD Ordering Physician: Piero Clarkeesults: 0Incomplet e: Needs Additional Imaging Evaluation Date of Service: 05/12/24Follow Up: Additional Imagi ng Procedure(s): MM tomosynthesis screening BI Accession Number(s): [id number] cc: Piero Clarke MD EXAMINATION: MM SCREENING DIGITAL BREAST TOMOSYNTHESIS, BILATERAL CLINICAL INFORMATION: Screening. Asymptomatic. COMPARISON: Mammography: Baseline. TECHNIQUE: Digital breast mammography with tomosynthesis is performed in both the craniocaudal and mediolateral oblique views along with computer-aided detection (CAD). FINDINGS: There are scattered areas of fibroglandular density (ACR BI-RADS breast composition Category b). Right: There are no significant masses, abnormal calcifications, or other abnormalities. Left: Asymmetry lateral breast posterior depth on CC view. No suspicious calcifications or other abnormal findings. MM/MM tomosynthesis screening BI IMPRESSION: Additional imaging is recommended ASSESSMENT: BI-RADS BI-RADS 0 - Incomplete: Needs additional Imaging. RECOMMENDATION: 1. Additional views of the left breast. 2. Targeted ultrasound if warranted after review of the additional views. 3. Radiology department staff will contact the patient for additional imaging. Additional Imaging required This examination should not preclude the clinical evaluation of a suspicious palpable abnormality. This patient's information was entered into a reminder system with a target due date for their next mammogram. Electronically signed by: Heidi Vail DO 05/19/2024 04:00 PM EST Dictated By: Heidi Vail DO Signed By: <Electronically signed by Heidi Vail DO in OV> 05/19/24 1600 DD/ 1400 TD/TT: 05/12/24 1412 Orthodontist Vice President: Piero RINALDI BI PROCEDURES Edited Result - Final * Cancelled Hematology (05/12/2024 11:54 AM EST) Cancelled Hematology SEE NOTE [facility] Comment:THE FOLLOWING TESTS WERE CANCELLED: CBCDREASON: WRONG SPECIMEN TUBE DRAWN 05/12/2024 11:5 4 AM EST 05/12/2024 1:19 PM EST Hillary HALEP HISTORICAL/NON ORDERABLE LABS Final Result [facility] [address] [place] [phone] * HPV DNA, Low/High Risk (05/12/2024 11:54 AM EST) HPV High Risk Negative Negative [facility] HPV Genotype 16 Negative Negative [facility] HPV Genotype 18 Negative Negative [facility] Comment:HPV testing performe d at [facility] (CLIA#[id number]), [address] [place] [address].Testing for HPV was performed using the Avis RAMON 6800system. The presence of HPV in the female genital tract isassociated with a number of diseases, including cervicalcarcinoma. The HPV DNA high risk pool tests for HPV 31, 33,35, 39, 45, 51, 52, 56, 58, 59, 66 and 68. The testing forHPV 16 and 18 genotypes has also been performed. A positiveresult indicates detection of nucleic acid sequences fromone or more subtypes, whereas a negative result indicatessuch sequences were not detected. 05/12/2024 11:5 4 AM EST 05/12/2024 2:00 PM EST us Hillary Pastrana [facility] BLOOD ORDERABLES Final Res ult [facility] [address] [place] [phone] * Pap Smear (05/12/2024 11:54 AM EST) Swab Cervix uteri structure / Unknown 05/12/2024 11:54 AM EST 05/12/2024 2:00 PM EST Narrative [facility] - 05/18/2024 10:18 AM EST ----- ------- Name: Dora Caal ?Age/Sex: 39/F ? : 1985 Unit#: [id number] ?? Attend Dr: Hillary Pastrana NURSE ORTHOPEDIC ?Re05/12/24 ?Status: DEP REF ? Location: HO.HHCLNP ? Disch: ? ----- ------- SPEC : [id number] ? RECD: 05/12/24-1400 ? STATUS: ??SOUT ? REQ NUM: [id number] ? KAREN: 05/12/24-1154 ? SUBM DR: Hillary Pasrtana NURSE ORTHOPEDIC ? ENTERED: ??05/12/24-1410 ?SP TYPE: Pap Smr ?OTHR DR: ? ORDERED: ??Pap Smear ? Interpretation ?? Satisfactory for evaluation. ?? Negative for intraepithelial lesion or malignancy. ? HPV High Risk: ??Negative ? HPV Genotyping 16: ??Negative ?? HPV Genotyping 18: ??Negative ?Clinical Information LMP: 04/22/2024 Previous PAP test: Unknown date, WNL ? Material Received ?? ThinPrep-Cervical ----- ------- Signed (signature on file) ABHI Piña (ASCP) 05/18/24 1018 ? ----- ------- ? END OF REPORT ? Hillary Pastrana [facility] CYTOLOGY ORDERABLES Final Result [facility] [address] [place] [address] [phone] * (ABNORMAL) POCT HGB A1C (04/16/2024 10:31 AM EST) Hemoglobin A1C 8.7(A) 4.0 - 6.0 % QC Media Lot # [id number] Lot# Expiration Date [id number] Blood 04/16/2024 10:3 1 AM EST us [...] 9:12 AM EST) Creatinine, Urine 213.37 mg/dL [facility] Microalbumin Urine 14.0 mg/L [facility] Microalbum Creatinine Ratio Ur 6.5 <30 ug/mg cr [facility] Comment:Albumin/Creatinine R atio Reference Ranges: Normal: < 30 ug/mg creatinine Microalbuminuria: 30 - 300 ug/mg creatinineClinical Albuminuria: > 300 ug/mg creatinine Urine (Urine, Random) 04/08/2024 9:12 AM EST 04/08/2024 11:24 AM EST us Piero Clarke MD LAB URINE ORDERABLES Final Resul t [facility] [address] [place] [address] [phone] * Lipid Panel, Standard (04/08/2024 9:12 AM EST) Triglycerides 101 <150 mg/dL [facility] Comment:Desirable Triglyceri de: less than 150 mg/dLBorderline High Triglyceride 150-199 mg/dLHigh Triglyceride: 200-499 mg/dLVery High Triglyceride: greater than or equal to 5OO mg/dL Cholesterol 146 <200 mg/dL [facility] Comment:Desirable Cholestero l: less than 200 mg/dLBorderline High Cholesterol: 200-239 mg/dLHigh Cholesterol: greater than 239 mg/dL LDL Cholesterol Calculated 85 <100 mg/dL [facility] Comment:Desirable LDL: less than 100 mg/dLNear Optimal/Above Optimal LDL: 110- 129 mg/dLBorderline High LDL: 130-159 mg/dLHigh LDL: 160-189 mg/dLVery High LDL: greater than or equal to 190 mg/dL HDL Cholesterol 41 >40 mg/dL [facility] Comment:Desirable HDL: great er than 40 mg/dL Note: This HDL assay may give artificially low results in patients with liver disease. Blood Venous blood specimen / Unknown 04/08/2024 9:12 AM EST 04/08/2024 11:15 AM EST us Piero Clarke MD LAB BLOOD ORDERABLES Final Resul t [facility] [address] [place] [phone] * (ABNORMAL) Comprehensive Metabolic Panel (04/08/2024 9:12 AM EST) Sodium 140 135 - 145 mmol/L [facility] Potassium 4.1 3.3 - 5.1 mmol/L [facility] Chloride 108 96 - 108 mmol/L [facility] Carbon Dioxide 27 22 - 29 mmol/L [facility] Anion Gap 9(L) 12 - 20 [facility] Urea Nitrogen (BUN) 10 9 - 16 mg/dL [facility] Creatinine, Serum 0.76 0.5 - 1.4 mg/dL [facility] Estimated Glomerular Filt Rate >60 [facility] Comment:Chronic Kidney Disea se: Estimated GFR < 60 mL/min/1.09r5Imeaji Kidney Disease: Estimated GFR < 15 mL/min/1.73m2 Glucose 153(H) 60 - 115 mg/dL [facility] Calcium 8.9 8.4 - 10.2 mg/dL [facility] Bilirubin, Total 0.3 0.0 - 1.0 mg/dL [facility] Aspartate Amino Transferase 31 5 - 31 U/L [facility] Alanine Aminotransferase 56(H) 0 - 31 U/L [facility] Total Protein 6.9 6.5 - 8.0 g/dL [facility] Albumin Level 3.9 3.5 - 5.0 g/dL [facility] Alkaline Phosphatase 70 39 - 117 U/L [facility] Blood Venous blood specimen / Unknown 04/08/2024 9:12 AM EST 04/08/2024 11:15 AM EST us Piero Clarke MD LAB BLOOD ORDERABLES Final Resul t Performing Organization Address City/State/[facility] Co de Phone Number [facility] [address] [place] [address] [phone] from Last [address] [place] [address] [address] C3 Care Teams Supervisor Leaf Spring Repair Relationship Specialty Start Date End Date Name, MD Piero [address] [place] [address] PCP - General Family Medicine 11/28/17 Nadege Kay PharmD [address] [place] [address] Pharmacist Internal Medicine 05/20/24
--- OUTSIDE RECORDS SUMMARY | 2024-06-02 13:01 | XMS_ITS | Encounter Summary ---
Author Organization [employer] Address 75 [facility] 7t [place] [address] Care Team Providers Care Registered Nurse Obstetrics Name Role Phone Name, Piero MANLEY Primary Care Provider [phone] Nadege Kay PharmD Unavailable [phone] Reason for Visit * Reason Onset Date Comments Med Refill 01/02/2024 Encounter Details Date Type Department Care Team (Late st Contact Info) Description 01/02/2024 Telephone [facility] MEDICINE [address] [place], [place] [phone] Name, MD Piero [address] [place], [place] [phone] Med Refill Social History Tobacco Use Types [...] 200 MG capsule To be sent to: [facility]/pharmacy #[id number] documented in this encounter Plan of Treatment Upcoming Encounters Date Type Department Care Team (Late st Contact Info) Description 06/03/2024 3:30 PM EST Clinical Support [address] [address] 06/24/2024 3:30 PM EST Medication Management [address] [address] Nadege Kay, SadieD [address] [place] [address] 08/11/2024 2:15 PM EDT Office Visit [address] [address] Name, MD Piero [address] [place] [address] [place] [address] documented as of this encounter Visit Diagnoses Not on filedocumented in this encounter Additional Health Concerns Assessment Noted Time PHQ-9 Depression Total Score: 0 08/27/19 23 4:06 PM EDT documented as of this encounter Care Teams Registered Nurse Obstetrics Relationship Specialty Start Date End Date Name, MD Piero [address] [place] [address] PCP - General Family Medicine 11/28/17 Nadege Kay PharmD [address] [place] [address] Pharmacist Internal Medicine 05/20/24 documented as of this encounter
--- OUTSIDE RECORDS SUMMARY | 2024-06-02 13:01 | XMS_ITS | Encounter Summary ---
Author Organization [employer] Address 75 [facility] 7t [place] [address] Care Team Providers Care Facing End Trimmer Name Role Phone Name, Piero MANLEY Primary Care Provider [phone] Nadege Kay PharmD Unavailable [phone] Reason for Visit * Reason Onset Date Comments Letter for School/Work 08/20/2023 Encounter Details Date Type Department Care Team (Late st Contact Info) Description 08/20/2023 Telephone [facility] MEDICINE [address] [place], [place] [phone] Name, MD Piero [address] [place], [place] [phone] Letter for School/Work Social History Tobacco Use [...] not accept excuse. Please contact pt at [phone] documented in this encounter Plan of Treatment Upcoming Encounters Date Type Department Care Team (Late st Contact Info) Description 06/03/2024 3:30 PM EST Clinical Support [address] [address] 06/24/2024 3:30 PM EST Medication Management [address] [phone] Nadege Kay, PharmD [address] [place] [address] 08/11/2024 2:15 PM EDT Office Visit [address] [address] Name, MD Piero [address] [place] [address] documented as of this encounter Visit Diagnoses Not on filedocumented in this encounter Additional Health Concerns Assessment Noted Time PHQ-9 Depression Total Score: 0 08/27/19 23 4:06 PM EDT documented as of this encounter Care Teams Facing End Trimmer Relationship Specialty Start Date End Date Name, MD Piero [address] [place] [address] PCP - General Family Medicine 11/28/17 Nadege Kay PharmD [address] [place] [address] Pharmacist Internal Medicine 05/20/24 documented as of this encounter
--- OUTSIDE RECORDS SUMMARY | 2024-06-02 13:01 | XMS_ITS | Encounter Summary ---
Author Organization [employer] Address 75 [facility] 7t [place] [address] Care Team Providers Care Senior Sharepoint Architect Name Role Phone Name, Piero MANLEY Primary Care Provider [phone] Encounter Details Date Type Department Care Team [...] Description 06/03/2024 3:30 PM EST Clinical Support [address] [address] 06/24/2024 3:30 PM EST Medication Management [address] [address] Nadege Kay, PharmD [address] [place] [address] 08/11/2024 2:15 PM EDT Office Visit [address] [address] NamePiero MD [address] [place] [address] documented as of this encounter Visit Diagnoses Not on filedocumented in this encounter Additional Health Concerns Assessment Noted Time PHQ-9 Depression Total Score: 0 01/08/20 24 10:04 AM EDT documented as of this encounter Care Teams Senior Sharepoint Architect Relationship Specialty Start Date End Date Name, MD Piero [address] [place] [address] PCP - General Family Medicine 11/28/17 documented as of this encounter
--- OUTSIDE RECORDS SUMMARY | 2024-06-02 13:02 | XMS_ITS | Encounter Summary ---
Author Organization [employer] Address 75 [facility] 7 [place] [address] Care Team Providers Care Horse Racer Name Role Phone Name, Piero MANLEY Primary Care Provider Reason for Visit * Reason Onset Date Comments Chart Prep 05/04/2024 Encounter Details Date Type Department Care Team ([facility] st Contact Info) Description 05/04/2024 Telephone [facility] MEDICINE 230 [place] [address] Anita Foley MA Chart Prep Social History [...] Description 06/03/2024 3:30 PM EST Clinical Support [address] [address] 06/24/2024 3:30 PM EST Medication Management [address] [address] Nadege Kay, PharmD [address] [place] [address] 08/11/2024 2:15 PM EDT Office Visit [address] [address] Name, MD Piero [address] [place] [address] documented as of this encounter Visit Diagnoses Not on filedocumented in this encounter Additional Health Concerns Assessment Noted Time PHQ-9 Depression Total Score: 0 09/19/20 24 10:04 AM EDT documented as of this encounter Care Teams Horse Racer Relationship Specialty Start Date End Date Name, MD Piero [address] [place] [address] PCP - General Family Medicine 11/28/17 documented as of this encounter
--- OUTSIDE RECORDS SUMMARY | 2024-06-02 13:02 | XMS_ITS | Encounter Summary ---
Author Organization [employer] Address 75 [facility] 7 [place] [address] Care Team Providers Care Occupational Nurse Name Role Phone Name, Piero MANLEY Primary Care Provider [phone] Reason for Visit * Reason Onset Date Comments Medication Question 04/22/2024 Encounter Details Date Type Department Care Team (Late st Contact Info) Description 04/22/2024 Refill [facility] MED[facility]INE [address] [place], [place] [phone] Name, MD Piero [address] [place] [address] Type 2 diabetes mellitus with hyperglycemia, with long-term current use of insulin ([facility]) Social History Tobacco Use Types Packs/Day Years [...] 05/06/2024 2:03 PM EST TC placed to [facility] pharmacy re: status of Semaglutide, 2 MG/DOSE, (Ozempic, 2 MG/DOSE,) 8 MG/3ML solution pen-injector. Pharmacy staff states the medication needs a PA. Pharmacy staff asked if PA was completed. Nurse stated that we were not informed that it needed one and would work on paperwork submission. TC placed to pt via [employer] the [employer] ([employer] ID#[id number]) to inform pt we are working on [...] AM EST TC placed to pt via [employer] interpreter [employer] (ID#[id number]) in regards to medication request. Pt states [...] Description 06/03/2024 3:30 PM EST Clinical Support [address] [address] 06/24/2024 3:30 PM EST Medication Management [address] [phone] Nadege Kay, PharmD [address] [place] [address] 08/11/2024 2:15 PM EDT Office Visit [address] [address] Name, MD Piero [address] [place] [address] documented as of this encounter Visit Diagnoses Diagnosis Type 2 diabetes mellitus with hyperglycemia, with long-term current use of insulin ([facility]) documented in this encounter Additional Health Concerns Assessment Noted Time PHQ-9 Depression Total Score: 0 01/08/20 24 10:04 AM EDT documented as of this encounter Care Teams Occupational Nurse Relationship Specialty Start Date End Date Name, MD Piero [address] [place] [address] PCP - General Family Medicine 11/28/17 documented as of this encounter
--- OUTSIDE RECORDS SUMMARY | 2024-06-02 13:02 | XMS_ITS | Encounter Summary ---
Author Organization [employer] Address 75 [facility] 7 [place] [address] Care Team Providers Care Component Engineer Name Role Phone Name, Piero MANLEY Primary Care Provider [phone] Reason for Visit * Reason Onset Date Comments Prior Authorization 05/13/2024 Ozempic Encounter Details Date Type Department Care Team ([facility] st Contact Info) Description 05/13/2024 Telephone [facility] MEDICINE [address] [place], [place] [phone] Name, MD Piero [address] [place] [address] Prior Authorization (Ozempic) Social History Tobacco Use Types Packs/Day Years [...] * Telephone Encounter - Linda Dunaway - 05/13/2024 1:50 PM EST BLANCA Dolan approved. Scanned into media. documented in this encounter Plan of Treatment Upcoming Encounters Date Type Department Care Team (Late st Contact Info) Description 06/03/2024 3:30 PM EST Clinical Support [address] [address] 06/24/2024 3:30 PM EST Medication Management [address] [address] Nadege Kay, PharmD [address] [place] [address] 08/11/2024 2:15 PM EDT Office Visit [address] [address] Name, MD Piero [address] [place] [address] documented as of this encounter Visit Diagnoses Not on filedocumented in this encounter Additional Health Concerns Assessment Noted Time PHQ-9 Depression Total Score: 0 01/08/20 24 10:04 AM EDT documented as of this encounter Care Teams Component Engineer Relationship Specialty Start Date End Date Name, MD Piero [address] [place] [address] PCP - General Family Medicine 11/28/17 documented as of this encounter
--- OUTSIDE RECORDS SUMMARY | 2024-06-02 13:02 | XMS_ITS | Encounter Summary ---
Author Organization [employer] [facility] Address [address] [place] [address] 7 [place] [address] Care Team Providers Care Plumbing Foreman Name Role Phone Name, Piero MANLEY Primary Care Provider Nadege Kay PharmD Unavailable [phone] Encounter Details Date Type Department Care Team (Late st Contact Info) Description 05/09/[address] [address] Name, MD Piero [address] [place] [address] Social History Tobacco Use Types Packs/Day Years [...] Description 06/03/2024 3:30 PM EST Clinical Support [address] [phone] 06/24/2024 3:30 PM EST Medication Management [address] [phone] Nadege Kay, PharmD [address] [place] [address] 08/11/2024 2:15 PM EDT Office Visit [facility] MEDICINE [address] [place] [address] [phone] Name, MD Piero [address] [place] [address] documented as of this encounter Visit Diagnoses Not on filedocumented in this encounter Care Teams Plumbing Foreman Relationship Specialty Start Date End Date Name, MD Piero [address] [place] [address] PCP - General Family Medicine 11/28/17 Nadege Kay, Eros [address] [place] [address] Pharmacist Internal Medicine 05/20/24 documented as of this encounter
--- OUTSIDE RECORDS SUMMARY | 2024-06-02 13:02 | XMS_ITS | Encounter Summary ---
Author Organization [employer] Address 75 [facility] 7t [place] [address] Care Team Providers Care Manager Sustainability Name Role Phone Name, Piero MANLEY Primary Care Provider [phone] Encounter Details Date Type Department Care Team ([facility] st Contact Info) Description 05/12/2024 Orders Only [facility] MEDICINE [address] [place], [place] [phone] Hillary Pastrana FNP [address] [place] [address] Social History Tobacco Use Types Packs/Day Years [...] Description 06/03/2024 3:30 PM EST Clinical Support [address] [address] 06/24/2024 3:30 PM EST Medication Management [address] [address] Nadege Kay, PharmD [address] [place] [address] 08/11/2024 2:15 PM EDT Office Visit [address] [address] Name, MD Piero [address] [place] [address] documented as of this encounter Procedures Procedure Name Priority Date/Time Associated Diagnosis Comments CANCELLED HEMATOLOGY Routine 05/12/2024 11:54 AM EST HPV DNA, LOW/HIGH RISK Routine 05/12/2024 11:54 AM EST documented in this encounter Results * HPV DNA, Low/High Risk (05/12/2024 11:54 AM EST) [facility] HPV High Risk Negative Negative [facility] HPV Genotype 16 Negative Negative [facility] HPV Genotype 18 Negative Negative [facility] Comment:HPV testing performe d at [facility] (CLIA#[id number]), [address] [place] [address].Testing for HPV was performed using the Avis [...] 4 AM EST 05/12/2024 2:00 PM EST [employer] LAB BLOOD ORDERABLES Final Res ult Performing Organization Address City/[facility]/ZIP Co de Phone Number [facility] [address] [place] [address] [phone] * Cancelled Hematology (05/12/2024 11:54 AM EST) Cancelled Hematology SEE NOTE [facility] Comment:THE FOLLOWING TESTS WERE CANCELLED: CBCDREASON: WRONG SPECIMEN TUBE DRAWN 05/12/2024 11:5 4 AM EST 05/12/2024 1:19 PM EST [employer] HISTORICAL/NON ORDERABLE LABS Final Result Performing Organization Address [facility]/ZIP Co de Phone Number [facility] [address] [place] [address] [phone] documented in this encounter Visit Diagnoses Not on filedocumented in this encounter Additional Health Concerns Assessment Noted Time PHQ-9 Depression Total Score: 0 01/08/20 24 10:04 AM EDT documented as of this encounter Care Teams Manager Sustainability Relationship Specialty Start Date End Date Name, MD Piero [address] [place] [address] PCP - General Family Medicine 11/28/17 documented as of this encounter
--- OUTSIDE RECORDS SUMMARY | 2024-06-02 13:02 | XMS_ITS | Encounter Summary ---
Author Organization [employer] Address 75 [facility] 7t [place] [address] Care Team Providers Care Sort Worker Name Role Phone Name, Piero MANLEY Primary Care Provider [phone] Nadege Kay PharmD Unavailable [phone] Reason for Visit * Reason Onset Date Comments Med Change Request Prior Authorization 07/14/2023 Encounter Details Date Type Department Care Team (Late st Contact Info) Description 07/14/2023 Refill [facility] MEDICINE 230 [place], [place] [phone] Name, MD Piero [address] [place], [place] [phone] Social History Tobacco Use Types Packs/Day Years [...] 3:48 PM EDT PA form generated for [employer]. Placed on pcp desk for review and signature to then be faxed to and scanned into chart under media. documented in this encounter Plan of Treatment Upcoming Encounters Date Type Department Care Team (Late st Contact Info) Description 06/03/2024 3:30 PM EST Clinical Support [address] [address] 06/24/2024 3:30 PM EST Medication Management [address] [address] Nadege Kay, PharmD [address] [place] [address] 08/11/2024 2:15 PM EDT Office Visit [address] [address] Name, MD Piero [address] [place] [address] documented as of this encounter Visit Diagnoses Not on filedocumented in this encounter Additional Health Concerns Assessment Noted Time PHQ-9 Depression Total Score: 0 08/27/19 23 4:06 PM EDT documented as of this encounter Care Teams Sort Worker Relationship Specialty Start Date End Date Name, MD Piero [address] [place] [address] PCP - General Family Medicine 11/28/17 Nadege Kay PharmD [address] [place] [address] Pharmacist Internal Medicine 05/20/24 documented as of this encounter
--- OUTSIDE RECORDS SUMMARY | 2024-06-02 13:02 | XMS_ITS | Encounter Summary ---
Author Organization [employer] Address 75 [facility] 7t [place] [address] Care Team Providers Care Brand Recorder Name Role Phone Name, Piero MANLEY Primary Care Provider [phone] Nadege Kay PharmD Unavailable [phone] Encounter Details Date Type Department Care Team (Latest Contact Info) Description 05/20/2024 Travel Social History Tobacco Use Types Packs/Day [...] Description 06/03/2024 3:30 PM EST Clinical Support [address] [address] 06/24/2024 3:30 PM EST Medication Management [address] [address] Nadege Kay PharmD [address] [place] [address] 08/11/2024 2:15 PM EDT Office Visit [address] [address] NamePiero MD [address] [place] [address] documented as of this encounter Visit Diagnoses Not on filedocumented in this encounter Additional Health Concerns Assessment Noted Time PHQ-9 Depression Total Score: 0 01/08/20 24 10:04 AM EDT documented as of this encounter Care Teams Brand Recorder Relationship Specialty Start Date End Date NamePiero MD [address] [place] [address] PCP - General Family Medicine 11/28/17 Nadege Kay PharmD [address] [place] [address] Pharmacist Internal Medicine 05/20/24 documented as of this encounter
--- OUTSIDE RECORDS SUMMARY | 2024-06-02 13:02 | XMS_ITS | Encounter Summary ---
Author Organization [employer] Address 75 [facility] 7t [place] [address] Care Team Providers Care Public Health Registrar Name Role Phone Name, Piero MANLEY Primary Care Provider [phone] Nadege Kay PharmD Unavailable Encounter Details Date Type Department Care Team ([facility] st Contact Info) Description 04/23/2023 Orders Only [facility] MED & PEDS [address] [place] [address] Tonia Pagan LPN Social History Tobacco Use [...] t he electric, gas, oil or water [employer] threatened to shut off services in your [...] Description 06/03/2024 3:30 PM EST Clinical Support [address] [address] 06/24/2024 3:30 PM EST Medication Management [address] [address] Nadege Kay PharmD [address] [place] [address] 08/11/2024 2:15 PM EDT Office Visit [address] [address] Name, MD Piero [address] [place] [address] documented as of this encounter Visit Diagnoses Not on filedocumented in this encounter Additional Health Concerns Assessment Noted Time PHQ-9 Depression Total Score: 0 08/27/19 23 4:06 PM EDT documented as of this encounter Care Teams Public Health Registrar Relationship Specialty Start Date End Date Name, MD Piero [address] [place] [address] PCP - General Family Medicine 11/28/17 Nadege Kay PharmD [address] [place] [address] Pharmacist Internal Medicine 05/20/24 documented as of this encounter
--- OUTSIDE RECORDS SUMMARY | 2024-06-02 13:02 | XMS_ITS | Encounter Summary ---
Author Organization [employer] Address 75 [facility] 7 [place] [address] Care Team Providers Care Flatbed Press Operator Name Role Phone Name, Piero MANLEY Primary Care Provider [phone] Nadege Kay PharmD Unavailable [phone] Reason for Visit * Reason Comments Med Refill Encounter Details Date Type Department Care Team ([facility] st Contact Info) Description 07/14/2023 Refill [facility] MEDICINE [address] [place], [place] [phone] Name, MD Piero [address] [place], [place] [phone] Social History Tobacco Use Types Packs/Day Years [...] Description 06/03/2024 3:30 PM EST Clinical Support [address] [address] 06/24/2024 3:30 PM EST Medication Management [address] [address] Nadege Kay PharmD [address] [place] [address] 08/11/2024 2:15 PM EDT Office Visit [address] [address] Name, MD Piero [address] [place] [address] documented as of this encounter Visit Diagnoses Not on filedocumented in this encounter Additional Health Concerns Assessment Noted Time PHQ-9 Depression Total Score: 0 08/27/19 23 4:06 PM EDT documented as of this encounter Care Teams Flatbed Press Operator Relationship Specialty Start Date End Date Name, MD Piero [address] [place] [address] PCP - General Family Medicine 11/28/17 Nadege Kay PharmD [address] [place] [address] Pharmacist Internal Medicine 05/20/24 documented as of this encounter
--- OUTSIDE RECORDS SUMMARY | 2024-06-02 13:02 | XMS_ITS | Encounter Summary ---
Author Organization [employer] [facility] Address [address] [place] [address] 7 [place] [address] Care Team Providers Care Hyperbaric Technician Name Role Phone Name, Piero MANLEY Primary Care Provider [phone] Nadege Kay PharmD Unavailable [phone] Reason for Referral * Consultation (Routine) - Authorized Specialty Diagnoses / Procedures Referred By Antwan goodrich Referred To Contact General Surgery Diagnoses Soft tissue swelling Hillary Pastrana FNP [address] [place] [address] Phone: tel: fax: Matteo Grijalva MD [address] [place] [address] [place] [address] Phone: tel: fax: Referral ID Status Reason Start Date Expiration Date Visits Requested Visits Authorized [id number] Authorized Specialty Services Required 05/17/2024 05/17/2025 12 12 * Imaging (Routine) - Authorized Specialty Diagnoses / Procedures Referred By Antwan goodrich Referred To Contact Radiology Diagnoses Menorrhagia with regular cycle Procedures Us Pelvis complete Hillary Pastrana FNP [address] [place] [address] Phone: tel: fax: [facility] [address] [place] [address] Phone: tel: fax: Referral ID Status Reason Start Date Expiration Date V isits Requested Visits Authorized [id number] Authorized 05/12/2024 05/12/2025 1 1 Encounter Details Date Type Department Care Team (Latest Contact Info) Description 05/12/2024 10:45 AM EST Procedure Visit [facility] MEDICINE [address] [place], [place] [phone] Hillary Pastrana FNP [address] [place] [address] Routine cervical smear (Primary Dx); Menorrhagia with regular cycle; Soft tissue swelling; Normal pelvic exam; History of uterine fibroid Social History Tobacco Use Types Packs/Day Years [...] 11:06 AM EST documented in this encounter Progress Notes * Hillary Pastrana, BALJINDER - 05/12/2024 10:45 AM EST Subjective Dora Maloney is a 39 y.o. female who presents for routine pap. Last Pap smear in 2019 was normal. HPV negative. Denies STI history, vaginal itching, odor, or unusual discharge. Denies urinary symptoms burning, leaking, or urgency. LMP 04/14/25. Reports menstruation as regular heavy bleeding lasting 7 days with blood clots. Hx of fibriods x 3yrs. Saw liaison officer 3 years ago and plan is to remove uterus . Patient was advised that hysterectomy might lead to early menopause she declined and never follow up liaison officer. Denies bleeding between period. Hx of tubal ligation. Three children, one vaginal and two caesarean . Sexually active with same partner x 18 yrs. Denies pain/bleeding during sex. Lives with , denies IPV. Describes home and environment as same. Working smoke and fire alarms. Denies family history of breast/ovarian/colon/uterine cancer. Mammogram screening scheduled for 05/12/24. Droa concern about a soft tissue mass on the lower right quarter of the abdomen. Reports the mass has slowly grown over the year. Review of Systems Constitutional: Negative for fatigue and fever. HENT: Negative for sore throat. Respiratory: Negative for cough, chest tightness, shortness of breath and wheezing. Cardiovascular: Negative for chest pain, palpitations and leg swelling. Gastrointestinal: Negative for abdominal pain, nausea and vomiting. Genitourinary: Positive for menstrual problem. Negative for decreased urine volume, difficulty urinating, dyspareunia, flank pain, frequency, hematuria, pelvic pain, vaginal bleeding, vaginal discharge and vaginal pain. Positive for Menorrhagia Skin: Negative for rash. Neurological: Negative for dizziness, weakness, light-headedness and headaches. Psychiatric/Behavioral: Negative for sleep disturbance and suicidal ideas. Objective Visit Vitals BP 122/78 (BP Location: Right arm, Patient Position: Sitting, BP Cuff Size: Adult) Pulse 88 Temp 97.8 ??F (36.6 ??C) (Oral) Resp 20 Ht 5' 6 (1.676 m) Wt 244 lb (111 kg) LMP 04/22/2024 SpO2 99% BMI 39.38 kg/m?? OB Status Having periods Smoking Status Never BSA 2.27 m?? Physical Exam Vitals reviewed. Exam conducted with a laboratory director present (Ema Fournier). Constitutional: Appearance: Normal appearance. She is obese. HENT: Head: Atraumatic. Cardiovascular: Rate and Rhythm: Normal rate and regular rhythm. Pulses: Normal pulses. Heart sounds: No murmur heard. Pulmonary: Effort: Pulmonary effort is normal. Breath sounds: Normal breath sounds. Abdominal: Tenderness: There is no abdominal tenderness. Genitourinary: General: Normal vulva. Pubic Area: No rash or pubic lice. Jovany stage (genital): 5. Labia: Right: No rash, tenderness or lesion. Left: No rash, tenderness or lesion. Urethra: No urethral pain. Comments: Internal and external genital exam normal Skin: Capillary Refill: Capillary refill takes less than 2 seconds. Comments: Soft tissue mass on the lower right quarter of the abdomen Neurological: Mental Status: She is alert. Psychiatric: Behavior: Behavior normal. Thought Content: Thought content normal. Problem List Items Addressed This Visit Routine cervical smear - Primary Current Assessment & Plan Cotest in 5 years if normal Relevant Orders Pap Smear Soft tissue swelling Current Assessment & Plan 2-3 cm soft tissue mass on the lower right quarter of the abdomen Likely lipoma, will refer to surgeon Relevant Orders Referral to General Surgery Menorrhagia with regular cycle Current Assessment & Plan History of fibroids. Labs and imaging ordered. Depending on results will discuss hormonal treatment plan or referral to FLOORWALKER to revisit surgical options if interested. Relevant Orders CBC auto differential US Pelvis Transvaginal Us Pelvis complete Normal pelvic exam Declines breast examination [facility] TOOL CRIB SUPERVISOR Attestation TOOL CRIB SUPERVISOR Resident Attestation: Patient was seen and evaluated by Hillary GALE , in collaboration with Ema Fournier CNM who has reviewed my assessment and plan. I, Ema Fournier CNM, have reviewed the resident's note and agree with the assessment & plan of care as documented above. documented in this encounter Miscellaneous Notes * Assessment & Plan Note - BALJINDER Zaman - 05/13/2024 3:18 PM ESTAssociated Problem(s): Menorrhagia with regular cycle History of fibroids. Labs and imaging ordered. Depending on results will discuss hormonal treatment plan or referral to FLOORWALKER to revisit surgical options if interested. * Assessment & Plan Note - BALJINDER Zaman - 05/13/2024 3:10 PM ESTAssociated Problem(s): Routine cervical smear Cotest in 5 years if normal * Assessment & Plan Note - BALJINDER Zaman - 05/13/2024 9:28 AM ESTAssociated Problem(s): Soft tissue swelling 2-3 cm soft tissue mass on the lower right quarter of the abdomen Likely lipoma, will refer to surgeon documented in this encounter Plan of Treatment Upcoming Encounters Date Type Department Care Team (Late st Contact Info) Description 06/03/2024 3:30 PM EST Clinical Support [address] [address] 06/24/2024 3:30 PM EST Medication Management [address] [address] PuiaNadege, PharmD [address] [place] [address] 08/11/2024 2:15 PM EDT Office Visit [address] [address] Name, MD Piero [address] [place] [address] Scheduled Orders Name Type Priority Associated Diagnoses Orde r Schedule CBC auto differential Lab Routine Menorrhagia with regular cycle Expected: 05/12/2024 (Approximate), Expires: 05/12/2025 Us Pelvis complete Imaging Routine Menorrhagia with regular cycle Expected: 05/12/2024, Expires: 05/12/2025 Scheduled Referrals Name Type Priority Associated Diagnoses Orde r Schedule Referral to General Surgery Outpatient Referral Routine Soft tissue swelling Expected: 05/12/2024 (Approximate), Expires: 05/12/2025 documented as of this encounter Procedures Procedure Name Priority Date/Time Associated Diagnosis Comments US PELVIS COMPLETE Routine 06/02/2024 11 :43 AM EST PAP SMEAR Routine 05/12/2024 11:54 AM EST Routine cervical smear documented in this encounter Results * Us Pelvis complete (06/02/2024 11:43 AM EST) Anatomical Region Laterality Modality Pelvis Ultrasound 06/02/2024 11:4 3 AM EST Narrative 06/02/2024 12:16 PM EST ? [facility] ?[address] ?[place] [address] ? Ultrasound Report ? Signed ? Patient: Rudy Maloney,Dora ?MR#: ?? [id number] ? : 1985 ?Acct:[id number] ? Age/Sex: 39 / F ?ADM Date: 06/02/24 ? Loc: HO.US ? Attending Dr: Hillary GALE ? Ordering Physician: Hillary Pastrana ?? Date of Service: 06/02/24 ?? Procedure(s): US pelvic complete ?? Accession Number(s): [id number] ? cc: Name,Piero MANLEY; Hillary Pastrana ? EXAMINATION: ??US PELVIS ? [...] signed by Gal Pierce MD in OV> ?06/02/241212 ? DD/ 1143 ? TD/TT: 06/02/24 1150 ? Nurse Examiner: ? Procedure Note Donmayragerardogloriater, Image - 06/02/2024 [place] [address] Ultrasound Report Signed Patient: Angelique Caal#: [id number] : 1985Acct:[id number] Age/Sex: 39 / FADM Date: 06/02/24 Loc: HO.US Attending Dr: Hillary GALE Ordering Physician: Hillary Pastrana Date of Service: 06/02/24 Procedure(s): US pelvic complete Accession Number(s): [id number] cc: Piero Clarke MD; Hillary Pastrana EXAMINATION: US PELVIS HISTORY: Hx [...] Gal Pierce MD 06/02/2024 12:13 PM EST Dictated By: Gal Pierce MD Signed By: <Electronically signed by Gal Pierce MD in OV> 06/02/24 1213 DD/ 1143 TD/TT: 06/02/24 1150 Nurse Examiner: us Hillary GALE IM US PROCEDURES Final Result * Pap Smear (05/12/2024 11:54 AM EST) Swab Cervix uteri structure / Unknown 05/12/2024 11:54 AM EST 05/12/2024 2:00 PM EST [facility] - 05/18/2024 10:18 AM EST ----- ------- Name: Dora Caal ?Age/Sex: 39/F ? : 1985 Unit#: [id number] ?? Attend Dr: Okhipo,Hillary SHEET COMBINING OPERATOR ?Re05/12/24 ?Status: DEP REF ? Location: [facility] ? Disch: ? ----- ------- SPEC : [id number] ? RECD: 05/12/24-1400 ? STATUS: ??SOUT ? REQ NUM: [id number] ? KAREN: 05/12/24-1154 ? SUBM DR: Hillary Pastrana SHEET COMBINING OPERATOR ? ENTERED: ??05/12/24-1410 ?SP TYPE: Pap Smr [...] ------- ? END OF REPORT ? Hillary [place] [facility] CYTOLOGY ORDERABLES Final Result Performing Organization Address [facility] Co de Phone Number [facility] [address] [place] [address] [phone] documented in this encounter Visit Diagnoses Diagnosis Routine cervical smear- Primary Screening for malignant neoplasm of the cervix Menorrhagia with regular cycle Soft tissue swelling Localized superficial swelling, mass, or lump Normal pelvic exam History of uterine fibroid documented in this encounter Additional Health Concerns Assessment Noted Time PHQ-9 Depression Total Score: 0 01/08/20 24 10:04 AM EDT documented as of this encounter Care Teams Hyperbaric Technician Relationship Specialty Start Date End Date Name, MD Piero [address] [place] [address] PCP - General Family Medicine 11/28/17 Nadege Kay, SadieD [address] [place] [phone] Pharmacist Internal Medicine 05/20/24 documented as of this encounter
--- OUTSIDE RECORDS SUMMARY | 2024-06-02 13:02 | XMS_ITS | Encounter Summary ---
Author Organization [employer] Address [address] [place] [address] 7 [place] [address] Care Team Providers Care Digital Marketing Associate Name Role Phone Name, Piero MANLEY Primary Care Provider [phone] Nadege Kay PharmD Unavailable [phone] Reason for Visit * Reason Onset Date Comments Nurse Triage 01/21/2023 Encounter Details Date Type Department Care Team (Late st Contact Info) Description 01/21/2023 Telephone [facility] MEDICINE [address] [place], [place] [phone] Name, MD Piero [address] [place], [place] [phone] Nurse Triage Social History Tobacco Use Types [...] reduce sugar/carb foods. Pt advised to seek [facility] for exam today or tomorrow if [...] Description 06/03/2024 3:30 PM EST Clinical Support [address] [address] 06/24/2024 3:30 PM EST Medication Management [facility] MEDICINE [address] [place] [address] Nadege Kay, PharmD [address] [place] [address] 08/11/2024 2:15 PM EDT Office Visit [facility] MEDICINE [address] [place] [address] Name, [place] [address] documented as of this encounter Visit Diagnoses Not on filedocumented in this encounter Additional Health Concerns Assessment Noted Time PHQ-9 Depression Total Score: 0 08/27/19 23 4:06 PM EDT documented as of this encounter Care Teams Digital Marketing Associate Relationship Specialty Start Date End Date Name, [place] [address] PCP - General Family Medicine 11/28/17 Nadege Kay, Eros [address] [place] [address] Pharmacist Internal Medicine 05/20/24 documented as of this encounter
--- OUTSIDE RECORDS SUMMARY | 2024-06-02 13:02 | XMS_ITS | Encounter Summary ---
Author Organization [employer] Address 75 [facility] 7t [place] [address] Care Team Providers Care Instrument Lens Grinder Name Role Phone Name, Piero MANLEY Primary Care Provider [phone] Encounter Details Date Type Department Care Team ([facility] st Contact Info) Description 05/07/[address] [facility] MEDICINE [address] [place] [address] Mariza Karimi RN Social History Tobacco Use [...] Miscellaneous Notes * Telephone Encounter - Mariza Kairmi RN - 05/07/2024 8:40 AM EST [facility]. Pending approval/denial decision. Forms placed in H.I.M scanning bin. documented in this encounter Plan of Treatment Upcoming Encounters Date Type Department Care Team (Late st Contact Info) Description 06/03/2024 3:30 PM EST Clinical Support [address] [address] 06/24/2024 3:30 PM EST Medication Management [address] [address] Nadege Kay, PharmD [address] [place] [address] 08/11/2024 2:15 PM EDT Office Visit [address] [address] Name, MD Piero [address] [place] [address] documented as of this encounter Visit Diagnoses Not on filedocumented in this encounter Additional Health Concerns Assessment Noted Time PHQ-9 Depression Total Score: 0 01/08/20 24 10:04 AM EDT documented as of this encounter Care Teams Instrument Lens Grinder Relationship Specialty Start Date End Date Name, MD Piero [address] [place] [address] PCP - General Family Medicine 11/28/17 documented as of this encounter
--- OUTSIDE RECORDS SUMMARY | 2024-06-02 13:02 | XMS_ITS | Encounter Summary ---
Author Organization [employer] Address 75 [facility] 7 [place] [address] Care Team Providers Care Surgeon/President Name Role Phone Name, Piero MANLEY Primary Care Provider [phone] Nadege Kay PharmD Unavailable [phone] Reason for Visit * Reason Comments Med Refill Encounter Details Date Type Department Care Team ([facility] st Contact Info) Description 03/09/[address] [facility] MEDICINE [address] [place], [place] [phone] Name, MD Piero [address] [place] [address] Type 2 diabetes mellitus with hyperglycemia, with long-term current use of insulin ([facility]) Social History Tobacco Use Types Packs/Day [...] Description 06/03/2024 3:30 PM EST Clinical Support [address] [address] 06/24/2024 3:30 PM EST Medication Management [address] [address] Nadege Kay, PharmD [address] [place] [address] 08/11/2024 2:15 PM EDT Office Visit [address] [address] NamePiero MD [address] [place] [address] documented as of this encounter Visit Diagnoses Diagnosis Type 2 diabetes mellitus with hyperglycemia, with long-term current use of insulin ([facility]) documented in this encounter Additional Health Concerns Assessment Noted Time PHQ-9 Depression Total Score: 0 01/08/20 24 10:04 AM EDT documented as of this encounter Care Teams Surgeon/President Relationship Specialty Start Date End Date Piero Clarke MD [address] [place] [address] PCP - General Family Medicine 11/28/17 Nadege Kay, SadieD [address] [place] [address] Pharmacist Internal Medicine 05/20/24 documented as of this encounter
== END 2024-06-02 11:09 | disposition home or self-care (01) ==
LOC: HO.US 11:08
PROVIDERS: PCP Internal Medicine Geriatric Medicine; Visit Provider Nurse Practitioner Family
DX: N92.0 Excessive and frequent menstruation with regular cycle (principal)
CPT/HCPCS: 76856

== ENCOUNTER 2024-07-08 13:24 | Outpatient (REF) | payer MEDICAID, SELFPAY ==
--- NOTE | ~2024-07-08 | MM_ITS ---
EXAMINATION: MM DIAGNOSTIC DIGITAL BREAST TOMOSYNTHESIS, LEFT Limited left breast ultrasound. CLINICAL INFORMATION: Call back from screening for asymmetry in the lateral left breast posterior depth on CC view. COMPARISON: Mammography: [facility] on PACS. TECHNIQUE: Digital breast tomosynthesis is performed in both the craniocaudal and mediolateral oblique views along with computer-aided detection (CAD). Synthesized 2D images are generated from the tomosynthesis. FINDINGS: There are scattered areas of fibroglandular density (ACR BI-RADS breast composition Category b). Asymmetry lateral left breast posterior depth on CC view persists on additional imaging projections. There are no significant masses, abnormal calcifications, or other abnormalities. Targeted color Doppler ultrasound scanning from 4:00 in the far lateral posterior left breast demonstrates multiple intramammary lymph nodes which correlates with the asymmetry seen on mammography. MM/MM tomosynthesis added views L IMPRESSION: Normal-appearing intramammary lymph nodes. Benign. ASSESSMENT: BI-RADS BI-RADS 2 - Benign Findings RECOMMENDATION: 1 year F/U Results were provided to the patient at time of visit by the technologist. This patient's information was entered into a reminder system with a target due date for their next mammogram. Electronically signed by: Heidi Vail DO 07/08/2024 02:34 PM EDT
== END 2024-07-08 13:25 | disposition home or self-care (01) ==
LOC: HO.MAMMO 13:24
PROVIDERS: PCP Internal Medicine Geriatric Medicine; Visit Provider Internal Medicine Geriatric Medicine
DX: N64.89 Other specified disorders of breast (principal)
CPT/HCPCS: 76642; 77061; 77065

== ENCOUNTER → 2024-07-08 14:00 | Outpatient (BNV) | payer MEDICAID, SELFPAY | PROVIDERS: PCP Internal Medicine Geriatric Medicine; Visit Provider Internal Medicine | DX: R92.8 Other abnormal and inconclusive findings on diagnostic imaging of breast (principal) | CPT/HCPCS: 76642; 77061; 77065 ==

== ENCOUNTER 2024-07-22 13:39 | Outpatient (AMB) | payer MEDICAID, SELFPAY ==
--- NOTE | 2024-07-22 13:42 | MHC.OFFVIS ---
Vital Signs 07/22/24 13:51 Height 5 ft 6 in Weight 241 lb 4 oz BMI 38.9 BP 142/90 H Blood Pressure Location Lt brachial Position Sitting Pulse 90 Intake Visit Reasons: Soft tissue swelling Intake Note: Patient referred by pcp Piero Garcia for lipoma of the right groin. Patient c/o: unsure if its a keloid or a lump in the area, onset 4 yrs, increase, denies discharge, redness or any other concerns Attending Ambulatory Care Required: Yes Attending Ambulatory Care Language: Prydeinig Accompanied by: Daughter Allergies aspirin [ASA] Allergy (Mild, Verified 07/22/24 13:49) RASH Medication List - Last Reconciled 07/22/24 by Matteo Grijalva MD ibuprofen 600 mg PO Q8H PRN insulin glargine (Lantus Solostar U-100 Insulin) 10 units subcut BID insulin lispro (Humalog Eliezer KwikPen (U-100)) 20.5 units subcut BID lidocaine 5% (Lidoderm) 1 patch topical DAILY metformin 1,000 mg PO DAILY HPI HPI Soft tissue swelling: Details: 39-year-old female referred for a soft tissue mass on the right hip area. She says that she has had this for years but this seems to be increasing in size. She therefore wants this removed. She denies any swelling, discharge or redness. She has a known diabetic. She does state that her blood sugars are well controlled. [facility] Medical History (Updated 07/22/24 @ 14:14 by Matteo Grijalva MD) Subcutaneous mass Vitamin B12 deficiency Obesity Neuropathy Depression Insulin dependent diabetes mellitus Morbid obesity Surgical History H/O tubal ligation Hx of cholecystectomy Hx of section Family History Mother No problems noted. Father No problems noted. Brother No problems noted. Brother No problems noted. Brother No problems noted. Brother No problems noted. Brother No problems noted. Sister No problems noted. Sister No problems noted. Sister No problems noted. Son No problems noted. Daughter No problems noted. Daughter Asthma Social History Alcohol intake: never Current occupational status: unemployed Current occupation: stylist - Right Handed Female Reproductive History Menstrual Age of Menarche: 11 Review of Systems Const Denies chills and Denies fever(s) Card Denies chest pain, Denies dyspnea and Denies dyspnea on exertion Resp Denies cough, Denies dyspnea and Denies dyspnea on exertion GI Denies hematochezia and Denies change in bowel habits Denies hematuria Musc Denies back pain and Denies limited range of motion Neuro Denies focal weakness and Denies convulsions Psych Denies depression and Denies mood swings Physical Exam Vital Signs: Last Vital Signs Pulse 90 07/22/24 13:51 BP 142/90 H 07/22/24 13:51 BMI result Body Mass Index 38.9 Const General: comfortable and no acute distress Nutritional Appearance: obese Orientation/consciousness: patient oriented x3 Neck Neck: Yes no lymphadenopathy Resp Auscultation: clear to auscultation bilaterally Cardio Rhythm: regular rhythm GI Palpation (GI): Soft to palpation, nontender and no guarding Back/Spine/Pelvis Other: On the right hip area is note of a soft mass, about 2.5 cm in size, subcutaneous, well-defined, Neuro General: patient oriented x3 Assessment & Plan Assessment & Plan (1) Subcutaneous mass: Code(s): R22.9 - Localized swelling, mass and lump, unspecified Category: Medical Plan: This may be a lipoma versus a fibroma. She wants this excised. I explained the technique of excision under local anesthesia. I reviewed the risks including but not limited to bleeding and infections. She wants to proceed This will be done in the office on her next visit. Coding Level of Care Code New Pt Level 3 (81789) Diagnoses Subcutaneous mass R22.9
[2024-07-22 13:51] VITALS: BP 142/90; PULSE 90; BMI 38.9
--- OUTSIDE RECORDS SUMMARY | 2024-07-22 14:59 | XMS_ITS | Encounter Summary ---
Author Organization [employer] Address [address] [facility] 7t [place] [address] Care Team Providers Care Swing Grinder Name Role Phone Name, Piero MANLEY Primary Care Provider [phone] Nadege Kay PharmD Unavailable [phone] Reason for Visit * Reason Onset Date Comments Med Change Request Prior Authorization 07/14/2023 Encounter Details Date Type Department Care Team (Late st Contact Info) Description 07/14/2023 Refill [facility] MEDICINE [address] [place], [place] [phone] Name, MD Piero [address] [place], [place] [phone] Social History Tobacco Use Types Packs/Day Years [...] 3:48 PM EDT PA form generated for [employer]. Placed on pcp desk for review and signature to then be faxed to and scanned into chart under media. documented in this encounter Plan of Treatment Upcoming Encounters Date Type Department Care Team (Late st Contact Info) Description 07/22/2024 3:30 PM EDT Medication Management [facility] MEDICINE [address] [place] [phone] Nadege Kay, PharmD [address] [place] [address] Arrived 08/11/2024 2:15 PM EDT Office Visit [facility] MEDICINE [address] [place] [address] NamePiero MD [address] [place] [address] documented as of this encounter Visit Diagnoses Not on filedocumented in this encounter Additional Health Concerns Assessment Noted Time PHQ-9 Depression Total Score: 0 08/27/19 23 4:06 PM EDT documented as of this encounter Care Teams Swing Grinder Relationship Specialty Start Date End Date NamePiero MD [address] [place] [address] [phone] PCP - General Family Medicine 11/28/17 Nadege Kay, Eros [address] [place] [address] [place] [address] Pharmacist Internal Medicine 05/20/24 documented as of this encounter
--- OUTSIDE RECORDS SUMMARY | 2024-07-22 14:59 | XMS_ITS | Encounter Summary ---
Author Organization [employer] Address [address] [place] [address] 7 [place] [address] Care Team Providers Care Plating Tank Operator Name Role Phone Name, Piero MANLEY Primary Care Provider [phone] Nadege Kay PharmD Unavailable [phone] Reason for Visit * Reason Onset Date Comments Nurse Triage 01/21/2023 Encounter Details Date Type Department Care Team (Late st Contact Info) Description 01/21/2023 Telephone [facility] MEDICINE [address] [place], [place] [phone] Name, MD Piero [address] [place], [place] [phone] Nurse Triage Social History Tobacco Use Types [...] reduce sugar/carb foods. Pt advised to seek [facility] for exam today or tomorrow [...] Description 07/22/2024 3:30 PM EDT Medication Management [facility] MEDICINE [address] [place] [address] Nadege Kay, PharmD [address] [place] [address] Arrived 08/11/2024 2:15 PM EDT Office Visit [facility] [address] [place] [phone] Name, MD Piero [address] [place] [address] documented as of this encounter Visit Diagnoses Not on filedocumented in this encounter Additional Health Concerns Assessment Noted Time PHQ-9 Depression Total Score: 0 08/27/19 23 4:06 PM EDT documented as of this encounter Care Teams Plating Tank Operator Relationship Specialty Start Date End Date Name, MD Piero [address] [place] [address] PCP - General Family Medicine 11/28/17 Nadege Kay PharmD [address] [place] [phone] Pharmacist Internal Medicine 05/20/24 documented as of this encounter
--- OUTSIDE RECORDS SUMMARY | 2024-07-22 14:59 | XMS_ITS | Encounter Summary ---
Author Organization [employer] Address [address] [facility] 7t [place] [address] Care Team Providers Care Engineering Group Manager Name Role Phone Name, Piero MANLEY Primary Care Provider [phone] Nadege Kay PharmD Unavailable [phone] Reason for Visit * Reason Onset Date Comments Letter for School/Work 08/20/2023 Encounter Details Date Type Department Care Team (Late st Contact Info) Description 08/20/2023 Telephone [facility] MEDICINE [address] [place], [place] [phone] Name, MD Piero [address] [place], [place] [phone] Letter for School/Work Social History Tobacco Use [...] not accept excuse. Please contact pt at [phone] documented in this encounter Plan of Treatment Upcoming Encounters Date Type Department Care Team (Late st Contact Info) Description 07/22/2024 3:30 PM EDT Medication Management [facility] MEDICINE [address] [place] [phone] Nadege Kay, PharmD 230 [place] [address] Arrived 08/11/2024 2:15 PM EDT Office Visit [facility] MEDICINE [address] [place] [address] Name, MD Piero [address] [place] [address] documented as of this encounter Visit Diagnoses Not on filedocumented in this encounter Additional Health Concerns Assessment Noted Time PHQ-9 Depression Total Score: 0 08/27/19 23 4:06 PM EDT documented as of this encounter Care Teams Engineering Group Manager Relationship Specialty Start Date End Date Name, MD Piero [address] [place] [address] PCP - General Family Medicine 11/28/17 Nadege Kay PharmD [address] [place] [address] Pharmacist Internal Medicine 05/20/24 documented as of this encounter
--- OUTSIDE RECORDS SUMMARY | 2024-07-22 14:59 | XMS_ITS | Encounter Summary ---
Author Organization [employer] Address [address] [facility] 7 [place] [address] Care Team Providers Care Superintendent Board Mill Name Role Phone Name, Piero MANLEY Primary Care Provider [phone] Nadege Kay PharmD Unavailable [phone] Reason for Visit * Reason Comments Med Refill Encounter Details Date Type Department Care Team ([facility] st Contact Info) Description 03/09/2024 Refill [facility] MEDICINE [address] [place], [place] [phone] Name, MD Piero 230 [place] [address] Type 2 diabetes mellitus with hyperglycemia, with long-term current use of insulin ([facility]) Social History Tobacco Use Types Packs/Day [...] Description 07/22/2024 3:30 PM EDT Medication Management [facility] MEDICINE [address] [place] [address] Nadege Kay, PharmD [address] [place] [address] Arrived 08/11/2024 2:15 PM EDT Office Visit [facility] MEDICINE [address] [place] [phone] NamePiero MD [address] [place] [address] documented as of this encounter Visit Diagnoses Diagnosis Type 2 diabetes mellitus with hyperglycemia, with long-term current use of insulin ([facility]) documented in this encounter Additional Health Concerns Assessment Noted Time PHQ-9 Depression Total Score: 0 01/08/20 24 10:04 AM EDT documented as of this encounter Care Teams Superintendent Board Mill Relationship Specialty Start Date End Date Piero Clarke MD [address] [place] [address] PCP - General Family Medicine 11/28/17 Nadege Kay, SadieD [address] [place] [address] Pharmacist Internal Medicine 05/20/24 documented as of this encounter
--- OUTSIDE RECORDS SUMMARY | 2024-07-22 14:59 | XMS_ITS | Encounter Summary ---
Author Organization [employer] Address [address] [facility] 7 [place] [address] Care Team Providers Care Delicatessen Goods Stock Clerk Name Role Phone Name, Piero MANLEY Primary Care Provider Nadege Kay PharmD Unavailable [phone] Reason for Visit * Reason Comments Med Refill Encounter Details Date Type Department Care Team (Late st Contact Info) Description 07/14/2023 Refill [facility] MEDICINE [address] [place], [place] [phone] Name, MD Piero [address] [place], [place] [phone] Social History Tobacco Use Types Packs/Day Years [...] Description 07/22/2024 3:30 PM EDT Medication Management [facility] MEDICINE [address] [place] [address] Nadege Kay PharmD [address] [place] [address] Arrived 08/11/2024 2:15 PM EDT Office Visit [facility] MEDICINE [address] [place] [address] Name, MD Piero [address] [place] [address] documented as of this encounter Visit Diagnoses Not on filedocumented in this encounter Additional Health Concerns Assessment Noted Time PHQ-9 Depression Total Score: 0 08/27/19 23 4:06 PM EDT documented as of this encounter Care Teams Delicatessen Goods Stock Clerk Relationship Specialty Start Date End Date Name, MD Piero [address] [place] [address] PCP - General Family Medicine 11/28/17 Nadege Kay PharmD [address] [place] [address] Pharmacist Internal Medicine 05/20/24 documented as of this encounter
--- OUTSIDE RECORDS SUMMARY | 2024-07-22 14:59 | XMS_ITS | Encounter Summary ---
Author Organization [employer] Address [address] [facility] 7t [place] [address] Care Team Providers Care Electrical And Instrument Engineer Name Role Phone Name, Piero MANLEY Primary Care Provider [phone] Nadege Kay PharmD Unavailable [phone] Encounter Details Date Type Department Care Team ([facility] st Contact Info) Description 04/23/2023 Orders Only [facility] [address] [place] [address] Tonia Pagan LPN Social History Tobacco Use [...] t he electric, gas, oil or water [employer] threatened to shut off services in your [...] Description 07/22/2024 3:30 PM EDT Medication Management [facility] MEDICINE [address] [place] [phone] Nadege Kay PharmD [address] [place] [address] Arrived 08/11/2024 2:15 PM EDT Office Visit [facility] MEDICINE [address] [place] [phone] Name, MD Piero [address] [place] [address] documented as of this encounter Visit Diagnoses Not on filedocumented in this encounter Additional Health Concerns Assessment Noted Time PHQ-9 Depression Total Score: 0 08/27/19 23 4:06 PM EDT documented as of this encounter Care Teams Electrical And Instrument Engineer Relationship Specialty Start Date End Date NamePiero MD [address] [place] [phone] PCP - General Family Medicine 11/28/17 Nadege Kay PharmD [address] [place] [phone] Pharmacist Internal Medicine 05/20/24 documented as of this encounter
--- OUTSIDE RECORDS SUMMARY | 2024-07-22 15:00 | XMS_ITS | Encounter Summary ---
Author Organization [employer] [facility] Address [address] [place] [address] 7 [place] [address] Care Team Providers Care Gambling Box Person Name Role Phone Name, Piero MANLEY Primary Care Provider Nadege Kay PharmD Unavailable Encounter Details Date Type Department Care Team (Late st Contact Info) Description 05/09/2022 Telephone [facility] MEDICINE [address] [place] [phone] Name, MD Piero [address] [place] [phone] Social History Tobacco Use Types Packs/Day Years [...] Description 07/22/2024 3:30 PM EDT Medication Management [facility] MEDICINE [address] [place] [phone] Nadeeg Kay, PharmD [address] [place] [address] Arrived 08/11/2024 2:15 PM EDT Office Visit [facility] MEDICINE [address] [place] [address] Name, MD Piero [address] [place] [address] documented as of this encounter Visit Diagnoses Not on filedocumented in this encounter Care Teams Gambling Box Person Relationship Specialty Start Date End Date Name, MD Piero [address] [place] [address] PCP - General Family Medicine 11/28/17 Nadege Kay PharmD [address] [place] [address] Pharmacist Internal Medicine 05/20/24 documented as of this encounter
--- OUTSIDE RECORDS SUMMARY | 2024-07-22 15:00 | XMS_ITS | Clinical Summary ---
Author Organization [employer] Address [address] [place] [address] 7 [place] [address] Care Team Providers Care Tension Worker Name Role Phone Name, Piero MANLEY Primary Care Provider [phone] Nadege Kay PharmD Unavailable [phone] Allergies Active Allergy Reactions Criticality Noted Date Comments Aspirin Hives,Rash Low 04/29/2018 Biotin Rash Low 05/20/2024 Dulaglutide Nausea,Vomiting Low 02/24/2019 Penicillin G Hives,Rash Low 04/21/2002 Other reaction(s): Hives Medications * This document contains information received from the source organization and may not represent a complete record from that organization. Blood Pressure kit Use daily Active acetaminophen (Tylenol) 500 MG tabletIndication s:COVID-19 take 2 tablet by oral route every 6 hours as needed as needed for pain 30 tablet 3 Active metFORMIN XR (Glucophage-XR) 500 MG 24 hr tabletIndication s:Type 2 diabetes mellitus with hyperglycemia, with long-term current use of insulin ([facility]) Take 1 tablet (500 mg) by mouth with evening meal. Do not crush, chew, or split. 30 tablet 5 05/20/19 26 Active semaglutide (Ozempic, 1 MG/DOSE,) 4 MG/3ML solution pen-injectorIndi cations:Type 2 Diabetes Mellitus Inject 1 mg under the skin 1 (one) time per week. 3 mL 11 5 Active Continuous Glucose Media Relations Associate (FreeStyle Jacobo 3 Alton) deviceIndication s:Type 2 diabetes mellitus with hyperglycemia, with long-term current use of insulin ([facility]/HCC) 1 each 3 times daily. Use daily as directed for CGM 1 each 5 Active Continuous Glucose Sensor (FreeStyle Jacobo 3 Plus Sensor) miscIndications: Type 2 diabetes mellitus with hyperglycemia, with long-term current use of insulin (CMS/HCC) 1 each Once per day. Apply 1 sensor every 15 days as directed for CGM 2 each 5 Active glucose blood (FreeStyle Precision Allan Test) test stripIndications :Type 2 diabetes mellitus with hyperglycemia, with long-term current use of insulin (CMS/HCC) Use to test blood sugar up to 3 times daily, as directed 100 each 5 Active TRUEplus Lancets 33G miscIndications: Type 2 diabetes mellitus with hyperglycemia, with long-term current use of insulin (CMS/HCC) Use to test blood sugar 3 time(s) daily, as directed 100 each 5 Active Alcohol Swabs (Alcohol Prep) padsIndications: Type 2 diabetes mellitus with hyperglycemia, with long-term current use of insulin (CMS/HCC) Use as directed 4x daily prior to insulin injection 200 each 5 Active atorvastatin (Lipitor) 20 MG tabletIndication s:Type 2 diabetes mellitus with hyperglycemia, with long-term current use of insulin (CMS/[facility]) Take 1 tablet (20 mg) by mouth Once per day. 90 tablet 5 Active insulin glargine (Lantus SoloStar) 100 UNIT/ML penIndications:T ype 2 diabetes mellitus with hyperglycemia, with long-term current use of insulin (CMS/[facility]) Inject 25 Units under the skin at bedtime. 15 mL 5 5 Active insulin lispro (HumaLOG KWIKPEN) 200 UNIT/ML solution pen-injector penIndications:T ype 2 diabetes mellitus with hyperglycemia, with long-term current use of insulin (CMS/[facility]) Inject 16 Units under the skin with breakfast, with lunch, and with evening meal. 15 each 5 Active losartan (Cozaar) 50 MG tabletIndication s:Type 2 diabetes mellitus with hyperglycemia, with long-term current use of insulin (CMS/[facility]ER[facility]),Hypert ension, unspecified type Take 1 tablet (50 mg) by mouth Once per day. 90 tablet 3 5 Active insulin pen needle 32G x 4 mm misc Use to inject insulin 4 times daily 200 each 11 5 Active Multiple Vitamins-Mineral s (Hair Skin & Nails) tablet Take 1 tablet by mouth Once per day. OTC Active Active Problems Patient Care Coordination No te Formatting of this note migh t be different from the original. Name, , address verified; this CHW called pt to introduce care complex program. Patient declined since she moved out of the geographic area, Case will be closed from C3 program. Problem Noted Date Diagnosed Date History of uterine fibroid 06/02/2024 Overview (06/02/2024): [place] [address] Ultrasound Report Signed Patient: Dora Caal MR#: [id number] : 1985 Acct:[id number] Age/Sex: 39 / F ADM Date: 06/02/24 Loc: HO.US Attending Dr: Hillary GALE Ordering Physician: Hillary Pastrana Date of Service: 06/02/24 Procedure(s): US pelvic complete Accession Number(s): [id number] cc: Piero Clarke MD; Hillary Pastrana EXAMINATION: [...] Gal Pierce MD 06/02/2024 12:13 PM EST Routine cervical smear 05/13/2024 Assessment & Plan [...] discuss hormonal treatment plan or referral to GREEN END WORKER to revisit surgical options if interested. Normal pelvic exam 05/13/2024 Anxiety 08/19/2023 Assessment & Plan (08/19/2023 7:06 PM EDT): Sig stress at work, has permission from work for [employer] time., will complete paperwork. Referral to behavioral [...] Date Resolved Date Normal breast exam 05/13/2024 5 Bronchitis 04/03/2022 06/24/2023 Type 2 diabetes mellitus 10/02/201708/2023 Encounters Date Type Department Care Team Description 07/22/2024 Travel 07/15/2024 Refill [facility] [place] [address] Piero Clarke MD PE (physical exam), routine 07/08/2024 Orders Only [facility] [place] [address] Piero Clarke MD 07/02/2024 Population Health Risk Score [facility] Department [address] [address] Provider, Population Health Generic 06/24/2024 Telephone [facility] [place] [address] Piero Clarke MD Appointment Request 06/03/2024 Telephone [facility] [place] [address] Piero Clarke MD 06/03/2024 Telephone [facility] [place] [address] Piero Clarke MD 05/20/2024 Travel 05/13/2024 Telephone [facility] [place] [address] Piero Clarke MD Prior Authorization (Ozempic) 05/12/2024 10:45 AM EST Procedure Visit [facility] [place] [address] Hillary Pastrana FNP Routine cervical smear (Primary Dx); Menorrhagia with regular cycle; Soft tissue swelling; Normal pelvic exam; History of uterine fibroid 05/12/2024 Orders Only [facility] [address] [place] [address] Hillary Pastrana FNP 05/12/2024 Travel 05/07/2024 Telephone [facility] [address] [place] [address] Mariza Karimi RN 05/04/2024 Telephone [facility] [address] [place], [place] [phone] Anita Foley MA Chart Prep from Last 3 Months Immunizations Name Administration [...] Description 07/22/2024 3:30 PM EDT Medication Management [facility] [address] [place] [address] Nadege Kay, SadieD [address] [place] [address] Arrived 08/11/2024 2:15 PM EDT Office Visit [facility] [address] [place] [address] Name, MD Piero [address] [place] [address] Health Maintenance Due Date Last Done Comments [...] history exists Tobacco Screening 05/12/2025 05/12/2024 Mammogram 07/08/2026 07/08/2024, 05/12/2024 DTaP/Tdap/Td Vaccines (2 - Td or Tdap) 10/03/2027 10/02/2017 Cervical Cancer Screening 05/12/2029 HPV/Cotest 05/12/2029 05/12/2024, 04/29/2018 Pap Smear 05/12/2029 05/12/2024 Zoster Vaccines (1 of 2) 2034 RSV [...] Procedure Name Priority Date/Time Associated Diagnosis Comments BI US BREAST LIMITED LEFT Routine 07/08/2024 2:12 PM EDT BI MAMMOGRAM DIAGNOSTIC TOMOSYNTHESIS ADDED VIEW LEFT Routine 07/08/2024 1:50 PM EDT US PELVIS COMPLETE Routine 06/02/2024 11 :43 [...] with long-term current use of insulin (CMS/HCC) ALBUMIN, RANDOM URINE W/CREATININE Routine 04/08/2024 9:12 AM EST Type 2 diabetes mellitus with hyperglycemia, with long-term current use of insulin (CMS/HCC) LIPID PANEL, STANDARD Routine 04/08/2024 9:12 AM EST Type 2 diabetes mellitus with hyperglycemia, with long-term current use of insulin (CMS/HCC) from Last 3 Months or Most Recently Relevant to Health Maintenance Results * BI US Breast Limited Left (07/08/2024 2:12 PM EDT) Anatomical Region Laterality Modality Breast Left Ultrasound 07/08/2024 2:12 PM EDT Narrative 07/08/2024 2:37 PM EDT ? [facility] ? [address] ?[place] [address] ? Ultrasound Report ? Signed ? Patient: Dora Caal ?MR#: ?? [id number] ? : 1985 ?Acct:[id number] ? Age/Sex: 39 / F ?ADM Date: 07/08/24 ? Loc: HO.MAMMO ? Attending Dr: Piero Clarke MD ? Ordering Physician: Piero Clarke MD ?? Date of Service: 07/08/24 ?? Procedure(s): US breast LT limited mamm only ?? Accession Number(s): [id number] ? cc: Piero Clarke MD ? EXAMINATION: ?? MM DIAGNOSTIC DIGITAL BREAST TOMOSYNTHESIS, LEFT ?? Limited left breast ultrasound. ? CLINICAL INFORMATION: ? Call back from screening for asymmetry in the lateral left breast ?? posterior depth on CC view. ? COMPARISON: ?? Mammography: [facility] on PACS. ? TECHNIQUE: ?? Digital breast tomosynthesis is performed in both the craniocaudal and ?? mediolateral oblique views along with computer-aided detection (CAD). ?? Synthesized 2D images are generated from the tomosynthesis. ? FINDINGS: ?? There are scattered areas of fibroglandular density (ACR BI-RADS breast ?? composition Category b). ?? Asymmetry lateral left breast posterior depth on CC view persists on ?? additional imaging projections. ?? There are no significant masses, abnormal calcifications, or other ?? abnormalities. ? Targeted color Doppler ultrasound scanning from 4:00 in the far lateral ?? posterior left breast demonstrates multiple intramammary lymph nodes ?? which correlates with the asymmetry seen on mammography. ? US/US breast LT limited mamm only ?? IMPRESSION: ?? Normal-appearing intramammary lymph nodes. Benign. ? ASSESSMENT: ? BI-RADS BI-RADS 2 - Benign Findings ? RECOMMENDATION: ?? 1 year F/U ? Results were provided to the patient at time of visit by the ?? technologist. ? This patient's information was entered into a reminder system with a ?? target due date for their next mammogram. ? Electronically signed by: ??Heidi Vail DO ??07/08/2024 02:34 PM EDT ? Dictated By: ?Heidi Vail DO ? Signed By: ?<Electronically signed by Heidi Vail, DO in OV> ? 07/08/24 1434 ? DD/ 1412 ? TD/TT: 07/08/24 1430 ? Gas Engine Mechanic: ? Procedure Note Donotgerardointerpreter, Image - 07/08/2024 [facility] [address] [place] [address] Ultrasound Report Signed Patient: Angelique Caal#: [id number] : 1985Acct:[id number] Age/Sex: 39 / FADM Date: 07/08/24 Loc: HO.MAMMO Attending Dr: Piero Clarke MD Ordering Physician: Piero Clarke MD Date of Service: 07/08/24 Procedure(s): US breast LT limited mamm only Accession Number(s): [id number] cc: Piero Clarke MD EXAMINATION: MM DIAGNOSTIC DIGITAL BREAST TOMOSYNTHESIS, LEFT Limited left breast ultrasound. CLINICAL INFORMATION: Call back from screening for asymmetry in the lateral left breast posterior depth on CC view. COMPARISON: Mammography: [facility]ors on PACS. TECHNIQUE: Digital breast tomosynthesis is performed in both the craniocaudal and mediolateral oblique views along with computer-aided detection (CAD). Synthesized 2D images are generated from the tomosynthesis. FINDINGS: There are scattered areas of fibroglandular density (ACR BI-RADS breast composition Category b). Asymmetry lateral left breast posterior depth on CC view persists on additional imaging projections. There are no significant masses, abnormal calcifications, or other abnormalities. Targeted color Doppler ultrasound scanning from 4:00 in the far lateral posterior left breast demonstrates multiple intramammary lymph nodes which correlates with the asymmetry seen on mammography. US/US breast LT limited mamm only IMPRESSION: Normal-appearing intramammary lymph nodes. Benign. ASSESSMENT: BI-RADS BI-RADS 2 - Benign Findings RECOMMENDATION: 1 year F/U Results were provided to the patient at time of visit by the technologist. This patient's information was entered into a reminder system with a target due date for their next mammogram. Electronically signed by: Heidi Vail DO 07/08/2024 02:34 PM EDT RP Dictated By: Heidi Vail DO Signed By: <Electronically signed by Heidi Vail DO in OV> 07/08/24 1434 DD/ 1412 TD/TT: 07/08/24 1430 Gas Engine Mechanic: us Piero Name IMGregorio US PROCEDURES Final Result * BI Mammogram Diagnostic Tomosynthesis added left (07/08/2024 1:50 PM EDT) Anatomical Region Laterality Modality Breast Left Mammography 07/08/2024 1:50 PM EDT Narrative 07/08/2024 2:38 PM EDT ? [facility] ? [address] ?[place] [address] ?[phone] ? Mammography Report ? Signed ? Patient: Dora Caal ?MR#: ?? [id number] ? : 1985 ?Acct:[id number] ? Age/Sex: 39 / F ?ADM Date: 03/20/25 ? Loc: HO.MAMMO ? Attending Dr: Piero Name MD ? Ordering Physician: Name,Piero MD ?Results: 2Benign Fi ?? ndings ? Date of Service: 07/08/24 ?Follow Up: 1 Year From Orig ?? inal Mammogram ? Procedure(s): MM tomosynthesis added views L ?? Accession Number(s): [id number] ? cc: Name,Piero MANLEY ? EXAMINATION: ?? MM DIAGNOSTIC DIGITAL BREAST TOMOSYNTHESIS, LEFT ?? Limited left breast ultrasound. ? CLINICAL INFORMATION: ? Call back from screening for asymmetry in the lateral left breast ?? posterior depth on CC view. ? COMPARISON: ?? Mammography: [facility] on PACS. ? TECHNIQUE: ?? Digital breast tomosynthesis is performed in both the craniocaudal and ?? mediolateral oblique views along with computer-aided detection (CAD). ?? Synthesized 2D images are generated from the tomosynthesis. ? FINDINGS: ?? There are scattered areas of fibroglandular density (ACR BI-RADS breast ?? composition Category b). ?? Asymmetry lateral left breast posterior depth on CC view persists on ?? additional imaging projections. ?? There are no significant masses, abnormal calcifications, or other ?? abnormalities. ? Targeted color Doppler ultrasound scanning from 4:00 in the far lateral ?? posterior left breast demonstrates multiple intramammary lymph nodes ?? which correlates with the asymmetry seen on mammography. ? MM/MM tomosynthesis added views L ?? IMPRESSION: ?? Normal-appearing intramammary lymph nodes. Benign. ? ASSESSMENT: ? BI-RADS BI-RADS 2 - Benign Findings ? RECOMMENDATION: ?? 1 year F/U ? Results were provided to the patient at time of visit by the ?? technologist. ? This patient's information was entered into a reminder system with a ?? target due date for their next mammogram. ? Electronically signed by: ??Heidi Vail DO ??07/08/2024 02:34 PM EDT ? Dictated By: ?Heidi Vail DO ? Signed By: ?<Electronically signed by Heidi Vail, DO in OV> ? 07/08/24 1434 ? DD/ 1350 ? TD/TT: 07/08/24 1405 ? Gas Engine Mechanic: ? Procedure Note Donwayloninterpreter, Image - 07/08/2024 [facility] [address] [place] [address] Mammography Report Signed Patient: Ronel CaalR#: [id number] : 1985Acct:[id number] Age/Sex: 39 / FADM Date: 07/08/24 Loc: HO.MAMMO Attending Dr: Piero Clarke MD Ordering Physician: Piero Clarke MDResults: 2Benign Fi ndings Date of Service: 07/08/24Follow Up: 1 Year From Orig inal Mammogram Procedure(s): MM tomosynthesis added views L Accession Number(s): [id number] cc: Piero Clarke MD EXAMINATION: MM DIAGNOSTIC DIGITAL BREAST TOMOSYNTHESIS, LEFT Limited left breast ultrasound. CLINICAL INFORMATION: Call back from screening for asymmetry in the lateral left breast posterior depth on CC view. COMPARISON: Mammography: [facility] on PACS. TECHNIQUE: Digital breast tomosynthesis is performed in both the craniocaudal and mediolateral oblique views along with computer-aided detection (CAD). Synthesized 2D images are generated from the tomosynthesis. FINDINGS: There are scattered areas of fibroglandular density (ACR BI-RADS breast composition Category b). Asymmetry lateral left breast posterior depth on CC view persists on additional imaging projections. There are no significant masses, abnormal calcifications, or other abnormalities. Targeted color Doppler ultrasound scanning from 4:00 in the far lateral posterior left breast demonstrates multiple intramammary lymph nodes which correlates with the asymmetry seen on mammography. MM/MM tomosynthesis added views L IMPRESSION: Normal-appearing intramammary lymph nodes. Benign. ASSESSMENT: BI-RADS BI-RADS 2 - Benign Findings RECOMMENDATION: 1 year F/U Results were provided to the patient at time of visit by the technologist. This patient's information was entered into a reminder system with a target due date for their next mammogram. Electronically signed by: Heidi Vail DO 07/08/2024 02:34 PM EDT Dictated By: Heidi Vail DO Signed By: <Electronically signed by Heidi Vail DO in OV> 07/08/24 1434 DD/ 1350 TD/TT: 07/08/24 1405 Gas Engine Mechanic: us Piero Name IMGregorio BI PROCEDURES Final Result * Us Pelvis complete (06/02/2024 11:43 AM EST) Anatomical Region Laterality Modality Pelvis Ultrasound 06/02/2024 11:4 3 AM EST Narrative 06/02/2024 12:16 PM EST ? [facility] ?[address] ?[place] [address] ? Ultrasound Report ? Signed ? Patient: Rudyrenny MaloneyDora ?MR#: ?? [id number] ? : 1985 ?Acct:[id number] ? Age/Sex: 39 / F ?ADM Date: 06/02/24 ? Loc: HO.US ? Attending Dr: Hillary GALE ? Ordering Physician: Hillary Pastrana ?? Date of Service: 06/02/24 ?? Procedure(s): US pelvic complete ?? Accession Number(s): [id number] ? cc: Name,Piero MANLEY; Hillary Pastrana ? [...] DD/ 1143 ? TD/TT: 06/02/24 1150 ? Gas Engine Mechanic: ? Procedure Note Malena, Image - 06/02/[address] [address] Ultrasound Report Signed Patient: Angelique Caal#: [id number] : 1985Acct:[id number] Age/Sex: 39 / FADM Date: 06/02/24 Loc: HO.US Attending Dr: Hillary Pastrana LASER CUTTER Ordering Physician: Hillary Pastrana Date of Service: 06/02/24 Procedure(s): US pelvic complete Accession Number(s): [id number] cc: Name,Piero MANLEY; Hillary Pastrana EXAMINATION: US [...] by: Gal Pierce MD 06/02/2024 12:13 PM [facility] Dictated By: Gal Pierce MD Signed By: <Electronically signed by Gal Pierce MD in OV> 06/02/24 1213 DD/ 1143 TD/TT: 06/02/24 1150 Gas Engine Mechanic: Hillary HALEP IMG US PROCEDURES Final Result * BI Mammogram Screening Tomosynthesis Bilateral (05/12/2024 2:00 PM EST) Anatomical Region Laterality Modality Breast Bilateral Mammography 05/12/2024 2:00 PM EST Narrative 05/19/2024 4:03 PM EST ? [facility] ? [address] ?[place] [address] ? Mammography Report ? Signed ? Patient: Dora Caal ?MR#: ?? [id number] ? : 1985 ?Acct:[id number] ? Age/Sex: 39 / F ?ADM Date: 05/12/ ? Loc: HO.MAMMO ? Attending Dr: Piero Name MD ? Ordering Physician: Name,Piero MD ?Results: 0Incomplet ?? e: Needs Additional Imaging Evaluation ? Date of Service: 05/12/ ?Follow Up: Additional Imagi ?? ng ? Procedure(s): MM tomosynthesis screening BI ?? Accession Number(s): [id number] ? cc: Name,Piero MANLEY ? EXAMINATION: ?? MM SCREENING DIGITAL BREAST [...] ? Signed By: ?<Electronically signed by Heidi Tyminski, DO in OV> ? 05/19/24 1600 ? DD/ 1400 ? TD/TT: 05/12/24 1412 ? Gas Engine Mechanic: ? Procedure Note Malena, Image - 05/19/2024 [facility] [address] [place] [address] [place] [address] Mammography Report Signed Patient: Angelique Caal#: [id number] : 1985Acct:[id number] Age/Sex: 39 / FADM Date: 05/12/24 Loc: NEYDA Attending DrMinh Clarke MD Ordering Physician: Piero Clarkeesults: 0Incomplet e: Needs Additional Imaging Evaluation Date of Service: 05/12/24Follow Up: Additional Imagi ng Procedure(s): MM tomosynthesis screening BI Accession Number(s): [id number] cc: Name,Piero MANLEY EXAMINATION: MM SCREENING DIGITAL BREAST TOMOSYNTHESIS, BILATERAL [...] 05/19/24 1600 DD/ 1400 TD/TT: 05/12/24 1412 Gas Engine Mechanic: Piero Clarke MD [facility] BI PROCEDURES Edited Result - Final * Cancelled Hematology (05/12/2024 11:54 AM EST) Cancelled Hematology SEE NOTE [facility] Comment:THE FOLLOWING TESTS WERE CANCELLED: CBCDREASON: WRONG SPECIMEN TUBE DRAWN 05/12/2024 11:5 4 AM EST 05/12/2024 1:19 PM EST Hillary Zeina LASER CUTTER HISTORICAL/NON ORDERABLE LABS Final Result [facility] [address] [place] [address] [phone] * HPV DNA, Low/High Risk (05/12/2024 11:54 AM EST) HPV High Risk Negative Negative [facility] HPV Genotype 16 Negative Negative [facility] HPV Genotype 18 Negative Negative [facility] Comment:HPV testing performe d at [facility] (CLIA#[id number]), [address] [place] [phone].Testing for HPV was performed using the Avis [...] 4 AM EST 05/12/2024 2:00 PM EST Hillary Pastrana [facility] BLOOD ORDERABLES Final Res ult [facility] [address] [place] [address] [phone] * Pap Smear (05/12/2024 11:54 AM EST) Swab Cervix uteri structure / Unknown 05/12/2024 11:54 AM EST 05/12/2024 2:00 PM EST Narrative [facility] - 05/18/2024 10:18 AM EST ----- ------- Name: Dora Caal ?Age/Sex: 39/F ? : 1985 Unit#: [id number] ?? Attend Dr: Hillary Pastrana LASER CUTTER ?Re05/12/24 ?Status: DEP REF ? Location: HO.HHCLNP ? Disch: ? ----- ------- SPEC : [id number] ? RECD: 05/12/24-1400 ? STATUS: ??SOUT ? REQ NUM: [id number] ? KAREN: 05/12/24-1154 ? SUBM DR: Hillary Pastrana LASER CUTTER ? ENTERED: ??05/12/24-1410 ?SP TYPE: Pap Smr ?OTHR : ? ORDERED: ??Pap Smear ? Interpretation ?? [...] ----- ------- ? END OF REPORT ? us Hillary Pastrana [facility] CYTOLOGY ORDERABLES Final Result [facility] [address] [place] [phone] * (ABNORMAL) POCT HGB A1C (04/16/2024 10:31 AM EST) Hemoglobin A1C 8.7(A) 4.0 - 6.0 % QC Media Lot # [id number] Lot# Expiration Date [id number] Blood 04/16/2024 10:3 1 AM EST us Piero Clarke MD POINT OF CARE TEST ENTER/EDIT OR DERABLES Final Result * Albumin, Random Urine W/Creatinine (04/08/2024 9:12 AM EST) Creatinine, Urine 213.37 mg/dL [facility] Microalbumin Urine 14.0 mg/L [facility] Microalbum Creatinine Ratio Ur 6.5 <30 ug/mg cr [facility] Comment:Albumin/Creatinine R atio Reference Ranges: Normal: < 30 ug/mg creatinine Microalbuminuria: 30 - 300 ug/mg creatinineClinical Albuminuria: > 300 ug/mg creatinine Urine (Urine, Random) 04/08/2024 9:12 AM EST 04/08/2024 11:24 AM EST us Piero Clarke MD LAB URINE ORDERABLES Final Resul t [facility] [address] [place] [phone] * Lipid Panel, Standard (04/08/2024 9:12 AM EST) Triglycerides 101 <150 mg/dL [facility] Comment:Desirable Triglyceri de: less than 150 mg/dLBorderline High Triglyceride 150-199 mg/dLHigh Triglyceride: 200-499 mg/dLVery High Triglyceride: greater than or equal to 5OO mg/dL Cholesterol 146 <200 mg/dL [facility] Comment:Desirable Cholestero l: less than 200 mg/dLBorderline High Cholesterol: 200-239 mg/dLHigh Cholesterol: greater than 239 mg/dL LDL Cholesterol Calculated 85 <100 mg/dL [facility] Comment:Desirable LDL: less than 100 mg/dLNear Optimal/Above Optimal LDL: 110- 129 mg/dLBorderline High LDL: 130-159 mg/dLHigh LDL: 160-189 mg/dLVery High LDL: greater than or equal to 190 mg/dL HDL Cholesterol 41 >40 mg/dL [facility] Comment:Desirable HDL: great er than 40 mg/dL Note: This HDL assay may give artificially low results in patients with liver disease. Blood Venous blood specimen / Unknown 04/08/2024 9:12 AM EST 04/08/2024 11:15 AM EST us Piero Clarke MD LAB BLOOD ORDERABLES Final Resul t [facility] [address] [place] [address] [phone] from Last 3 Months or Most Recently Relevant to Health Maintenance [place] [place] [id number] C3 Care Teams Tension Worker Relationship Specialty Start Date End Date Name, MD Piero [address] [place] [address] PCP - General Family Medicine 11/28/17 Nadege Kay, SadieD [address] [place] [address] Pharmacist Internal Medicine 05/20/24
--- OUTSIDE RECORDS SUMMARY | 2024-07-22 15:00 | XMS_ITS | Encounter Summary ---
Author Organization [employer] Address 75 [facility] 7 [place] [address] Care Team Providers Care Assignment Editor Name Role Phone Name, Piero MANLEY Primary Care Provider [phone] Nadege Kay PharmD Unavailable [phone] Reason for Visit * Reason Comments Med Refill Encounter Details Date Type Department Care Team ([facility] st Contact Info) Description 07/15/2024 Refill [facility] [address] [place], [place] [phone] Name, MD Piero [address] [place], [place] [phone] PE (physical exam), routine Social History Tobacco Use Types Packs/Day Years [...] Description 07/22/2024 3:30 PM EDT Medication Management [facility] [address] [place] [address] Nadege Kay PharmD [address] [place] [address] Arrived 08/11/2024 2:15 PM EDT Office Visit [address] [address] NamePiero MD [address] [place] [address] documented as of this encounter Visit Diagnoses Diagnosis PE (physical exam), routine documented in this encounter Additional Health Concerns Assessment Noted Time PHQ-9 Depression Total Score: 0 01/08/20 24 10:04 AM EDT documented as of this encounter Care Teams Assignment Editor Relationship Specialty Start Date End Date Piero Clarke MD [address] [place] [address] PCP - General Family Medicine 11/28/17 Nadege Kay, PharmD [address] [place] [address] Pharmacist Internal Medicine 05/20/24 documented as of this encounter
--- OUTSIDE RECORDS SUMMARY | 2024-07-22 15:00 | XMS_ITS | Encounter Summary ---
Author Organization [employer] Address [address] [facility] 7 [place] [address] Care Team Providers Care Machines Technician Name Role Phone Name, Piero MANLEY Primary Care Provider [phone] Nadege Kay PharmD Unavailable [phone] Reason for Visit * Reason Onset Date Comments Appointment Request 06/24/2024 Encounter Details Date Type Department Care Team (Late st Contact Info) Description 06/24/2024 Telephone [facility] [address] [place], [place] [phone] Name, MD Piero [address] [place], [place] [phone] Appointment Request Social History Tobacco Use Types Packs/Day Years [...] encounter Miscellaneous Notes * Telephone Encounter - Sukhjinder Rae - 06/24/2024 10:22 AM EST Tc from pt requesting to R/s Apt from 06/24/24. Contact pt at [phone] documented in this encounter Plan of Treatment Upcoming Encounters Date Type Department Care Team ([facility] st Contact Info) Description 07/22/2024 3:30 PM EDT Medication Management [facility] [address] [place] [address] Nadege Kay, PharmD [address] [place] [address] Arrived 08/11/2024 2:15 PM EDT Office Visit [facility] [address] [place] [address] [phone] Name, MD Piero [address] [place] [address] documented as of this encounter Visit Diagnoses Not on filedocumented in this encounter Additional Health Concerns Assessment Noted Time PHQ-9 Depression Total Score: 0 01/08/20 24 10:04 AM EDT documented as of this encounter Care Teams Machines Technician Relationship Specialty Start Date End Date Name, MD Piero [address] [place], [place] [phone] PCP - General Family Medicine 11/28/17 Nadege Kay PharmD [address] [place] [address] Pharmacist Internal Medicine 05/20/24 documented as of this encounter
--- OUTSIDE RECORDS SUMMARY | 2024-07-22 15:00 | XMS_ITS | Encounter Summary ---
Author Organization [employer] Address 75 [facility] 7t [place] [address] Care Team Providers Care Hair Designer Name Role Phone Name, Piero MANLEY Primary Care Provider [phone] Nadege Kay PharmD Unavailable [phone] Encounter Details Date Type Department Care Team (Latest Contact Info) Description 07/22/2024 Travel Social History Tobacco Use Types Packs/Day [...] Description 07/22/2024 3:30 PM EDT Medication Management [facility] [address] [place] [phone] Nadege Kay PharmD [address] [place] [address] Arrived 08/11/2024 2:15 PM EDT Office Visit [facility] [address] [place] [address] Name, MD Piero [address] [place] [address] documented as of this encounter Visit Diagnoses Not on filedocumented in this encounter Additional Health Concerns Assessment Noted Time PHQ-9 Depression Total Score: 0 01/08/20 24 10:04 AM EDT documented as of this encounter Care Teams Hair Designer Relationship Specialty Start Date End Date NamePiero MD [address] [place] [address] PCP - General Family Medicine 11/28/17 Nadege Kay PharmD [address] [place] [address] Pharmacist Internal Medicine 05/20/24 documented as of this encounter
--- OUTSIDE RECORDS SUMMARY | 2024-07-22 15:00 | XMS_ITS | Encounter Summary ---
Author Organization [employer] Address 75 [facility] 7t [place] [address] Care Team Providers Care Testing Analyst Name Role Phone Name, Piero MANLEY Primary Care Provider [phone] Nadege Kay PharmD Unavailable [phone] Reason for Visit * Reason Onset Date Comments Med Refill 01/02/2024 Encounter Details Date Type Department Care Team (Late st Contact Info) Description 01/02/2024 Telephone [facility] [address] [place], [place] [phone] Name, MD Piero [address] [place], [place] [phone] Med Refill Social History Tobacco Use Types [...] 200 MG capsule To be sent to: [facility]/pharmacy #[id number] documented in this encounter Plan of Treatment Upcoming Encounters Date Type Department Care Team (Late st Contact Info) Description 07/22/2024 3:30 PM EDT Medication Management [facility] [address] [place] [address] Nadege Kay, PharmD [address] [place] [address] Arrived 08/11/2024 2:15 PM EDT Office Visit [facility] [address] [place] [address] Name, MD Piero [address] [place] [address] documented as of this encounter Visit Diagnoses Not on filedocumented in this encounter Additional Health Concerns Assessment Noted Time PHQ-9 Depression Total Score: 0 08/27/19 23 4:06 PM EDT documented as of this encounter Care Teams Testing Analyst Relationship Specialty Start Date End Date Name, MD Piero [address] [place] [address] PCP - General Family Medicine 11/28/17 Nadege Kay PharmD [address] [place] [address] Pharmacist Internal Medicine 05/20/24 documented as of this encounter
== END 2024-07-22 14:22 | disposition home or self-care (01) ==
LOC: HO.HGS 13:40
PROVIDERS: PCP Internal Medicine Geriatric Medicine; Visit Provider Surgery
DX: R22.9 Localized swelling, mass and lump, unspecified (principal)
CPT/HCPCS: 99203

== ENCOUNTER → 2024-07-22 13:39 | Outpatient (BNVA) | payer MEDICAID, SELFPAY | PROVIDERS: PCP Internal Medicine Geriatric Medicine; Visit Provider Surgery | DX: R22.9 Localized swelling, mass and lump, unspecified (principal) | CPT/HCPCS: 99202 ==

== ENCOUNTER 2024-08-26 13:35 | Outpatient (AMB) | payer MEDICAID, SELFPAY ==
--- NOTE | 2024-08-26 13:37 | A.OFFVIS_ITS ---
Vital Signs 08/26/24 13:45 Height 5 ft 6 in Weight 239 lb BMI 38.6 BP 177/78 H Blood Pressure Location Rt radial Position Sitting Pulse 104 H Intake Visit Reasons: excision of left hip mass Intake Note: Patient here for excision of RT hip mass. Peer Support Specialist Required: No Accompanied by: Self / Same As Patient Allergies aspirin [ASA] Allergy (Mild, Verified 08/26/24 13:46) RASH HPI HPI excision of left hip mass: Details: She is here for excision of a lipoma from the right hip area. [facility] Medical History (Updated 07/22/24 @ 14:14 by Matteo Grijalva MD) Subcutaneous mass Vitamin B12 deficiency Obesity Neuropathy Depression Insulin dependent diabetes mellitus Morbid obesity Surgical History H/O tubal ligation Hx of cholecystectomy Hx of section Family History Mother No problems noted. Father No problems noted. Brother No problems noted. Brother No problems noted. Brother No problems noted. Brother No problems noted. Brother No problems noted. Sister No problems noted. Sister No problems noted. Sister No problems noted. Son No problems noted. Daughter No problems noted. Daughter Asthma Social History Alcohol intake: never Current occupational status: unemployed Current occupation: stylist - Right Handed Female Reproductive History Menstrual Age of Menarche: 11 Physical Exam Vital Signs: Last Vital Signs Pulse 104 H 08/26/24 13:45 BP 177/78 H 08/26/24 13:45 BMI result Body Mass Index 38.6 Office Procedures Excision Details: She was placed in supine position. The area of the lipomatous mass in the right hip was prepped and draped. Lidocaine 1% was used for local anesthesia. I made an elliptical incision on the skin overlying this lipoma with a blade 15. This was carried down through the full-thickness of the skin subcutaneous fat. I was able to identify the lipoma and I define the history of dissection. I the lipoma from the rest of the subcutaneous layer with the Metzenbaum scissors to excise this entire area. This measured about 3.5 cm I closed the incision with full-thickness nylon 3-0 simple interrupted sutures. Dressings were applied. The procedure was completed. She tolerated the procedure well. There were no immediate complications. Estimated blood loss was less than 5 cc. [id number]/arms/legs 3.1-4cm Procedure code (CPT) selection complete Assessment & Plan Assessment & Plan (1) Subcutaneous mass: Code(s): R22.9 - Localized swelling, mass and lump, unspecified Category: Medical Plan: She underwent excision of the lipoma. She tolerated procedure well. Given wound care instructions. I will see her in the office in about 2 weeks for removal of sutures. Coding Level of Care Code Procedure Only Diagnoses Subcutaneous mass R22.9 CPT Codes Trunk/Arms/Legs - CPT: 04237-zrrep/arms/legs 3.1-4cm ([id number])
[2024-08-26 13:45] VITALS: BP 177/78; PULSE 104; BMI 38.6
--- OUTSIDE RECORDS SUMMARY | 2024-08-26 14:36 | XMS_ITS | Encounter Summary ---
Author Organization [employer] Address 75 [facility] 7t [place] [address] Care Team Providers Care Cake Icer Name Role Phone Name, Piero MANLEY Primary Care Provider [phone] Nadege Kay PharmD Unavailable Encounter Details Date Type Department Care Team ([facility] Contact Info) Description 05/09/2022 Telephone [facility] [address] [place] [address] [phone] Name, MD Piero [address] [place] [address] Social History Tobacco Use Types Packs/Day Years [...] Encounters Date Type Department Care Team (Late Contact Info) Description 09/01/2024 3:30 PM EDT Medication Management [facility] [address] [place] [address] Nadege Kay, PharmD [address] [place] [address] documented as of this encounter Visit Diagnoses Not on filedocumented in this encounter Care Teams Cake Icer Relationship Specialty Start Date End Date NamePiero MD [address] [place] [address] PCP - General Family Medicine 11/28/17 Nadege Kya, Eros [address] [place] [address] Pharmacist Internal Medicine 05/20/24 documented as of this encounter
--- OUTSIDE RECORDS SUMMARY | 2024-08-26 14:36 | XMS_ITS | Encounter Summary ---
Author Organization [employer] Address [address] [place] [address] 7t [place] [address] Care Team Providers Care Furnishings Conservator Name Role Phone Name, Piero MANLEY Primary Care Provider [phone] Nadege Kay PharmD Unavailable [phone] Reason for Visit * Reason Onset Date Comments Nurse Triage 01/21/2023 Encounter Details Date Type Department Care Team ([facility] st Contact Info) Description 01/21/2023 Telephone [facility] [address] [place], [place] [phone] Name, MD Piero [address] [place] [address] Nurse Triage Social History Tobacco Use Types [...] reduce sugar/carb foods. Pt advised to seek [facility] for exam today or tomorrow if sugars [...] Care Team (Late st Contact Info) Description 09/01/2024 3:30 PM EDT Medication Management [facility] [address] [place], [place] [phone] Nadege Kay, PharmD [address] [place] [address] documented as of this encounter Visit Diagnoses Not on filedocumented in this encounter Additional Health Concerns Assessment Noted Time PHQ-9 Depression Total Score: 0 08/27/19 23 4:06 PM EDT documented as of this encounter Care Teams Furnishings Conservator Relationship Specialty Start Date End Date Name, MD Piero [address] [place] [address] PCP - General Family Medicine 11/28/17 Nadege Kay PharmD [address] [place] [address] Pharmacist Internal Medicine 05/20/24 documented as of this encounter
--- OUTSIDE RECORDS SUMMARY | 2024-08-26 14:36 | XMS_ITS | Encounter Summary ---
Author Organization [employer] Address 75 [facility] 7t [place] [address] Care Team Providers Care Polymerization Oven Tender Name Role Phone Name, Piero MANLEY Primary Care Provider [phone] Nadege Kay PharmD Unavailable [phone] Reason for Visit * Reason Comments Med Refill Encounter Details Date Type Department Care Team ([facility] st Contact Info) Description 07/14/2023 Refill [facility] [address] [place], [place] [phone] Name, MD Piero [address] [place] [address] Social History Tobacco Use Types Packs/Day Years [...] Description 09/01/2024 3:30 PM EDT Medication Management [facility] [address] [place] [address] Nadege Kay PharmD [address] [place] [address] documented as of this encounter Visit Diagnoses Not on filedocumented in this encounter Additional Health Concerns Assessment Noted Time PHQ-9 Depression Total Score: 0 08/27/19 23 4:06 PM EDT documented as of this encounter Care Teams Polymerization Oven Tender Relationship Specialty Start Date End Date Name, MD Piero [address] [place] [address] PCP - General Family Medicine 11/28/17 Nadege Kay PharmD [address] [place] [address] Pharmacist Internal Medicine 05/20/24 documented as of this encounter
--- OUTSIDE RECORDS SUMMARY | 2024-08-26 14:36 | XMS_ITS | Clinical Summary ---
Author Organization [employer] Address [address] [facility] 7t [place] [address] Care Team Providers Care Commercial Front Load Driver Name Role Phone Name, Piero MANLEY Primary Care Provider [phone] Nadege Kay PharmD Unavailable [phone] Allergies Active Allergy Reactions Criticality Noted Date Comments Aspirin Hives,Rash Low 04/29/2018 Biotin Rash Low 05/20/2024 Dulaglutide Nausea,Vomiting Low 02/24/2019 Penicillin G Hives,Rash Low 04/21/2002 Other reaction(s): Hives Medications * This document contains information received from the source organization and may not represent a complete record from that organization. Blood Pressure kit Use daily Active metFORMIN XR (Glucophage-XR) 500 MG 24 hr tabletIndication s:Type 2 diabetes mellitus with hyperglycemia, with long-term current use of insulin (CMS/HCC) Take 1 tablet (500 mg) by mouth with evening meal. Do not crush, chew, or split. 30 tablet 11 5 05/20/19 26 Active Continuous Glucose Sheet Metal Duct Worker Supervisor (FreeStyle Jacobo [place]) deviceIndication s:Type 2 diabetes mellitus with hyperglycemia, [...] current use of insulin ([facility]) Use to test blood sugar up to 3 times daily, as directed 100 each 5 Active TRUEplus Lancets 33G miscIndications: Type 2 diabetes mellitus with hyperglycemia, with long-term current use of insulin ([facility]) Use to test blood sugar 3 time(s) daily, as directed 100 each 5 Active Alcohol Swabs (Alcohol Prep) padsIndications: Type 2 diabetes mellitus with hyperglycemia, with long-term current use of insulin ([facility]) Use as directed 4x daily prior to insulin injection 200 each 5 Active atorvastatin (Lipitor) 20 MG tabletIndication s:Type 2 diabetes mellitus with hyperglycemia, with long-term current use of insulin (CMS/[facility]) Take 1 tablet (20 mg) by mouth Once per day. 90 tablet 5 Active insulin glargine (Lantus SoloStar) 100 UNIT/ML penIndications:T ype 2 diabetes mellitus with hyperglycemia, with long-term current use of insulin ([facility]) Inject 25 Units under the skin at bedtime. 15 mL 5 5 Active Multiple Vitamins-Mineral s (Hair Skin & Nails) tablet Take 1 tablet by mouth Once per day. OTC Active Semaglutide, 2 MG/DOSE, (Ozempic, 2 MG/DOSE,) 8 MG/3ML solution pen-injector Inject 0.75 mL (2 mg) under the skin 1 (one) time per week. 3 mL 5 Active losartan (Cozaar) 25 MG tabletIndication s:Type 2 diabetes mellitus with hyperglycemia, with long-term current use of insulin ([facility]),Hypert ension, unspecified type Take 1 tablet (25 mg) by mouth Once per day. 90 tablet 1 5 Active celecoxib (CeleBREX) 200 MG capsule Take 200 mg by mouth if needed in the morning and at bedtime for mild pain. Active loratadine (Claritin) 10 MG tabletIndication s:Allergic rhinitis, unspecified seasonality, unspecified trigger Take 1 tablet (10 mg) by mouth in the morning. 90 tablet 3 5 Active insulin pen needle 32G x 4 mm misc Use to inject insulin 1 time daily 100 each 3 5 Active Active Problems Patient Care Coordination No te Formatting of this note migh t be different from the original. Name, , address verified; this CHW called pt to introduce care complex program. Patient declined since she moved out of the geographic area, Case will be closed from C3 program. Problem Noted Date Diagnosed Date History of uterine fibroid 06/02/2024 Overview (06/02/2024): [place] [address] Ultrasound Report Signed Patient: Dora Caal MR#: [id number] : 1985 Acct:[id number] Age/Sex: 39 / F ADM Date: 06/02/24 Loc: HO.US Attending Dr: Hillary GALE Ordering Physician: Hillary Pastrana Date of Service: 06/02/24 Procedure(s): US pelvic complete Accession Number(s): [id number] cc: Piero Clarke MD; Hillary Pastrana EXAMINATION: [...] discuss hormonal treatment plan or referral to CONCESSION SUPERVISOR to revisit surgical options if interested. Normal pelvic exam 05/13/2024 Anxiety 08/19/2023 Assessment & Plan (08/19/2023 7:06 PM EDT): Sig stress at work, has permission from work for [facility] time., will complete paperwork. Referral to [...] Encounters Date Type Department Care Team Description 08/12/2024 Telephone [facility] [address] Piero Clarke MD Appointment Request 08/07/2024 Refill [place] [address] Piero Clarke MD Type 2 diabetes mellitus with hyperglycemia, with long-term current use of insulin ([facility]); Hypertension, unspecified type 08/05/2024 Telephone [facility] [address] Shauna العلي [place] appt change 07/26/2024 [facility]ill [facility] [address] [facility] [address] Nadege Kay, SadieD Allergic rhinitis, unspecified seasonality, unspecified trigger (Primary Dx) 07/26/2024 Travel 07/22/2024 Travel 07/15/2024 [facility]ill [facility] [address] iPero Clarke MD PE (physical exam), routine 07/08/2024 Orders Only [facility] [address] Piero Clarke MD 07/02/2024 Population Health Risk Score Community Care [facility] (C[facility]) Department [address] [phone] Provider, Population Health Generic 06/24/2024 Telephone [facility] [place] [address] Piero Clarke MD Appointment Request 06/03/2024 Telephone [facility] [address] Piero Clarke MD 06/03/2024 Telephone [facility] [address] [place], [place] [phone] Name, MD Piero from Last 3 Months Immunizations Name Administration [...] Sign Reading Time Taken Comments Blood Pressure 140/82 07/22/2024 4:51 PM EDT Pulse 88 05/12/2024 11:06 AM EST Temperature [...] Description 09/01/2024 3:30 PM EDT Medication Management [facility] [address] [place] [address] Nadege Kay, PharmD [address] [place] [address] Health Maintenance Due Date Last Done Comments HIV Screening 1985 Family Planning (PISQ) 1999 Hepatitis C Screening 2002 COVID-19 Vaccine ( season) 2023 11/30/2021, 01/23/2021, 01/02/2021 Hepatitis B Vaccines (3 of 3 - 19+ 3-dose series) 07/19/2024 05/24/2024, 01/08/2024 Diabetes: Hemoglobin A1C 10/21/2024 04//2 025, 04/16/2024, 01/08/2024, Additional history exists Alcohol/Substance Use Screening 01/07/2025 [...] Diagnosis Comments POCT GLYCATED HEMOGLOBIN, TOTAL Routine 07/22/2024 4:33 PM EDT Type 2 diabetes mellitus with hyperglycemia, with long-term current use of insulin ([facility]) BI US BREAST LIMITED LEFT Routine 07/08/2024 2:12 PM EDT BI MAMMOGRAM DIAGNOSTIC TOMOSYNTHESIS ADDED VIEW LEFT Routine 07/08/2024 1:50 PM EDT US PELVIS COMPLETE Routine 06/02/2024 11 :43 AM EST HPV DNA, LOW/HIGH RISK Routine 11:54 AM EST PAP SMEAR Routine 05/12/2024 11:54 AM EST Routine cervical smear ALBUMIN, RANDOM URINE W/CREATININE Routine 04/08/2024 9:12 AM EST Type 2 diabetes mellitus with hyperglycemia, with long-term current use of insulin ([facility]) LIPID PANEL, STANDARD Routine 04/08/2024 9:12 AM EST Type 2 diabetes mellitus with hyperglycemia, with long-term current use of insulin ([facility]) from Last 3 Months or Most Recently Relevant to Health Maintenance Results * (ABNORMAL) POCT HGB A1C (07/22/2024 4:33 PM EDT) Hemoglobin A1C 9.3(A) 4.0 - 6.0 % Blood 07/22/2024 4:33 PM EDT us Piero Name POINT OF CARE TEST ENTER/EDIT OR DERABLES Final Result * BI US Breast Limited Left (07/08/2024 2:12 PM EDT) Anatomical Region Laterality Modality Breast Left Ultrasound 07/08/2024 2:12 PM EDT Narrative 07/08/2024 2:37 PM EDT ? [facility] ? [address] [place] [address] ? Ultrasound Report ? Signed ? Patient: Rudy Maloney,Dora ?MR#: ?? [id number] ? : 1985 ?Acct:[id number] ? Age/Sex: 39 / F ?ADM Date: 07/08/24 ? Loc: HO.MAMMO ? Attending Dr: Piero Clarke MD ? Ordering Physician: Piero Clarke MD ?? Date of Service: 07/08/24 ?? Procedure(s): US breast LT limited mamm only ?? Accession Number(s): [id number] ? cc: Piero Clarke MD ? EXAMINATION: [...] DD/ 1412 ? TD/TT: 07/08/24 1430 ? Fiberglass Bonding Machine Tender: ? Procedure Note Donotuseinterpreter, Image - 07/08/2024 [facility] [address] [place] [address] Ultrasound Report Signed Patient: Ronel CaalR#: [id number] : 1985Acct:[id number] Age/Sex: 39 / FADM Date: 07/08/24 Loc: HO.MAMMO Attending Dr: Piero Clarke MD Ordering Physician: Piero Clarke MD Date of Service: 07/08/24 Procedure(s): US breast LT limited mamm only Accession Number(s): [id number] cc: Piero Clarke MD EXAMINATION: MM DIAGNOSTIC [...] 07/08/24 1434 DD/ 1412 TD/TT: 07/08/24 1430 Fiberglass Bonding Machine Tender: us Piero Name IMGregorio US PROCEDURES Final Result * BI Mammogram Diagnostic Tomosynthesis added left (07/08/2024 1:50 PM EDT) Anatomical Region Laterality Modality Breast Left Mammography 07/08/2024 1:50 PM EDT Narrative 07/08/2024 2:38 PM EDT ? [facility] [place] ? [address] ?[place] [address] ?[phone] ? Mammography Report ? Signed ? Patient: Rudy Maloney,Dora ?MR#: ?? [id number] ? : 1985 ?Acct:[id number] ? Age/Sex: 39 / F ?ADM Date: 03/20/25 ? Loc: HO.MAMMO ? Attending Dr: Piero Name MD ? Ordering Physician: Name,Piero MD ?Results: 2Benign Fi ?? ndings ? Date of Service: 03/20/25 ?Follow Up: 1 Year From Orig ?? inal Mammogram ? Procedure(s): MM tomosynthesis added views L ?? Accession Number(s): [id number] ? cc: Name,Piero MANLEY ? EXAMINATION: ?? [...] ??Heidi Vail DO ??07/08/2024 02:34 PM EDT ?? RP ? Dictated By: ?Heidi Vail DO ? Signed By: ?<Electronically signed by Heidi Vail, DO in OV> ? 07/08/24 1434 ? DD/ 1350 ? TD/TT: 07/08/24 1405 ? Fiberglass Bonding Machine Tender: ? Procedure Note Malena, Image - 07/08/2024 [facility] [address] [place] [address] Mammography Report Signed Patient: Angelique Caal#: [id number] : 1985Acct:[id number] Age/Sex: 39 / FADM Date: 07/08/24 Loc: HO.MAMMO Attending Dr: Piero Clarke MD Ordering Physician: Piero Clarke MDResults: 2Benign Fi ndings Date of Service: 07/08/24Follow Up: 1 Year From Orig inal Mammogram Procedure(s): MM tomosynthesis added views L Accession Number(s): [id number] cc: Piero Clarke MD EXAMINATION: MM DIAGNOSTIC [...] 07/08/24 1434 DD/ 1350 TD/TT: 07/08/24 1405 Fiberglass Bonding Machine Tender: us Piero Clarke MD IMGregorio BI PROCEDURES Final Result * Us Pelvis complete (06/02/2024 11:43 AM EST) Anatomical Region Laterality Modality Pelvis Ultrasound 06/02/2024 11:4 3 AM EST Narrative 06/02/2024 12:16 PM EST ? [facility] ?[address] ?[place] [address] ? Ultrasound Report ? Signed ? Patient: Dora Caal ?MR#: ?? [id number] ? : 1985 ?Acct:[id number] ? Age/Sex: 39 / F ?ADM Date: 06/02/24 ? Loc: HO.US ? Attending Dr: Hillary GALE ? Ordering Physician: Hillary Pastrana ?? Date of Service: 06/02/24 ?? Procedure(s): US pelvic complete ?? Accession Number(s): [id number] ? cc: Piero Clarke MD; Hillary Pastrana [...] DD/ 1143 ? TD/TT: 06/02/24 1150 ? Fiberglass Bonding Machine Tender: ? Procedure Note Malena, Image - 06/02/2024 [place] [address] Ultrasound Report Signed Patient: Angelique Caal#: [id number] : 1985Acct:[id number] Age/Sex: 39 / FADM Date: 06/02/24 Loc: HO.US Attending Dr: Hillary GALE Ordering Physician: Hillary Pastrana Date of Service: 06/02/24 Procedure(s): US pelvic complete Accession Number(s): [id number] cc: Piero Clarke MD; Hillary Pastrana EXAMINATION: [...] 06/02/24 1213 DD/ 1143 TD/TT: 06/02/24 1150 Fiberglass Bonding Machine Tender[facility] PROCEDURES Final Result * HPV DNA, Low/High Risk (05/12/2024 11:54 AM EST) HPV High Risk Negative Negative [facility] HPV Genotype 16 Negative Negative [facility] HPV Genotype 18 Negative Negative [facility] Comment:HPV testing performe d at [facility] (CLIA#[id number]), [address] [place] [address].Testing for HPV was performed using the Avis [...] EST 05/12/2024 2:00 PM EST us Hillary GALE LAB BLOOD ORDERABLES Final Res ult Performing Organization Address City/State/[facility] Co de Phone Number [facility] [address] [place] [phone] * Pap Smear (05/12/2024 11:54 AM EST) Swab Cervix uteri structure / Unknown 05/12/2024 11:54 AM EST 05/12/2024 2:00 PM EST Narrative [facility] - 05/18/2024 10:18 AM EST ----- ------- Name: Dora Caal ?Age/Sex: 39/F ? : 1985 Unit#: [id number] ?? Attend Dr: Hillary Pastrana ?Re05/12/24 ?Status: DEP REF ? Location: HO.HHCLNP ? Disch: ? ----- ------- SPEC : [id number] ? RECD: 05/12/24-1400 ? STATUS: ??SOUT ? REQ NUM: [id number] ? KAREN: 05/12/24-1154 ? SUBM DR: Hillary Pastrana WIRE COILER MACHINE OPERATOR ? ENTERED: ??05/12/24-1410 ?SP TYPE: Pap [...] ------- Signed (signature on file) ABHI Piña ([facility]) 05/18/24 1018 ? ----- ------- ? END OF REPORT ? Hillary HALEP LAB CYTOLOGY ORDERABLES Final Result [facility] [address] [place] [phone] * Albumin, Random Urine W/Creatinine (04/08/2024 9:12 AM EST) Creatinine, Urine 213.37 mg/dL [facility] Microalbumin Urine 14.0 mg/L [facility] Microalbum Creatinine Ratio Ur 6.5 <30 ug/mg cr [facility] Comment:Albumin/Creatinine R atio Reference Ranges: Normal: < 30 ug/mg creatinine Microalbuminuria: 30 - 300 ug/mg creatinineClinical Albuminuria: > 300 ug/mg creatinine Urine (Urine, Random) 04/08/2024 9:12 AM EST 04/08/2024 11:24 AM EST Piero Clarke MD LAB URINE ORDERABLES Final Resul t Performing Organization Address [facility] Co de Phone Number [facility] [address] [place] [address] [phone] * Lipid Panel, Standard (04/08/2024 9:12 AM EST) Triglycerides 101 <150 mg/dL [facility] Comment:Desirable Triglyceri de: less than 150 mg/dLBorderline High Triglyceride 150-199 mg/dLHigh Triglyceride: 200-499 mg/dLVery High Triglyceride: greater than or equal to 5OO mg/dL Cholesterol 146 <200 mg/dL [facility] Comment:Desirable Cholestero l: less than 200 mg/dLBorderline High Cholesterol: 200-239 mg/dLHigh Cholesterol: greater than 239 mg/dL LDL Cholesterol Calculated 85 <100 mg/dL [facility] Comment:Desirable LDL: less than 100 mg/dLNear Optimal/Above Optimal LDL: 110- 129 mg/dLBorderline High LDL: 130-159 mg/dLHigh LDL: 160-189 mg/dLVery High LDL: greater than or equal to 190 mg/dL HDL Cholesterol 41 >40 mg/dL [facility] Comment:Desirable HDL: great er than 40 mg/dL Note: This HDL assay may give artificially low results in patients with liver disease. Blood Venous blood specimen / Unknown 04/08/2024 9:12 AM EST 04/08/2024 11:15 AM EST Piero Name LAB BLOOD ORDERABLES Final Resul t Performing Organization Address [facility] Co de Phone Number [facility] [address] [place] [address] [phone] from Last 3 Months or Most Recently Relevant to Health Maintenance [place] [address] [place] [address] C3 Care Teams Commercial Front Load Driver Relationship Specialty Start Date End Date Name, MD Piero [address] [place] [address] PCP - General Family Medicine 11/28/17 Nadege Kay PharmD [address] [place] [address] Pharmacist Internal Medicine 05/20/24
--- OUTSIDE RECORDS SUMMARY | 2024-08-26 14:36 | XMS_ITS | Encounter Summary ---
Author Organization [employer] Address [address] [facility] 7t [place] [address] Care Team Providers Care Motorized Squad Commanding Officer Name Role Phone Name, Piero MANLEY Primary Care Provider [phone] Nadege Kay PharmD Unavailable [phone] Reason for Visit * Reason Comments Med Refill Encounter Details Date Type Department Care Team ([facility] st Contact Info) Description 03/09/2024 Refill [facility] [address] [place], [place] [phone] Name, MD Piero [address] [place] [address] Type 2 diabetes mellitus with hyperglycemia, with long-term current use of insulin ([facility]) Social History Tobacco Use Types Packs/Day [...] Description 09/01/2024 3:30 PM EDT Medication Management [facility] [address] [place] [address] Nadege Kay PharmD [address] [place] [address] documented as of this encounter Visit Diagnoses Diagnosis Type 2 diabetes mellitus with hyperglycemia, with long-term current use of insulin ([facility]) documented in this encounter Additional Health Concerns Assessment Noted Time PHQ-9 Depression Total Score: 0 01/08/20 24 10:04 AM EDT documented as of this encounter Care Teams Motorized Squad Commanding Officer Relationship Specialty Start Date End Date Name, MD Piero [address] [place] [phone] PCP - General Family Medicine 11/28/17 Nadege Kay PharmD [address] [place] [phone] Pharmacist Internal Medicine 05/20/24 documented as of this encounter
--- OUTSIDE RECORDS SUMMARY | 2024-08-26 14:36 | XMS_ITS | Encounter Summary ---
Author Organization [employer] Address [address] [facility] 7t [place] [address] Care Team Providers Care Spark Tester Name Role Phone NamePiero MD Primary Care Provider [phone] Nadege Kay PharmD Unavailable [phone] Reason for Visit * Reason Onset Date Comments Letter for School/Work 08/20/2023 Encounter Details Date Type Department Care Team ([facility] st Contact Info) Description 08/20/2023 Telephone [facility] [address] [place], [place] [phone] Name, MD Piero [address] [place], [place] [phone] Letter for School/Work Social History Tobacco Use [...] not accept excuse. Please contact pt at [phone] documented in this encounter Plan of Treatment Upcoming Encounters Date Type Department Care Team (Late st Contact Info) Description 09/01/2024 3:30 PM EDT Medication Management [facility] [address] [place] [address] Nadege Kay, PharmD [address] [place] [address] documented as of this encounter Visit Diagnoses Not on filedocumented in this encounter Additional Health Concerns Assessment Noted Time PHQ-9 Depression Total Score: 0 08/27/19 23 4:06 PM EDT documented as of this encounter Care Teams Spark Tester Relationship Specialty Start Date End Date Name, MD Piero [address] [place] [address] PCP - General Family Medicine 11/28/17 Nadege Kay PharmD [address] [place] [address] Pharmacist Internal Medicine 05/20/24 documented as of this encounter
--- OUTSIDE RECORDS SUMMARY | 2024-08-26 14:36 | XMS_ITS | Encounter Summary ---
Author Organization [employer] Address [address] [facility] 7t [place] [address] Care Team Providers Care Windows Systems Engineer Name Role Phone Name, Piero MANLEY Primary Care Provider [phone] Nadege Kay PharmD Unavailable [phone] Reason for Visit * Reason Comments Med Refill Encounter Details Date Type Department Care Team ([facility] Contact Info) Description 07/15/2024 Refill [facility] MEDICINE [address] [place], [place] [phone] Name, MD Piero [address] [place] [address] PE (physical exam), routine Social History Tobacco [...] Description 09/01/2024 3:30 PM EDT Medication Management [facility] MED[facility] [address] [place] [address] Nadege Kay PharmD [address] [place] [address] documented as of this encounter Visit Diagnoses Diagnosis PE (physical exam), routine documented in this encounter Additional Health Concerns Assessment Noted Time PHQ-9 Depression Total Score: 0 01/08/20 24 10:04 AM EDT documented as of this encounter Care Teams Windows Systems Engineer Relationship Specialty Start Date End Date Name, MD Piero [address] [place] [phone] PCP - General Family Medicine 11/28/17 Nadege Kay PharmD [address] [place] [phone] Pharmacist Internal Medicine 05/20/24 documented as of this encounter
--- OUTSIDE RECORDS SUMMARY | 2024-08-26 14:36 | XMS_ITS | Encounter Summary ---
Author Organization [employer] Address [address] [facility] 7t [place] [address] Care Team Providers Care Core Shaper Top Name Role Phone Name, Piero MANLEY Primary Care Provider [phone] Nadege Kay PharmD Unavailable [phone] Reason for Visit * Reason Onset Date Comments Appointment Request 08/12/2024 Encounter Details Date Type Department Care Team ([facility] st Contact Info) Description 08/12/2024 Telephone [facility] MEDICINE [address] [place], [place] [phone] Name, MD Piero [address] [place] [address] Appointment Request Social History Tobacco Use Types [...] encounter Miscellaneous Notes * Telephone Encounter - Nolvia Wilhelm - 08/12/2024 1:08 PM EDT Tc from pt requesting to reschedule appointment from 08/12/24 FOLLOW UP Roller Coaster Engineer unable to find a slot in schedule documented in this encounter Plan of Treatment Upcoming Encounters Date Type Department Care Team (Late st Contact Info) Description 09/01/2024 3:30 PM EDT Medication Management [facility] MEDICINE [address] [place] [address] Nadege Kay, PharmD [address] [place] [address] documented as of this encounter Visit Diagnoses Not on filedocumented in this encounter Additional Health Concerns Assessment Noted Time PHQ-9 Depression Total Score: 0 01/08/20 10:04 AM EDT documented as of this encounter Care Teams Core Shaper Top Relationship Specialty Start Date End Date Name, MD Piero [address] [place] [address] PCP - General Family Medicine 11/28/17 Nadege Kay, PharmD [address] [place] [address] Pharmacist Internal Medicine 05/20/24 documented as of this encounter
--- OUTSIDE RECORDS SUMMARY | 2024-08-26 14:36 | XMS_ITS | Encounter Summary ---
Author Organization [employer] Address 75 [facility] 7t [place] [address] Care Team Providers Care Rope Tier Name Role Phone Piero Clarke MD Primary Care Provider [phone] Nadege Kay PharmD Unavailable [phone] Reason for Visit * Reason Onset Date Comments Med Change Request Prior Authorization 07/14/2023 Encounter Details Date Type Department Care Team (Late st Contact Info) Description 07/14/2023 Refill [facility] [address] [place], [place] [phone] Name, MD Piero [address] [place] [address] Social History Tobacco Use Types Packs/Day Years [...] 3:48 PM EDT PA form generated for [employer]. Placed on pcp desk for review and signature to then be faxed to and scanned into chart under media. documented in this encounter Plan of Treatment Upcoming Encounters Date Type Department Care Team (Late st Contact Info) Description 09/01/2024 3:30 PM EDT Medication Management [facility] [address] [place] [address] Nadege Kay PharmD [address] [place] [address] documented as of this encounter Visit Diagnoses Not on filedocumented in this encounter Additional Health Concerns Assessment Noted Time PHQ-9 Depression Total Score: 0 08/27/19 23 4:06 PM EDT documented as of this encounter Care Teams Rope Tier Relationship Specialty Start Date End Date Name, MD Piero [address] [place], [place] [phone] PCP - General Family Medicine 11/28/17 Nadege Kay PharmD [address] [place] [address] Pharmacist Internal Medicine 05/20/24 documented as of this encounter
--- OUTSIDE RECORDS SUMMARY | 2024-08-26 14:36 | XMS_ITS | Encounter Summary ---
Author Organization [employer] Address [address] [facility] 7t [place] [address] Care Team Providers Care Home Stager Name Role Phone Name, Piero MANLEY Primary Care Provider [phone] Nadege Kay PharmD Unavailable [phone] Encounter Details Date Type Department Care Team ([facility] st Contact Info) Description 04/23/2023 Orders Only [facility] MED & PEDS [address] [place] [address] Tonia Pagan LPN Social History Tobacco Use [...] 3:30 PM EDT Medication Management [facility] [address] [place] [address] Nadege Kay PharmD 230 [place] [address] documented as of this encounter Visit Diagnoses Not on filedocumented in this encounter Additional Health Concerns Assessment Noted Time PHQ-9 Depression Total Score: 0 08/27/19 23 4:06 PM EDT documented as of this encounter Care Teams Home Stager Relationship Specialty Start Date End Date Name, MD Piero 230 [place] [address] PCP - General Family Medicine 11/28/17 Nadege Kay PharmD [address] [place] [phone] Pharmacist Internal Medicine 05/20/24 documented as of this encounter
--- OUTSIDE RECORDS SUMMARY | 2024-08-26 14:36 | XMS_ITS | Encounter Summary ---
Author Organization [employer] Address 75 [facility] 7t [place] [address] Care Team Providers Care Pleater Hand Name Role Phone Name, Piero MANLEY Primary Care Provider [phone] Nadege Kay PharmD Unavailable [phone] Reason for Visit * Reason Comments Med Refill Encounter Details Date Type Department Care Team ([facility] st Contact Info) Description 08/07/2024 Refill [facility] 230 [place], [place] [phone] Name, MD Piero 230 [place] [address] Type 2 diabetes mellitus with hyperglycemia, with long-term current use of insulin ([facility]); Hypertension, unspecified type Social History Tobacco Use Types Packs/Day Years [...] 3:30 PM EDT Medication Management [facility] [address] [place] [address] Nadege Kay PharmD [address] [place] [address] documented as of this encounter Visit Diagnoses Diagnosis Type 2 diabetes mellitus with hyperglycemia, with long-term current use of insulin ([facility]) Hypertension, unspecified type documented in this encounter Additional Health Concerns Assessment Noted Time PHQ-9 Depression Total Score: 0 01/08/20 24 10:04 AM EDT documented as of this encounter Care Teams Pleater Hand Relationship Specialty Start Date End Date Name, MD Piero [address] [place] [address] [phone] PCP - General Family Medicine 11/28/17 Nadege Kay PharmD [address] [place] [address] [phone] Pharmacist Internal Medicine 05/20/24 documented as of this encounter
--- OUTSIDE RECORDS SUMMARY | 2024-08-26 14:36 | XMS_ITS | Encounter Summary ---
Author Organization [employer] Address 75 [facility] 7t [place] [address] Care Team Providers Care Surgical Instrument Mechanic Name Role Phone Name, Piero MANLEY Primary Care Provider [phone] Nadege Kay PharmD Unavailable [phone] Reason for Visit * Reason Onset Date Comments Med Refill 01/02/2024 Encounter Details Date Type Department Care Team ([facility] st Contact Info) Description 01/02/2024 Telephone [facility] MED[facility] 230 [place], [place] [phone] Name, MD Piero [address] [place] [address] Med Refill Social History Tobacco Use Types [...] MG capsule To be sent to: [facility]/pharmacy #[id number] [place] [address] documented in this encounter Plan of Treatment Upcoming Encounters Date Type Department Care Team (Late st Contact Info) Description 09/01/2024 3:30 PM EDT Medication Management [facility] [address] [place] [address] Nadege Kay, PharmD [address] [place] [address] documented as of this encounter Visit Diagnoses Not on filedocumented in this encounter Additional Health Concerns Assessment Noted Time PHQ-9 Depression Total Score: 0 08/27/19 23 4:06 PM EDT documented as of this encounter Care Teams Surgical Instrument Mechanic Relationship Specialty Start Date End Date Name, MD Piero [address] [place] [address] PCP - General Family Medicine 11/28/17 Nadege Kay, Eros [address] [place] [address] Pharmacist Internal Medicine 05/20/24 documented as of this encounter
--- OUTSIDE RECORDS SUMMARY | 2024-08-26 14:36 | XMS_ITS | Encounter Summary ---
Author Organization [employer] Address 75 [facility] 7t [place] [address] Care Team Providers Care Gis Software Engineer Name Role Phone Name, Piero MANLEY Primary Care Provider [phone] Nadege Kay PharmD Unavailable [phone] Reason for Visit * Reason Onset Date Comments Appointment Request 06/24/2024 Encounter Details Date Type Department Care Team ([facility] st Contact Info) Description 06/24/2024 Telephone [facility]INE 230 [place], [place] [phone] Name, MD Piero 230 [place] [address] Appointment Request Social History Tobacco Use Types [...] R/s Apt from 06/24/24. Contact pt at [phone] documented in this encounter Plan of Treatment Upcoming Encounters Date Type Department Care Team (Late st Contact Info) Description 09/01/2024 3:30 PM EDT Medication Management [facility] [address] [place] [address] Nadege Kay PharmD [address] [place] [address] documented as of this encounter Visit Diagnoses Not on filedocumented in this encounter Additional Health Concerns Assessment Noted Time PHQ-9 Depression Total Score: 0 01/08/20 24 10:04 AM EDT documented as of this encounter Care Teams Gis Software Engineer Relationship Specialty Start Date End Date Name, MD Piero [address] [place] [address] PCP - General Family Medicine 11/28/17 PuiaNadege PharmD [address] [place] [phone] Pharmacist Internal Medicine 05/20/24 documented as of this encounter
== END 2024-08-26 14:04 | disposition home or self-care (01) ==
LOC: HO.HGS 13:35
PROVIDERS: PCP Internal Medicine Geriatric Medicine; Visit Provider Surgery
DX: D17.1 Benign lipomatous neoplasm of skin and subcutaneous tissue of trunk (principal)
CPT/HCPCS: 11404

== ENCOUNTER 2024-08-26 13:35 | Outpatient (REF) | payer MEDICAID, SELFPAY ==
--- OUTSIDE RECORDS SUMMARY | 2024-08-26 15:05 | XMS_ITS | Encounter Summary ---
Author Organization [employer] Address 75 [facility] 7t [place] [address] Care Team Providers Care Leather Splitter Name Role Phone Name, Piero MANLEY Primary Care Provider [phone] Nadege Kay PharmD Unavailable [phone] Encounter Details Date Type Department Care Team ([facility] Contact Info) Description 05/09/2022 Telephone [facility] MED[facility] [address] [place] [address] [phone] Name, MD Piero [address] [place] [address] Social History Tobacco Use Types Packs/Day Years [...] Description 09/01/2024 3:30 PM EDT Medication Management [facility] [address] [place] [address] Nadege Kay, PharmD 230 [place] [address] documented as of this encounter Visit Diagnoses Not on filedocumented in this encounter Care Teams Leather Splitter Relationship Specialty Start Date End Date NamePiero MD 230 [place] [address] PCP - General Family Medicine 11/28/17 Nadege Kay, Eros [address] [place] [address] Pharmacist Internal Medicine 05/20/24 documented as of this encounter
--- OUTSIDE RECORDS SUMMARY | 2024-08-26 15:05 | XMS_ITS | Encounter Summary ---
Author Organization [employer] Address [address] [facility] [address] 7t [place] [address] Care Team Providers Care Woods Superintendent Name Role Phone Name, Piero MANLEY Primary Care Provider Nadege Kay PharmD Unavailable [phone] Encounter Details Date Type Department Care Team ([facility] st Contact Info) Description 04/23/2023 Orders Only [facility] MED & PEDS [address] [place] [address] Tonia Pagan LPN Social History Tobacco Use [...] Description 09/01/2024 3:30 PM EDT Medication Management [facility]INE 230 [place] [address] Nadege Kay PharmD 230 [place] [address] documented as of this encounter Visit Diagnoses Not on filedocumented in this encounter Additional Health Concerns Assessment Noted Time PHQ-9 Depression Total Score: 0 08/27/19 23 4:06 PM EDT documented as of this encounter Care Teams Woods Superintendent Relationship Specialty Start Date End Date Name, MD Piero [address] [place] [address] PCP - General Family Medicine 11/28/17 Nadege Kay PharmD [address] [place] [phone] Pharmacist Internal Medicine 05/20/24 documented as of this encounter
--- OUTSIDE RECORDS SUMMARY | 2024-08-26 15:05 | XMS_ITS | Encounter Summary ---
Author Organization [employer] Address 75 [facility] 7t [place] [address] Care Team Providers Care Recovery Manager Name Role Phone Piero Clarke MD Primary Care Provider [phone] Nadege Kay PharmD Unavailable [phone] Reason for Visit * Reason Onset Date Comments Med Change Request Prior Authorization 07/14/2023 Encounter Details Date Type Department Care Team (Late st Contact Info) Description 07/14/2023 Refill [facility] MEDICINE 230 [place], [place] [phone] Name, MD Piero [address] [place] [address] Social History Tobacco Use Types Packs/Day Years Used Date Smoking Tobacco: Never Smokeless Tobacco: Never Alcohol Use Standard Drinks/Week Comments Never 0 (1 standard drink = 0.6 oz pur e alcohol) Depression Answer Date Recorded Patient Health Questionnaire-9 Score 0 08/26/2022 Housing Stability Answer Date Recorded What is your housing situation today? I have ajcques cespedes 02/11/[address] you [...] 3:48 PM EDT PA form generated for [employer]. Placed on pcp desk for review and signature to then be faxed to and scanned into chart under media. documented in this encounter Plan of Treatment Upcoming Encounters Date Type Department Care Team (Late st Contact Info) Description 09/01/2024 3:30 PM EDT Medication Management [facility] [address] [place] [address] Nadege Kay PharmD [address] [place] [address] documented as of this encounter Visit Diagnoses Not on filedocumented in this encounter Additional Health Concerns Assessment Noted Time PHQ-9 Depression Total Score: 0 08/27/19 23 4:06 PM EDT documented as of this encounter Care Teams Recovery Manager Relationship Specialty Start Date End Date Name, MD Piero [address] [place], [place] [phone] PCP - General Family Medicine 11/28/17 Nadege Kay PharmD [address] [place] [address] Pharmacist Internal Medicine 05/20/24 documented as of this encounter
--- OUTSIDE RECORDS SUMMARY | 2024-08-26 15:05 | XMS_ITS | Encounter Summary ---
Author Organization [employer] Address 75 [facility] 7t [place] [address] Care Team Providers Care Painter Maintenance Name Role Phone Name, Piero MANLEY Primary Care Provider [phone] Nadege Kay PharmD Unavailable [phone] Reason for Visit * Reason Comments Med Refill Encounter Details Date Type Department Care Team ([facility] st Contact Info) Description 08/07/[address] [facility] MEDICINE 230 [place], [place] [phone] Name, MD Piero [address] [place] [address] Type 2 diabetes mellitus with hyperglycemia, with long-term current use of insulin ([facility]); Hypertension, unspecified type Social History [...] Description 09/01/2024 3:30 PM EDT Medication Management [facility] [address] [place] [address] Nadege Kay PharmD [address] [place] [address] documented as of this encounter Visit Diagnoses Diagnosis Type 2 diabetes mellitus with hyperglycemia, with long-term current use of insulin ([facility]) Hypertension, unspecified type documented in this encounter Additional Health Concerns Assessment Noted Time PHQ-9 Depression Total Score: 0 01/08/20 24 10:04 AM EDT documented as of this encounter Care Teams Painter Maintenance Relationship Specialty Start Date End Date Name, MD Piero [address] [place] [address] [phone] PCP - General Family Medicine 11/28/17 Nadege Kay PharmD [address] [place] [address] [phone] Pharmacist Internal Medicine 05/20/24 documented as of this encounter
--- OUTSIDE RECORDS SUMMARY | 2024-08-26 15:05 | XMS_ITS | Encounter Summary ---
Author Organization [employer] Address 75 [facility] 7t [place] [address] Care Team Providers Care Justowriter Operator Name Role Phone Name, Piero MANLEY Primary Care Provider [phone] Nadege Kay PharmD Unavailable [phone] Reason for Visit * Reason Onset Date Comments Appointment Request 06/24/2024 Encounter Details Date Type Department Care Team ([facility] st Contact Info) Description 06/24/2024 Telephone [facility] MED[facility]INE 230 [place], [place] [phone] Name, MD Piero [address] [place] [address] Appointment Request Social History Tobacco Use Types [...] R/s Apt from 06/24/24. Contact pt at [phone] documented in this encounter Plan of Treatment Upcoming Encounters Date Type Department Care Team (Late st Contact Info) Description 09/01/2024 3:30 PM EDT Medication Management [facility] [address] [place] [address] Nadege Kay PharmD [address] [place] [address] documented as of this encounter Visit Diagnoses Not on filedocumented in this encounter Additional Health Concerns Assessment Noted Time PHQ-9 Depression Total Score: 0 01/08/20 24 10:04 AM EDT documented as of this encounter Care Teams Justowriter Operator Relationship Specialty Start Date End Date Name, MD Piero [address] [place] [address] PCP - General Family Medicine 11/28/17 PuiaNadege PharmD [address] [place] [address] Pharmacist Internal Medicine 05/20/24 documented as of this encounter
--- OUTSIDE RECORDS SUMMARY | 2024-08-26 15:05 | XMS_ITS | Clinical Summary ---
Author Organization [employer] Address [address] [facility] 7t [place] [address] Care Team Providers Care Compression Molding Machine Operator Name Role Phone Name, Piero MANLEY Primary Care Provider Nadege Kay PharmD Unavailable [phone] Allergies Active Allergy Reactions Criticality Noted [...] 11 5 05/20/19 26 Active Continuous Glucose Pouncing Lathe Operator (FreeStyle Jacobo 3 [place]) deviceIndication s:Type 2 diabetes mellitus with hyperglycemia, [...] hyperglycemia, with long-term current use of insulin ([facility]) Use to test blood sugar up to 3 times daily, as directed 100 each 5 Active TRUEplus Lancets 33G miscIndications: Type 2 diabetes mellitus with hyperglycemia, with long-term current use of insulin ([facility]) Use to test blood sugar 3 time(s) daily, as directed 100 each 5 Active Alcohol Swabs (Alcohol Prep) padsIndications: Type 2 diabetes mellitus with hyperglycemia, with long-term current use of insulin ([facility]) Use as directed 4x daily prior to insulin injection 200 each 5 Active atorvastatin (Lipitor) 20 MG tabletIndication s:Type 2 diabetes mellitus with hyperglycemia, with long-term current use of insulin ([facility]) Take 1 tablet (20 mg) by mouth Once per day. 90 tablet 5 Active insulin glargine (Lantus SoloStar) 100 UNIT/ML penIndications:T ype 2 diabetes mellitus with hyperglycemia, with long-term current use of insulin ([facility]) Inject 25 Units under the [...] hyperglycemia, with long-term current use of insulin ([facility]),Hypert ension, unspecified type Take 1 [...] History of uterine fibroid 06/02/2024 Overview (06/02/2024): [place] [address] Ultrasound Report Signed Patient: Dora Caal MR#: [id number] : 1985 Acct:[id number] Age/Sex: 39 / F ADM Date: 06/02/24 Loc: HO.US Attending Dr: Hillary GALE Ordering Physician: Hillary Pastrana Date of Service: 06/02/24 Procedure(s): US pelvic complete Accession Number(s): [id number] cc: Piero Clarke MD; Hillary Pastrana EXAMINATION: [...] discuss hormonal treatment plan or referral to [facility] DES[facility]ING RANGE OPERATOR CHIEF to revisit surgical options if interested. Normal pelvic exam 05/13/2024 Anxiety 08/19/2023 Assessment & Plan (08/19/2023 7:06 PM EDT): Sig stress at work, has permission from work for [facility] time., will complete paperwork. Referral to [...] Type Department Care Team Description 08/12/2024 Telephone [facility] [place] [address] iPero Clarke MD Appointment Request 08/07/2024 Refill [facility] [address] Piero Clarke MD Type 2 diabetes mellitus with hyperglycemia, with long-term current use of insulin ([facility]); Hypertension, unspecified type 08/05/2024 Telephone [facility] [place] [place] [address] Shauna العلي [place] appt change 07/26/2024 Refill [facility] [place] [address] Nadege Kay, SadieD Allergic rhinitis, unspecified seasonality, unspecified trigger (Primary Dx) 07/26/2024 Travel 07/22/2024 Travel 07/15/2024 Refill [facility] [place] [address] Piero Clarke MD PE (physical exam), routine 07/08/2024 Orders Only [facility] [place] [address] Piero Clarke MD 07/02/2024 Population Health Risk Score Community [facility] ([facility]) Department [address] [address] Provider, Population Health Generic 06/24/2024 Telephone [facility] [place] [address] Piero Clarke MD Appointment Request 06/03/2024 Telephone [facility] [place] [address] Piero Clarke MD 06/03/2024 Telephone [facility] [address] [place], [place] [phone] Name, MD Piero from Last 3 Months [...] Description 09/01/2024 3:30 PM EDT Medication Management [facility] [address] [place] [address] Nadege Kay, PharmD [address] [place] [address] Health Maintenance Due Date Last Done Comments [...] hyperglycemia, with long-term current use of insulin ([facility]) BI US BREAST LIMITED LEFT [...] hyperglycemia, with long-term current use of insulin ([facility]) LIPID PANEL, STANDARD Routine 04/08/2024 9:12 AM EST Type 2 diabetes mellitus with hyperglycemia, with long-term current use of insulin ([facility]) from Last 3 Months or [...] Center ? [address] ?[place] [address] ? Ultrasound Report ? Signed ? Patient: Rudy Maloney,Dora ?MR#: ?? [id number] ? : 1985 ?Acct:[id number] ? Age/Sex: 39 / F ?ADM Date: 07/08/24 ? Loc: HO.MAMMO ? Attending Dr: Piero Clarke MD ? Ordering Physician: Piero Clarke MD ?? Date of Service: 07/08/24 ?? Procedure(s): US breast LT limited mamm only ?? Accession Number(s): [id number] ? cc: Piero Clarke MD ? EXAMINATION: [...] DD/ 1412 ? TD/TT: 07/08/24 1430 ? Sheet Rock Sander: ? Procedure Note Donotuseinterpreter, Image - 07/08/2024 [facility] [address] [place] [address] Ultrasound Report Signed Patient: Ronel CaalR#: [id number] : 1985Acct:[id number] Age/Sex: 39 / FADM Date: 07/08/24 Loc: HO.MAMMO Attending Dr: Piero Clarke MD Ordering Physician: Piero Clarke MD Date of Service: 07/08/24 Procedure(s): US breast LT limited mamm only Accession Number(s): [id number] cc: Piero Clarke MD EXAMINATION: MM DIAGNOSTIC [...] 07/08/24 1434 DD/ 1412 TD/TT: 07/08/24 1430 Sheet Rock Sander: us Piero Name IMGregorio US PROCEDURES Final Result * BI Mammogram Diagnostic Tomosynthesis added left (07/08/2024 1:50 PM EDT) Anatomical Region Laterality Modality Breast Left Mammography 07/08/2024 1:50 PM EDT Narrative 07/08/2024 2:38 PM EDT ? [facility] [place] ? [address] ?[place] [address] ?[phone] ? Mammography Report ? Signed ? Patient: Rudy Maloney,Dora ?MR#: ?? [id number] ? : 1985 ?Acct:[id number] ? Age/Sex: 39 / F ?ADM Date: 03/20/25 ? Loc: HO.MAMMO ? Attending Dr: Piero Name MD ? Ordering Physician: Name,Piero MD ?Results: 2Benign Fi ?? ndings ? Date of Service: 03/20/25 ?Follow Up: 1 Year From Orig ?? inal Mammogram ? Procedure(s): MM tomosynthesis added views L ?? Accession Number(s): [id number] ? cc: Name,Piero MANLEY ? EXAMINATION: ?? [...] DD/ 1350 ? TD/TT: 07/08/24 1405 ? Sheet Rock Sander: ? Procedure Note Malena, Image - 07/08/2024 [facility] [address] [place] [address] Mammography Report Signed Patient: Angelique Caal#: [id number] : 1985Acct:[id number] Age/Sex: 39 / FADM Date: 07/08/24 Loc: HO.MAMMO Attending Dr: Piero Clarke MD Ordering Physician: Piero Clarke MDResults: 2Benign Fi ndings Date of Service: 07/08/24Follow Up: 1 Year From Orig inal Mammogram Procedure(s): MM tomosynthesis added views L Accession Number(s): [id number] cc: Piero Clarke MD EXAMINATION: MM DIAGNOSTIC [...] 07/08/24 1434 DD/ 1350 TD/TT: 07/08/24 1405 Sheet Rock Sander: us Piero Clarke MD IMGregorio BI PROCEDURES Final Result * Us Pelvis complete (06/02/2024 11:43 AM EST) Anatomical Region Laterality Modality Pelvis Ultrasound 06/02/2024 11:4 3 AM EST Narrative 06/02/2024 12:16 PM EST ? [facility] ?[address] ?[place] [address] ? Ultrasound Report ? Signed ? Patient: Dora Caal ?MR#: ?? [id number] ? : 1985 ?Acct:[id number] ? Age/Sex: 39 / F ?ADM Date: 06/02/24 ? Loc: HO.US ? Attending Dr: Hillary GALE ? Ordering Physician: Hillary Pastrana ?? Date of Service: 06/02/24 ?? Procedure(s): US pelvic complete ?? Accession Number(s): [id number] ? cc: Piero Clarke MD; Hillary Pastrana [...] DD/ 1143 ? TD/TT: 06/02/24 1150 ? Sheet Rock Sander: ? Procedure Note Malena, Image - 06/02/2024 [place] [address] Ultrasound Report Signed Patient: Angelique Caal#: [id number] : 1985Acct:[id number] Age/Sex: 39 / FADM Date: 06/02/24 Loc: HO.US Attending Dr: Hillary GALE Ordering Physician: Hillary Pastrana Date of Service: 06/02/24 Procedure(s): US pelvic complete Accession Number(s): [id number] cc: Piero Clarke MD; Hillary Pastrana EXAMINATION: [...] 06/02/24 1213 DD/ 1143 TD/TT: 06/02/24 1150 Sheet Rock Sander: [facility] US PROCEDURES Final Result * HPV DNA, Low/High Risk (05/12/2024 11:54 AM EST) HPV High Risk Negative Negative [facility] HPV Genotype 16 Negative Negative [facility] HPV Genotype 18 Negative Negative [facility] Comment:HPV testing performe d at [facility] (CLIA#[id number]), [address] [place] [address].Testing for HPV was performed using the Avis [...] ORDERABLES Final Res ult Performing Organization Address City/State/[facility] Co de Phone Number [facility] [address] [place] [phone] * Pap Smear (05/12/2024 11:54 AM EST) Swab Cervix uteri structure / Unknown 05/12/2024 11:54 AM EST 05/12/2024 2:00 PM EST Narrative [facility] - 05/18/2024 10:18 AM EST ----- ------- Name: Dora Caal ?Age/Sex: 39/F ? : 1985 Unit#: [id number] ?? Attend Dr: Hillary Pastrana ?Re05/12/24 ?Status: DEP REF ? Location: HO.HHCLNP ? Disch: ? ----- ------- SPEC : [id number] ? RECD: 05/12/24-1400 ? STATUS: ??SOUT ? REQ NUM: [id number] ? KAREN: 05/12/24-1154 ? SUBM DR: Hillary Pastrana SAIL MAKER ? ENTERED: ??05/12/24-1410 ?SP TYPE: Pap Smr [...] ------- Signed (signature on file) ABHI Piña ([facility]) 05/18/24 1018 ? ----- ------- ? END OF REPORT ? Hillary HALEP [facility] CYTOLOGY ORDERABLES Final Result [facility] [address] [place] [phone] * Albumin, Random Urine W/Creatinine (04/08/2024 9:12 AM EST) Creatinine, Urine 213.37 mg/dL [facility] Microalbumin Urine 14.0 mg/L [facility] Microalbum Creatinine Ratio Ur 6.5 <30 ug/mg cr [facility] Comment:Albumin/Creatinine R atio Reference Ranges: Normal: < 30 ug/mg creatinine Microalbuminuria: 30 - 300 ug/mg creatinineClinical Albuminuria: > 300 ug/mg creatinine Urine (Urine, Random) 04/08/2024 9:12 AM EST 04/08/2024 11:24 AM EST Piero Clarke MD LAB URINE ORDERABLES Final Resul t Performing Organization Address [facility] Co de Phone Number [facility] [address] [place] [address] [phone] * Lipid Panel, Standard (04/08/2024 9:12 AM EST) Triglycerides 101 <150 mg/dL [facility] Comment:Desirable Triglyceri de: less than 150 mg/dLBorderline High Triglyceride 150-199 mg/dLHigh Triglyceride: 200-499 mg/dLVery High Triglyceride: greater than or equal to 5OO mg/dL Cholesterol 146 <200 mg/dL [facility] Comment:Desirable Cholestero l: less than 200 mg/dLBorderline High Cholesterol: 200-239 mg/dLHigh Cholesterol: greater than 239 mg/dL LDL Cholesterol Calculated 85 <100 mg/dL [facility] Comment:Desirable LDL: less than 100 mg/dLNear Optimal/Above Optimal LDL: 110- 129 mg/dLBorderline High LDL: 130-159 mg/dLHigh LDL: 160-189 mg/dLVery High LDL: greater than or equal to 190 mg/dL HDL Cholesterol 41 >40 mg/dL [facility] Comment:Desirable HDL: great er than 40 mg/dL Note: This HDL assay may give artificially low results in patients with liver disease. Blood Venous blood specimen / Unknown 04/08/2024 9:12 AM EST 04/08/2024 11:15 AM EST Piero Name LAB BLOOD ORDERABLES Final Resul t Performing Organization Address [facility] Co de Phone Number [facility] [address] [place] [address] [phone] from Last 3 Months or Most Recently Relevant to Health Maintenance [place] [place] [address] C3 Care Teams Compression Molding Machine Operator Relationship Specialty Start Date End Date Name, MD Piero [address] [place] [address] PCP - General Family Medicine 11/28/17 Nadege Kay PharmD [address] [place] [address] Pharmacist Internal Medicine 05/20/24
--- OUTSIDE RECORDS SUMMARY | 2024-08-26 15:05 | XMS_ITS | Encounter Summary ---
Author Organization [employer] Address [address] [facility] 7t [place] [address] Care Team Providers Care Sewing Pattern Layout Technician Name Role Phone Name, Piero MANLEY Primary Care Provider [phone] Nadege Kay PharmD Unavailable [phone] Reason for Visit * Reason Onset Date Comments Appointment Request 08/12/2024 Encounter Details Date Type Department Care Team ([facility] st Contact Info) Description 08/12/2024 Telephone [facility] MEDICINE [address] [place], [place] [phone] Name, MD Piero [address] [place] [address] Appointment Request Social History Tobacco Use Types [...] to reschedule appointment from 08/12/24 FOLLOW UP Harpooner unable to find a slot in schedule documented in this encounter Plan of Treatment Upcoming Encounters Date Type Department Care Team (Late st Contact Info) Description 09/01/2024 3:30 PM EDT Medication Management [facility] MEDICINE [address] [place] [address] Nadege Kay, PharmD [address] [place] [address] documented as of this encounter Visit Diagnoses Not on filedocumented in this encounter Additional Health Concerns Assessment Noted Time PHQ-9 Depression Total Score: 0 01/08/20 10:04 AM EDT documented as of this encounter Care Teams Sewing Pattern Layout Technician Relationship Specialty Start Date End Date Name, MD Piero [address] [place] [address] PCP - General Family Medicine 11/28/17 Nadege Kay, PharmD [address] [place] [address] Pharmacist Internal Medicine 05/20/24 documented as of this encounter
--- OUTSIDE RECORDS SUMMARY | 2024-08-26 15:05 | XMS_ITS | Encounter Summary ---
Author Organization [employer] Address [address] [place] [address] 7t [place] [address] Care Team Providers Care Assistance Coordinator Name Role Phone Name, Piero MANLEY Primary Care Provider [phone] Nadege Kay PharmD Unavailable [phone] Reason for Visit * Reason Onset Date Comments Nurse Triage 01/21/2023 Encounter Details Date Type Department Care Team ([facility] st Contact Info) Description 01/21/2023 Telephone [facility] MEDICINE [address] [place], [place] [phone] Name, MD Piero [address] [place] [address] Nurse Triage Social History Tobacco Use Types [...] reduce sugar/carb foods. Pt advised to seek [facility] for exam today or tomorrow [...] Description 09/01/2024 3:30 PM EDT Medication Management [facility] MEDICINE [address] [place], [place] [phone] Nadege Kay, PharmD [address] [place] [address] documented as of this encounter Visit Diagnoses Not on filedocumented in this encounter Additional Health Concerns Assessment Noted Time PHQ-9 Depression Total Score: 0 08/27/19 23 4:06 PM EDT documented as of this encounter Care Teams Assistance Coordinator Relationship Specialty Start Date End Date Name, MD Piero [address] [place] [address] PCP - General Family Medicine 11/28/17 Nadege Kay PharmD [address] [place] [address] Pharmacist Internal Medicine 05/20/24 documented as of this encounter
--- OUTSIDE RECORDS SUMMARY | 2024-08-26 15:05 | XMS_ITS | Encounter Summary ---
Author Organization [employer] Address [address] [facility] 7t [place] [address] Care Team Providers Care Forest Management Teacher Name Role Phone Name, Piero MANLEY Primary Care Provider [phone] Nadege Kay PharmD Unavailable [phone] Reason for Visit * Reason Comments Med Refill Encounter Details Date Type Department Care Team ([facility] st Contact Info) Description 07/14/2023 Refill [facility] MEDICINE [address] [place], [place] [phone] Name, MD Piero [address] [place] [address] Social History Tobacco Use Types Packs/Day Years [...] Description 09/01/2024 3:30 PM EDT Medication Management [facility] MEDICINE [address] [place] [address] Nadege Kay PharmD [address] [place] [address] documented as of this encounter Visit Diagnoses Not on filedocumented in this encounter Additional Health Concerns Assessment Noted Time PHQ-9 Depression Total Score: 0 08/27/19 23 4:06 PM EDT documented as of this encounter Care Teams Forest Management Teacher Relationship Specialty Start Date End Date Name, MD Piero [address] [place] [phone] PCP - General Family Medicine 11/28/17 Nadege Kay PharmD [address] [place] [address] Pharmacist Internal Medicine 05/20/24 documented as of this encounter
--- OUTSIDE RECORDS SUMMARY | 2024-08-26 15:05 | XMS_ITS | Encounter Summary ---
Author Organization [employer] Address [address] [facility] 7t [place] [address] Care Team Providers Care Advertising Material Distributor Name Role Phone Name, Piero MANLEY Primary Care Provider [phone] Nadege Kay PharmD Unavailable [phone] Reason for Visit * Reason Comments Med Refill Encounter Details Date Type Department Care Team ([facility] Contact Info) Description 07/15/2024 Refill [facility] [address] [place], [place] [phone] Name, MD Piero [address] [place] [address] PE (physical exam), routine Social History Tobacco [...] Description 09/01/2024 3:30 PM EDT Medication Management [facility] MEDIC[facility] [address] [place] [address] Nadege Kay PharmD [address] [place] [address] documented as of this encounter Visit Diagnoses Diagnosis PE (physical exam), routine documented in this encounter Additional Health Concerns Assessment Noted Time PHQ-9 Depression Total Score: 0 01/08/20 24 10:04 AM EDT documented as of this encounter Care Teams Advertising Material Distributor Relationship Specialty Start Date End Date Name, MD Piero [address] [place] [address] PCP - General Family Medicine 11/28/17 Nadege Kay PharmD [address] [place] [address] Pharmacist Internal Medicine 05/20/24 documented as of this encounter
--- OUTSIDE RECORDS SUMMARY | 2024-08-26 15:05 | XMS_ITS | Encounter Summary ---
Author Organization [employer] Address [address] [facility] 7t [place] [address] Care Team Providers Care Packerhead Machine Operator Name Role Phone Name, Piero MANLEY Primary Care Provider Nadege Kay PharmD Unavailable [phone] Reason for Visit * Reason Onset Date Comments Med Refill 01/02/2024 Encounter Details Date Type Department Care Team ([facility] st Contact Info) Description 01/02/2024 Telephone [facility] MEDICINE [address] [place], [place] [phone] Name, MD Piero [address] [place] [address] Med Refill Social History Tobacco Use Types [...] 200 MG capsule To be sent to: [facility]/pharmacy #[id number] [place] [address] documented in this encounter Plan of Treatment Upcoming Encounters Date Type Department Care Team (Late st Contact Info) Description 09/01/2024 3:30 PM EDT Medication Management [facility] MEDICINE [address] [place] [address] Nadege Kay, PharmD [address] [place] [address] documented as of this encounter Visit Diagnoses Not on filedocumented in this encounter Additional Health Concerns Assessment Noted Time PHQ-9 Depression Total Score: 0 08/27/19 23 4:06 PM EDT documented as of this encounter Care Teams Packerhead Machine Operator Relationship Specialty Start Date End Date Name, MD Piero [address] [place] [address] PCP - General Family Medicine 11/28/17 Nadege Kay, [place] [address] [place] [phone] Pharmacist Internal Medicine 05/20/24 documented as of this encounter
--- OUTSIDE RECORDS SUMMARY | 2024-08-26 15:05 | XMS_ITS | Encounter Summary ---
Author Organization [employer] Address [address] [facility] 7t [place] [address] Care Team Providers Care Air Conditioning Insulation Installer Name Role Phone NamePiero MD Primary Care Provider [phone] Nadege Kay PharmD Unavailable [phone] Reason for Visit * Reason Onset Date Comments Letter for School/Work 08/20/2023 Encounter Details Date Type Department Care Team ([facility] st Contact Info) Description 08/20/2023 Telephone [facility] MEDICINE [address] [place], [place] [phone] Name, MD Piero [address] [place], [place] [phone] Letter for School/Work Social History Tobacco Use [...] not accept excuse. Please contact pt at [phone] documented in this encounter Plan of Treatment Upcoming Encounters Date Type Department Care Team (Late st Contact Info) Description 09/01/2024 3:30 PM EDT Medication Management [facility] MEDICINE [address] [place] [address] Nadege Kay, PharmD [address] [place] [address] documented as of this encounter Visit Diagnoses Not on filedocumented in this encounter Additional Health Concerns Assessment Noted Time PHQ-9 Depression Total Score: 0 08/27/19 23 4:06 PM EDT documented as of this encounter Care Teams Air Conditioning Insulation Installer Relationship Specialty Start Date End Date Name, MD Piero [address] [place] [address] PCP - General Family Medicine 11/28/17 Nadege Kay PharmD [address] [place] [address] Pharmacist Internal Medicine 05/20/24 documented as of this encounter
--- OUTSIDE RECORDS SUMMARY | 2024-08-26 15:05 | XMS_ITS | Encounter Summary ---
Author Organization [employer] Address [address] [facility] 7t [place] [address] Care Team Providers Care Sales Department Supervisor Name Role Phone Name, Piero MANLEY Primary Care Provider [phone] Nadege Kay PharmD Unavailable [phone] Reason for Visit * Reason Comments Med Refill Encounter Details Date Type Department Care Team ([facility] st Contact Info) Description 03/09/2024 Refill [facility] MEDICINE [address] [place], [place] [phone] Name, MD Piero [address] [place] [address] Type 2 diabetes mellitus with hyperglycemia, with long-term current use of insulin ([facility]) Social History Tobacco Use Types [...] Description 09/01/2024 3:30 PM EDT Medication Management [facility] MEDICINE [address] [place] [address] Nadege Kay PharmD [address] [place] [address] documented as of this encounter Visit Diagnoses Diagnosis Type 2 diabetes mellitus with hyperglycemia, with long-term current use of insulin ([facility]) documented in this encounter Additional Health Concerns Assessment Noted Time PHQ-9 Depression Total Score: 0 01/08/20 24 10:04 AM EDT documented as of this encounter Care Teams Sales Department Supervisor Relationship Specialty Start Date End Date Name, MD Piero [address] [place] [address] PCP - General Family Medicine 11/28/17 Nadege Kay PharmD [address] [place] [phone] Pharmacist Internal Medicine 05/20/24 documented as of this encounter
== END 2024-08-26 13:36 | disposition home or self-care (01) ==
LOC: HO.LNP 13:35
PROVIDERS: PCP Internal Medicine Geriatric Medicine; Visit Provider Surgery
DX: R22.9 Localized swelling, mass and lump, unspecified (principal)
CPT/HCPCS: 11404; 88304

== ENCOUNTER → 2024-09-02 12:37 | Outpatient (BNVA) | payer MEDICAID, SELFPAY | PROVIDERS: PCP Internal Medicine Geriatric Medicine; Visit Provider Physician Assistant Surgical ==

== ENCOUNTER 2024-09-09 13:11 | Outpatient (AMB) | payer MEDICAID, SELFPAY ==
--- NOTE | 2024-09-09 13:14 | MHC.OFFVIS ---
Vital Signs 09/09/24 13:21 Height 5 ft 5 in Weight 243 lb BMI 40.4 BP 124/72 Blood Pressure Location Rt brachial Position Sitting Pulse 72 Intake Visit Reasons: post excision left hip mass (off proc) Intake Note: Patient here s/p excision Rt hip on 08-26-2024. Reports incision healing well. Patient c/o: patient wants to know if Dermoplast spray can be applied. Website/Blog Editor Required: No Accompanied by: Self / Same As Patient Allergies aspirin [ASA] Allergy (Mild, Verified 09/09/24 13:20) RASH HPI HPI post excision left hip mass (off proc): Details: She had undergone excision of a left hip subcutaneous mass under local anesthesia 2 weeks ago in the office. She currently denies significant complaints. [facility] Medical History Subcutaneous mass Vitamin B12 deficiency Obesity Neuropathy Depression Insulin dependent diabetes mellitus Morbid obesity Surgical History H/O tubal ligation Hx of cholecystectomy Hx of section Family History Mother No problems noted. Father No problems noted. Brother No problems noted. Brother No problems noted. Brother No problems noted. Brother No problems noted. Brother No problems noted. Sister No problems noted. Sister No problems noted. Sister No problems noted. Son No problems noted. Daughter No problems noted. Daughter Asthma Social History Alcohol intake: never Current occupational status: unemployed Current occupation: stylist - Right Handed Female Reproductive History Menstrual Age of Menarche: 11 Review of Systems Const Denies chills and Denies fever(s) Card Denies chest pain GI Denies abdominal pain Physical Exam Vital Signs: Last Vital Signs Pulse 72 09/09/24 13:21 BP 124/72 09/09/24 13:21 BMI result Body Mass Index 40.4 Const General: comfortable and no acute distress Resp Effort & Inspection: normal respiratory effort Back/Spine/Pelvis Other: Excision site is well healed, not infected, sutures intact Assessment & Plan Assessment & Plan (1) Subcutaneous mass: Code(s): R22.9 - Localized swelling, mass and lump, unspecified Category: Medical Plan: Status post excision of a right hip subcutaneous mass. The incisions well healed. Her sutures were removed. The path report shows a lipoma. She can follow up on a p.r.n. basis. Coding Level of Care Code Global (18551) Diagnoses Subcutaneous mass R22.9
--- OUTSIDE RECORDS SUMMARY | 2024-09-09 13:16 | XMS_ITS | Encounter Summary ---
Author Organization [employer] Address [address] [place] [address] 7 [place] [address] Care Team Providers Care Lumber Scaler Name Role Phone Name, Piero MANLEY Primary Care Provider [phone] Nadege Kay PharmD Unavailable [phone] Reason for Visit * Reason Onset Date Comments Med Change Request Prior Authorization 07/14/2023 Encounter Details Date Type Department Care Team (Late st Contact Info) Description 07/14/2023 Refill [facility] MEDICINE [address] [place], [place] [phone] Name, MD Piero [address] [place] [address] Social History Tobacco Use Types Packs/Day Years [...] 3:48 PM EDT PA form generated for [employer]. Placed on pcp desk for review and signature to then be faxed to and scanned into chart under media. documented in this encounter Plan of Treatment Upcoming Encounters Date Type Department Care Team (Late st Contact Info) Description 09/29/2024 3:30 PM EDT Medication Management [facility] [address] [place], [place] [phone] Nadege Kay PharmD [address] [place] [address] documented as of this encounter Visit Diagnoses Not on filedocumented in this encounter Additional Health Concerns Assessment Noted Time PHQ-9 Depression Total Score: 0 08/27/19 23 4:06 PM EDT documented as of this encounter Care Teams Lumber Scaler Relationship Specialty Start Date End Date Name, MD Piero [address] [place], [place] [phone] PCP - General Family Medicine 11/28/17 Nadege Kay PharmD [address] [place], [place] [phone] Pharmacist Internal Medicine 05/20/24 documented as of this encounter
--- OUTSIDE RECORDS SUMMARY | 2024-09-09 13:16 | XMS_ITS | Encounter Summary ---
Author Organization [employer] Address [address] [facility] 7t [place] [address] Care Team Providers Care Commercial Credit Officer Name Role Phone Name, Piero MANLEY Primary Care Provider [phone] Nadege Kay PharmD Unavailable [phone] Reason for Visit * Reason Onset Date Comments Letter for School/Work 08/20/2023 Encounter Details Date Type Department Care Team ([facility] st Contact Info) Description 08/20/2023 Telephone [facility] MEDICINE 230 [place], [place] [phone] Name, MD Piero [address] [place], [place] [phone] Letter for School/Work Social History Tobacco Use [...] not accept excuse. Please contact pt at [phone] documented in this encounter Plan of Treatment Upcoming Encounters Date Type Department Care Team ([facility] st Contact Info) Description 09/29/2024 3:30 PM EDT Medication Management [facility] MEDICINE [address] [place] [address] Nadege Kay, PharmD [address] [place] [address] documented as of this encounter Visit Diagnoses Not on filedocumented in this encounter Additional Health Concerns Assessment Noted Time PHQ-9 Depression Total Score: 0 08/27/19 23 4:06 PM EDT documented as of this encounter Care Teams Commercial Credit Officer Relationship Specialty Start Date End Date Name, MD Piero [address] [place] [address] PCP - General Family Medicine 11/28/17 Nadege Kay PharmD [address] [place] [address] Pharmacist Internal Medicine 05/20/24 documented as of this encounter
--- OUTSIDE RECORDS SUMMARY | 2024-09-09 13:16 | XMS_ITS | Encounter Summary ---
Author Organization [employer] Address [address] [place] [address] 7t [place] [address] Care Team Providers Care Diet Clerk Name Role Phone Name, Piero MANLEY Primary Care Provider [phone] Nadege Kay PharmD Unavailable [phone] Reason for Visit * Reason Comments Med Refill Encounter Details Date Type Department Care Team ([facility] st Contact Info) Description 07/15/2024 Refill [facility] MEDICINE 230 [place], [place] [phone] Name, MD Piero 230 [place] [address] PE (physical exam), routine Social History Tobacco [...] Description 09/29/2024 3:30 PM EDT Medication Management [facility] MEDICINE 230 [place] [address] Nadege Kay PharmD [address] [place] [address] documented as of this encounter Visit Diagnoses Diagnosis PE (physical exam), routine documented in this encounter Additional Health Concerns Assessment Noted Time PHQ-9 Depression Total Score: 0 01/08/20 24 10:04 AM EDT documented as of this encounter Care Teams Diet Clerk Relationship Specialty Start Date End Date Name, MD Piero [address] [place] [address] PCP - General Family Medicine 11/28/17 Nadege Kay PharmD [address] [place] [address] Pharmacist Internal Medicine 05/20/24 documented as of this encounter
--- OUTSIDE RECORDS SUMMARY | 2024-09-09 13:16 | XMS_ITS | Encounter Summary ---
Author Organization [employer] Address [address] [facility] 7t [place] [address] Care Team Providers Care Record Press Supervisor Name Role Phone Name, Piero MANLEY Primary Care Provider [phone] Nadege Kay PharmD Unavailable [phone] Reason for Visit * Reason Onset Date Comments Med Refill 01/02/2024 Encounter Details Date Type Department Care Team (Late st Contact Info) Description 01/02/2024 Telephone [facility] MEDICINE 230 [place], [place] [phone] Name, MD Piero [address] [place] [address] Med Refill Social History Tobacco Use Types [...] 200 MG capsule To be sent to: [facility]/pharmacy #[id number] [place] [address] documented in this encounter Plan of Treatment Upcoming Encounters Date Type Department Care Team (Late st Contact Info) Description 09/29/2024 3:30 PM EDT Medication Management [facility] MEDICINE [address] [place] [address] Nadege Kay, PharmD [address] [place] [address] documented as of this encounter Visit Diagnoses Not on filedocumented in this encounter Additional Health Concerns Assessment Noted Time PHQ-9 Depression Total Score: 0 08/27/19 23 4:06 PM EDT documented as of this encounter Care Teams Record Press Supervisor Relationship Specialty Start Date End Date Name, MD Piero [address] [place] [address] PCP - General Family Medicine 11/28/17 Nadege Kay, Eros [address] [place] [phone] Pharmacist Internal Medicine 05/20/24 documented as of this encounter
--- OUTSIDE RECORDS SUMMARY | 2024-09-09 13:16 | XMS_ITS | Encounter Summary ---
Author Organization [employer] [facility] Address [address] [place] [address] 7t [place] [address] Care Team Providers Care Wirer Helper Name Role Phone Name, Piero MANLEY Primary Care Provider [phone] Nadege Kay PharmD Unavailable Encounter Details Date Type Department Care Team ([facility] Contact Info) Description 05/09/2022 Telephone [facility] MEDICINE [address] [place] [phone] Name, MD Piero [address] [place] [address] Social History Tobacco Use Types Packs/Day Years [...] Description 09/29/2024 3:30 PM EDT Medication Management [facility] MEDICINE [address] [place] [address] Nadege Kay, PharmD [address] [place] [address] documented as of this encounter Visit Diagnoses Not on filedocumented in this encounter Care Teams Wirer Helper Relationship Specialty Start Date End Date Piero Clarke, MD [address] [place] [address] PCP - General Family Medicine 11/28/17 Nadege Kay, SadieD [address] [place] [address] Pharmacist Internal Medicine 05/20/24 documented as of this encounter
--- OUTSIDE RECORDS SUMMARY | 2024-09-09 13:16 | XMS_ITS | Encounter Summary ---
Author Organization [employer] Address [address] [place] [address] 7 [place] [address] Care Team Providers Care Firm Administrator Name Role Phone Name, Piero MANLEY Primary Care Provider [phone] Nadege Kay PharmD Unavailable [phone] Reason for Visit * Reason Onset Date Comments Appointment Request 08/12/2024 Encounter Details Date Type Department Care Team ([facility] st Contact Info) Description 08/12/2024 Telephone [facility] [address] [place], [place] [phone] Name, MD Piero [address] [place] [address] Appointment Request Social History Tobacco Use Types [...] to reschedule appointment from 08/12/24 FOLLOW UP Certified Medical Transcriptionist unable to find a slot in schedule documented in this encounter Plan of Treatment Upcoming Encounters Date Type Department Care Team (Late st Contact Info) Description 09/29/2024 3:30 PM EDT Medication Management [facility] [address] [place] [address] Nadege Kay, PharmD 230 [place] [address] documented as of this encounter Visit Diagnoses Not on filedocumented in this encounter Additional Health Concerns Assessment Noted Time PHQ-9 Depression Total Score: 0 01/08/20 10:04 AM EDT documented as of this encounter Care Teams Firm Administrator Relationship Specialty Start Date End Date Name, MD Piero [address] [place] [address] PCP - General Family Medicine 11/28/17 Nadege Kay, SadieD [address] [place] [address] Pharmacist Internal Medicine 05/20/24 documented as of this encounter
--- OUTSIDE RECORDS SUMMARY | 2024-09-09 13:16 | XMS_ITS | Encounter Summary ---
Author Organization [employer] Address [address] [facility] 7t [place] [address] Care Team Providers Care Translator Name Role Phone Name, Piero MANLEY Primary Care Provider [phone] Nadege Kay PharmD Unavailable [phone] Reason for Visit * Reason Comments Med Refill Encounter Details Date Type Department Care Team (Late st Contact Info) Description 08/07/2024 Refill [facility] MEDICINE 230 [place], [place] [phone] Name, MD Piero 230 [place] [address] Type 2 diabetes mellitus with hyperglycemia, with long-term current use of insulin ([facility]); Hypertension, unspecified type Social History [...] Description 09/29/2024 3:30 PM EDT Medication Management [facility] MEDICINE [address] [place] [address] Nadege Kay PharmD [address] [place] [address] documented as of this encounter Visit Diagnoses Diagnosis Type 2 diabetes mellitus with hyperglycemia, with long-term current use of insulin ([facility]) Hypertension, unspecified type documented in this encounter Additional Health Concerns Assessment Noted Time PHQ-9 Depression Total Score: 0 01/08/20 24 10:04 AM EDT documented as of this encounter Care Teams Translator Relationship Specialty Start Date End Date Name, MD Piero [address] [place] [address] [phone] PCP - General Family Medicine 11/28/17 Nadege Kay PharmD [address] [place] [address] [phone] Pharmacist Internal Medicine 05/20/24 documented as of this encounter
--- OUTSIDE RECORDS SUMMARY | 2024-09-09 13:16 | XMS_ITS | Encounter Summary ---
Author Organization [employer] Address [address] [facility] 7 [place] [address] Care Team Providers Care Manager Inpatient Name Role Phone Name, Piero MANLEY Primary Care Provider [phone] Nadege Kay PharmD Unavailable [phone] Reason for Visit * Reason Comments Med Refill Encounter Details Date Type Department Care Team ([facility] st Contact Info) Description 03/09/2024 Refill [facility] MEDICINE 230 [place], [place] [phone] Name, MD Piero [address] [place] [address] Type 2 diabetes mellitus with hyperglycemia, with long-term current use of insulin ([facility]) Social History Tobacco Use Types [...] Description 09/29/2024 3:30 PM EDT Medication Management [facility] MEDICINE [address] [place] [address] Nadege Kay PharmD [address] [place] [address] documented as of this encounter Visit Diagnoses Diagnosis Type 2 diabetes mellitus with hyperglycemia, with long-term current use of insulin ([facility]) documented in this encounter Additional Health Concerns Assessment Noted Time PHQ-9 Depression Total Score: 0 01/08/20 24 10:04 AM EDT documented as of this encounter Care Teams Manager Inpatient Relationship Specialty Start Date End Date Name, MD Piero [address] [place], [place] [phone] PCP - General Family Medicine 11/28/17 Nadege Kay PharmD [address] [place] [address] Pharmacist Internal Medicine 05/20/24 documented as of this encounter
--- OUTSIDE RECORDS SUMMARY | 2024-09-09 13:16 | XMS_ITS | Encounter Summary ---
Author Organization [email or web address] Address [address] [place] [address] 7t [place] [address] Care Team Providers Care Equine Breeder Name Role Phone Name, Piero MANLEY Primary Care Provider [phone] Nadege Kay PharmD Unavailable [phone] Reason for Visit * Reason Onset Date Comments Nurse Triage 01/21/2023 Encounter Details Date Type Department Care Team ([facility] st Contact Info) Description 01/21/2023 Telephone [facility] MEDICINE 230 [place], [place] [phone] Name, MD Piero [address] [place] [address] Nurse Triage Social History Tobacco Use Types [...] reduce sugar/carb foods. Pt advised to seek [facility] for exam today or tomorrow [...] Description 09/29/2024 3:30 PM EDT Medication Management [facility] MEDICINE 230 [place], [place] [phone] Nadege Kay, PharmD [address] [place] [address] documented as of this encounter Visit Diagnoses Not on filedocumented in this encounter Additional Health Concerns Assessment Noted Time PHQ-9 Depression Total Score: 0 08/27/19 23 4:06 PM EDT documented as of this encounter Care Teams Equine Breeder Relationship Specialty Start Date End Date Name, MD Piero [address] [place] [address] PCP - General Family Medicine 11/28/17 Nadege Kay, Eros [address] [place] [address] Pharmacist Internal Medicine 05/20/24 documented as of this encounter
--- OUTSIDE RECORDS SUMMARY | 2024-09-09 13:16 | XMS_ITS | Encounter Summary ---
Author Organization [employer] Address [address] [place] [address] 7 [place] [address] Care Team Providers Care Secondary School Principal Name Role Phone Name, Pieor MANLEY Primary Care Provider [phone] Nadege Kay PharmD Unavailable [phone] Reason for Visit * Reason Comments Med Refill Encounter Details Date Type Department Care Team ([facility] st Contact Info) Description 07/14/2023 Refill [facility] MEDICINE [address] [place], [place] [phone] Name, MD Piero 230 [place] [address] Social History Tobacco Use Types Packs/Day Years [...] Description 09/29/2024 3:30 PM EDT Medication Management [facility]ICINE [address] [place] [address] Nadege Kay PharmD 230 [place] [address] documented as of this encounter Visit Diagnoses Not on filedocumented in this encounter Additional Health Concerns Assessment Noted Time PHQ-9 Depression Total Score: 0 08/27/19 23 4:06 PM EDT documented as of this encounter Care Teams Secondary School Principal Relationship Specialty Start Date End Date Name, MD Piero [address] [place] [address] PCP - General Family Medicine 11/28/17 Nadege Kay PharmD [address] [place] [address] Pharmacist Internal Medicine 05/20/24 documented as of this encounter
--- OUTSIDE RECORDS SUMMARY | 2024-09-09 13:16 | XMS_ITS | Encounter Summary ---
Author Organization [employer] Address [address] [place] [address] 7 [place] [address] Care Team Providers Care Computer Terminal Operator Name Role Phone Name, Piero MANLEY Primary Care Provider [phone] Nadege Kay PharmD Unavailable [phone] Reason for Visit * Reason Onset Date Comments Appointment Request 06/24/2024 Encounter Details Date Type Department Care Team ([facility] st Contact Info) Description 06/24/2024 Telephone [facility] MEDICINE 230 [place], [place] [phone] Name, MD Piero [address] [place] [address] Appointment Request Social History Tobacco Use Types [...] R/s Apt from 06/24/24. Contact pt at [phone] documented in this encounter Plan of Treatment Upcoming Encounters Date Type Department Care Team (Late st Contact Info) Description 09/29/2024 3:30 PM EDT Medication Management [facility] MEDICINE [address] [place] [address] Nadege Kay PharmD [address] [place] [address] documented as of this encounter Visit Diagnoses Not on filedocumented in this encounter Additional Health Concerns Assessment Noted Time PHQ-9 Depression Total Score: 0 01/08/20 24 10:04 AM EDT documented as of this encounter Care Teams Computer Terminal Operator Relationship Specialty Start Date End Date Name, MD Piero [address] [place] [address] PCP - General Family Medicine 11/28/17 Nadege Kay, PharmD [address] [place] [phone] Pharmacist Internal Medicine 05/20/24 documented as of this encounter
--- OUTSIDE RECORDS SUMMARY | 2024-09-09 13:16 | XMS_ITS | Encounter Summary ---
Author Organization [employer] Address [address] [facility] 7t [place] [address] Care Team Providers Care Barkeeper Name Role Phone Name, Piero MANLEY Primary Care Provider [phone] Nadege Kay PharmD Unavailable Encounter Details Date Type Department Care Team ([facility] st Contact Info) Description 04/23/[address] [facility] [address] [place] [address] Tonia Pagan LPN Social History Tobacco Use [...] Description 09/29/2024 3:30 PM EDT Medication Management [facility] MEDICINE [address] [place] [address] Nadege Kay PharmD [address] [place] [address] documented as of this encounter Visit Diagnoses Not on filedocumented in this encounter Additional Health Concerns Assessment Noted Time PHQ-9 Depression Total Score: 0 08/27/19 23 4:06 PM EDT documented as of this encounter Care Teams Barkeeper Relationship Specialty Start Date End Date Name, MD Piero [address] [place] [address] PCP - General Family Medicine 11/28/17 Nadege Kay PharmD [address] [place] [address] Pharmacist Internal Medicine 05/20/24 documented as of this encounter
--- OUTSIDE RECORDS SUMMARY | 2024-09-09 13:16 | XMS_ITS | Clinical Summary ---
Author Organization [employer] Address [address] [place] [address] 7[address] [place] [address] Care Team Providers Care Technology Intern Name Role Phone Name, Piero MANLEY Primary Care Provider [phone] Nadege Kay PharmD Unavailable [phone] Allergies Active Allergy Reactions Criticality Noted Date Comments Aspirin Hives,Rash Low 04/29/2018 Biotin Rash Low 05/20/2024 Dulaglutide Nausea,Vomiting Low 02/24/2019 Penicillin G Hives,Rash Low 04/21/2002 Other reaction(s): Hives Medications * This document contains information received from the source organization and may not represent a complete record from that organization. Blood Pressure kit Use daily Active metFORMIN XR (Glucophage-XR) 500 MG 24 hr tabletIndicatio ns:Type 2 diabetes mellitus with hyperglycemia, with long-term current use of insulin (CMS/HCC) Take 1 tablet (500 mg) by mouth with evening meal. Do not crush, chew, or split. 30 tablet 05/20/19 25 026 Active Continuous Glucose Docking Saw Operator (FreeStyle Jacobo 3 [place]) deviceIndicatio ns:Type 2 diabetes mellitus with hyperglycemia, with long-term current use of insulin (CMS/HCC) 1 each 3 times daily. Use daily as directed for CGM 1 each 05/20/19 25 Active Continuous Glucose Sensor (FreeStyle Jacobo 3 Plus Sensor) miscIndications :Type 2 diabetes mellitus with hyperglycemia, with long-term current use of insulin (CMS/HCC) 1 each Once per day. Apply 1 sensor every 15 days as directed for CGM 2 each 05/20/19 25 Active glucose blood (FreeStyle Precision Allan Test) test stripIndication s:Type 2 diabetes mellitus with hyperglycemia, with long-term current use of insulin (CMS/HCC) Use to test blood sugar up to 3 times daily, as directed 100 each 05/20/19 25 Active TRUEplus Lancets 33G miscIndications :Type 2 diabetes mellitus with hyperglycemia, with long-term current use of insulin (CMS/HCC) Use to test blood sugar 3 time(s) daily, as directed 100 each 05/20/19 25 Active Alcohol Swabs (Alcohol Prep) padsIndications :Type 2 diabetes mellitus with hyperglycemia, with long-term current use of insulin (CMS/HCC) Use as directed 4x daily prior to insulin injection 200 each 05/20/19 25 Active atorvastatin (Lipitor) 20 MG tabletIndicatio ns:Type 2 diabetes mellitus with hyperglycemia, with long-term current use of insulin (CMS/HCC) Take 1 tablet (20 mg) by mouth Once per day. 90 tablet 05/20/19 25 Active insulin glargine (Lantus SoloStar) 100 UNIT/ML penIndications: Type 2 diabetes mellitus with hyperglycemia, with long-term current use of insulin (CMS/HCC) Inject 25 Units under the skin at bedtime. 15 mL 05/20/19 25 Active Multiple Vitamins-Minera ls (Hair Skin & Nails) tablet Take 1 tablet by mouth Once per day. OTC Active celecoxib (CeleBREX) 200 MG capsule Take 200 mg by mouth if needed in the morning and at bedtime for mild pain. Active loratadine (Claritin) 10 MG tabletIndicatio ns:Allergic rhinitis, unspecified seasonality, unspecified trigger Take 1 tablet (10 mg) by mouth in the morning. 90 tablet 07/27/19 25 Active insulin pen needle 32G x 4 mm misc Use to inject insulin 1 time daily 100 each 07/27/19 25 Active semaglutide (Ozempic, 1 MG/DOSE,) 4 MG/3ML solution pen-injectorInd ications:Type 2 Diabetes Mellitus Inject 1 mg under the skin 1 (one) time per week. 3 mL 09/02/19 25 Active losartan (Cozaar) 50 MG tabletIndicatio ns:Type 2 diabetes mellitus with hyperglycemia, with long-term current use of insulin (CMS/HCC),Hyper tension, unspecified type Take 1 tablet (50 mg) by mouth Once per day. 90 tablet 09/02/19 25 Active Semaglutide, 2 MG/DOSE, (Ozempic, 2 MG/DOSE,) 8 MG/3ML solution pen-injector Inject 0.75 mL (2 mg) under the skin 1 (one) time per week. 3 mL 07/23/19 025 Discontinued(Re order (will not trigger notification to Pharmacy)) losartan (Cozaar) 25 MG tabletIndicatio ns:Type 2 diabetes mellitus with hyperglycemia, with long-term current use of insulin (CMS/HCC),Hyper tension, unspecified type Take 1 tablet (25 mg) by mouth Once per day. 90 tablet 07/23/19 025 Discontinued(Re order (will not trigger notification to Pharmacy)) losartan (Cozaar) 25 MG tabletIndicatio ns:Type 2 diabetes mellitus with hyperglycemia, with long-term current use of insulin (CMS/HCC),Hyper tension, unspecified type Take 1 tablet (25 mg) by mouth Once per day. 90 tablet 09/01/19 025 Discontinued(Re order (will not trigger notification to Pharmacy)) Semaglutide, 2 MG/DOSE, (Ozempic, 2 MG/DOSE,) 8 MG/3ML solution pen-injectorInd ications:Type 2 diabetes mellitus with hyperglycemia, with long-term current use of insulin (CMS/HCC) Inject 0.75 mL (2 mg) under the skin 1 (one) time per week. 3 mL 09/01/19 025 Discontinued(Si de effects) Active Problems Patient Care Coordination No te Formatting of this note migh t be different from the original. Name, , address verified; this CHW called pt to introduce care complex program. Patient declined since she moved out of the geographic area, Case will be closed from C3 program. Problem Noted Date Diagnosed Date History of uterine fibroid 06/02/2024 Overview (06/02/2024): [address] [address] Ultrasound Report Signed Patient: RudyDora Del Cid MR#: [id number] : 1985 Acct:[id number] Age/Sex: 39 / F ADM Date: 06/02/24 Loc: .US Attending Dr: Hillary GALE Ordering Physician: Hillary Pastrana Date of Service: 06/02/24 Procedure(s): US pelvic complete Accession Number(s): [id number] cc: Name,Piero MANLEY; Hillary Pastrana EXAMINATION: US [...] discuss hormonal treatment plan or referral to STATISTICAL MACHINE SERVICER to revisit surgical options if interested. Normal pelvic exam 05/13/2024 Anxiety 08/19/2023 Assessment & Plan (08/19/2023 7:06 PM EDT): Sig stress at work, has permission from work for [employer] time., will complete paperwork. Referral to behavioral [...] Encounters Date Type Department Care Team Description 09/01/2024 3:30 PM EDT Telemedicine [facility] [address] [place] [phone] PuiaNadege PharmD Menorrhagia with regular cycle (Primary Dx); Type 2 diabetes mellitus with hyperglycemia, with long-term current use of insulin ([facility]); Hypertension, unspecified type 08/26/2024 Orders Only GENERIC EXTERNAL DATA DEPARTMENT Provider, Generic External Data 08/12/2024 Telephone [facility] [address] [place] [address] Piero Clarke MD Appointment Request 08/07/2024 Refill [facility] [address] [place] [address] Piero Clarke MD Type 2 diabetes mellitus with hyperglycemia, with long-term current use of insulin ([facility]); Hypertension, unspecified type 08/05/2024 Telephone [facility] [address] [place] [address] Shauna العلي [place] appt change 07/26/2024 Refill [facility] [address] [place] [address] Nadege Kay PharmD Allergic rhinitis, unspecified seasonality, unspecified trigger (Primary Dx) 07/26/2024 Travel 07/22/2024 Travel 07/15/2024 Refill [facility] [address] [place] [address] Piero Clarke MD PE (physical exam), routine 07/08/2024 Orders Only [facility] [address] [place] [address] Piero Clarke MD 07/02/2024 Population Health Risk [facility] ([facility]) Department [address] [place] [phone] Provider, Population Health Generic 06/24/2024 Telephone [facility] [address] [place] [address] Piero Clarke MD Appointment Request from Last 3 Months Immunizations Immunization Administration Dates Next Due Hep B, adult [...] Sign Reading Time Taken Comments Blood Pressure 123/83 09/01/2024 4:29 PM EDT daren e BPM Pulse 103 09/01/2024 4:29 PM EDT Temperature 36.6 ??C (97.8 ??F) 05/12/2024 11:06 [...] Description 09/29/2024 3:30 PM EDT Medication Management [facility] [address] [place], [place] [phone] Nadege Kay, PharmD [address] [place], [place] [phone] Health Maintenance Due Date Last Done Comments HIV Screening 1985 Disability Screening 1985 Family Planning (PISQ) 1999 Hepatitis C Screening 2002 COVID-19 Vaccine ( season) 2023 11/30/2021, 01/23/2021, 01/02/2021 Hepatitis B Vaccines (3 of 3 - 19+ 3-dose series) 07/19/2024 05/24/2024, 01/08/2024 Diabetes: Hemoglobin A1C 10/21/2024 04/2 025, 04/16/2024, 01/08/2024, Additional history exists Alcohol/Substance Use Screening 01/07/2025 01/08/2024 Depression Screening 01/07/2025 01/08/2024, 01/08/20 24 SDOH Screening 01/07/2025 01/08/2024 Eye Exam 01/28/2025 01/29/2024, 01/19, 01/29/2024, Additional history exists Diabetes: Urine Protein Screening 04/08/2025 04/08/2024, 08/29/2022, 04/05/2021 Lipid Panel 04/08/2025 04/08/2024, 05/1 04/2022, 04/05/2021 Diabetes: Foot Exam 04/16/2025 04/16/2024, 04/16/2024, [...] patient's age to complete this topic Meningococcal B Vaccine Aged Out No l onger eligible based on patient's age to complete [...] Procedure Name Priority Date/Time Associated Diagnosis Comments GROSS AND MICROSCOPIC LEVEL 3 Routine 08/26/2024 1:45 PM EDT POCT GLYCATED HEMOGLOBIN, TOTAL Routine 07/22/2024 4:33 PM EDT Type 2 diabetes mellitus with hyperglycemia, with long-term current use of insulin ([facility]) BI US BREAST LIMITED LEFT Routine 07/08/2024 2:12 PM EDT BI MAMMOGRAM DIAGNOSTIC TOMOSYNTHESIS ADDED VIEW LEFT Routine 07/08/2024 1:50 PM EDT HPV DNA, LOW/HIGH RISK Routine 11:54 AM EST PAP SMEAR Routine 05/12/2024 11:54 AM EST Routine cervical smear ALBUMIN, RANDOM URINE W/CREATININE Routine 04/08/2024 9:12 AM EST Type 2 diabetes mellitus with hyperglycemia, with long-term current use of insulin ([facility]) LIPID PANEL, STANDARD Routine 04/08/2024 9:12 AM EST Type 2 diabetes mellitus with hyperglycemia, with long-term current use of insulin ([facility]) from Last 3 Months or Most Recently Relevant to Health Maintenance Results * Gross and Microscopic Level 3 (08/26/2024 1:45 PM EDT) 08/26/2024 1:45 PM EDT 08/27/2024 8:37 AM EDT [facility] - 08/30/2024 1:28 PM EDT ----- ------- Name: Dora Caal ?Age/Sex: 39/F ? : 1985 Unit#: [id number] ?? Attend Dr: Matteo Grijalva MD ?Re08/26/24 ?Status: DEP REF ? Location: HO.LNP ?Disch: ? ----- ------- SPEC : [id number] ? RECD: 08/27/24 ? STATUS: ??SOUT ? REQ NUM: [id number] ? KAREN: 08/26/24-1149 ? SUBM DR: Matteo Grijalva MD ? ENTERED: ??08/27/24 ?SP TYPE: Surgical ? OTHR : NamePiero MD ? ORDERED: ??Gross Micro L3 ? Diagnosis ?? Soft tissue, right hip, excision: ?? -Mature lobular adipose tissue consistent with lipoma. ?? -Benign skin with no specific change. ?Clinical History Rr. hip - lipoma ?Microscopic Description Microscopic sections reviewed. ? Material Received ?? Rt. hip - lipoma ? Gross Description Received in formalin labeled ?right hip-lipoma? is an oval mass of lobulated yellow adipose tissue measuring 4.7 x 3.5 x 2.5 cm. ??The specimen is partially encapsulated by paper thin transparent membrane. ??The specimen is covered on 1 surface by hall-white skin measuring 2.0 x 1.4 cm. ??The outer surface is inked blue. ??Sectioning reveals a smooth, moist homogeneous yellow-white cut surface with no gross evidence of fat necrosis seen. ??No nodules or cysts are identified. ??Workforce Development Specialist sections are submitted for microscopic examination in cassettes A1 and A2, 2 pieces each. ??([facility]) Copies To: ?? Matteo Grijalva MD ?? [facility] ?? [address] ?? [place] [address] ?? [phone] ?? Name,Piero MANLEY ?? [address] ?? [place] [address] ?? [phone] ----- ------- Signed (signature on file) Rhonda [place] 08/30/24 1328 ? ----- ------- ? END OF REPORT ? us Generic External Data Provider LAB CYTOLOGY ORDE RABLES Final Result [facility] [address] [place] [address] [phone] * (ABNORMAL) POCT HGB A1C (07/22/2024 4:33 PM EDT) Hemoglobin A1C 9.3(A) 4.0 - 6.0 % Blood 07/22/2024 4:33 PM EDT us Piero Name MD POINT OF CARE TEST ENTER/EDIT OR DERABLES Final Result * BI US Breast Limited Left (07/08/2024 2:12 PM EDT) Anatomical Region Laterality Modality Breast Left Ultrasound 07/08/2024 2:12 PM EDT Narrative 07/08/2024 2:37 PM EDT ? [facility] ? [address] ?[place] [address] ? Ultrasound Report ? Signed ? Patient: Dora Caal ?MR#: ?? [id number] ? : 1985 ?Acct:[id number] ? Age/Sex: 39 / F ?ADM Date: 07/08/24 ? Loc: HO.MAMMO ? Attending Dr: Peiro Clarke MD ? Ordering Physician: Piero Clarke MD ?? Date of Service: 07/08/24 ?? Procedure(s): US breast LT limited mamm only ?? Accession Number(s): [id number] ? cc: Piero Clarke MD ? EXAMINATION: [...] DD/ 1412 ? TD/TT: 07/08/24 1430 ? Mercerizing Range Feeder: ? Procedure Note Malena, Issac - 07/08/2024 [place] [facility] [address] [place] [address] Ultrasound Report Signed Patient: Angelique Caal#: [id number] : 1985Acct:[id number] Age/Sex: 39 / FADM Date: 07/08/24 Loc: HO.MAMMO Attending Dr: Piero Clarke MD Ordering Physician: Piero Clarke MD Date of Service: 07/08/24 Procedure(s): US breast LT limited mamm only Accession Number(s): [id number] cc: Piero Clarke MD EXAMINATION: MM DIAGNOSTIC [...] 07/08/24 1434 DD/ 1412 TD/TT: 07/08/24 1430 Mercerizing Range Feeder: us Piero Name MD RINALDI US PROCEDURES Final Result * BI Mammogram Diagnostic Tomosynthesis added left (07/08/2024 1:50 PM EDT) Anatomical Region Laterality Modality Breast Left Mammography 07/08/2024 1:50 PM EDT Narrative 07/08/2024 2:38 PM EDT ? [facility] ? [address] ?[place] [address] ?[phone] ? Mammography Report ? Signed ? Patient: Dora Caal ?MR#: ?? [id number] ? : 1985 ?Acct:[id number] ? Age/Sex: 39 / F ?ADM Date: 03/20/25 ? Loc: HO.MAMMO ? Attending Dr: Piero Clarke MD ? Ordering Physician: Piero Clarke MD ?Results: 2Benign Fi ?? ndings ? Date of Service: 07/08/24 ?Follow Up: 1 Year From Orig ?? inal Mammogram ? Procedure(s): MM tomosynthesis added views L ?? Accession Number(s): [id number] ? cc: Vince,Piero MANLEY ? EXAMINATION: ?? MM DIAGNOSTIC DIGITAL [...] DD/ 1350 ? TD/TT: 07/08/24 1405 ? Mercerizing Range Feeder: ? Procedure Note Donmegha, Image - 07/08/2024 [facility] [address] [place] [address] Mammography Report Signed Patient: Ronel CaalR#: [id number] : 1985Acct:[id number] Age/Sex: 39 / FADM Date: 07/08/24 Loc: HO.MAMMO Attending Dr: Piero Clarke MD Ordering Physician: Piero Clarke MDResults: 2Benign Fi ndings Date of Service: 07/08/24Follow Up: 1 Year From Orig inal Mammogram Procedure(s): MM tomosynthesis added views L Accession Number(s): [id number] cc: Piero Clarke MD EXAMINATION: MM DIAGNOSTIC [...] 07/08/24 1434 DD/ 1350 TD/TT: 07/08/24 1405 Mercerizing Range Feeder: us Piero Name IMGregorio BI PROCEDURES Final Result * HPV DNA, Low/High Risk (05/12/2024 11:54 AM EST) HPV High Risk Negative Negative [facility] HPV Genotype 16 Negative Negative [facility] HPV Genotype 18 Negative Negative [facility] Comment:HPV testing performe d at [facility] (CLIA#[id number]), [address] [place] [address].Testing for HPV was performed using the [employer]system. The presence of HPV in the female [...] GALE LAB BLOOD ORDERABLES Final Res ult [facility] [address] [place] [phone] * Pap Smear (05/12/2024 11:54 AM EST) Swab Cervix uteri structure / Unknown 05/12/2024 11:54 AM EST 05/12/2024 2:00 PM EST Narrative [facility] - 05/18/2024 10:18 AM EST ----- ------- Name: Dora Caal ?Age/Sex: 39/F ? : 1985 Unit#: [id number] ?? Attend Hillary Ivory ?Re05/12/24 ?Status: DEP REF ? Location: HO.HHCLNP ? Disch: ? ----- ------- SPEC : [id number] ? RECD: 05/12/24-1400 ? STATUS: ??SOUT ? REQ NUM: [id number] ? KAREN: 05/12/24-1154 ? SUBM DR: Hillary Pastrana PLASTIC JIG AND FIXTURE BUILDER ? ENTERED: ??05/12/24-1410 ?SP TYPE: Pap Smr [...] ? END OF REPORT ? Hillary Pastrana PLASTIC JIG AND FIXTURE BUILDER LAB CYTOLOGY ORDERABLES Final Result Performing Organization Address [facility] de Phone Number [facility] [address] [place], [place] [phone] * Albumin, Random Urine W/Creatinine (04/08/2024 9:12 AM EST) Creatinine, Urine 213.37 mg/dL [facility] Microalbumin Urine 14.0 mg/L [facility] Microalbum Creatinine Ratio Ur 6.5 <30 ug/mg cr [facility] Comment:Albumin/Creatinine R atio Reference Ranges: Normal: < 30 ug/mg creatinine Microalbuminuria: 30 - 300 ug/mg creatinineClinical Albuminuria: > 300 ug/mg creatinine Urine (Urine, Random) 04/08/2024 9:12 AM EST 04/08/2024 11:24 AM EST Piero Clarke MD LAB URINE ORDERABLES Final Resul t Performing Organization Address [facility] Co de Phone Number [facility] [address] [place] [address] [phone] * Lipid Panel, Standard (04/08/2024 9:12 AM EST) Triglycerides 101 <150 mg/dL [facility] Comment:Desirable Triglyceri de: less than 150 mg/dLBorderline High Triglyceride 150-199 mg/dLHigh Triglyceride: 200-499 mg/dLVery High Triglyceride: greater than or equal to 5OO mg/dL Cholesterol 146 <200 mg/dL [facility] Comment:Desirable Cholestero l: less than 200 mg/dLBorderline High Cholesterol: 200-239 mg/dLHigh Cholesterol: greater than 239 mg/dL LDL Cholesterol Calculated 85 <100 mg/dL [facility] Comment:Desirable LDL: less than 100 mg/dLNear Optimal/Above Optimal LDL: 110- 129 mg/dLBorderline High LDL: 130-159 mg/dLHigh LDL: 160-189 mg/dLVery High LDL: greater than or equal to 190 mg/dL HDL Cholesterol 41 >40 mg/dL [facility] Comment:Desirable HDL: great er than 40 mg/dL Note: This HDL assay may give artificially low results in patients with liver disease. Blood Venous blood specimen / Unknown 04/08/2024 9:12 AM EST 04/08/2024 11:15 AM EST us Piero Name LAB BLOOD ORDERABLES Final Resul t [facility] [address] [place] [phone] from Last 3 Months or Most Recently Relevant to Health [place] [address] [place] [address] C3 Care Teams Technology Intern Relationship Specialty Start Date End Date Name, MD Piero [address] [place] [phone] PCP - General Family Medicine 11/28/17 Nadege Kay, SadieD [address] [place] [phone] Pharmacist Internal Medicine 05/20/24
[2024-09-09 13:21] VITALS: BP 124/72; PULSE 72; BMI 40.4
== END 2024-09-09 13:24 | disposition home or self-care (01) ==
LOC: HO.HGS 13:12
PROVIDERS: PCP Internal Medicine Geriatric Medicine; Visit Provider Surgery
DX: R22.9 Localized swelling, mass and lump, unspecified (principal)
CPT/HCPCS: 99024

== ENCOUNTER → 2024-09-09 13:11 | Outpatient (BNVA) | payer MEDICAID, SELFPAY | PROVIDERS: PCP Internal Medicine Geriatric Medicine; Visit Provider Surgery | DX: Z09 Encounter for follow-up examination after completed treatment for conditions other than malignant neoplasm (principal); Z87.2 Personal history of diseases of the skin and subcutaneous tissue | CPT/HCPCS: 99212 ==

== ENCOUNTER 2024-09-27 08:24 | Outpatient (AMB) | payer MEDICAID, SELFPAY ==
--- OUTSIDE RECORDS SUMMARY | 2024-09-27 08:30 | XMS_ITS | Encounter Summary ---
Author Organization [employer] Address [address] [place] [address] [address] [place] [address] Care Team Providers Care Law Clerk Name Role Phone Name, Piero MANLEY Primary Care Provider [phone] Nadege Kay PharmD Unavailable [phone] Reason for Visit * Reason Onset Date Comments Nurse Triage 01/21/2023 Encounter Details Date Type Department Care Team ([facility] st Contact Info) Description 01/21/2023 Telephone [facility] [address] [place], [place] [phone] Name, MD Piero [address] [place] [address] Nurse Triage Social History Tobacco Use Types [...] reduce sugar/carb foods. Pt advised to seek [facility] for exam today or tomorrow if [...] 3:30 PM EDT Medication Management [facility] [address] [place], [place] [phone] Nadege Kay, PharmD [address] [place] [address] documented as of this encounter Visit Diagnoses Not on filedocumented in this encounter Additional Health Concerns Assessment Noted Time PHQ-9 Depression Total Score: 0 08/27/19 23 4:06 PM EDT documented as of this encounter Care Teams Law Clerk Relationship Specialty Start Date End Date Name, MD Piero [address] [place] [address] PCP - General Family Medicine 11/28/17 Nadege Kay, Eros [address] [place] [address] Pharmacist Internal Medicine 05/20/24 documented as of this encounter
--- NOTE | 2024-09-27 11:16 | MHC.OFFVISWM ---
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* Slurry Tank Operator Required: Yes Slurry Tank Operator Services: Slurry Tank Operator Present Information Interpreted: clinical only Allergies aspirin [ASA] Allergy (Mild, Verified 09/27/24 11:20) RASH Medication List - Last Reconciled 09/27/24 by Seth Bhagat MD ibuprofen 600 mg PO Q8H PRN insulin glargine (Lantus Solostar U-100 Insulin) 10 units subcut BID lidocaine 5% (Lidoderm) 1 patch topical DAILY metformin 1,000 mg PO DAILY semaglutide (Ozempic) 1 mg subcut QWEEK HPI HPI 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*: Details: Start time: 11.15am, End time: 12pm ?I spent 40 minutes speaking with the patient on the phone plus an additional 5 minutes reviewing and updating records for a total of 45 minutes HPI Comments Details: Previous weight loss efforts: WMP program (lost 7lbs), Ozempic presently: lost 10lbs Wakes up: 5am, Sleeps: 9.30pm Breakfast: none Lunch: 12pm (meat, chicken, salad) Dinner: 5pm (same as dinner, can of beats) Snacks: 3pm Protein shakes (Glucerna), 7pm (fruits, or Nutrigen protein bar) Exercise: Has home treadmill Beverages: Coffee (1 cup/d with Splenda and almond milk), Tea: Tita tea, Soda: none, juice: none, ETOH: none PFSH Medical History Subcutaneous mass Vitamin B12 deficiency Obesity Neuropathy Depression Insulin dependent diabetes mellitus Morbid obesity Surgical History H/O tubal ligation Hx of cholecystectomy Hx of section Family History Mother No problems noted. Father No problems noted. Brother No problems noted. Brother No problems noted. Brother No problems noted. Brother No problems noted. Brother No problems noted. Sister No problems noted. Sister No problems noted. Sister No problems noted. Son No problems noted. Daughter No problems noted. Daughter Asthma Social History Alcohol intake: never Current occupational status: unemployed Current occupation: stylist - Right Handed Female Reproductive History Menstrual Age of Menarche: 11 Telehealth Telehealth Telehealth Platform: Telephone Location of provider rendering services: practice address Location of patient: address on file Patient Identification confirmed using: Name, : Yes Telehealth method: voice only Patient verbally consented to treatment: Yes Patient verbally consented to billing insurance company: Yes Patient informed of any privacy concerns related to visit: Yes Minutes spent on Phone/Video with Pt.: 45 Assessment & Plan Assessment & Plan (1) Morbid obesity: Code(s): E66.01 - Morbid (severe) obesity due to excess calories Category: Medical Plan: 1.? Plan for lap sleeve gastrectomy. If diaphragmatic or ventral hernias are present at time of surgery, these will be repaired laparoscopically as well. I emphasized the importance of close follow-up, adherence to instructions and good communication. The surgery does not replace the need to change your lifestlyle which is the cause of the obesity problem. The surgery provides the motivation to try again to change your lifestyle, it reduces the appetite and make the transition to a better lifestyle easier and doubles the amount of weight you would lose compared to doing the lifestyle change without the surgery. You will need to be on a liquid diet with protein shakes for 2 weeks before surgery to maximize weight loss and boost your nutritional status to recover better from surgery and also for the first two weeks after surgery to let the stomach heal before we introduce other foods. After the first 2 weeks we will introduce protein bars and soft foods like scrambled eggs, cottage cheese and yogurt and after the 6th week will introduce meat, fish and cooked vegetables in small amounts. Over time you should be able to eat everything in small amounts. Side effects like nausea, vomiting, heartburn or abdominal pain are not common in the practice unless you are not following in the practice. This operation requires lifetime commitment to following in our practice and communication with me. You will much less weight and experience side effects if you don?t communicate or not following in the practice. Complications are rare and in our practice is about 1/10 of the national average. However, you can develop bleeding that may require transfusion (hasn?t happened for year in the practice), you may from complications (we did not have any deaths in the practice) and infections. Infections are usually a result of breakdown in communication or not understanding or following directions correctly. They are difficult to treat, they can happen during the first 6 weeks, they may require to be in the hospital for weeks or even months, not being able to eat by mouth and you may have drains and surgeries to try and correct the issue. Other risks and complications include possible conversion to an open procedure, leaks, small bowel obstruction, blood clots, cardiac, or pulmonary complications, as snf complications such as ulcers, insufficient weight loss and vitamin deficiencies. 2.? Nutritional counseling. Start with one premade PREMIER protein (buy at [employer] or [employer] ) shake (mix 4oz of Premier shake mixed with 4oz low fat unsweetened almond milk each) at 6am-8am, 1 protein bar (Fit Crunch protein bar, buy at [employer] or [employer]) at 9am-11am, another premade PREMIER protein (buy at [employer], [employer] or [employer] ) shake (mix 4oz of Premier shake mixed with 4oz low fat unsweetened almond milk each) at 12pm-2pm, another Fit Crunch protein bar at 3pm-5pm, dinner at 6pm (8 forks of protein and 8 forks of salad/vegetables), another HALF [employer] Crunch protein bar at 8pm-9pm. So you do 2 protein shakes, 2.5 protein bars and one meal per day. Meal to include lean meat (beef, fish, pork, turkey, chicken), or qatari yogurt, or egg whites, or beans with a salad with olive oil and fruits (berries, pears, apples, kiwi). Avoid salt, breads, potatoes, rice, pasta, desserts. 3. Each shake would be drunk slowly, like coffee in a period of 2 hours. 4. Cut each bar in 4 pieces and eat each piece in 30min ?to make each bar last 2 hours. 5. I emphasized the importance of measuring accurately the food portion and measure it when serving the food in plate 6. The meal portions include 10 full-size forks of meat and 10 full-size forks of salad. You always eat the meat portion but you can replace up to 5 forks for salad/vegetables with rice, potatoes or pasta, or a fruit ?if you like. The less you do it the better weight loss will be. 7. One full-size fork is what it can be scooped on the fork without falling aside and not what can be bit with the fork. Use regular forks like those you find in a typical restaurant. 8.? Please buy the body composition scale we discussed and send me weight measurements as soon as possible and then once a week. Always include your diet and exercise plan. 9. Start treadmill with an incline of 2.0 and speed of 3.0. Increase incline by 1 every 3 min to a max incline of 8.0, stay 3min at 8.0 and then return to 2.0 and repeat same steps until calorie goal is met. Goal is to burn 2000 calories per week on exercise, which means either 300 calories daily. 10.?It is important of avoiding and for at least 18 months postoperatively and has been discussed at the infosession. 11. Goal is to lose at least 1.5-2lbs per week 12. Goal to lose 10% of your weight before surgery, which is about 24lbs. Ultimate weight goal: 217lbs before surgery 13. Please follow the diet plan exactly without any change. If you don't like something about the plan or you feel hungry you need to communicate with me so I can help you revise the plan. You should not change the plan yourself 14. To be scheduled for EGD to assess the stomach's anatomy. The possibility of biopsies was discussed. Patient needs to avoid use of NSAIDs and aspirin for 1 week prior to EGD. You must be on liquids only the day before your endoscopy. Risks of perforation and bleeding was discussed with the patient. This will be an outpatient procedure with IV sedation. Orders: Orders Insulin Today E66.01 - Morbid (severe) obesity due to excess calories H Pylori Breath Test Today E66.01 - Morbid (severe) obesity due to excess calories Lipid Panel Today E66.01 - Morbid (severe) obesity due to excess calories IRON PROFILE Today E66.01 - Morbid (severe) obesity due to excess calories C Reactive Protein Today E66.01 - Morbid (severe) obesity due to excess calories Vitamin B1 Today E66.01 - Morbid (severe) obesity due to excess calories Vitamin A Today E66.01 - Morbid (severe) obesity due to excess calories TSH reflex Free T4 Today E66.01 - Morbid (severe) obesity due to excess calories US abdomen comp w elastography Today E66.01 - Morbid (severe) obesity due to excess calories ECG 12 lead EKG Today E66.01 - Morbid (severe) obesity due to excess calories Hemoglobin A1c Today E66.01 - Morbid (severe) obesity due to excess calories Complete Blood Count Auto Diff Today E66.01 - Morbid (severe) obesity due to excess calories Comprehensive Met. Panel Today E66.01 - Morbid (severe) obesity due to excess calories Vitamin B12 and Folate Today E66.01 - Morbid (severe) obesity due to excess calories Zinc Today E66.01 - Morbid (severe) obesity due to excess calories Ferritin Today E66.01 - Morbid (severe) obesity due to excess calories Vitamin D 25-OH Total Today E66.01 - Morbid (severe) obesity due to excess calories XR chest 2V Today E66.01 - Morbid (severe) obesity due to excess calories FL upper GI w air Today E66.01 - Morbid (severe) obesity due to excess calories Referrals Nutrition/Dietitian Referral E66.01 - Morbid (severe) obesity due to excess calories Behavioral Health Referral E66.01 - Morbid (severe) obesity due to excess calories
[2024-09-27 11:36] VITALS: BMI 40.1
== END 2024-09-27 12:00 | disposition home or self-care (01) ==
LOC: HO.HBS 08:24
PROVIDERS: PCP Internal Medicine Geriatric Medicine; Visit Provider Surgery
DX: E66.01 Morbid (severe) obesity due to excess calories (principal); Z68.41 Body mass index [BMI] 40.0-44.9, adult
CPT/HCPCS: 99204

== ENCOUNTER → 2024-09-27 08:24 | Outpatient (BNVA) | payer MEDICAID, SELFPAY | PROVIDERS: PCP Internal Medicine Geriatric Medicine; Visit Provider Surgery ==

== ENCOUNTER 2024-09-28 09:44 | Outpatient (REF) | payer MEDICAID, SELFPAY ==
--- NOTE | ~2024-09-28 | XR_ITS ---
CLINICAL HISTORY: E66.01 - Morbid (severe) obesity due to excess calories 2 view chest x-ray Comparison: None Findings: No consolidation or effusion. Heart size is normal. No acute fracture. IMPRESSION: 1. No acute findings. This document has been electronically signed by: Abdirizak Mayer MD on 09/28/2024 15:30:08
--- NOTE | 2024-09-28 09:55 | ECG_ITS ---
Test Reason : obesity Blood Pressure : */* mmHG Vent. Rate : 84 BPM Atrial Rate : 84 BPM P-R Int : 144 ms QRS Dur : 96 ms QT Int : 376 ms P-R-T Axes : 31 18 10 degrees QTcB Int : 444 ms Normal sinus rhythm Normal ECG When compared with ECG of 14-Feb-2019 15:15, No significant change was found Referred By: Seth Bhagat Electronically Signed By: ELVIN RIOS MD
[2024-09-28 10:14] LABS: MANUAL DIFF FLAG NO
[2024-09-28 10:50] LABS: Basophils Percent Auto 0.5 % (0-2); Eosinophils Absolute Auto 0.2 X10*3/uL (0.0-0.4); Eosinophils Percent Auto 2.6 % (0-4); Hematocrit 37.3 % (37.0-47.0); Hemoglobin 12.2 g/dl (12.0-16.0); Imm Gran Abs Auto 0.02 X10*3/uL (0.00-0.03); Imm Gran Pct Auto 0.3 % (0.0-0.4); Lymphocytes Absolute Auto 2.4 X10*3/uL (1.2-4.9); Mean Corpuscular HGB Conc 32.7 g/dl (31.0-35.0); Mean Corpuscular Hemoglobin 25.4 pg (27.0-33.0); Mean Corpuscular Volume 77.7 fL (80.0-98.0); Mean Platelet Volume 12.2 fL (9.4-12.3); Monocytes Absolute Auto 0.5 X10*3/uL (0.1-1.2); Monocytes Percent Auto 6.8 % (2-11); Neutrophils Absolute Auto 3.6 x10*3/uL (2.0-8.3); Neutrophils Percent Auto 53.8 % (45-73); Platelet Count 197 X10*3/uL (160-400); Red Cell Distribution Width 14.8 % (11.0-16.0); White Blood Count 6.6 X10*3/uL (4.8-10.8)
--- OUTSIDE RECORDS SUMMARY | 2024-09-28 10:52 | XMS_ITS | Encounter Summary ---
Author Organization [employer] Address [address] [place] [address] [address] [place] [address] Care Team Providers Care Calibration Checker Name Role Phone Name, Piero MANLEY Primary Care Provider [phone] Nadege Kay PharmD Unavailable [phone] Reason for Visit * Reason Onset Date Comments Nurse Triage 01/21/2023 Encounter Details Date Type Department Care Team ([facility] st Contact Info) Description 01/21/2023 Telephone [facility] [address], [place] [id number] Name, MD Piero [address] [place] [address] Nurse Triage Social History Tobacco Use Types [...] reduce sugar/carb foods. Pt advised to seek [facility] for exam today or tomorrow if [...] Description 09/29/2024 3:30 PM EDT Medication Management [facility] [address], [place] [id number] Nadege Kay, PharmD [address] [place] [address] documented as of this encounter Visit Diagnoses Not on filedocumented in this encounter Additional Health Concerns Assessment Noted Time PHQ-9 Depression Total Score: 0 08/27/19 23 4:06 PM EDT documented as of this encounter Care Teams Calibration Checker Relationship Specialty Start Date End Date Name, MD [address] [place] [address] PCP - General Family Medicine 11/28/17 Nadege Kay, [place] [address] [place] [address] Pharmacist Internal Medicine 05/20/24 documented as of this encounter
[2024-09-28 10:58] LABS: Estimated Average Glucose 183 mg/dL
[2024-09-28 11:38] LABS: Alanine Aminotransferase 39 U/L (0-31); Albumin Level 4.2 g/dL (3.5-5.0); Alkaline Phosphatase 69 U/L (39-117); Anion Gap 11 (12-20); Aspartate Amino Transferase 24 U/L (5-31); Bilirubin Total 0.4 mg/dL (0.0-1.0); Blood Urea Nitrogen 11 mg/dL (9-16); C Reactive Protein 2.26 mg/dL (< or = 0.50); Calcium 9.3 mg/dL (8.4-10.2); Carbon Dioxide 23 mmol/L (22-29); Chloride 109 mmol/L (96-108); Cholesterol 143 mg/dL (<200); Estimated Glomerular Filt Rate > 60; Glucose Random 160 mg/dL (60-115); HDL Cholesterol 39 mg/dL (>40); Iron 46 mcg/dL (30-160); LDL Cholesterol Calculated 88 mg/dL (<100); Percent Iron Saturation 16 % (15-50); Potassium 4.3 mmol/L (3.3-5.1); Sodium 139 mmol/L (135-145); Total Iron Binding Capacity 280 mcg/dL (228-428); Total Protein 6.7 g/dL (6.5-8.0); Triglycerides 83 mg/dL (<150); Unsaturated Iron Binding 234 ug/dL
[2024-09-28 11:44] LABS: Ferritin 26 ng/mL (10-250); Insulin 24 uU/mL (2-29); TSH reflex Free T4 1.36 uIU/mL (0.32-4.0)
[2024-09-28 12:00] LABS: Folate 12.6 ng/mL (> or = 4.0); Vitamin B12 702 pg/mL (200-900)
[2024-09-30 18:37] LABS: Zinc 53 mcg/dL (60-130)
[2024-10-01 23:08] LABS: Vitamin B1 19 nmol/L (8-30)
[2024-10-01 23:57] LABS: Vitamin A 48 mcg/dL (38-98)
== END 2024-09-28 09:45 | disposition home or self-care (01) ==
LOC: HO.XRAY 09:44
PROVIDERS: PCP Internal Medicine Geriatric Medicine; Visit Provider Surgery
DX: E66.01 Morbid (severe) obesity due to excess calories (principal)
CPT/HCPCS: 36415; 71046; 80053; 80061; 82306; 82607; 82728; 82746; 83036; 83525; 83540; 84425; 84443; 84590; 84630; 85025; 86140; 93005

== ENCOUNTER → 2024-09-28 09:55 | Outpatient (BNV) | payer MEDICAID, SELFPAY | PROVIDERS: PCP Internal Medicine Geriatric Medicine; Visit Provider Internal Medicine Cardiovascular Disease | DX: E66.9 Obesity, unspecified (principal) | CPT/HCPCS: 93010 ==

== ENCOUNTER → 2024-09-28 10:14 | Outpatient (BNV) | payer MEDICAID, SELFPAY | PROVIDERS: PCP Internal Medicine Geriatric Medicine; Visit Provider Radiology Diagnostic Radiology | DX: E66.01 Morbid (severe) obesity due to excess calories (principal) | CPT/HCPCS: 71046 ==

== ENCOUNTER 2024-11-22 10:20 | Outpatient (AMB) | payer OTHER, SELFPAY ==
--- NOTE | 2024-11-22 10:20 | A.OFFWM_ITS ---
Intake Intake Visit Reasons: TV Intake *Call Second # on File* Allergies aspirin (ASA) Allergy (Mild, Verified 09/27/24 11:20) [facility] Medical History Subcutaneous mass Vitamin B12 deficiency Obesity Neuropathy Depression Insulin dependent diabetes mellitus Morbid obesity Surgical History H/O tubal ligation Hx of cholecystectomy Hx of section Family History Mother No problems noted. Father No problems noted. Brother No problems noted. Brother No problems noted. Brother No problems noted. Brother No problems noted. Brother No problems noted. Sister No problems noted. Sister No problems noted. Sister No problems noted. Son No problems noted. Daughter No problems noted. 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 She was originally referred by her primary care provider due to worsening diabetes and ongoing difficulties with weight management. The patient first enrolled in the program in 2020 but had to discontinue participation due to other health-related issues. Presenting Concerns Referral Source WMP- Provider. Reason for referral Completion of behavioral health assessment as part of process for weight-loss surgery. Precipitating Event Obesity. Living Situation Current Living Situation Own At risk of losing current housing? No Satisfied with current living situation? Yes Comments PT lives with her 2 children. Food/Weight/Diet Expectations of change The patient began the surgical weight loss program on 09/27/2024, with an initial recorded weight of 241 lbs. As of the most recent weight check on 11/21/2024, her weight is 239 lbs. Her initial goal is to lose 10% of her starting weight (approximately 24 lbs) prior to surgery. Her target pre-surgical weight is 217 lbs. PT is implementing the following: Current meal plan: 2 protein shakes, 2.5 protein bars and one meal per day. Exercise plan: None 2 weeks ago as she had an accident. - gym membership. Scale: yes. Communication with provider: Yes. Tuesdays. History/Relationship with food Example of meals before starting the program: Breakfast: Lunch: Dinner: Snacks: Drinks/Liquids: History/Relationship with weight In the last 10 years, the patient's Lowest weight was and highest Social History Family history and relationship PT is but 1 year ago. She has 3 children, 1 son who is 22 and lives in [place] and 2 daughters who are 14 and 10. Mother when she has 18 and father is alive. She has 11 sibling. PT reports very close family relationships. Parental/Familial grated cheese maker obligations 2 daughters. Developmental history and status None. Currently WNL. Social support Family, a friend who had weight-loss surgery. Community support Mu-Ism community. Episcopalian/Spirituality Voodoo, very active in methodist. Cultural/Ethnic information . Legal Involvement and History Current or historical involvement with the legal system? None reported. Education Highest grade completed Associate degree. Preferred learning style Auditory, Verbal, Written, Learn by doing and Visual Currently enrolled in educational program? No Interested in further educational program? 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 No Meaningful activities Reading, home d?cor, volleyball, methodist activities/adoration. Financial Situation Describe current financial situation Comfortable Financial assistance? SSI (From children.) Service Service? No Mental Health and Addiction Treatment Current/Past substance abuse? No Comments Alcohol: None Cigarettes/Tobacco: None Cannabis/Edibles: None Current/Past addictive behavior concerns? No Psychiatric history During the COVID-pandemic she had panic attacks and was presenting with mild Sx of depression, triggered by losing her job and after she god sick with Covid, these Sx resolved within months. PT denies ever been in any type of MH treatment, crisis or ever been in need for inpatient for mental health. There is no history and/or current concern about SI/SA and self-harm or other harm. Medical and Physical Health Summary Additional Medical History not covered in history None additional Sexual History concerns None reported. Physical exam in the last year? Yes Pain Screening Current pain? No Pain in the last few months? No Medications Is the patient compliant with medications? Yes Does the patient have Preston Guardian in place? Not applicable Does the patient use complimentary health approaches? No Questionnaires PHQ-9 Over the last 2 weeks, how often have you been bothered by any of the following problems? 1. Little interest or pleasure in doing things: not at all 2. Feeling down, depressed, or hopeless: not at all 3. Trouble falling or staying asleep, or sleeping too much: not at all 4. Feeling tired or having little energy: more than half the days 5. Poor appetite or overeating: several days 6. Feeling bad about yourself - or that you are a failure or have let yourself or your family down: not at all 7. Trouble concentrating on things, such as reading the newspaper or watching television: not at all 8. Moving or speaking so slowly that other people could have noticed. Or the opposite - being so fidgety or restless that you have been moving around a lot more than usual: several days 9. Thoughts that you would be better off or of hurting yourself in some way: not at all Total score: 4 Depression Screening Interpretation: Negative (From new Pt pack ) Depression Screening Done: Yes Source: Developed by Drs. Gal Capps, Ana Luisa Hardy, Carl Mo and colleagues, with an educational livan from [employer]). Binge Eating Scale Group 1 A. I don't feel self-conscious about my wt. or body size when I'm with others. B. I feel concerned about how I look to others, but it normally does not make me fell disappointed with myself C. I do get self-conscious about my appearance and wt. which makes me feel disappointed in myself. D. I feel very self-conscious about my wt. and frequently I feel intense shame and disgust for myself. I try to avoid social contacts because of my self- consciousness. Response Group 1: A Group 2 A. I don't have any difficulty eating slowly in the proper manner. B. Although I seem to gobble down foods, I don't end up feeling stuffed because of eating to much. C. At times, I tend to eat quickly and then, I feel uncomfortably full afterwards. D. I have the habit of bolting down my food, without really chewing it. When this happens I usually feel uncomfortably stuffed because I've eaten to much. Response Group 2: A Group 3 A. I feel capable to control my eating urges when I want to. B. I feel like I have failed to control my eating more than the average person. C. I feel utterly helpless when it comes to feeling in control of my eating urges. D. Because I feel so helpless about controlling my eating I have become very desperate about trying to get control. Response Group 3: D Group 4 A. I don't have the habit of eating when I'm bored. B. I sometimes eat when I'm bored, but often I'm able to get busy and get my mind off food. C. I have a regular habit of eating when I'm bored, but occasionally, I can use some other activity to get my mind off eating. D. I have a strong habit of eating when I'm bored. Nothing seems to help me breath the habit. Response Group 4: D Group 5 A. I'm usually physically hungry when I eat something. B. Occasionally, I eat something on impulse even though I really am not hungry. C. I have the regular habit of eating foods, that I might not really enjoy, to satisfy a hungry feeling even though physically, I don't need the food. D. Although I'm not physically hungry, I get a hungry feeling in my mouth that only seems to be satisfied when I eat a food, like sandwich, that fills my mouth. Sometimes, when I eat the food to satisfy my mouth hunger, I then spit the food out so I won't gain weight. Response Group 5: A Group 6 A. I don't feel any guilt or self-hate after I overeat. B. After I overeat, occasionally I feel guilt or self-hate. C. Almost all the time I experience strong guilt or self-hate after I overeat. Response Group 6: C Group 7 A. I don't lose total control of my eating when dieting even after periods when I overeat. B. Sometimes when I eat a forbidden food on a diet, I feel like I blew it and eat even more. C. Frequently, I have the habit of saying to myself, I've blown it now, why not go all the way, when I overeat on a diet. When that happens I eat more. D. I have a regular habit of starting a strict diets for myself but I break the diets by going on an eating binge. My life seems to be either a feast or famine. Response Group 7: A Group 8 A. I rarely eat so much food that I feel uncomfortably stuffed afterwards. B. Usually about once a month, I each such a quantity of food, I end up feeling very stuffed. C. I have regular periods during the month when I eat large amounts of food, either at mealtime or at snacks. D. I eat so much food that I regularly feel quite uncomfortable after eating and sometimes a bit nauseous. Response Group 8: A Group 9 A. My level of calorie intake does not go up very high or go down very low on a regular basis. B. Sometimes after I overeat, I will try to reduce my caloric intake to almost nothing to compensate for the excess calories I've eaten. C. I have a regular habit of overeating during the night. It seems that my routine is not to be hungry in the morning but overeat in the evening. D. In my adult years, I have had week-long periods where I practically starve myself. This follows periods when I overeat. It seems I live a life of either feast or famine. Response Group 9: A Group 10 A. I usually am able to stop eating when I want to. I know when enough is enough. B. Every so often, I experience a compulsion to eat which I can't seem to control. C. Frequently, I experience strong urges to eat which I seem unable to control, but at other times I can control my eating urges. D. I feel incapable of controlling urges to eat. I have a fear of not being able to stop eating voluntarily. Response Group 10: A Group 11 A. I don't have any problem stopping eating when I feel full. B. I usually can stop eating when I feel full but occasionally overeat leaving me feeling uncomfortably stuffed. C. I have a problem stopping eating once I start and usually I feel uncomfortably stuffed after I eat a meal. D. Because I have a problem not being able to stop eating when I want, I sometimes have to induce vomiting to relieve my stuffed feeling. Response Group 11: A Group 12 A. I seem to eat just as much when I'm with others, Family social gatherings as when I'm by myself. B. Sometimes, when I'm with other persons, I don't eat as much as I want to eat because I'm self-conscious about my eating. C. Frequently, I eat only a small amount of food when others are present, because I'm very embarrassed about my eating. D. I feel so ashamed about overeating that I pick times to overeat when I know no one will see me. I feel like a closet eater. Response Group 12: D Group 13 A. I eat three meals a day with only an occasional between meal snack. B. I eat 3 meals a day, but I also normally snack between meals. C. When I am snacking heavily, I get in the habit of skipping regular meals. D. There are regular periods when I seem to be continually eating, with no planned meals. Response Group 13: D Group 14 A. I don't think much about trying to control unwanted eating urges. B. At least some of the time, I feel my thoughts are pre-occupied with trying to control my eating urges. C. I feel that frequently I spend much time thinking about how much I ate or about trying not to eat anymore. D. It seems to me that most of my waking hours are pre-occupied by thoughts about eating or not eating. I feel like I'm constantly struggling not to eat. Response Group 14: C Group 15 A. I don't think about food a great deal. B. I have strong craving for food but they last only for brief periods of time. C. I have days when I can't seem to think about anything else but food. D. Most of my days seem to be pre-occupied with thoughts about food. I feel like I live to eat. Response Group 15: C Group 16 A. I usually know whether or not I'm physically hungry. I take the right portion of food to satisfy me. B. Occasionally, I feel uncertain about knowing whether or not I'm physically hungry. A these times it's hard to know how much food I should take to satisfy me. C. Even though I might know how many calories I should eat, I don't have any idea what is a normal amount of food for me. Response Group 16: C Binge Eating Score: 20 Score less than 17 Minimal Risk Score between 18-26 Moderate Risk Score between 27-46 High Risk Assessment & Plan Assessment & Plan (1) Adjustment disorder: Code(s): F43.20 - Adjustment disorder, unspecified Qualifiers: Adjustment disorder type: unspecified type Qualified Code(s): F43.20 - Adjustment disorder, unspecified (2) Pre-bariatric surgery psychological evaluation: Code(s): Z71.89 - Other specified counseling Plan The patient was not cleared today as the assessment was not completed. The patient will return in 2-4 weeks to continue the evaluation. Next appointment: 12/09/2024 at 10am, Phone visit. Telehealth [facility]health [facility] Location of provider rendering services: other (Home office. [place], [place]) Location of patient: address on file Patient Identification confirmed using: Name, : Yes Telehealth method: voice only Patient verbally consented to treatment: Yes Patient verbally consented to billing insurance company: Yes Patient informed of any privacy concerns related to visit: Yes Minutes spent on Phone/Video with Pt.: 45 Coding Level of Care Code New Pt Tele Psy Diag Baltazar ([id number]) Patient Type New Diagnoses Adjustment disorder, unspecified type F43.20 Adjustment disorder type: unspecified type Pre-bariatric surgery psychological evaluation Z71.89 Time Spent (min) 45
--- OUTSIDE RECORDS SUMMARY | 2024-11-22 11:00 | XMS_ITS | Encounter Summary ---
Author Organization [employer] Address [address] [place] [address] [address] [place] [address] Care Team Providers Care Artificial Limb Maker Name Role Phone Name, Piero MANLEY Primary Care Provider [phone] Nadege Kay PharmD Unavailable Reason for Visit * Reason Onset Date Comments Nurse Triage 01/21/2023 Encounter Details Date Type Department Care Team ([facility] st Contact Info) Description 01/21/2023 Telephone [facility] [address], [place] [phone] Name, MD Piero [address] [place] [address] Nurse Triage Social History Tobacco Use Types [...] reduce sugar/carb foods. Pt advised to seek [facility] for exam today or tomorrow if sugars [...] Care Team (Late st Contact Info) Description 12/13/2024 11:30 AM EDT Medication Management [facility] [address] [place] [phone] Nadege Kay, [place] [address] [place] [address] 02/07/2025 4:00 PM EDT Office Visit [facility] [address] [place] [address] [phone] Name, MD Piero [address] [place] [phone] documented as of this encounter Visit Diagnoses Not on filedocumented in this encounter Additional Health Concerns Assessment Noted Time PHQ-9 Depression Total Score: 0 08/27/19 23 4:06 PM EDT documented as of this encounter Care Teams Artificial Limb Maker Relationship Specialty Start Date End Date Name, MD Piero [address] [place] [phone] PCP - General Family Medicine 11/28/17 Nadege Kay PharmD [address] [place] [phone] Pharmacist Internal Medicine 05/20/24 documented as of this encounter
== END 2024-11-22 11:04 | disposition home or self-care (01) ==
LOC: HO.HBST 10:20
PROVIDERS: PCP Internal Medicine Geriatric Medicine; Visit Provider Counselor Mental Health
DX: F43.20 Adjustment disorder, unspecified (principal); Z71.89 Other specified counseling
CPT/HCPCS: 90834